=== PATIENT | female | born 1950 | race Caucasian/White ===

== ENCOUNTER 2021-03-30 15:03 | Observation (INO) | payer MEDICARE ==
[~2021-03-30] VITALS: Ht 152.4 cm; Wt 40.1 kg
[2021-03-30 16:01] LABS: BASOPHILS % (AUTO) 1 % (0-10); EOSINOPHILS % (AUTO) 1 % (0-10); HEMATOCRIT 29 % (35-52); HEMOGLOBIN 10.4 g/dL (11.5-16.0); LYMPHOCYTES # (AUTO) 0.8 10^3/uL (1.0-4.0); LYMPHOCYTES % (AUTO) 21 % (12-44); MEAN CORPUSCULAR HEMOGLOBIN 31 pg (25-34); MEAN CORPUSCULAR HGB CONC 35 g/dL (32-36); MEAN CORPUSCULAR VOLUME 88 fL (80-99); MEAN PLATELET VOLUME 10.1 fL (9.0-12.2); MONOCYTES # (AUTO) 0.7 10^3/uL (0.0-1.0); MONOCYTES % (AUTO) 19 % (0-12); NEUTROPHILS # (AUTO) 2.1 10^3/uL (1.8-7.8); NEUTROPHILS % (AUTO) 58 % (42-75); PLATELET COUNT 246 10^3/uL (130-400); WHITE BLOOD COUNT 3.6 10^3/uL (4.3-11.0)
--- NOTE | 2021-03-30 16:01 | ED Neurological Problem ---
General Chief Complaint: General Problems/Pain Stated Complaint: WEAKNESS IN LEGS Nursing Triage Note: PT TO RM 7 BY WC WITH CC OF WEAKNESS IN LEGS THAT STARTED IN JANUARY, PT HAS HX OF MS. PT WAS SUPPOSED TO GET AN MRI TODAY BUT WAS CALLED AND TOLD THAT THE INSURANCE WOULD NOT COVER IT. SISTER WITH PT ALSO STATED THAT SHE NOTICED LT SIDE FACIAL DROOPING YESTERDAY. Source: patient, family Exam Limitations: no limitations History of Present Illness Date Seen by Provider: Mar 30, 2021 Time Seen by Provider: 15:19 Initial Comments The patient to ER by private conveyance from with chief complaint that she is having some left facial droop today that she noticed first when she woke up yesterday greater than 24 hours ago. She has no history of strokes TIAs heart attack stents or peripheral arterial disease. No history of atrial fibrillation and is not on blood thinners. She does have a history of MS for several years used to be followed by Dr. Turner and now followed by Dr. Paris. She been noticing for the past couple weeks some increased weakness and difficulty walking and standing up from a chair bilaterally and brought this up to her doctor who is setting her up for an outpatient MRI. She is not having any other unilateral symptoms. No difficulty swallowing. No difficulty breathing palpitations chest pain shortness of air fevers chills nausea vomiting diarrhea. Allergies and Home Medications Allergies Coded Allergies: No Known Drug Allergies (Unverified , 03/30/21) Patient Home Medication List Home Medication List Reviewed: Yes Review of Systems Review of Systems Constitutional: No chills, No diaphoresis Eyes: Denies Blindness, Denies Blurred Vision Ears, Nose, Mouth, Throat: denies ear pain, denies ear discharge Respiratory: No cough, No short of breath Cardiovascular: No chest pain, No edema Gastrointestinal: No abdominal pain, No constipation, No diarrhea Genitourinary: No discharge, No dysuria All Other Systems Reviewed Negative Unless Noted: Yes Past [place]-Agucot-Dtipji Hx Patient Social History Tobacco Use?: No Smoking Status: Never a Smoker Substance use?: No Alcohol Use?: No Immunizations Up To Date Second COVID19 Vaccination Ziggy: DECEMBER 2020 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 oz. kg; 17.00 BMI Method: General Appearance: WD/WN, no apparent distress HEENT: PERRL/EOMI, TMs normal, pharynx normal Neck: full range of motion, normal inspection Respiratory: no respiratory distress, no accessory muscle use Cardiovascular: normal peripheral pulses, regular rate, rhythm Gastrointestinal: non tender, soft Extremities: non-tender, normal capillary refill Neurologic/Psychiatric: alert, normal mood/affect, oriented x 3 Crainal Nerves: normal hearing, normal speech, PERRL Motor/Sensory: other (Left facial droop with some sparing of the wrinkling of the left forehead) Stroke Onset of Symptoms Date of Onset of Symptoms: Mar 29, 2021 Time of Symptom Onset: 07:00 Symptoms onset unknown: Yes NIH Stroke Scale Assessment Select: Initial Level of Consciousness: 0=Alert (0), Level of Consciousness- Questions: 0=Answers both month/age (0), LOC Commands: 0=Performs both tasks (0), Gaze: Normal (0), Visual Melendrez: 0=No visual loss (0), Facial Movement (Facial Paresis): 1=Minor paralysis (1), Motor Function-Arms Right: 0=No drift (0), Motor Function-Arms Left: 0=No drift (0), Motor Function-Legs Right: 0=No drift (0), Motor Function-Legs Left: 0=No drift (0), Limb Ataxia: 0=Absent (0), Sensory: 0=Normal:no loss (0), Best Language: 0=No aphasia (0), Dysarthria: 0=Normal (0), Extinction & Inattention: 0=No abnormality (0), Total: 1 Stroke Thrombolytic Exclusion Age 18 or Over: Yes Acute intenal hemorrhage: No History of CVA: No Uncontrolled Coagulation Defec: No Intracranial Hemorrhage: No Severe Hypertension: No GI or Bleed: No Subarachnoid Hemorrhage: No Intracranial Neoplasm/Aneurysm: No Oral Anticoagulants: No Surgery or Trauma: No Puncture of Non-Compressible V: No Recent CPR: No Diabetic Hemorrhagic Retinopat: No Organ Biopsy: No Recent Obstetric Delivery: No Glucose: No Significant Hepatic Dysfunctio: No NIH Stoke Scale >22: No Bacterial Endocarditis: No Pericarditis: No Improving Symptoms: No Platelets: No TPA Contraindication: No IV - TPa Received IV - TPa Procedure Performed?: No (Well outside the window for time.) Progress/Results/Core Measures Results/Orders Lab Results Laboratory Tests Test 03/30/21 15:15 Range/Units White Blood Count 3.6 L 4.3-11.0 10^3/uL Red Blood Count 3.35 L 3.80-5.11 10^6/uL Hemoglobin 10.4 L 11.5-16.0 g/dL Hematocrit 29 L 35-52 % Mean Corpuscular Volume 88 80-99 fL Mean Corpuscular Hemoglobin 31 25-34 pg Mean Corpuscular Hemoglobin Concent 35 32-36 g/dL Red Cell Distribution Width 14.2 10.0-14.5 % Platelet Count 246 130-400 10^3/uL Mean Platelet Volume 10.1 9.0-12.2 fL Immature Granulocyte % (Auto) 1 % Neutrophils (%) (Auto) 58 42-75 % Lymphocytes (%) (Auto) 21 12-44 % Monocytes (%) (Auto) 19 H 0-12 % Eosinophils (%) (Auto) 1 0-10 % Basophils (%) (Auto) 1 0-10 % Neutrophils # (Auto) 2.1 1.8-7.8 10^3/uL Lymphocytes # (Auto) 0.8 L 1.0-4.0 10^3/uL Monocytes # (Auto) 0.7 0.0-1.0 10^3/uL Eosinophils # (Auto) 0.0 0.0-0.3 10^3/uL Basophils # (Auto) 0.0 0.0-0.1 10^3/uL Immature Granulocyte # (Auto) 0.0 0.0-0.1 10^3/uL Neutrophils % (Manual) 65 % Lymphocytes % (Manual) 17 % Monocytes % (Manual) 15 % Band Neutrophils 1 % Reactive Lymphocytes 2 % Blood Morphology Comment NORMAL Sodium Level 138 135-145 MMOL/L Potassium Level 2.6 L 3.6-5.0 MMOL/L Chloride Level 98 98-107 MMOL/L Carbon Dioxide Level 25 21-32 MMOL/L Anion Gap 15 H 5-14 MMOL/L Blood Urea Nitrogen 16 7-18 MG/DL Creatinine 0.61 0.60-1.30 MG/DL Estimat Glomerular Filtration Rate > 60 BUN/Creatinine Ratio 26 Glucose Level 131 H 70-105 MG/DL Calcium Level 8.7 8.5-10.1 MG/DL Corrected Calcium 9.3 8.5-10.1 MG/DL Total Bilirubin 2.0 H 0.1-1.0 MG/DL Aspartate Amino Transf (AST/SGOT) 26 5-34 U/L Alanine Aminotransferase (ALT/SGPT) 17 0-55 U/L Alkaline Phosphatase 90 40-136 U/L C-Reactive Protein High Sensitivity 4.33 H 0.00-0.50 MG/DL Total Protein 6.4 6.4-8.2 GM/DL Albumin 3.3 3.2-4.5 GM/DL My Orders Orders - LISA CANALES Cbc With Automated Diff (03/30/21 15:52) Comprehensive Metabolic Panel (03/30/21 15:52) Hs C Reactive Protein (03/30/21 15:52) Ua Culture If Indicated (03/30/21 15:52) Ekg Tracing (03/30/21:52) Continuous Ekg Monitoring (03/30/21 15:52) Chest 1 View, Ap/Pa Only (03/30/21 15:52) Nothing By Mouth (03/30/21 Dinner) Ed Iv/Invasive Line Start (03/30/21 15:52) Ed Iv/Invasive Line Start (03/30/21 15:52) Vital Signs Stroke Patient Q15M (03/30/21 15:52) Ct Head Wo-R/O Stroke (03/30/21 15:52) Intake & Output 06,14,22 (03/30/21 15:52) Monitor-Rhythm Ecg Trace Only (03/30/21 15:52) Dysphagia Screening Tool (03/30/21 15:52) Manual Differential (03/30/21 15:15) Vital Signs/I&O 03/30/21 15:07 Temp 36.5 Pulse 109 Resp 18 B/P (MAP) 112/81 (91) Pulse Ox 100 O2 Delivery Room Air Blood Pressure Mean: 91 Progress Progress Note #1: Time: 16:07 Progress Note Fairly complicated patient by history and exam. Her symptoms could all be explained by a palsy of cranial nerve VII as she is not having any sensory deficits in her face and they are all limited to just cranial nerve VII. She is having weakness in her lower extremities and her upper extremities which is symmetric bilaterally 4 out of 5 motor strength all 4 extremities and this could be explained by progressive MS. Discussed the case with radiology and we deci ded that since the symptoms been going on in her face for greater than a day a CT will help rule out a bleed and may also show some early signs of ischemic stroke if it is present. An MRI of the brain could miss a bleed so would not be our first modality. After a CT is obtained we will consider consulting neurology. Progress Note #2: Time: 17:31 Progress Note Reviewed the imaging and history with Dr. Caldwell, neurologist at [facility] and he agrees that this is a very complicated case and would be difficult to make a claim 1 way or the other without an MRI of the brain with contrast. Plan to observe the patient upstairs and get the MRI in the morning. Initial ECG Impression Date: Mar 30, 2021 Initial ECG Impression Time: 10:50 Initial ECG Rate: 105 Initial ECG Rhythm: S.Tach Initial ECG Intervals: Normal Initial ECG Impression: Normal, Nonspecific Changes Comment Sinus tachycardia without clinically relevant ST changes. Diagnostic Imaging Diagonstic Imaging: CT Plain Films/CT/US/NM/MRI: head Comments [facility], [place] NAME: IRENA ENAMORADO [facility] REC#: [id number] PT STATUS: REG ER : 1950 PHYSICIAN: LISA CANALES MD ADMIT DATE: 03/30/21/ER Signed Date of Exam:03/30/21 CT HEAD WO-R/O STROKE PROCEDURE: CT head wo r/o stroke. TECHNIQUE: Multiple contiguous axial images were obtained through the brain without the use of intravenous contrast. Auto Exposure Controls were utilized during the CT exam to meet ALARA standards for radiation dose reduction. INDICATION: Neurologic deficit. Weakness in legs that started in January. History of multiple sclerosis. Left-sided facial drooping. COMPARISON: MRI brain 10/21/2008. FINDINGS: Moderate generalized parenchymal volume loss is similar to the prior exam. Mild scattered low-attenuation changes in the deep white matter correspond to T2 hyperintensities on the [address] evidence of acute territorial infarction. No intracranial hemorrhage, mass effect, hydrocephalus or extra-axial fluid collections. Osseous structures are intact. Mild mucosal thickening in the floor of the left maxillary sinus is partially visualized. Mastoids are unremarkable. IMPRESSION: No acute intracranial CT findings. Chronic findings as above. Dictated by: Dictated on workstation # [id number] Dict: 03/30/21 1624 Trans: 03/30/211 [facility] [id number] Interpreted by: BENITA COX MD Electronically signed by: BENITA COX MD 03/30/211640 Reviewed: Reviewed by Me Diagonstic Imaging: Xray Plain Films/CT/US/NM/MRI: chest Comments [facility] [place] NAME: IRENA ENAMORADO [facility] REC#: [id number] PT STATUS: REG ER : 1950 PHYSICIAN: LISA CANALES MD ADMIT DATE: 03/30/21/ER Signed Date of Exam:03/30/21 CHEST 1 VIEW, AP/PA ONLY INDICATION: Facial droop, weakness. COMPARISON: None. FINDINGS: Single view of the chest demonstrates slight cardiac enlargement. Lungs are clear. There is no pneumothorax. Osseous structures are stable. IMPRESSION: Slight cardiac enlargement without pulmonary edema or acute infiltrate. Dictated by: Dictated on workstation # [id number] Dict: 03/30/21 1630 Trans: 03/30/21 1643 [facility] [id number] Interpreted by: EUN PRESSLEY Electronically signed by: EUN PRESSLEY 03/30/211642 Reviewed: Reviewed by Me Departure Communication (Admissions) Time/Spoke to Admitting Phy: 17:35 Discussed the case with Dr. Paris who is okay with observing the patient on [facility] for an MRI in the morning. Impression Primary Impression: CVA (cerebral vascular accident) Qualified Codes: I63.9 - Cerebral infarction, unspecified Additional Impression: Multiple sclerosis exacerbation Disposition: ADMITTED INPATIENT Condition: Stable Admissions Decision to Admit Reason: Admit from ER (General) Decision to Admit/Date: Mar 30, 2021 Time/Decision to Admit Time: 17:30 Departure-Patient Inst. Referrals: SAMIR TURNER MD (Family) Primary Care Physician LISA CANALES Mar 30, 2021 16:01
[2021-03-30 16:06] LABS: ALBUMIN 3.3 GM/DL (3.2-4.5); CHLORIDE 98 MMOL/L (98-107); POTASSIUM 2.6 MMOL/L (3.6-5.0); SODIUM 138 MMOL/L (135-145)
[2021-03-30 16:07] LABS: CALCIUM 8.7 MG/DL (8.5-10.1)
[2021-03-30 16:08] LABS: GLUCOSE 131 MG/DL (70-105)
[2021-03-30 16:09] LABS: TOTAL PROTEIN 6.4 GM/DL (6.4-8.2)
[2021-03-30 16:10] LABS: CARBON DIOXIDE 25 MMOL/L (21-32)
[2021-03-30 16:12] LABS: ALKALINE PHOSPHATASE 90 U/L (40-136); BAND NEUTROPHILS 1 %; CREATININE SERUM 0.61 MG/DL (0.60-1.30); GFR ESTIMATED > 60; LYMPHOCYTES % (MANUAL) 17 %; MONOCYTES % (MANUAL) 15 %; NEUTROPHILS % (MANUAL) 65 %; RBC MORPH NORMAL; REACTIVE LYMPHOCYTES 2 %
[2021-03-30 16:13] LABS: BUN/CREATININE RATIO 26
[2021-03-30 16:15] LABS: ALANINE AMINOTRANSFERASE 17 U/L (0-55)
--- NOTE | 2021-03-30 16:33 | Diagnostic Imaging Report ---
INDICATION: Facial droop, weakness. COMPARISON: None. FINDINGS: Single view of the chest demonstrates slight cardiac enlargement. Lungs are clear. There is no pneumothorax. Osseous structures are stable. IMPRESSION: Slight cardiac enlargement without pulmonary edema or acute infiltrate. Dictated by: Dictated on workstation # [id number]
--- NOTE | 2021-03-30 16:34 | Diagnostic Imaging Report ---
PROCEDURE: CT head wo r/o stroke. TECHNIQUE: Multiple contiguous axial images were obtained through the brain without the use of intravenous contrast. Auto Exposure Controls were utilized during the CT exam to meet ALARA standards for radiation dose reduction. INDICATION: Neurologic deficit. Weakness in legs that started in January. History of multiple sclerosis. Left-sided facial drooping. COMPARISON: MRI brain 10/21/2008. FINDINGS: Moderate generalized parenchymal volume loss is similar to the prior exam. Mild scattered low-attenuation changes in the deep white matter correspond to T2 hyperintensities on the [address] evidence of acute territorial infarction. No intracranial hemorrhage, mass effect, hydrocephalus or extra-axial fluid collections. Osseous structures are intact. Mild mucosal thickening in the floor of the left maxillary sinus is partially visualized. Mastoids are unremarkable. IMPRESSION: No acute intracranial CT findings. Chronic findings as above. Dictated by: Dictated on workstation # [id number]
[2021-03-30 19:56] VITALS: BP 128/86
[2021-03-30] MEDS ORDERED: ONDANSETRON 4 MG/2 ML (SDV) Z0FRAN IV PRN (20:45)
[2021-03-30] MEDS ORDERED: CATHETER FLUSH 10 ML SYR IV PRN (20:45)
[2021-03-30] MEDS ORDERED: ACETAMINOPHEN 325 MG TABLET PO PRN ×2 (20:45)
[2021-03-30] MEDS: DOCUSATE SODIUM 100 MG (COLACE) CAP PO SCH (21:11)
[2021-03-30] MEDS: CATHETER FLUSH 10 ML SYR IV SCH (21:19)
[2021-03-31] VITALS (7 sets, daily range): BP systolic 110–126; BP diastolic 72–81
[2021-03-31] MEDS: CATHETER FLUSH 10 ML SYR IV SCH ×3 (05:38→20:17)
[2021-03-31 06:16] LABS: BASOPHILS % (AUTO) 1 % (0-10); EOSINOPHILS % (AUTO) 2 % (0-10); HEMATOCRIT 25 % (35-52); HEMOGLOBIN 8.7 g/dL (11.5-16.0); LYMPHOCYTES # (AUTO) 0.5 10^3/uL (1.0-4.0); LYMPHOCYTES % (AUTO) 21 % (12-44); MEAN CORPUSCULAR HEMOGLOBIN 31 pg (25-34); MEAN CORPUSCULAR HGB CONC 36 g/dL (32-36); MEAN CORPUSCULAR VOLUME 88 fL (80-99); MEAN PLATELET VOLUME 9.9 fL (9.0-12.2); MONOCYTES # (AUTO) 0.5 10^3/uL (0.0-1.0); MONOCYTES % (AUTO) 20 % (0-12); NEUTROPHILS # (AUTO) 1.4 10^3/uL (1.8-7.8); NEUTROPHILS % (AUTO) 56 % (42-75); PLATELET COUNT 195 10^3/uL (130-400); WHITE BLOOD COUNT 2.5 10^3/uL (4.3-11.0)
[2021-03-31 06:28] LABS: CHLORIDE 100 MMOL/L (98-107); SODIUM 138 MMOL/L (135-145)
[2021-03-31 06:30] LABS: GLUCOSE 94 MG/DL (70-105)
[2021-03-31 06:32] LABS: CARBON DIOXIDE 27 MMOL/L (21-32)
[2021-03-31 06:34] LABS: CREATININE SERUM 0.56 MG/DL (0.60-1.30); GFR ESTIMATED > 60
[2021-03-31 06:35] LABS: BUN/CREATININE RATIO 20
[2021-03-31 06:49] LABS: POTASSIUM 2.3 MMOL/L (3.6-5.0)
[2021-03-31] MEDS ORDERED: KCL 20 MEQ TAB (K-DUR) PO ONE ×2 (07:00→16:00)
--- NOTE | 2021-03-31 08:32 | History & Physical ---
History of Present Illness History of Present Illness Reason for visit/HPI PT IS A 70 Y/O FEMALE WHO IS KNOWN TO ME FROM CLINIC. IRENA HAS HX OF MULTIPLE SCLEROSIS WITH WEAKNESS THAT HAS BEEN PROGRESSIVE FOR THE PAST 1-2 MONTHS. SHE HAS ALSO SUSTAINED A FAIRLY SIGNIFICANT WEIGHT LOSS IN THE PAST 6 MONTHS. PT REPORTS A DECREASED APPETITE, AND DECREASED INTAKE BECAUSE "NOTHING SOUNDS GOOD" SHE WAS SEEN IN THE OFFICE ON 03/25/2021 WITH WEAKNESS OF HER LOWER LEGS BELOW THE KNEES WITH CONCERN FOR AN MULTIPLE SCLEROSIS FLAIR, SHE DID NOT HAVE THE FACIAL DROOP AT THAT TIME. SHE PRESENTED TO THE ER ON 03/30/2021 IN THE LATE AFTERNOON WITH COMPLAINT OF LEFT FACIAL DROOP/WEAKNESS FOR 03/28 - PRESENT. SHE DENIES ANY EXTREMITY PARESIS, OR WORSE WEAKNESS THAN SHE HAS BEEN EXPERIENCING FOR THE PAST FEW MONTHS. SHE DENIES VISION LOSS/CHANGES, FACIAL PAIN, DYSPHAGIA. Date of Admission Mar 30, 2021 at 17:45 Date Seen by a Provider: Mar 31, 2021 Time Seen by a Provider: 08:30 I consulted on this patient on 03/31/21 08:32 Attending Physician Elsie Paris MD Admitting Physician ELSIE PARIS MD Consult Allergies and Home Medications Allergies Coded Allergies: No Known Drug Allergies (Unverified , 03/30/21) Home Medications Ibuprofen 200 Mg Tablet, 400-600 MG PO Q8H PRN for PAIN-MILD (1-4), (Reported) Last Action: Reviewed Patient Home Medication List Home Medication List Reviewed: Yes Past Xslodky-Lvvlhz-Btfsfp Hx Patient Social History Marrital Status: single Number of Children: 0 Number of living children: 0 Living Status: LIVES ALONE Employed/Student: retired Tobacco Use?: No Smoking Status: Never a Smoker Smokeless Tobacco Frequency: Never a User Use of E-Cig and/or Vaping dev: No Use of E-Cig and/or Vaping Sheldon: Never a User Substance use?: No Alcohol Use?: No Pt feels they are or have been: No Immunizations Up To Date First/Initial COVID19 Vaccinat: 11/20/20 Second COVID19 Vaccination Ziggy: 12/22/20 Tetanus Booster (TDap): Unknown Hepatitis A: No Hepatitis B: No Current Status status: No status: No Advance Directives: No Communicates: Verbally Primary Language: Afghan Preferred Spoken Language: Afghan Is interpretation needed?: No Implanted or Applied Medical D: None Past Medical History Currently Using CPAP: No Currently Using BIPAP: No Sexually Transmitted Disease: No HIV/AIDS: No Arthritis, Rheumatoid Arthritis Diabetes, Non-Insulin dep (DIET CONTROLLED) Are Your Blood Sugars Over 250: No Loss of Vision: Denies Anxiety Family Medical History Reviewed and Corrections made Hypertension Review of Systems Constitutional: No chills, No fever; malaise, weakness, weight loss EENTM: hearing loss (RIGHT ACUTE), ear pain (RIGHT), mouth pain (RIGHT NEAR JAW); No hoarseness, No throat pain Respiratory: No cough, No dyspnea on exertion, No short of breath Cardiovascular: No chest pain, No palpitations Gastrointestinal: No abdominal pain, No constipation, No diarrhea, No dysphagia; loss of appetite; No nausea, No vomiting Genitourinary: no symptoms reported Musculoskeletal: joint pain, joint swelling, muscle weakness Skin: no symptoms reported Psychiatric/Neurological: Denies Anxiety; Depressed, Pre-Existing Deficit, Weakness, Other (LEFT FACIAL WEAKNESS) All Other Systems Reviewed Negative Unless Noted: Yes Physical Exam Vital Signs Vital Signs - First Documented 03/30/21 15:07 Temp 36.5 Pulse 109 Resp 18 B/P (MAP) 112/81 (91) Pulse Ox 100 O2 Delivery Room Air Capillary Refill : Less Than 3 Seconds Height, Weight, BMI Height: '" Weight: lbs. oz. kg; 17.26 BMI Method: General Appearance: No Apparent Distress, Chronically ill, Thin Eyes: Bilateral Eye Normal Inspection, Bilateral Eye PERRL, Bilateral Eye EOMI HEENT: PERRL/EOMI, Pharynx Normal, Other (LEFT FACIAL DROOP - LOWER CORNER LEFT MOUTH NON-MOBILE) Neck: Full Range of Motion, Normal Inspection, Non Tender, Supple Respiratory: Chest Non Tender, Lungs Clear, Normal Breath Sounds, No Accessory Muscle Use, No Respiratory Distress Cardiovascular: Regular Rate, Rhythm, No Edema, No Gallop, No JVD, No Murmur, Normal Peripheral Pulses Gastrointestinal: Normal Bowel Sounds, No Organomegaly, No Pulsatile Mass, Non Tender, Soft Rectal: Deferred Back: Normal Inspection, No CVA Tenderness, No Vertebral Tenderness Extremity: Normal Capillary Refill, Normal Range of Motion, Non Tender, No Calf Tenderness Neurologic/Psychiatric: Alert, Oriented x3, Normal Mood/Affect, Other (LEFT FACIAL DROOP SENSATION INTACT RIGHT TO LEFT ON FACE, STRENGTH GENERALIZED WEAKNESS, NO LATERALIZING WEAKNESS NOTED ON PHYSICAL EXAM) Skin: Normal Color, Warm/Dry Lymphatic: No Adenopathy Assessment/Plan Assessment and Plan MULTIPLE SCLEROSIS FLAIR POSSIBLE TIA POSSIBLE BELLS PALSY WEIGHT LOSS ANOREXIA GENERALIZED MUSCLE WEAKNESS HYPOKALEMIA LEUKOPENIA MULTIPLE SCLEROSIS FLAIR VERSUS POSSIBLE TIA VERSUS POSSIBLE BELLS PALSY - DUE TO HER HX OF MS, WILL NEED TO PERFORM AN MRI TODAY- - MONITOR SYMPTOMS, WAIT ON INITIATION OF STEROIDS, SHE WAS GIVEN OUTPT STEROIDS WITH NO IMPROVEMENT IN HER GENERALIZED WEAKNESS - PT WAS TAKEN OFF OF PLAQUENIL AND METHOTREXATE BY HER BRUSH CLEANER ABOUT 1-2 MONTHS AGO DUE TO HER WEIGHT LOSS. - CT SCAN OF HEAD NEGATIVE HYPOKALEMIA - REPLACE WITH ORAL POTASSIUM AND WILL ADD POTASSIUM TO HER IV FLUIDS WEIGHT LOSS WITH GENERALIZED ANOREXIA - PT CAN EAT, CHOOSES NOT TO DUE TO FOOD NOT TASTING "GOOD" - WILL HAVE DIETARY COME TO EVAL FOR POSSIBLE ASSISTANCE, WILL START HIGH PROTEIN ENSURE WELL - DISCUSSED APPETITE STIMULANTS WITH PT AND AVAILABLE FRIENDS/FAMILY IN THE ROOM, WILL CONSIDER MARINOL GENERALIZED MUSCLE WEAKNESS - PHYSICAL THERAPY EVAL AND TREAT - CONSIDER INPT REHAB IF BEDS AVAILABLE. Admission Diagnosis MULTIPLE SCLEROSIS FLAIR POSSIBLE TIA POSSIBLE BELLS PALSY WEIGHT LOSS ANOREXIA GENERALIZED MUSCLE WEAKNESS HYPOKALEMIA LEUKOPENIA Admission Status: Observation Clinical Quality Measures Stroke: Date of last known well: Mar 29, 2021 Time of last known well: 07:00 Symptoms onset unknown: Yes ELSIE PARIS MD Mar 31, 2021 08:32
[2021-03-31] MEDS ORDERED: POTASSIUM CHLORIDE INJ 20 MEQ in NS IV 1000 ML 1,000 ML IV SCH (08:45)
[2021-03-31] MEDS ORDERED: DOCUSATE SODIUM 100 MG (COLACE) CAP PO SCH (09:00)
[2021-03-31] MEDS ORDERED: ASPIRIN 300 MG (5 GR) SUPPOSITORY PR SCH (09:00)
[2021-03-31] MEDS: DOCUSATE SODIUM 100 MG (COLACE) CAP PO SCH ×2 (09:00→20:17)
[2021-03-31] MEDS ORDERED: IBUP-30 PO (09:08)
[2021-03-31] MEDS: ENOXAPARIN 30 MG/0.3 ML (LOVENOX) SYR SC SCH (09:14)
[2021-03-31] MEDS: ASPIRIN E.C. 325 MG (ECOTRIN) TABLET PO SCH (09:14)
[2021-03-31] MEDS ORDERED: GADOBUTROL 7.5 MMOL/7.5 ML (GADAVIST) VIAL IV ONE (09:15)
--- NOTE | 2021-03-31 11:48 | Diagnostic Imaging Report ---
Indication: Stroke versus multiple sclerosis Correlated with the brain MRI performed 10/21/2008 and correlated with the head and correlated with head CT 03/30/2021. Multiplanar multisequence pre and post IV contrast-enhanced MRI brain performed. In addition to routine brain sequences thin slices through the IACs are undertaken. FINDINGS: There are no foci of abnormal diffusion restriction. There were no findings of an acute or subacute ischemic infarct. There is a mild cerebral cortical atrophy having increased from the previous. The ventricular calibers are congruent with the degree of sulcation. There is progressive periventricular and predominantly left frontal lobe subcortical white matter disease. The largest subcortical left frontal lobe white matter lesion today measures 9 mm, previously 5 mm. The lesion showed no mass effect and showed no enhancement and theY showed no abnormal diffusion restriction. There were no findings to suggest MRI evidence for active demyelinating plaque. No mass or mass effect. No suspicious enhancement following contrast was found. The cerebellopontine angles appeared unremarkable. The 7th and 8th cranial nerve complexes nonacute opacification of bilateral mastoid air cells unchanged. Brainstem and posterior fossa nonacute. There is normal enhancement of the major dural venous sinuses. There is some mild membrane thickening and a small left maxillary sinus mucus retention cyst. Paranasal sinus disease is substantially improved in the interim. 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 There is membrane disease involving scattered ethmoid air cell similar. IMPRESSION: Increased cerebral cortical atrophic volume loss, progressive nonspecific subcortical and periventricular white matter disease. However no abnormal enhancement or diffusion restriction. No findings to suggest active demyelinating plaque. There are no findings of an acute or subacute infarct and there is no hemorrhage or evidence of mass. Improvements in maxillary paranasal sinus disease. Dictated by: Dictated on workstation # [id number]
[2021-03-31] MEDS: NS W/KCL 20 MEQ/L 1,000 ML IV SCH ×2 (11:58→21:36)
--- NOTE | 2021-03-31 12:05 | Physical Therapy Evaluation ---
PT Evaluation-General Medical Diagnosis Admission Date Mar 30, 2021 at 17:45 Medical Diagnosis: CVA vs MS flare Onset Date: Mar 30, 2021 Therapy Diagnosis Therapy Diagnosis: generalized weakness/debility Precautions Precautions/Isolations: Standard Precautions Referral Physician: Wellington Reason for Referral: Evaluation/Treatment Medical History Additional Medical History MS Current History ER secondary to bilateral LE weakness and facial droop L Reviewed History: Yes Social History Home: Apartment Current Living Status: Alone Entry Into Home: Level Entry Prior Prior Level of Function SCALE: Activities may be completed with or without assistive devices. 9-Rskanujnwe-jzfnhax completes the activity by him/herself with no assistance from a helper. 5-Set-up or Clean-up Assistance-helper sets up or cleans up; patient completes activity. [place] assists only prior to or following the activity. 4-Supervision or Touching Assistance-helper provides verbal cues and/or touching/steadying and/or contact guard assistance as patient completes activity. Assistance may be provided throughout the activity or intermittently. 3-Partial/Moderate Assistance-helper does LESS THAN HALF the effort. [place] lifts, holds or supports trunk or limbs, but provides less than half the effort. 2-Substantial/Maximal Assistance-helper does MORE THAN HALF the effort. [place] lifts or holds trunk or limbs and provides more than half the effort. 3-Ifssztzfs-yyzkpk does ALL the effort. Patient does none of the effort to complete the activity. Or, the assistance of 2 or more helpers is required for the patient to complete the activity. If activity was not attempted, code reason: 7-Patient Refused. 9-Not Applicable-not attempted and the patient did not perform the activity before the current illness, exacerbation or injury. 10-Not Attempted due to Environmental Limitations-(lack of equipment, weather restraints, etc.). 88-Not Attempted due to Medical Conditions or Safety Concerns. Bed Mobility: 6 Transfers (B,C,W/C): 6 Gait: 6 Stairs: 9 Wheelchair Mobility: 9 Indoor Mobility (Ambulation): Independent Stairs: Not Applicalbe Prior Devices Use: None furniture walks in apartment and has attempt to use a cane unsuccessfully PT Evaluation-Current Subjective Patient agrees to PT. Objective Patient Orientation: Normal For Age ROM/Strength ROM Lower Extremities bilateral LE WFL Strength Lower Extremities 3/5 bilateral LE all planes equally Integumentary/Posture Bowel Incontinence: No Bladder Incontinence: No Posture WFL Neuromuscular (Tone, Coordination, Reflexes) grossly intact Sensory Vision: Functional Hearing: Functional Sensation Right Lower Extremit: Impaired Sensation Left Lower Extremity: Impaired Transfers Roll Left to Right (QC): 6 Sit to Lying (QC): 6 Lying to Sitting/Side of Bed(Q: 6 Sit to Stand (QC): 4 (SBA) Chair/Bwk-vx-Tokkz Xfer(QC): 4 (SBA) Gait Does the Patient Walk?: Yes Mode of Locomotion: Walk Anticipated Mode of Locomotion: Walk Walk 10 feet (QC): 4 (SBA) Walk 50 ft with 2 Turns(QC): 4 (SBA) Walk 150 ft (QC): 4 (SBA) Distance: 200' Gait Assistive Device: FWW Comments/Gait Description safe and functional with no deviation with use of FWW Balance Sitting Static: Normal Sitting Dynamic: Normal Standing Static: Normal Standing Dynamic: Normal Assessment/Needs 70 y.o. female, will be seen short term by skilled PT to address functional strength and mobility to improve current LOF. Patient has had progressive weakness since January 2021. Patient does have FWW at home but does not use. Rehab Potential: Fair PT Short Term Goals Short Term Goals Time Frame: Apr 03, 2021 Roll Left & Right: 6 Sit to lyin Lying to sitting on side of be: 6 Sit to stand: 6 Chair/xlv-kk-luomc transfer: 6 Toilet transfer: 6 Walk 10 feet: 6 Walk 50 feet with two turns: 6 Walk 150 feet: 6 PT Plan Problem List Problem List: Functional Strength Treatment/Plan Treatment Plan: Continue Plan of Care Treatment Plan: Education, Functional Activity Prince, Functional Strength, Gait, Safety, Therapeutic Exercise, Transfers Treatment Duration: Apr 03, 2021 Frequency: 4 times per week Estimated Hrs Per Day: .25 hour per day Patient and/or Family Agrees t: Yes Time/GCodes Time In: 1105 Time Out: 1120 Total Billed Treatment Time: 15 Total Billed Treatment 1 visit EVModC 15 min SHELDON GORE PT Mar 31, 2021 12:05
--- NOTE | 2021-03-31 12:25 | Occupational Therapy Eval ---
OT Evaluation-General/PLF Medical Diagnosis Admission Date Mar 30, 2021 at 17:45 Medical Diagnosis: CVA vs MS flare Onset Date: Mar 30, 2021 Therapy Diagnosis Therapy Diagnosis: Weakness, Decreased ADL skills Precautions Precautions/Isolations: Standard Precautions Weight Bear Status Weight Bearing Restriction: Weight Bearing/Tolerated Referral Physician: Wellington Referral Reason: Activity Tolerance, Self Care, Evaluation/Treatment, Strengthening/ROM Medical History Additional Medical History MS, Reported weakness since January. Current History Pt. states that she woke up with left sided facial droop. She states that she has left sided weakness in LE as well. With prompting, she states that this weakness, (LE), has been present since January, and she has had difficulty standing from the toilet. Reviewed History: Yes Social History Home: Apartment Current Living Status: Alone Entry Into Home: Level Entry ADL-Prior Level of Function SCALE: Activities may be completed with or without assistive devices. 9-Zehlwrjtml-itgxser completes the activity by him/herself with no assistance from a helper. 5-Set-up or Clean-up Assistance-helper sets up or cleans up; patient completes activity. [place] assists only prior to or following the activity. 4-Supervision or Touching Assistance-helper provides verbal cues and/or touching/steadying and/or contact guard assistance as patient completes activity. Assistance may be provided throughout the activity or intermittently. 3-Partial/Moderate Assistance-helper does LESS THAN HALF the effort. [place] lifts, holds or supports trunk or limbs, but provides less than half the effort. 2-Substantial/Maximal Assistance-helper does MORE THAN HALF the effort. [place] lifts or holds trunk or limbs and provides more than half the effort. 8-Niarhgsmz-igddzc does ALL the effort. Patient does none of the effort to compl ete the activity. Or, the assistance of 2 or more helpers is required for the patient to complete the activity. If activity was not attempted, code reason: 7-Patient Refused. 9-Not Applicable-not attempted and the patient did not perform the activity before the current illness, exacerbation or injury. 10-Not Attempted due to Environmental Limitations-(lack of equipment, weather restraints, etc.). 88-Not Attempted due to Medical Conditions or Safety Concerns. ADL PLOF Comments Pt. lives in [place]. She is able to bathe/dress herself, but her sisters have been coming over to assist with cleaning/cooking. Pt. states that she uses a walker sometimes in the home, but also furniture walks. She reports right shoulder weakness, but states this is from the MRI machine and doesn't state pain level. She states that it is manageable. Pt. 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 Self Care: Independent Functional Cognition: Independent DME/Equipment: Shower DME/Equipment Comments Pt. has a walker but no shower chair. Drive Self: Yes OT Current Status Subjective Pt. reports pain in right shoulder but no pain level. Does not request pain medication. Mental Status/Objective Patient Orientation: Person, Place, Time, Situation Current Glasses/Contacts: Yes Hand Dominance: Right Upper Extremity ROM WFL Upper Extremity Coordination Seems intact Upper Extremity Sensation No deficits noted Upper Extremity Strength Approximately 3/5 overall. Pt. has overall weakness and decreased endurance. ADL-Treatment On/Off Footwear (QC): 6 Other Treatments Pt. transfers supine-sit with SBA. She is able to doff/don slipper socks with Mod I. She stands at bed side holding onto OT's hands with min assist, with no LOB or reported dizziness. Pt. stands approximately 3-4 minutes, and takes steps toward HOB. Transfers back to bed with no difficulty. Pt. states that she has had little appetite for approximately 8 months. She reports no issues with incontinence. Pt. indicates she is having no loss of vision or visual issues. She states that she has had weakness since about January, and receives assistance from her sisters with basic housework. She is concerned about "wearing them out." OT educates pt. on OT goals and further testing to work on overall strengthening while in hospital setting. Pt. verbalizes understanding. Will also speak with social work about possible need for home health services depending on needs at discharge. All needs met back in bed and PT coming in at that time. Education OT Patient Education: Correct positioning, Modified ADL techniques, Progress toward Goal/Update tx plan, Purpose of tx/functional activities, Reviewed precautions, Rehab process, Transfer techniques Teaching Recipient: Patient, Family Teaching Methods: Demonstration, Discussion Response to Teaching: Verbalize Understanding, Return Demonstration OT Rotary Operator Goals Rotary Operator Goals Time Frame: Apr 14, 2021 Eating (QC): 6 Oral Hygiene (QC): 6 Toileting Hygiene (QC): 6 Shower/Bathe Self (QC): 5 Upper Body Dressing (QC): 6 Lower Body Dressing (QC): 5 On/Off Footwear (QC): 5 Additional Goals: 1-Demonstrate ADL Tasks, 2-Verbalize Understanding, 3- ImproveStrength/Prince 1=Demonstrate adherence to instructed precautions during ADL tasks. 2=Patient will verbalize/demonstrate understanding of assistive devices/modifications for ADL. 3=Patient will improve strength/tolerance for activity to enable patient to perform ADL's. OT Education/Plan Problem List/Assessment Assessment: Decreased Activ Tolerance, Impaired I ADL's, Impaired Self-Care Skills Discharge Recommendations Plan/Recommendations: Continue POC Therapy Discharge Recommendati: Post Acute OT Treatment Plan/Plan of Care Treatment,Training & Education: Yes Patient would benefit from OT for education, treatment and training to promote independence in ADL's, mobility, safety and/or upper extremity function for ADL's. Plan of Care: ADL Retraining, Functional Mobility, UE Funct Exercise/Act Treatment Duration: Apr 14, 2021 Frequency: 5 times per week Estimated Hrs Per Day: .25 hour per day Agreement: Yes Rehab Potential: Good Time/GCodes Start Time: 10:55 Stop Time: 11:10 Total Time Billed (hr/min): 15 Billed Treatment Time 1, NIA VELASQUEZ OT Mar 31, 2021 12:25
[2021-03-31 15:11] LABS: BUN/CREATININE RATIO 19; CALCIUM 7.9 MG/DL (8.5-10.1); CARBON DIOXIDE 25 MMOL/L (21-32); CHLORIDE 103 MMOL/L (98-107); CREATININE SERUM 0.53 MG/DL (0.60-1.30); GFR ESTIMATED > 60; GLUCOSE 105 MG/DL (70-105); POTASSIUM 3.4 MMOL/L (3.6-5.0); SODIUM 136 MMOL/L (135-145)
[2021-04-01 03:57] VITALS: BP 124/74
[2021-04-01] MEDS: CATHETER FLUSH 10 ML SYR IV SCH ×2 (04:08→12:53)
[2021-04-01 04:59] LABS: HEMATOCRIT 25 % (35-52); HEMOGLOBIN 8.5 g/dL (11.5-16.0); MEAN CORPUSCULAR HEMOGLOBIN 31 pg (25-34); MEAN CORPUSCULAR HGB CONC 34 g/dL (32-36); MEAN CORPUSCULAR VOLUME 91 fL (80-99); MEAN PLATELET VOLUME 9.3 fL (9.0-12.2); PLATELET COUNT 174 10^3/uL (130-400); WHITE BLOOD COUNT 2.4 10^3/uL (4.3-11.0)
[2021-04-01 05:08] LABS: CHLORIDE 109 MMOL/L (98-107); POTASSIUM 3.9 MMOL/L (3.6-5.0); SODIUM 139 MMOL/L (135-145)
[2021-04-01 05:09] LABS: CALCIUM 7.8 MG/DL (8.5-10.1); GLUCOSE 89 MG/DL (70-105)
[2021-04-01 05:11] LABS: CARBON DIOXIDE 21 MMOL/L (21-32)
[2021-04-01 05:13] LABS: CREATININE SERUM 0.53 MG/DL (0.60-1.30); GFR ESTIMATED > 60
[2021-04-01 05:14] LABS: BUN/CREATININE RATIO 17
[2021-04-01] MEDS: ENOXAPARIN 30 MG/0.3 ML (LOVENOX) SYR SC SCH (08:06)
[2021-04-01] MEDS: ASPIRIN E.C. 325 MG (ECOTRIN) TABLET PO SCH (08:06)
[2021-04-01] MEDS: DOCUSATE SODIUM 100 MG (COLACE) CAP PO SCH (08:07)
[2021-04-01 08:57] VITALS: BP 125/82
--- NOTE | 2021-04-01 09:28 | Discharge Summary ---
Diagnosis/Chief Complaint Date of Admission Mar 30, 2021 at 17:45 Date of Discharge Discharge Date: Apr 01, 2021 Discharge Time: 11:00 Admission Diagnosis Admission Diagnosis MULTIPLE SCLEROSIS FLAIR POSSIBLE TIA POSSIBLE BELLS PALSY WEIGHT LOSS ANOREXIA GENERALIZED MUSCLE WEAKNESS HYPOKALEMIA LEUKOPENIA Discharge Diagnosis MULTIPLE SCLEROSIS FLAIR POSSIBLE TIA POSSIBLE BELLS PALSY WEIGHT LOSS ANOREXIA GENERALIZED MUSCLE WEAKNESS HYPOKALEMIA LEUKOPENIA Reason Hospital Visit PT IS A 70 Y/O FEMALE WHO IS KNOWN TO ME FROM CLINIC. IRENA HAS HX OF MULTIPLE SCLEROSIS WITH WEAKNESS THAT HAS BEEN PROGRESSIVE FOR THE PAST 1-2 MONTHS. SHE HAS ALSO SUSTAINED A FAIRLY SIGNIFICANT WEIGHT LOSS IN THE PAST 6 MONTHS. PT REPORTS A DECREASED APPETITE, AND DECREASED INTAKE BECAUSE "NOTHING SOUNDS GOOD" SHE WAS SEEN IN THE OFFICE ON 03/25/2021 WITH WEAKNESS OF HER LOWER LEGS BELOW THE KNEES WITH CONCERN FOR AN MULTIPLE SCLEROSIS FLAIR, SHE DID NOT HAVE THE FACIAL DROOP AT THAT TIME. SHE PRESENTED TO THE ER ON 03/30/2021 IN THE LATE AFTERNOON WITH COMPLAINT OF LEFT FACIAL DROOP/WEAKNESS FOR 03/28 - PRESENT. SHE DENIES ANY EXTREMITY PARESIS, OR WORSE WEAKNESS THAN SHE HAS BEEN EXPERIENCING FOR THE PAST FEW MONTHS. SHE DENIES VISION LOSS/CHANGES, FACIAL PAIN, DYSPHAGIA. Discharge Summary Discharge Physical Examination Allergies: Coded Allergies: No Known Drug Allergies (Unverified , 03/30/21) Vitals & I&Os Vital Signs Date Time Temp Pulse Resp B/P (MAP) Pulse Ox O2 Delivery O2 Flow Rate FiO2 04/01/21 08:57 36.5 99 24 125/82 (96) 99 Room Air General Appearance: Alert, Oriented X3, Cooperative, No Acute Distress HEENT: Atraumatic, PERRLA, Mucous Memb Moist/[place] Respiratory: Clear to Auscultation, Normal Air Movement Cardiovascular: Regular Rate Abdominal: Normal Bowel Sounds, Soft, No Tenderness Extremities: No Clubbing, No Cyanosis Skin: No Rashes, No Breakdown Neuro: Normal Speech, Other (IMPROVED PALSY OF LEFT TRIGEMINAL NERVE, BUT STILL WITH SOME PARESIS OF LEFT LOWER FACE) Psych/Mental Status: Mental Status NL, Mood NL Hospital Course MULTIPLE SCLEROSIS FLAIR POSSIBLE TIA POSSIBLE BELLS PALSY WEIGHT LOSS ANOREXIA GENERALIZED MUSCLE WEAKNESS HYPOKALEMIA LEUKOPENIA MULTIPLE SCLEROSIS FLAIR VERSUS POSSIBLE TIA VERSUS POSSIBLE BELLS PALSY - DUE TO HER HX OF MS, WILL NEED TO PERFORM AN MRI TODAY- - MONITOR SYMPTOMS, WAIT ON INITIATION OF STEROIDS, SHE WAS GIVEN OUTPT STEROIDS WITH NO IMPROVEMENT IN HER GENERALIZED WEAKNESS - PT WAS TAKEN OFF OF PLAQUENIL AND METHOTREXATE BY HER STATION CAPTAIN ABOUT 1-2 MONTHS AGO DUE TO HER WEIGHT LOSS. - CT SCAN OF HEAD NEGATIVE HYPOKALEMIA - REPLACED WITH ORAL POTASSIUM AND IV POTASSIUM WEIGHT LOSS WITH GENERALIZED ANOREXIA - PT CAN EAT, CHOOSES NOT TO DUE TO FOOD NOT TASTING "GOOD" - WILL HAVE DIETARY COME TO EVAL FOR POSSIBLE ASSISTANCE, WILL START HIGH PROTEIN ENSURE WELL - DISCUSSED APPETITE STIMULANTS WITH PT AND AVAILABLE FRIENDS/FAMILY IN THE ROOM, WILL CONSIDER [place] GENERALIZED MUSCLE WEAKNESS - PHYSICAL THERAPY EVAL AND TREAT - CONSIDER INPT REHAB IF BEDS AVAILABLE. DC TO HOME, IRF EVAL AND WILL ADMIT TO IRF OUTPATIENT IF POSSIBLE FROM HOME Pending Labs Laboratory Tests 04/01/21 04:47: White Blood Count 2.4, Red Blood Count 2.75, Hemoglobin 8.5, Hematocrit 25, Mean Corpuscular Volume 91, Mean Corpuscular Hemoglobin 31, Mean Corpuscular Hemoglobin Concent 34, Red Cell Distribution Width 14.8, Platelet Count 174, Mean Platelet Volume 9.3, Sodium Level 139, Potassium Level 3.9, Chloride Level 109, Carbon Dioxide Level 21, Anion Gap 9, Blood Urea Nitrogen 9, Creatinine 0.53, Estimat Glomerular Filtration Rate > 60, BUN/Creatinine Ratio 17, Glucose Level 89, Calcium Level 7.8 Discharge Condition at discharge IMPROVING Instructions to patient/family Please see electronic discharge instructions given to patient. Discharge Medications Reviewed and agree with Discharge Medication list on patient's Discharge Instruction sheet Clinical Quality Measures Stroke: Date of last known well: Mar 29, 2021 Time of last known well: 07:00 Symptoms onset unknown: Yes ELSIE VENTURA MD Apr 01, 2021 09:28
[2021-04-01] MEDS ORDERED: predniSONE 20 MG TAB PO ONE (09:30)
[2021-04-01] MEDS ORDERED: DRON10CA5 PO (09:31)
[2021-04-01] MEDS ORDERED: PRD20T PO (09:32)
[2021-04-01] MEDS ORDERED: FAMO-119 PO (09:33)
--- NOTE | 2021-04-01 09:35 | D/C HH Face to Face Order ---
D/C Face to Face Orders Reconcile Patient Problems Problems Reviewed?: Yes Instructions for Patient Via [employer], Patient Instructions/FollowUp: 1 WK FOLLOW UP LORENZO WILSON Physician to follow Patient: LORENZO Discharge Diet for Home: Regular Diet Patient Problems: MULTIPLE SCLEROSIS FLAIR POSSIBLE TIA POSSIBLE BELLS PALSY WEIGHT LOSS ANOREXIA GENERALIZED MUSCLE WEAKNESS HYPOKALEMIA LEUKOPENIA Goals for Patient: IMPROVED STRENGTH AND WEIGHT Patient Data-Allergies,Ht & Wt Patient Allergies: Coded Allergies: No Known Drug Allergies (Unverified , 03/30/21) Home Health Need/Face to Face Date of Face to Face: Apr 01, 2021 Clinical Findings: Generalized weakness and fatigue, Muscle weakness, Shortness of breath, Unsteady gait I have seen Pt frtq-cn-jusl: Yes Discharged To: Home Diagnosis/Conditions: MULTIPLE SCLEROSIS FLAIR POSSIBLE TIA POSSIBLE BELLS PALSY WEIGHT LOSS ANOREXIA GENERALIZED MUSCLE WEAKNESS HYPOKALEMIA LEUKOPENIA Patient is Homebound due to: Nancy fall risk due to instabilty, Muscle weakness Homebound Status Due to the above stated illness, injury or surgical procedure (medical condition or diagnosis) and associated clinical findings, the patient is homebound because of his/her inability to leave home except with aid of a supportive device and/or person AND leaving the home requires a considerable and taxing effort or is medically contraindicated. Pt req the following assistanc: Walker Home Health Nursing Orders Home Health Services Order: Nursing Services, Claims Account Manager-Evaluate & Treat, Physical Therapy-Evaluate & Treat Home Health Infusion Therapy Line Start Date: Mar 30, 2021 Therapy Orders Therapy Orders: PT to assess for OT Therapy Specific Orders: Eval assistive deivces, Provider maintenance therapy Certify Stmt I certify that this patient is under my care and that I, a nurse practitioner or a physician; a judicial assistant working with me, had a face to face encounter that - meets the physician face to face encounter requirements with this patient as dated. ELSIE VENTURA MD Apr 01, 2021 09:35
[2021-04-01] MEDS: DRONABINOL 2.5 MG (MARINOL) CAP PO SCH ×2 (09:52→10:23)
--- NOTE | 2021-04-01 10:41 | Physical Therapy Daily Note ---
PT Daily Note-Current Subjective Patient much improved on this date. Mental Status Patient Orientation: Normal For Age Attachments: IV Transfers SCALE: Activities may be completed with or without assistive devices. 7-Afzavsjaya-ajmfxrl completes the activity by him/herself with no assistance from a helper. 5-Set-up or Clean-up Assistance-helper sets up or cleans up; patient completes activity. [place] assists only prior to or following the activity. 4-Supervision or Touching Assistance-helper provides verbal cues and/or touching/steadying and/or contact guard assistance as patient completes activity. Assistance may be provided throughout the activity or intermittently. 3-Partial/Moderate Assistance-helper does LESS THAN HALF the effort. [place] lifts, holds or supports trunk or limbs, but provides less than half the effort. 2-Substantial/Maximal Assistance-helper does MORE THAN HALF the effort. [place] lifts or holds trunk or limbs and provides more than half the effort. 6-Ocrnozbwl-xmrngs does ALL the effort. Patient does none of the effort to complete the activity. Or, the assistance of 2 or more helpers is required for the patient to complete the activity. If activity was not attempted, code reason: 7-Patient Refused. 9-Not Applicable-not attempted and the patient did not perform the activity before the current illness, exacerbation or injury. 10-Not Attempted due to Environmental Limitations-(lack of equipment, weather restraints, etc.). 88-Not Attempted due to Medical Conditions or Safety Concerns. Sit to Lying (QC): 6 Lying to Sitting/Side of Bed(Q: 6 Sit to Stand (QC): 6 Gait Training Does the Patient Walk?: Yes Distance: 500' Walk 10 feet (QC): 6 Walk 50 ft with 2 Turns(QC): 6 Walk 150 ft (QC): 6 Gait Assistive Device: FWW safe and functional with no deviation Exercises Supine Ex: Ankle pumps, Quad Set, Heel Slides, Straight leg raise Supine Reps: 10 Assessment Instructed patient to perform exercises PRN and utilize FWW in home upon dismissal. PT Short Term Goals Short Term Goals Time Frame: Apr 03, 2021 Roll Left & Right: 6 Sit to lyin Lying to sitting on side of be: 6 Sit to stand: 6 Chair/zmf-fk-ijmju transfer: 6 Toilet transfer: 6 Walk 10 feet: 6 Walk 50 feet with two turns: 6 Walk 150 feet: 6 PT Plan Treatment/Plan Treatment Plan: Continue Plan of Care Treatment Plan: Education, Functional Activity [place], Functional Strength, Gait, Safety, Therapeutic Exercise, Transfers Treatment Duration: Apr 03, 2021 Frequency: 4 times per week Estimated Hrs Per Day: .25 hour per day Patient and/or Family Agrees t: Yes Time/GCodes Time In: 920 Time Out: 931 Total Billed Treatment Time: 1 Total Billed Treatment 1 visit FA 11 min SHELDON GORE PT Apr 01, 2021 10:41
--- NOTE | 2021-04-01 11:21 | Occupational Ther Daily Note ---
OT Current Status-Daily Note Subjective Pt alert, lying in bed. Pt agrees to therapy. No c/o pain at this time. Mental Status/Objective Patient Orientation: Person, Place, Time Attachments: IV ADL-Treatment Pt agrees to ambulate to bathroom to complete oral care standing at sink. Pt independent with supine to EOB. SBA and assist to manipulate IV pole and tubing to ambulate to bathroom. Pt able to stand and complete oral care with SBA for safety. After session, pt lying in bed with call light/phone in reach. All needs met in room. Family present in room. Therapy Code Descriptions/Definitions Functional [place] Measure: 0=Not Assessed/NA 4=Minimal Assistance 1=Total Assistance 5=Supervision or Setup 2=Maximal Assistance 6=Modified [place] 3=Moderate Assistance 7=Complete IndependenceSCALE: Activities may be completed with or without assistive devices. 6-Jpuzonwlhd-rkedpvi completes the activity by him/herself with no assistance from a helper. 5-Set-up or Clean-up Assistance-helper sets up or cleans up; patient completes activity. [place] assists only prior to or following the activity. 4-Supervision or Touching Assistance-helper provides verbal cues and/or t ouching/steadying and/or contact guard assistance as patient completes activity. Assistance may be provided throughout the activity or intermittently. 3-Partial/Moderate Assistance-helper does LESS THAN HALF the effort. [place] lifts, holds or supports trunk or limbs, but provides less than half the effort. 2-Substantial/Maximal Assistance-helper does MORE THAN HALF the effort. [place] lifts or holds trunk or limbs and provides more than half the effort. 0-Vrkzbikbu-xzhtaz does ALL the effort. Patient does none of the effort to complete the activity. Or, the assistance of 2 or more helpers is required for the patient to complete the activity. If activity was not attempted, code reason: 7-Patient Refused. 9-Not Applicable-not attempted and the patient did not perform the activity before the current illness, exacerbation or injury. 10-Not Attempted due to Environmental Limitations-(lack of equipment, weather restraints, etc.). 88-Not Attempted due to Medical Conditions or Safety Concerns. OT Gut Dropper Goals Gut Dropper Goals Time Frame: Apr 14, 2021 Eating (QC): 6 Oral Hygiene (QC): 6 Toileting Hygiene (QC): 6 Shower/Bathe Self (QC): 5 Upper Body Dressing (QC): 6 Lower Body Dressing (QC): 5 On/Off Footwear (QC): 5 Additional Goals: 1-Demonstrate ADL Tasks, 2-Verbalize Understanding, 3-I mproveStrength/[place] 1=Demonstrate adherence to instructed precautions during ADL tasks. 2=Patient will verbalize/demonstrate understanding of assistive devices/modifications for ADL. 3=Patient will improve strength/tolerance for activity to enable patient to perform ADL's. OT Education/Plan Problem List/Assessment Assessment: Decreased Activ Tolerance Discharge Recommendations Plan/Recommendations: Continue POC Treatment Plan/Plan of Care Patient would benefit from OT for education, treatment and training to promote independence in ADL's, mobility, safety and/or upper extremity function for ADL's. Plan of Care: ADL Retraining, Functional Mobility, UE Funct Exercise/Act Treatment Duration: Apr 14, 2021 Frequency: 5 times per week Estimated Hrs Per Day: .25 hour per day Agreement: Yes Rehab Potential: Good Time/GCodes Start Time: 09:00 Stop Time: 09:15 Total Time Billed (hr/min): 15 Billed Treatment Time 1 v isit-ADL 1 (15 min) CL BRO Apr 01, 2021 11:21
[2021-04-01 12:03] VITALS: BP 133/91
[2021-04-01] MEDS: NS W/KCL 20 MEQ/L 1,000 ML IV SCH (12:53)
[2021-04-01] MEDS ORDERED: MIRT15TA3 PO (12:57)
[2021-04-01 16:13] VITALS: BP 109/71
== END 2021-04-01 19:32 | disposition home or self-care (01) ==
LOC: EDUNIT# 15:03 → ER 15:05 → 4TH 17:45 → UNDOADMOB 17:45 → 4TH 19:56 → UNDODISOB 04-01 16:45
PROVIDERS: ADMIT Family Medicine; ATTEND Family Medicine
DX: G35 Multiple sclerosis (principal); I63.9 Cerebral infarction, unspecified; R29.701 NIHSS score 1; R00.0 Tachycardia, unspecified; E11.9 Type 2 diabetes mellitus without complications; E87.6 Hypokalemia; M06.9 Rheumatoid arthritis, unspecified; D72.819 Decreased white blood cell count, unspecified; R63.4 Abnormal weight loss; R63.0 Anorexia; Z79.1 Long term (current) use of non-steroidal anti-inflammatories (NSAID)
CPT/HCPCS: 36415; 70450; 70553; 71045; 80048; 80053; 82728; 83540; 83550; 83735; 85007; 85025; 85027; 86141; 93005; 93041; G0378

== ENCOUNTER 2021-05-14 12:09 | Day surgery (SDC) | payer MEDICARE ==
[~2021-05-14] VITALS: Ht 152.4 cm; Wt 39.1 kg
[~2021-05-14 12:09] MED LIST: DRON10CA5 PO; FAMO-119 PO; IBUP-30 PO; MIRT15TA3 PO; PRD20T PO
[2021-05-14] MEDS ORDERED: LACTATED RINGERS 1,000 ML IV STA (12:11)
[2021-05-14] MEDS ORDERED: LACTATED RINGERS 1,000 ML IV ONE (12:14)
--- OUTSIDE RECORDS SUMMARY | 2021-05-14 12:14 | XMS REPORT | CCD ---
Author Author Libby Paris Organization Aliyah Paris MD, [facility] Address [address] [place] [address] Phone Care Team Providers Care [employer] Name Role Phone Aliyah Paris PP Unavailable CCM Unavailable Summary Purpose Interface Exchange Insurance Providers Payer name Policy type / Coverage type Covered republican ID Effective Begin Date Effective End Date [employer] Commercial Insurance [id number] 2017 Unknown Family history Sister Diagnosis Age At Onset Hypertension Unknown Diabetes Unknown Mother Diagnosis Age At Onset Hypertension Unknown Cancer Unknown Social History Social History Element Codes Description Effective Dates Employment Unknown 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 [employer] 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/2015 Marital status Unknown Single 05/06/[address]: 495860976 Never smoker 05/06/[address]: 935811300 Never drinks alcohol 2014 Allergies, Adverse Reactions, Alerts Substance Reaction Codes Entered Date Inactivated Date Status * NO KNOWN DRUG ALLERGIES Unknown 11/04/2015 No Inactiv e Date Active Problems Condition Codes Effective Dates Condition Status Essential (primary) hypertension ICD-10: I10 ICD-9: 401.9 05/05/2015 Active Multiple sclerosis ICD-10: G35 ICD-9: 340 04/12/2017 Active Rheumatoid arthritis 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 ICD-10: M05.79 ICD-9: 714.0 02/02/2021 Active Underweight due to inadequate caloric intake ICD-10: R 63.6 ICD-9: 783.22 12/31/2020 Active Vitamin D deficiency ICD-10: E55.9 ICD-9: 268.9 03/25/2021 Active Type 2 diabetes mellitus without complications ICD-10: E11.9 ICD-9: 250.00 05/05/2015 Active Pain in right hand ICD-10: M79.641 ICD-9: 729.5 04/12/2017 Active Diabetes Unknown 05/06/2015 Active Hypertension Unknown 05/06/2015 Active DIABETES TYPE II ICD-9: 250.00 05/05/2015 Active ESSENTIAL HYPERTENSION ICD-9: 401.9 05/05/2015 Active Medications Medication Codes Instructions Start Date Stop Date Status Fill Instructions Vitamin D3 125 mcg (5,000 unit) tablet RxNorm: 680817 1 Tablet(s) Oral every day 01/05/2021 No Stop Date Active Vitamin D2 1,250 mcg (50,000 unit) capsule RxNorm: 9886858 1 Capsule(s) Oral weekly take with vit d 5000 u daily 01/05/2021 02/01/2021 Inactive Ziac 10 mg-6.25 mg tablet RxNorm: 459444 Take 1 tablet by mouth once daily 08/20/2020 03/17/2021 Inactive Vitamin D2 1,250 mcg (50,000 unit) capsule RxNorm: 2610678 1 Capsule(s) Oral weekly 07/08/2020 09/30/2020 Inactive Vitamin D2 1,250 mcg (50,000 unit) capsule RxNorm: 8860738 1 Capsule(s) Oral weekly 07/08/2020 07/07/2020 Inactive methotrexate sodium 2.5 mg tablet RxNorm: 942118 3 Tabl et(s) Oral once a week - Managed by rheumatology 07/02/2020 03/24/2021 Inactive Ziac 10 mg-6.25 mg tablet RxNorm: 347635 TAKE 1 TABLET BY MOUTH ONCE DAILY 12/09/2019 07/05/2020 Inactive Ziac 10 mg-6.25 mg tablet RxNorm: 704584 TAKE 1 TABLET BY MOUTH ONCE DAILY 05/28/2019 12/08/2019 Inactive metformin 500 mg tablet RxNorm: 945834 1/2 Tablet(s) PO BID 019 01/01/2020 Inactive metformin 500 mg tablet RxNorm: 883260 1/2 Tablet(s) PO BID 019 05/05/2019 Inactive methotrexate sodium 2.5 mg tablet RxNorm: 864394 6 Tabl et(s) PO QW -Managed by rheumatology 01/02/2019 07/01/2020 Inactive Ziac 10 mg-6.25 mg tablet RxNorm: 110873 TAKE 1 TABLET BY MOUTH ONCE DAILY 08/29/2018 05/27/2019 Inactive methotrexate sodium 2.5 mg tablet RxNorm: 124886 3 Tablet(s) PO QW 07/11/2018 01/01/2019 Inactive Ziac 10 mg-6.25 mg tablet RxNorm: 627814 TAKE 1 TABLET BY MOUTH ONCE DAILY 06/26/2018 08/28/2018 Inactive metformin 500 mg tablet RxNorm: 127319 TAKE ONE TABLET BY MOUTH TWICE DAILY 04/03/2018 01/03/2019 Inactive Ziac 10 mg-6.25 mg tablet RxNorm: 064944 TAKE ONE TABLET BY JEFF TH ONCE DAILY 01/31/2018 06/25/2018 Inactive metformin 500 mg tablet RxNorm: 417319 TAKE ONE TABLET BY MOUTH TWICE DAILY 10/04/2017 04/02/2018 Inactive Ziac 10 mg-6.25 mg tablet RxNorm: 571259 TAKE ONE TABLET BY JEFF TH ONCE DAILY 08/02/2017 01/30/2018 Inactive diclofenac potassium 50 mg tablet RxNorm: 827346 1 Tabl et(s) PO BID as needed for pain 04/12/2017 05/11/2017 Inactive metformin 500 mg tablet RxNorm: 588055 Tablet(s) TAKE O NE TABLET BY MOUTH TWICE DAILY 04/06/2017 10/02/2017 Inactive Ziac 10 mg-6.25 mg tablet RxNorm: 016853 TAKE ONE TABLET BY JEFF TH ONCE DAILY 04/03/2017 07/31/2017 Inactive multivitamin with iron tablet RxNorm: 1 Tablet(s) PO daily 11/201602/16/2017 Inactive Claritin-D 24 Hour 10 mg-240 mg tablet,extended release RxNo rm: 4874735 1 Tablet(s) PO daily 11/23/2016 11/22/2016 Inactive Claritin-D 24 Hour 10 mg-240 mg tablet,extended release RxNo rm: 0330728 1 Tablet(s) PO daily 11/23/2016 01/01/2019 Inactive Ziac 10 mg-6.25 mg tablet RxNorm: 165633 TAKE ONE TABLET BY JEFF TH ONCE DAILY 10/10/2016 04/02/2017 Inactive metformin 500 mg tablet RxNorm: 315998 TAKE ONE TABLET BY MOUTH TWICE DAILY 10/05/2016 04/02/2017 Inactive Claritin-D 12 Hour 5 mg-120 mg tablet,extended release RxNor m: 4910140 1 Tablet(s) PO BID as needed 09/15/2016 11/22/2016 Inactive Ziac 10 mg-6.25 mg tablet RxNorm: 008324 Tablet(s) 1 Tablet(s) PO daily 04/12/2016 10/08/2016 Inactive metformin 500 mg tablet RxNorm: 902206 1 Tablet(s) PO BID 01/08/2016 10/03/2016 Inactive Ziac 10 mg-6.25 mg tablet RxNorm: 145859 1 Tablet(s) PO daily 10/1204/08/2016 Inactive Ziac 10 mg-6.25 mg tablet RxNorm: 008358 1 Tablet(s) PO daily 07/1510/11/2015 Inactive metformin 500 mg tablet RxNorm: 707962 1 Tablet(s) PO BID 04/14/2015 01/07/2016 Inactive metformin 500 mg tablet RxNorm: 548815 1 Tablet(s) PO BID 04/14/2015 04/13/2015 Inactive Ziac 10 mg-6.25 mg tablet RxNorm: 668970 1 Tablet(s) PO daily 04/1407/12/2015 Inactive aspirin 81 mg tablet RxNorm: 391765 1 Tablet(s) PO daily 05/06/2015 Active Ziac 10 mg-6.25 mg tablet RxNorm: 613803 1 Tablet(s) PO daily 04/1404/13/2015 Inactive Claritin-D 12 Hour 5 mg-120 mg tablet,extended release RxNor m: 3388150 1 Tablet(s) PO BID 09/15/2016 09/14/2016 Inactive Plaquenil 200 mg tablet RxNorm: 765458 1 Tablet(s) PO daily 021 03/24/2021 Inactive Naprosyn 500 mg tablet RxNorm: 871552 1 Tablet(s) PO BID 02/02/2021 0 02/01/2021 Inactive zeuzsbmp-wrenshfare-ia glycn-C oral RxNorm: oral 07/04/2019 07/03/2019 Inactive folic acid 1 mg tablet RxNorm: 658900 1 Tablet(s) PO daily 03/25/20 21 03/24/2021 Inactive methotrexate sodium 2.5 mg tablet RxNorm: 405377 6 Tablet(s) PO QW 07/11/2018 07/10/2018 Inactive Medication Administered No Medication Administered data Immunizations Vaccine Codes Date Status Covid-19 CVX: 12/21/2020 Covid-19 CVX: 11/18/2020 Results Observation Observation Code Item Item Code Result Date S ervice Location MEAN GLUC 5401158 Calc Mean Gluc 85 mg/dL 01/01/2021 Unkn own A1C HPLC 4051668 Hgb A1c 88852-9 4.6 % 01/01/2021 Unknown LIPID GRP [id number] CHOLESTEROL 148 mg/dL 01/01/2021 Unknown LIPID GRP 5819088 Triglyceride 136 mg/dL 01/01/2021 Unknow n LIPID GRP 0985116 HDL CHOLESTEROL 46 mg/dL 01/01/2021 Unk nown LIPID GRP 5483288 Chol/HDL Ratio 3.22 ratio 01/01/2021 Unk nown LIPID GRP 8883357 NON-HDL Chol 102 mg/dL 01/01/2021 Unknow n LIPID GRP 8126364 LDL Cholesterol 75 mg/dL 01/01/2021 Unk nown FOLIC ACID 4225979 Folate 6.0 ng/mL 01/01/2021 Unknown CHEM 14 1328464 AST 23 U/L 01/01/2021 Unknown CHEM 14 5440617 ALT 14 U/L 01/01/2021 Unknown CHEM 14 1723697 BUN 21 mg/dL 01/01/2021 Unknown CHEM 14 9338683 ALBUMIN 3.8 g/dL 01/01/2021 Unknown CHEM 14 6008384 CHLORIDE 105 mmol/L 01/01/2021 Unknown CHEM 14 5938666 Bili Total 0.5 mg/dL 01/01/2021 Unknown CHEM 14 1578370 ALK PHOS 47 U/L 01/01/2021 Unknown CHEM 14 8424964 SODIUM 137 mmol/L 01/01/2021 Unknown CHEM 14 7860168 CREATININE 0.89 mg/dL 01/01/2021 Unknown CHEM 14 3226798 CALCIUM 9.5 mg/dL 01/01/2021 Unknown CHEM 14 1638090 POTASSIUM 4.2 mmol/L 01/01/2021 Unknown CHEM 14 8345513 TOTAL PROTEIN 7.3 g/dL 01/01/2021 Unkno wn CHEM 14 2629103 GLUCOSE 92 mg/dL 01/01/2021 Unknown CHEM 14 5705037 Bicarbonate 21 mmol/L 01/01/2021 Unknown CHEM 14 0126436 AGAP 11 mmol/L 01/01/2021 Unknown CBC 1381967 WBC 8.3 10e9/L 01/01/2021 Unknown CBC 6507996 RBC 3.66 10e12/L 01/01/2021 Unknow n CBC 4036627 HEMOGLOBIN 11.5 g/dL 01/01/2021 Unknown CBC 6450567 HEMATOCRIT 33.7 % 01/01/2021 Unknown CBC 9629504 MCV 92.1 fL 01/01/2021 Unknown CBC 3163377 MCH 31.4 pg 01/01/2021 Unknown CBC 7120641 MCHC 34.1 g/dL 01/01/2021 Unknown CBC 0736036 PLATELET COUNT 214 10e9/L 01/01/2021 Unk nown CBC 9287070 Mean Plt Volume 10.9 fL 01/01/2021 Unk nown CBC 1637918 Neut Auto 69.8 % 01/01/2021 Unknown CBC 2126754 Lymph Auto 14.5 % 01/01/2021 Unknown CBC 0914349 [place] Auto 11.9 % 01/01/2021 Unknown CBC 4299257 RDW 14.4 % 01/01/2021 Unknown CBC 9677395 Eos Auto 3.0 % 01/01/2021 Unknown CBC 3593259 Baso Auto 0.8 % 01/01/2021 Unknown CBC 6896289 Neutrophil Abs 5.79 10e9/L 01/01/2021 Un known CBC 8960594 Lymphocyte Abs 1.20 10e9/L 01/01/2021 Un known CBC 1255451 Monocyte Abs 0.99 10e9/L 01/01/2021 Unkn own CBC 0685128 Eosinophil Abs 0.25 10e9/L 01/01/2021 Un known CBC 7632085 RDW-SD 46.3 fL 01/01/2021 Unknown CBC 8852682 Basophil Abs 0.07 10e9/L 01/01/2021 Unkn own TSH 9400607 TSH 1.235 uIU/mL 01/01/2021 Unknow n VIT D TOTL 9219416 Vitamin D 25 OH 29.1 ng/mL 01/01/2021 U nknown GFR CALC 1712768 GFR Non Afr Amr >60 mL/min 01/01/2021 Un known GFR CALC 9627375 GFR Afr Amr >60 mL/min 01/01/2021 Unknow n MEAN GLUC 4169970 Calc Mean Gluc 97 mg/dL 07/06/2020 Unkn own A1C HPLC 1928320 Hgb A1c 78789-7 5.0 % 07/06/2020 Unknown FOLIC ACID 1571528 Folate >20.0 ng/mL 07/02/2020 Unknow n VIT D TOTL 2771215 Vitamin D 25 OH 24.3 ng/mL 07/02/2020 U nknown CHEM 14 9182983 AST 16 U/L 07/02/2020 Unknown CHEM 14 3481080 ALT 8 U/L 07/02/2020 Unknown CHEM 14 1643275 BUN 19 mg/dL 07/02/2020 Unknown CHEM 14 0166030 ALBUMIN 4.1 g/dL 07/02/2020 Unknown CHEM 14 0714724 CHLORIDE 108 mmol/L 07/02/2020 Unknown CHEM 14 0127800 Bili Total 0.6 mg/dL 07/02/2020 Unknown CHEM 14 8359834 ALK PHOS 56 U/L 07/02/2020 Unknown CHEM 14 8966729 SODIUM 139 mmol/L 07/02/2020 Unknown CHEM 14 7111590 CREATININE 0.88 mg/dL 07/02/2020 Unknown CHEM 14 3246977 CALCIUM 9.3 mg/dL 07/02/2020 Unknown CHEM 14 4703838 POTASSIUM 4.3 mmol/L 07/02/2020 Unknown CHEM 14 3284115 TOTAL PROTEIN 7.7 g/dL 07/02/2020 Unkno wn CHEM 14 2604553 GLUCOSE 91 mg/dL 07/02/2020 Unknown CHEM 14 2906399 Bicarbonate 23 mmol/L 07/02/2020 Unknown CHEM 14 7127048 AGAP 8 mmol/L 07/02/2020 Unknown GFR CALC 1072811 GFR Non Afr Amr >60 mL/min 07/02/2020 Un known GFR CALC 9591534 GFR Afr Amr >60 mL/min 07/02/2020 Unknow n LIPID GRP 0742814 CHOLESTEROL 148 mg/dL 07/02/2020 Unknown LIPID GRP 6541904 Triglyceride 107 mg/dL 07/02/2020 Unknow n LIPID GRP 2502733 HDL CHOLESTEROL 50 mg/dL 07/02/2020 Unk nown LIPID GRP 9984846 Chol/HDL Ratio 2.96 ratio 07/02/2020 Unk nown LIPID GRP 8594800 NON-HDL Chol 98 mg/dL 07/02/2020 Unknow n LIPID GRP 7416142 LDL Cholesterol 77 mg/dL 07/02/2020 Unk nown CBC 2745547 WBC 8.7 10e9/L 07/02/2020 Unknown CBC 4135782 RBC 3.43 10e12/L 07/02/2020 Unknow n CBC 5429436 HEMOGLOBIN 10.0 g/dL 07/02/2020 Unknown CBC 0105403 HEMATOCRIT 31.2 % 07/02/2020 Unknown CBC 6906768 MCV 91.0 fL 07/02/2020 Unknown CBC 1555839 MCH 29.2 pg 07/02/2020 Unknown CBC 7577503 MCHC 32.1 g/dL 07/02/2020 Unknown CBC 9786268 PLATELET COUNT 222 10e9/L 07/02/2020 Unk nown CBC 1982209 Mean Plt Volume 11.7 fL 07/02/2020 Unk nown CBC 3158773 Neut Auto 78.0 % 07/02/2020 Unknown CBC 0614616 Lymph Auto 11.1 % 07/02/2020 Unknown CBC 8813324 [place] Auto 7.7 % 07/02/2020 Unknown CBC 2780791 Eos Auto 2.3 % 07/02/2020 Unknown CBC 4088639 RDW 14.5 % 07/02/2020 Unknown CBC 6210314 Baso Auto 0.9 % 07/02/2020 Unknown CBC 3400658 Neutrophil Abs 6.79 10e9/L 07/02/2020 Un known CBC 0461166 Lymphocyte Abs 0.97 10e9/L 07/02/2020 Un known CBC 7206406 Monocyte Abs 0.67 10e9/L 07/02/2020 Unkn own CBC 2222135 Eosinophil Abs 0.20 10e9/L 07/02/2020 Un known CBC 3263305 Basophil Abs 0.08 10e9/L 07/02/2020 Unkn own CBC 7188880 RDW-SD 45.6 fL 07/02/2020 Unknown TSH 8852300 TSH 0.955 uIU/mL 07/02/2020 Unknow n A1C HPLC 4986122 Hgb A1c 94113-0 4.5 % 01/02/2020 Unknown LIPID GRP 8559417 CHOLESTEROL 154 mg/dL 01/02/2020 Unknown LIPID GRP 6604531 Triglyceride 146 mg/dL 01/02/2020 Unknow n LIPID GRP 9877318 HDL CHOLESTEROL 55 mg/dL 01/02/2020 Unk nown LIPID GRP 1867358 Chol/HDL Ratio 2.80 ratio 01/02/2020 Unk nown LIPID GRP 5443993 NON-HDL Chol 99 mg/dL 01/02/2020 Unknow n LIPID GRP LDL Cholesterol 70 mg/dL 01/02/2020 Unk nown CBC 2233150 WBC 9.7 10e9/L 01/02/2020 Unknown CBC 0526098 RBC 3.62 10e12/L 01/02/2020 Unknow n CBC 4690490 HEMOGLOBIN 11.2 g/dL 01/02/2020 Unknown CBC 6331907 HEMATOCRIT 33.4 % 01/02/2020 Unknown CBC 6887299 MCV 92.3 fL 01/02/2020 Unknown CBC 8771523 MCH 30.9 pg 01/02/2020 Unknown CBC 7909612 MCHC 33.5 g/dL 01/02/2020 Unknown CBC 6841731 PLATELET COUNT 232 10e9/L 01/02/2020 Unk nown CBC 6876131 Mean Plt Volume 11.0 fL 01/02/2020 Unk nown CBC 1426242 Neut Auto 70.5 % 01/02/2020 Unknown CBC 7749818 Lymph Auto 15.5 % 01/02/2020 Unknown CBC 4701284 [place] Auto 9.3 % 01/02/2020 Unknown CBC 3388505 Eos Auto 4.0 % 01/02/2020 Unknown CBC 7380465 RDW 13.7 % 01/02/2020 Unknown CBC 4902801 Baso Auto 0.7 % 01/02/2020 Unknown CBC 0715099 Neutrophil Abs 6.84 10e9/L 01/02/2020 Un known CBC 5099778 Lymphocyte Abs 1.50 10e9/L 01/02/2020 Un known CBC 0236268 Monocyte Abs 0.90 10e9/L 01/02/2020 Unkn own CBC 6473797 Eosinophil Abs 0.39 10e9/L 01/02/2020 Un known CBC 4358255 Basophil Abs 0.07 10e9/L 01/02/2020 Unkn own CBC 0712043 RDW-SD 44.7 fL 01/02/2020 Unknown CHEM 14 7668351 AST 16 U/L 01/02/2020 Unknown CHEM 14 9986550 ALT 10 U/L 01/02/2020 Unknown CHEM 14 2339563 BUN 18 mg/dL 01/02/2020 Unknown CHEM 14 6220566 ALBUMIN 4.2 g/dL 01/02/2020 Unknown CHEM 14 0955850 CHLORIDE 105 mmol/L 01/02/2020 Unknown CHEM 14 7192552 Bili Total 0.7 mg/dL 01/02/2020 Unknown CHEM 14 9796268 ALK PHOS 41 U/L 01/02/2020 Unknown CHEM 14 5493418 SODIUM 141 mmol/L 01/02/2020 Unknown CHEM 14 4991977 CREATININE 0.86 mg/dL 01/02/2020 Unknown CHEM 14 3711486 CALCIUM 9.5 mg/dL 01/02/2020 Unknown CHEM 14 0150828 POTASSIUM 4.0 mmol/L 01/02/2020 Unknown CHEM 14 2163307 TOTAL PROTEIN 7.3 g/dL 01/02/2020 Unkno wn CHEM 14 3731431 GLUCOSE 90 mg/dL 01/02/2020 Unknown CHEM 14 6901590 Bicarbonate 26 mmol/L 01/02/2020 Unknown CHEM 14 9297746 AGAP 10 mmol/L 01/02/2020 Unknown TSH 7849374 TSH 0.823 uIU/mL 01/02/2020 Unknow n MEAN GLUC 2458793 Calc Mean Gluc 82 mg/dL 01/02/2020 Unkn own GFR CALC 1023583 GFR Non Afr Amr >60 mL/min 01/02/2020 Un known GFR CALC 4946905 GFR Afr Amr >60 mL/min 01/02/2020 Unknow n Metabolic Ord15 NA 142 mEq/L 01/02/2019 Unknown Metabolic Ord15 K 4.0 mEq/L 01/02/2019 Unknown Metabolic Ord15 CL 106 mEq/L 01/02/2019 Unknown Metabolic Ord15 CO2 27.0 mEq/L 01/02/2019 Unknown Metabolic Ord15 GLUCOSE 71 mg/dL 01/02/2019 Unknown Metabolic Ord15 BUN 21 mg/dL 01/02/2019 Unknown Metabolic Ord15 Creat 1.0 mg/dL 01/02/2019 Unknown Metabolic Ord15 B/C Ratio 20.6 Ratio 01/02/2019 Unknown Metabolic Ord15 eGFR 57 ml/min/1.73m2 01/02/2019 Un known Metabolic Ord15 Osmo 285 mOsmo 01/02/2019 Unknown Metabolic Ord15 ANION GAP 13 01/02/2019 Unknown Metabolic Ord15 CALCIUM 9.5 mg/dL 01/02/2019 Unknown %Hba1C Nln239 % HbA1c 54917-3 4.9 % 01/02/2019 Unknown %Hba1C Yfv589 Gluc Ave 94 mg/dL 01/02/2019 Unknown Cbc With Differential Ord2 WBC 6.96 K/ul 11/20/19 19 Unknown Cbc With Differential Ord2 RBC 3.77 M/ul 11/20/19 19 Unknown Cbc With Differential Ord2 HGB 11.8 g/dl 11/20/19 19 Unknown Cbc With Differential Ord2 Neut% 63.0 % 11/20/19 19 Unknown Cbc With Differential Ord2 HCT 35.0 % 11/20/19 19 Unknown Cbc With Differential Ord2 Lymph% 24.6 % 11/20/19 19 Unknown Cbc With Differential Ord2 MCV 92.8 fl 11/20/19 19 Unknown Cbc With Differential Ord2 MCH 31.3 pg 11/20/19 19 Unknown Cbc With Differential Ord2 [place]% 6.9 % 11/20/19 19 Unknown Cbc With Differential Ord2 MCHC 33.7 pg 11/20/19 19 Unknown Cbc With Differential Ord2 Eos% 4.2 % 11/20/19 19 Unknown Cbc With Differential Ord2 Baso% 1.3 % 11/20/19 19 Unknown Cbc With Differential Ord2 PLT 209 K/ul 11/20/19 19 Unknown Cbc With Differential Ord2 Neut ABS# 4.39 K/ul 11/20/19 19 Unknown Cbc With Differential Ord2 RDW 14.1 % 11/20/19 19 Unknown Cbc With Differential Ord2 Lymph ABS# 1.71 K/ul 019 Unknown Cbc With Differential Ord2 [place] ABS# 0.5 K/ul 11/20/19 19 Unknown Cbc With Differential Ord2 Eos ABS# 0.3 K/ul 11/20/19 19 Unknown Cbc With Differential Ord2 Baso ABS# 0.1 K/ul 11/20/19 19 Unknown Hepatic Zeo941 ALBUMIN 4.4 g/dL 11/19/2018 Unknown Hepatic Okl516 TPRO 7.2 g/dL 11/19/2018 Unknown Hepatic Rci360 GLOB 2.8 g/dL 11/19/2018 Unknown Hepatic Fdg019 A/G Ratio 1.6 Ratio 11/19/2018 Unknown Hepatic Oej131 ALK PHOS 36 U/L 11/19/2018 Unknown Hepatic Yvg253 ALT(SGPT) 10 U/L 11/19/2018 Unknown Hepatic Pmy685 AST(SGOT) 14 U/L 11/19/2018 Unknown Hepatic Zpi045 BILI T 0.7 mg/dL 11/19/2018 Unknown Hepatic Vok039 BILI D 0.1 mg/dL 11/19/2018 Unknown Hepatic Nfa087 BILI I 0.6 mg/dL 11/19/2018 Unknown Hepatic Vbc089 ALBUMIN 3.9 g/dL 08/14/2018 Unknown Hepatic Pbr157 TPRO 6.3 g/dL 08/14/2018 Unknown Hepatic Awy654 GLOB 2.5 g/dL 08/14/2018 Unknown Hepatic Kad952 A/G Ratio 1.6 Ratio 08/14/2018 Unknown Hepatic Lfk246 ALK PHOS 36 U/L 08/14/2018 Unknown Hepatic Rsc315 ALT(SGPT) 33 U/L 08/14/2018 Unknown Hepatic Upa520 AST(SGOT) 30 U/L 08/14/2018 Unknown Hepatic Kwn023 BILI T 0.6 mg/dL 08/14/2018 Unknown Hepatic Szz893 BILI D 0.2 mg/dL 08/14/2018 Unknown Hepatic Omv896 BILI I 0.4 mg/dL 08/14/2018 Unknown Cbc With Differential Ord2 WBC 6.04 K/ul 08/14/20 18 Unknown Cbc With Differential Ord2 RBC 3.44 M/ul 08/14/20 18 Unknown Cbc With Differential Ord2 HGB 10.7 g/dl 08/14/20 18 Unknown Cbc With Differential Ord2 HCT 32.6 % 08/14/20 18 Unknown Cbc With Differential Ord2 Neut% 61.6 % 08/14/20 18 Unknown Cbc With Differential Ord2 MCV 94.8 fl 08/14/20 18 Unknown Cbc With Differential Ord2 Lymph% 22.8 % 08/14/20 18 Unknown Cbc With Differential Ord2 [place]% 8.8 % 08/14/20 18 Unknown Cbc With Differential Ord2 MCH 31.1 pg 08/14/20 18 Unknown Cbc With Differential Ord2 MCHC 32.8 pg 08/14/20 18 Unknown Cbc With Differential Ord2 Eos% 5.3 % 08/14/20 18 Unknown Cbc With Differential Ord2 PLT 168 K/ul 08/14/20 18 Unknown Cbc With Differential Ord2 Baso% 1.5 % 08/14/20 18 Unknown Cbc With Differential Ord2 RDW 12.9 % 08/14/20 18 Unknown Cbc With Differential Ord2 Neut ABS# 3.72 K/ul 08/14/20 18 Unknown Cbc With Differential Ord2 Lymph ABS# 1.38 K/ul 018 Unknown Cbc With Differential Ord2 [place] ABS# 0.5 K/ul 08/14/20 18 Unknown Cbc With Differential Ord2 Eos ABS# 0.3 K/ul 08/14/20 18 Unknown Cbc With Differential Ord2 Baso ABS# 0.1 K/ul 08/14/20 18 Unknown Comp Metabolic Nwo766 NA 141 mEq/L 07/13/2018 Unkn own Comp Metabolic Ljj848 K 4.0 mEq/L 07/13/2018 Unkn own Comp Metabolic Gfs666 CL 106 mEq/L 07/13/2018 Unkn own Comp Metabolic Onv197 CO2 26.0 mEq/L 07/13/2018 Unk nown Comp Metabolic Okk923 ANION GAP 13 07/13/2018 Unkn own Comp Metabolic Ydr163 GLUCOSE 91 mg/dL 07/13/2018 Unkn own Comp Metabolic Xdb307 Creat 0.9 mg/dL 07/13/2018 Unkn own Comp Metabolic Mtd186 eGFR 68 ml/min/1.73m2 07/13/20 18 Unknown Comp Metabolic Tfg872 BUN 18 mg/dL 07/13/2018 Unkn own Comp Metabolic Tls468 B/C Ratio 20.5 Ratio 07/13/2018 Unk nown Comp Metabolic Lbx475 CALCIUM 9.2 mg/dL 07/13/2018 Unkn own Comp Metabolic Syp106 ALK PHOS 41 U/L 07/13/2018 Unkn own Comp Metabolic Omo682 AST(SGOT) 16 U/L 07/13/2018 Unkn own Comp Metabolic Ipi884 ALT(SGPT) 12 U/L 07/13/2018 Unkn own Comp Metabolic Qnc107 BILI T 0.4 mg/dL 07/13/2018 Unkn own Comp Metabolic Ikm505 ALBUMIN 4.3 g/dL 07/13/2018 Unkn own Comp Metabolic Dpw826 TPRO 6.7 g/dL 07/13/2018 Unkn own Comp Metabolic Ywe029 GLOB 2.5 g/dL 07/13/2018 Unkn own Comp Metabolic Aof715 A/G Ratio 1.7 Ratio 07/13/2018 Unkn own Comp Metabolic Bua279 Osmo 283 mOsmo 07/13/2018 Unkn own Lipid Ord30 CHOL 167 mg/dL 07/13/2018 Unknown Lipid Ord30 HDL 53.0 mg/dl 07/13/2018 Unknown Lipid Ord30 TRIG 95 mg/dL 07/13/2018 Unknown Lipid Ord30 LDL 95 mg/dL 07/13/2018 Unknown Lipid Ord30 C/HDL 3.2 Ratio 07/13/2018 Unknown %Hba1C Eqp128 % HbA1c 55035-4 5.0 % 07/13/2018 Unknown %Hba1C Kvv131 Gluc Ave 97 mg/dL 07/13/2018 Unknown Tsh Ord6 TSH (3rd IS) 1.87 uIU/mL 07/13/2018 Unkn own Cbc With Differential Ord2 WBC 6.18 K/ul 07/13/20 18 Unknown Cbc With Differential Ord2 RBC 3.37 M/ul 07/13/20 18 Unknown Cbc With Differential Ord2 HGB 10.6 g/dl 07/13/20 18 Unknown Cbc With Differential Ord2 HCT 31.5 % 07/13/20 18 Unknown Cbc With Differential Ord2 Neut% 56.2 % 07/13/20 18 Unknown Cbc With Differential Ord2 MCV 93.5 fl 07/13/20 18 Unknown Cbc With Differential Ord2 Lymph% 26.1 % 07/13/20 18 Unknown Cbc With Differential Ord2 [place]% 9.7 % 07/13/20 18 Unknown Cbc With Differential Ord2 MCH 31.5 pg 07/13/20 18 Unknown Cbc With Differential Ord2 Eos% 6.5 % 07/13/20 18 Unknown Cbc With Differential Ord2 MCHC 33.7 pg 07/13/20 18 Unknown Cbc With Differential Ord2 Baso% 1.5 % 07/13/20 18 Unknown Cbc With Differential Ord2 PLT 176 K/ul 07/13/20 18 Unknown Cbc With Differential Ord2 RDW 14.6 % 07/13/20 18 Unknown Cbc With Differential Ord2 Neut ABS# 3.48 K/ul 07/13/20 18 Unknown Cbc With Differential Ord2 Lymph ABS# 1.61 K/ul 018 Unknown Cbc With Differential Ord2 [place] ABS# 0.6 K/ul 07/13/20 18 Unknown Cbc With Differential Ord2 Eos ABS# 0.4 K/ul 07/13/20 18 Unknown Cbc With Differential Ord2 Baso ABS# 0.1 K/ul 07/13/20 18 Unknown Hepatic Gdo667 ALBUMIN 3.9 g/dL 05/14/2018 Unknown Hepatic Idc937 TPRO 6.6 g/dL 05/14/2018 Unknown Hepatic Wco561 GLOB 2.7 g/dL 05/14/2018 Unknown Hepatic Cga219 A/G Ratio 1.4 Ratio 05/14/2018 Unknown Hepatic Xur857 ALK PHOS 32 U/L 05/14/2018 Unknown Hepatic Yij418 ALT(SGPT) 8 U/L 05/14/2018 Unknown Hepatic Hur806 AST(SGOT) 12 U/L 05/14/2018 Unknown Hepatic Fdp655 BILI T 0.8 mg/dL 05/14/2018 Unknown Hepatic Bos047 BILI D 0.1 mg/dL 05/14/2018 Unknown Hepatic Wyf600 BILI I 0.7 mg/dL 05/14/2018 Unknown Cbc With Differential Ord2 WBC 5.62 K/ul 05/14/20 18 Unknown Cbc With Differential Ord2 RBC 3.35 M/ul 05/14/20 18 Unknown Cbc With Differential Ord2 HGB 10.4 g/dl 05/14/20 18 Unknown Cbc With Differential Ord2 HCT 30.8 % 05/14/20 18 Unknown Cbc With Differential Ord2 Neut% 62.9 % 05/14/20 18 Unknown Cbc With Differential Ord2 Lymph% 27.8 % 05/14/20 18 Unknown Cbc With Differential Ord2 MCV 91.9 fl 05/14/20 18 Unknown Cbc With Differential Ord2 MCH 31.0 pg 05/14/20 18 Unknown Cbc With Differential Ord2 [place]% 4.8 % 05/14/20 18 Unknown Cbc With Differential Ord2 Eos% 3.6 % 05/14/20 18 Unknown Cbc With Differential Ord2 MCHC 33.8 pg 05/14/20 18 Unknown Cbc With Differential Ord2 Baso% 0.9 % 05/14/20 18 Unknown Cbc With Differential Ord2 PLT 170 K/ul 05/14/20 18 Unknown Cbc With Differential Ord2 Neut ABS# 3.54 K/ul 05/14/20 18 Unknown Cbc With Differential Ord2 RDW 13.6 % 05/14/20 18 Unknown Cbc With Differential Ord2 Lymph ABS# 1.56 K/ul 018 Unknown Cbc With Differential Ord2 [place] ABS# 0.3 K/ul 05/14/20 18 Unknown Cbc With Differential Ord2 Eos ABS# 0.2 K/ul 05/14/20 18 Unknown Cbc With Differential Ord2 Baso ABS# 0.1 K/ul 05/14/20 18 Unknown Cbc With Differential Ord2 WBC 6.09 K/ul 11/17/19 18 Unknown Cbc With Differential Ord2 RBC 3.29 M/ul 11/17/19 18 Unknown Cbc With Differential Ord2 HGB 10.6 g/dl 11/17/19 18 Unknown Cbc With Differential Ord2 Neut% 60.0 % 11/17/19 18 Unknown Cbc With Differential Ord2 HCT 31.0 % 11/17/19 18 Unknown Cbc With Differential Ord2 MCV 94.2 fl 11/17/19 18 Unknown Cbc With Differential Ord2 Lymph% 24.5 % 11/17/19 18 Unknown Cbc With Differential Ord2 MCH 32.2 pg 11/17/19 18 Unknown Cbc With Differential Ord2 [place]% 11.2 % 11/17/19 18 Unknown Cbc With Differential Ord2 Eos% 3.6 % 11/17/19 18 Unknown Cbc With Differential Ord2 MCHC 34.2 pg 11/17/19 18 Unknown Cbc With Differential Ord2 PLT 211 K/ul 11/17/19 18 Unknown Cbc With Differential Ord2 Baso% 0.7 % 11/17/19 18 Unknown Cbc With Differential Ord2 Neut ABS# 3.66 K/ul 11/17/19 18 Unknown Cbc With Differential Ord2 RDW 14.0 % 11/17/19 18 Unknown Cbc With Differential Ord2 Lymph ABS# 1.49 K/ul 018 Unknown Cbc With Differential Ord2 [place] ABS# 0.7 K/ul 11/17/19 18 Unknown Cbc With Differential Ord2 Eos ABS# 0.2 K/ul 11/17/19 18 Unknown Cbc With Differential Ord2 Baso ABS# 0.0 K/ul 11/17/19 18 Unknown Hepatic Vvk335 ALBUMIN 4.1 g/dL 11/16/2017 Unknown Hepatic Lry175 TPRO 6.7 g/dL 11/16/2017 Unknown Hepatic Vfk138 GLOB 2.7 g/dL 11/16/2017 Unknown Hepatic Gjs833 A/G Ratio 1.5 Ratio 11/16/2017 Unknown Hepatic Dai196 ALK PHOS 31 U/L 11/16/2017 Unknown Hepatic Cka991 ALT(SGPT) 11 U/L 11/16/2017 Unknown Hepatic Qfw754 AST(SGOT) 15 U/L 11/16/2017 Unknown Hepatic Bgt270 BILI T 0.7 mg/dL 11/16/2017 Unknown Hepatic Amf748 BILI D 0.2 mg/dL 11/16/2017 Unknown Hepatic Aon114 BILI I 0.5 mg/dL 11/16/2017 Unknown Hepatic Tmh257 ALBUMIN 4.0 g/dL 08/17/2017 Unknown Hepatic Mpz627 TPRO 6.6 g/dL 08/17/2017 Unknown Hepatic Jod820 GLOB 2.6 g/dL 08/17/2017 Unknown Hepatic Hfm207 A/G Ratio 1.6 Ratio 08/17/2017 Unknown Hepatic Ung851 ALK PHOS 43 U/L 08/17/2017 Unknown Hepatic Otj089 ALT(SGPT) 10 U/L 08/17/2017 Unknown Hepatic Kez198 AST(SGOT) 15 U/L 08/17/2017 Unknown Hepatic Lan302 BILI T 0.7 mg/dL 08/17/2017 Unknown Hepatic Zgd166 BILI D 0.1 mg/dL 08/17/2017 Unknown Hepatic Dwh408 BILI I 0.6 mg/dL 08/17/2017 Unknown Cbc With Differential Ord2 WBC 6.54 K/ul 08/17/20 17 Unknown Cbc With Differential Ord2 RBC 3.42 M/ul 08/17/20 17 Unknown Cbc With Differential Ord2 HGB 10.9 g/dl 08/17/20 17 Unknown Cbc With Differential Ord2 Neut% 66.5 % 08/17/20 17 Unknown Cbc With Differential Ord2 HCT 31.8 % 08/17/20 17 Unknown Cbc With Differential Ord2 MCV 93.0 fl 08/17/20 17 Unknown Cbc With Differential Ord2 Lymph% 20.2 % 08/17/20 17 Unknown Cbc With Differential Ord2 MCH 31.9 pg 08/17/20 17 Unknown Cbc With Differential Ord2 [place]% 8.6 % 08/17/20 17 Unknown Cbc With Differential Ord2 Eos% 4.1 % 08/17/20 17 Unknown Cbc With Differential Ord2 MCHC 34.3 pg 08/17/20 17 Unknown Cbc With Differential Ord2 Baso% 0.6 % 08/17/20 17 Unknown Cbc With Differential Ord2 PLT 169 K/ul 08/17/20 17 Unknown Cbc With Differential Ord2 RDW 12.9 % 08/17/20 17 Unknown Cbc With Differential Ord2 Neut ABS# 4.35 K/ul 08/17/20 17 Unknown Cbc With Differential Ord2 Lymph ABS# 1.32 K/ul 017 Unknown Cbc With Differential Ord2 [place] ABS# 0.6 K/ul 08/17/20 17 Unknown Cbc With Differential Ord2 Eos ABS# 0.3 K/ul 08/17/20 17 Unknown Cbc With Differential Ord2 Baso ABS# 0.0 K/ul 08/17/20 17 Unknown Ra Factor Cdz802 RA FACTOR 40.2 IU/ml 04/12/2017 Unknown Sed Rate Ord21 ESR 23 mm/hr 04/12/2017 Unknown C-Reactive Protein Qnt Crqnt CRP 0.2 mg/dl 2016 Unknown Tsh Ord6 hTSH II 1.26 uIU/mL 11/23/2016 Unknown Comp Metabolic Lje126 NA 139 mEq/L 11/23/2016 Unkn own Comp Metabolic Ysn130 K 3.8 mEq/L 11/23/2016 Unkn own Comp Metabolic Ipf781 CL 105 mEq/L 11/23/2016 Unkn own Comp Metabolic Tcv952 CO2 27.0 mEq/L 11/23/2016 Unk nown Comp Metabolic Sgo906 ANION GAP 11 11/23/2016 Unkn own Comp Metabolic Sty647 GLUCOSE 110 mg/dL 11/23/2016 Unkn own Comp Metabolic Gfy975 Creat 0.6 mg/dL 11/23/2016 Unkn own Comp Metabolic Onh759 eGFR 98 ml/min/1.73m2 11/24/19 17 Unknown Comp Metabolic Dsb484 BUN 15 mg/dL 11/23/2016 Unkn own Comp Metabolic Xvp560 B/C Ratio 23.4 Ratio 11/23/2016 Unk nown Comp Metabolic Bzg927 CALCIUM 9.5 mg/dL 11/23/2016 Unkn own Comp Metabolic Xaz186 ALK PHOS 42 U/L 11/23/2016 Unkn own Comp Metabolic Rtb247 AST(SGOT) 15 U/L 11/23/2016 Unkn own Comp Metabolic Btq915 ALT(SGPT) 12 U/L 11/23/2016 Unkn own Comp Metabolic Dxc598 BILI T 1.0 mg/dL 11/23/2016 Unkn own Comp Metabolic Lxj502 ALBUMIN 4.2 g/dL 11/23/2016 Unkn own Comp Metabolic Cec053 TPRO 7.1 g/dL 11/23/2016 Unkn own Comp Metabolic Tkv384 GLOB 2.9 g/dL 11/23/2016 Unkn own Comp Metabolic Ytz691 A/G Ratio 1.5 Ratio 11/23/2016 Unkn own Comp Metabolic Gzk761 Osmo 279 mOsmo 11/23/2016 Unkn own Lipid Ord30 CHOL 166 mg/dL 11/23/2016 Unknown Lipid Ord30 HDL 48.0 mg/dl 11/23/2016 Unknown Lipid Ord30 TRIG 142 mg/dL 11/23/2016 Unknown Lipid Ord30 LDL 90 mg/dL 11/23/2016 Unknown Lipid Ord30 C/HDL 3.5 Ratio 11/23/2016 Unknown Cbc With Differential Ord2 WBC 5.78 K/ul 11/24/19 17 Unknown Cbc With Differential Ord2 RBC 3.92 M/ul 11/24/19 17 Unknown Cbc With Differential Ord2 HGB 12.0 g/dl 11/24/19 17 Unknown Cbc With Differential Ord2 Neut% 61.4 % 11/24/19 17 Unknown Cbc With Differential Ord2 HCT 35.3 % 11/24/19 17 Unknown Cbc With Differential Ord2 Lymph% 24.2 % 11/24/19 17 Unknown Cbc With Differential Ord2 MCV 90.1 fl 11/24/19 17 Unknown Cbc With Differential Ord2 [place]% 9.9 % 11/24/19 17 Unknown Cbc With Differential Ord2 MCH 30.6 pg 11/24/19 17 Unknown Cbc With Differential Ord2 MCHC 34.0 pg 11/24/19 17 Unknown Cbc With Differential Ord2 Eos% 3.6 % 11/24/19 17 Unknown Cbc With Differential Ord2 PLT 186 K/ul 11/24/19 17 Unknown Cbc With Differential Ord2 Baso% 0.9 % 11/24/19 17 Unknown Cbc With Differential Ord2 Neut ABS# 3.55 K/ul 11/24/19 17 Unknown Cbc With Differential Ord2 RDW 13.3 % 11/24/19 17 Unknown Cbc With Differential Ord2 Lymph ABS# 1.40 K/ul 017 Unknown Cbc With Differential Ord2 [place] ABS# 0.6 K/ul 11/24/19 17 Unknown Cbc With Differential Ord2 Eos ABS# 0.2 K/ul 11/24/19 17 Unknown Cbc With Differential Ord2 Baso ABS# 0.1 K/ul 11/24/19 17 Unknown Microalbumin Pyb621 MicroAlb <0.7 mg/dL 11/23/2016 Unkno wn %Hba1C Str360 % HbA1c 82650-1 5.4 % 11/23/2016 Unknown %Hba1C Mkh7[address] Gluc [address] 108 mg/dL 11/23/2016 Unknown %Hba1C Zur982 % HbA1c 14419-1 5.4 % 11/04/2015 Unknown %Hba1C Fzm727 Gluc Ave 108 mg/dL 11/04/2015 Unknown Lipid Ord30 CHOL 169 mg/dL 11/04/2015 Unknown Lipid Ord30 HDL 48.0 mg/dl 11/04/2015 Unknown Lipid Ord30 TRIG 160 mg/dL 11/04/2015 Unknown Lipid Ord30 LDL 89 mg/dL 11/04/2015 Unknown Lipid Ord30 C/HDL 3.5 Ratio 11/04/2015 Unknown Microalbumin Bli299 MicroAlb 1.7 mg/dL 11/04/2015 Unknow n Tsh Ord6 hTSH II 1.00 uIU/mL 11/04/2015 Unknown Comp Metabolic Pik266 NA 138 mEq/L 11/04/2015 Unkn own Comp Metabolic Djl183 K 3.7 mEq/L 11/04/2015 Unkn own Comp Metabolic Fsm214 CL 103 mEq/L 11/04/2015 Unkn own Comp Metabolic Tbe679 CO2 28.0 mEq/L 11/04/2015 Unk nown Comp Metabolic Huf440 ANION GAP 11 11/04/2015 Unkn own Comp Metabolic Fpk883 GLUCOSE 96 mg/dL 11/04/2015 Unkn own Comp Metabolic Rfq889 Creat 0.7 mg/dL 11/04/2015 Unkn own Comp Metabolic Unf416 eGFR 92 ml/min/1.73m2 11/04/19 16 Unknown Comp Metabolic Gno411 BUN 15 mg/dL 11/04/2015 Unkn own Comp Metabolic Glx891 B/C Ratio 22.1 Ratio 11/04/2015 Unk nown Comp Metabolic Qhb550 CALCIUM 9.3 mg/dL 11/04/2015 Unkn own Comp Metabolic Lud523 ALK PHOS 43 U/L 11/04/2015 Unkn own Comp Metabolic Lni774 AST(SGOT) 14 U/L 11/04/2015 Unkn own Comp Metabolic Swg751 ALT(SGPT) 9 U/L 11/04/2015 Unkn own Comp Metabolic Spe553 BILI T 0.8 mg/dL 11/04/2015 Unkn own Comp Metabolic Bfm747 ALBUMIN 4.3 g/dL 11/04/2015 Unkn own Comp Metabolic Sfj627 TPRO 7.0 g/dL 11/04/2015 Unkn own Comp Metabolic Xcj120 GLOB 2.7 g/dL 11/04/2015 Unkn own Comp Metabolic Exo814 A/G Ratio 1.6 Ratio 11/04/2015 Unkn own Comp Metabolic Kjw759 Osmo 276 mOsmo 11/04/2015 Unkn own Cbc With Differential Ord2 WBC 6.81 K/ul 11/04/19 16 Unknown Cbc With Differential Ord2 RBC 3.93 M/ul 11/04/19 16 Unknown Cbc With Differential Ord2 HGB 12.1 g/dl 11/04/19 16 Unknown Cbc With Differential Ord2 Neut% 63.4 % 11/04/19 16 Unknown Cbc With Differential Ord2 HCT 35.2 % 11/04/19 16 Unknown Cbc With Differential Ord2 MCV 89.6 fl 11/04/19 16 Unknown Cbc With Differential Ord2 Lymph% 24.7 % 11/04/19 16 Unknown Cbc With Differential Ord2 MCH 30.8 pg 11/04/19 16 Unknown Cbc With Differential Ord2 [place]% 9.0 % 11/04/19 16 Unknown Cbc With Differential Ord2 Eos% 2.5 % 11/04/19 16 Unknown Cbc With Differential Ord2 MCHC 34.4 pg 11/04/19 16 Unknown Cbc With Differential Ord2 PLT 184 K/ul 11/04/19 16 Unknown Cbc With Differential Ord2 Baso% 0.4 % 11/04/19 16 Unknown Cbc With Differential Ord2 Neut ABS# 4.32 K/ul 11/04/19 16 Unknown Cbc With Differential Ord2 RDW 13.2 % 11/04/19 16 Unknown Cbc With Differential Ord2 Lymph ABS# 1.68 K/ul 016 Unknown Cbc With Differential Ord2 [place] ABS# 0.6 K/ul 11/04/19 16 Unknown Cbc With Differential Ord2 Eos ABS# 0.2 K/ul 11/04/19 16 Unknown Cbc With Differential Ord2 Baso ABS# 0.0 K/ul 11/04/19 16 Unknown Cbc With Differential Ord2 New Analyzer Notice Please note new ref ranges starting 09-30-2015 due to implemntation of new five part differential hematolgy analyzer. 11/04/2015 Unknown %Hba1C Gri787 % HbA1c 93808-5 5.2 % 05/06/2015 Unknown %Hba1C Sbo686 Gluc Ave 103 mg/dL 05/06/2015 Unknown Lipid Ord30 CHOL 176 mg/dL 05/06/2015 Unknown Lipid Ord30 HDL 49.0 mg/dl 05/06/2015 Unknown Lipid Ord30 TRIG 162 mg/dL 05/06/2015 Unknown Lipid Ord30 LDL 95 mg/dL 05/06/2015 Unknown Lipid Ord30 C/HDL 3.6 Ratio 05/06/2015 Unknown Cbc With Differential Ord2 WBC 7.0 K/uL 05/06/20 15 Unknown Cbc With Differential Ord2 LYM 2.2 K/uL 05/06/20 15 Unknown Cbc With Differential Ord2 LYM% 31.8 % 05/06/20 15 Unknown Cbc With Differential Ord2 NEUT/GRAN 4.3 K/uL 05/06/20 15 Unknown Cbc With Differential Ord2 NEUT/GRAN % 60.9 % 2014 Unknown Cbc With Differential Ord2 MID 0.5 K/uL 05/06/20 15 Unknown Cbc With Differential Ord2 MID% 7.3 % 05/06/20 15 Unknown Cbc With Differential Ord2 RBC 4.07 M/uL 05/06/20 15 Unknown Cbc With Differential Ord2 HGB 12.1 g/dL 05/06/20 15 Unknown Cbc With Differential Ord2 HCT 36.8 % 05/06/20 15 Unknown Cbc With Differential Ord2 MCV 90 fL 05/06/20 15 Unknown Cbc With Differential Ord2 MCH 30 pg 05/06/20 15 Unknown Cbc With Differential Ord2 MCHC 33 g/dL 05/06/20 15 Unknown Cbc With Differential Ord2 PLT 186 K/uL 05/06/20 15 Unknown Cbc With Differential Ord2 RDW 14.7 % 05/06/20 15 Unknown Comp Metabolic Pwr380 NA 137 mEq/L 05/06/2015 Unkn own Comp Metabolic Ydc927 K 3.6 mEq/L 05/06/2015 Unkn own Comp Metabolic Xnh998 CL 102 mEq/L 05/06/2015 Unkn own Comp Metabolic Qgy618 CO2 28.0 mEq/L 05/06/2015 Unk nown Comp Metabolic Dxr839 ANION GAP 11 05/06/2015 Unkn own Comp Metabolic Tor066 GLUCOSE 97 mg/dL 05/06/2015 Unkn own Comp Metabolic Fgi191 Creat 0.7 mg/dL 05/06/2015 Unkn own Comp Metabolic Pzr656 eGFR 94 ml/min/1.73m2 05/06/20 15 Unknown Comp Metabolic Uex630 BUN 14 mg/dL 05/06/2015 Unkn own Comp Metabolic Vrz794 B/C Ratio 20.9 Ratio 05/06/2015 Unk nown Comp Metabolic Sxr907 CALCIUM 9.5 mg/dL 05/06/2015 Unkn own Comp Metabolic Svk387 ALK PHOS 49 U/L 05/06/2015 Unkn own Comp Metabolic Otu039 AST(SGOT) 15 U/L 05/06/2015 Unkn own Comp Metabolic Hld448 ALT(SGPT) 11 U/L 05/06/2015 Unkn own Comp Metabolic Owb638 BILI T 0.8 mg/dL 05/06/2015 Unkn own Comp Metabolic Ekz238 ALBUMIN 4.4 g/dL 05/06/2015 Unkn own Comp Metabolic Onq687 TPRO 7.4 g/dL 05/06/2015 Unkn own Comp Metabolic Hor020 GLOB 3.0 g/dL 05/06/2015 Unkn own Comp Metabolic Wyg175 A/G Ratio 1.5 Ratio 05/06/2015 Unkn own Comp Metabolic Lur796 Osmo 274 mOsmo 05/06/2015 Unkn own Tsh Ord6 hTSH II 0.99 uIU/mL 05/06/2015 Unknown Procedures No Procedures data Vital Signs Date Vital 03/25/2021 Blood Pressure 1: 106/70 Code: 8480-6 BMI: 17.6 Code: 08945-6 Heart Rate 1: 48 bpm Height: 5' Code: 8302-2 SpO2: 98% Temperature: 35. 7 (C) / 96.3 (F) Weight: 90 lbs Code: 84980-1 02/02/2021 Blood Pressure 1: 118/70 Code: 8480-6 BMI: 19.9 Code: 60179-8 Heart Rate 1: 66 bpm Height: 5' Code: 8302-2 SpO2: 99% Temperature: 36. 7 (C) / 98.0 (F) Weight: 102 lbs 2 oz Code: 39513-8 12/31/2020 Blood Pressure 1: 106/64 Code: 8480-6 BMI: 20.7 Code: 53684-8 Heart Rate 1: 68 bpm Height: 5' Code: 8302-2 Respiratory Rate: 17 bpm SpO2: 97% Temperature: 35.8 (C) / 96.4 (F) Weight: 106 lbs Code: 39527-1 07/02/2020 Blood Pressure 1: 138/78 Code: 8480-6 BMI: 21.7 Code: 28399-9 Heart Rate 1: 52 bpm Height: 5' Code: 8302-2 Respiratory Rate: 16 bpm SpO2: 99% Temperature: 36.6 (C) / 97.8 (F) Weight: 111 lbs Code: 78511-5 01/02/2020 Blood Pressure 1: 120/64 Code: 8480-6 BMI: 21.3 Code: 24069-1 Heart Rate 1: 65 bpm Height: 5' Code: 8302-2 SpO2: 95% Temperature: 36. 4 (C) / 97.5 (F) Weight: 109 lbs Code: 90440-9 07/04/2019 Blood Pressure 1: 112/70 Code: 8480-6 BMI: 22.3 Code: 31180-2 Heart Rate 1: 60 bpm Height: 5' Code: 8302-2 SpO2: 99% Weight: 114 lbs 7 oz Code: 07481-6 01/02/2019 Blood Pressure 1: 122/68 Code: 8480-6 BMI: 22.7 Code: 80724-3 Heart Rate 1: 67 bpm Height: 5' Code: 8302-2 SpO2: 99% Weight: 116 lbs Code: 68859-9 07/11/2018 Blood Pressure 1: 138/66 Code: 8480-6 BMI: 22.5 Code: 70717-4 Heart Rate 1: 97 bpm Height: 5' Code: 8302-2 SpO2: 99% Weight: 115 lbs Code: 37376-9 04/12/2017 Blood Pressure 1: 142/82 Code: 8480-6 BMI: 23.2 Code: 53317-4 Heart Rate 1: 66 bpm Height: 5' Code: 8302-2 SpO2: 97% Weight: 119 lbs Code: 41409-6 11/23/2016 Blood Pressure 1: 130/78 Code: 8480-6 BMI: 24.4 Code: 52693-9 Heart Rate 1: 65 bpm Height: 5' Code: 8302-2 SpO2: 99% Weight: 125 lbs Code: 09510-5 05/04/2016 Blood Pressure 1: 126/78 Code: 8480-6 BMI: 24.6 Code: 03270-1 Heart Rate 1: 59 bpm Height: 5' Code: 8302-2 SpO2: 98% Weight: 126 lbs Code: 45183-0 11/04/2015 Blood Pressure 1: 132/70 Code: 8480-6 BMI: 25.3 Code: 79916-7 Heart Rate 1: 58 bpm Height: 5' Code: 8302-2 Weight: 129 lbs 8 oz Code: 2 9463-7 05/06/2015 Blood Pressure 1: 138/78 Code: 8480-6 BMI: 25.0 Code: 58558-6 Heart Rate 1: 65 bpm Height: 5' Code: 8302-2 SpO2: 97% Weight: 128 lbs Code: 52309-7 Functional Status No Functional Status data Reason For Visit Reason For Visit Effective Dates Notes earache 03/25/2021 arthritis 02/02/2021 hypertension 12/31/2020 hypertension 07/02/2020 hypertension 01/02/2020 hypertension 07/04/2019 hypertension 01/02/2019 medication follow up 07/11/2018 hand pain 04/12/2017 hypertension 11/23/2016 hypertension 05/04/2016 hypertension 11/04/2015 hypertension 05/06/2015 Encounters Encounter Performer Location Codes Date [id number]) [id number] EST. PATIENT, LEVEL IV Diagnosis: Multiple sclerosis[ICD10: G35] Diagnosis: Rheumatoid arthritis involving multiple sites with positive rheumatoid factor[ICD10: M05.79] Diagnosis: Essential (primary) hypertension[ICD10: I10] Diagnosis: Underweight due to inadequate caloric intake[ICD10: R63.6] Diagnosis: Vitamin D deficiency[ICD10: E55.9] Mira collier MD, [facility] CPT-4: 94403 03/25/2021 ([id number]) 79841 EST. PATIENT, LEVEL III Diagnosis: Essential (primary) hypertension[ICD10: I10] Diagnosis: Underweight due to inadequate caloric intake[ICD10: R63.6] Diagnosis: Rheumatoid arthritis involving multiple sites with positive rheumatoid factor[ICD10: M05.79] Aliyah Paris MD, [facility] CPT- 4: 34550 02/02/2021 ([id number]) 41211 EST. PATIENT, LEVEL IV Diagnosis: Essential (primary) hypertension[ICD10: I10] Diagnosis: Multiple sclerosis[ICD10: G35] Diagnosis: Type 2 diabetes mellitus without complications[ICD10: E11.9] Diagnosis: Underweight due to inadequate caloric intake[ICD10: R63.6] Aliyah Paris MD, [facility] CPT-4: 99673 12/31/2020 [id number] 94548 EST. PATIENT, LEVEL IV Diagnosis: Essential (primary) hypertension[ICD10: I10] Diagnosis: Type 2 diabetes mellitus without complications[ICD10: E11.9] Diagnosis: Multiple sclerosis[ICD10: G35] Aliyah Paris MD, [facility] CPT-4: 25519 07/02/2020 [id number] 78881 EST. PATIENT, LEVEL IV Diagnosis: Type 2 diabetes mellitus without complications[ICD10: E11.9] Diagnosis: Essential (primary) hypertension[ICD10: I10] Diagnosis: Multiple sclerosis[ICD10: G35] Aliyah Paris MD [facility] CPT-4: 96036 01/02/2020 ([id number]) 89891 EST. PATIENT, LEVEL IV Diagnosis: Essential (primary) hypertension[ICD10: I10] Diagnosis: Type 2 diabetes mellitus without complications[ICD10: E11.9] Diagnosis: Multiple sclerosis[ICD10: G35] Aliyah Paris MD [facility] CPT-4: 83754 07/04/2019 ([id number]) 90549 EST. PATIENT, LEVEL IV Diagnosis: Essential (primary) hypertension[ICD10: I10] Diagnosis: Type 2 diabetes mellitus without complications[ICD10: E11.9] Diagnosis: Multiple sclerosis[ICD10: G35] Aliyah Paris MD [facility] CPT-4: 47924 01/02/2019 ([id number]) 84798 EST. PATIENT, LEVEL IV Diagnosis: Type 2 diabetes mellitus without complications[ICD10: E11.9] Diagnosis: Essential (primary) hypertension[ICD10: I10] Diagnosis: Multiple sclerosis[ICD10: G35] Aliyah Prais MD [facility] CPT-4: 67032 07/11/2018 [id number] EST. PATIENT, LEVEL IV Diagnosis: Pain in right hand[ICD10: M79.641] Diagnosis: Multiple sclerosis[ICD10: G35] Tiffanie Paris MD [facility] CPT-4: 67925 04/12/2017 ([id number]) 31911 EST. PATIENT, LEVEL IV Diagnosis: Essential (primary) hypertension[ICD10: I10] Diagnosis: Type 2 diabetes mellitus without complications[ICD10: E11.9] Aliyah Paris MD [facility] CPT-4: 43935 11/23/2016 ([id number]) 40816 EST. PATIENT, LEVEL IV Diagnosis: Essential (primary) hypertension[ICD10: I10] Diagnosis: Type 2 diabetes mellitus without complications[ICD10: E11.9] Aliyah Paris MD [facility] CPT-4: 02937 05/04/2016 ([id number]) 38945 EST. PATIENT, LEVEL IV Diagnosis: Type 2 diabetes mellitus without complications[ICD10: E11.9] Diagnosis: Essential (primary) hypertension[ICD10: I10] [facility] CPT-4: 40023 11/04/2015 ([id number]) OFFICE VISIT, NEW - LEVEL 4 Diagnosis: DIABETES TYPE II[ICD9: 250.00] Diagnosis: ESSENTIAL HYPERTENSION[ICD9: 401.9] [facility] CPT-4: 59010 05/06/2015 Plan of Care Planned Activity Notes Codes Status Date Visit Plan: Multiple Sclerosis-Pt concer teri for possible flare up of MS. Reports last flare up was in 1996 with right sided pain and weakness, now with left sided pain/weakness. Pt reports interested in newer treatment for MS. Order sent for MRI of brain. Discussed with patient once completed will send referral to neurologist to manage MS. Discussed safety precautions with ambulating with walker. Rheumatoid Arthritis- continue follow up with rheumatology. 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 Pt reports had steroid injection in January 2021 for bilateral h and pain, but pain has been controlled since. Pt encouraged to continue follow up appt with usability specialist. Hypertension- Pt reports not checking BP at home. BP last few visits controlled. With patient continued dizziness and weightloss, instructed patient and family member to hold Ziac, monitor BP at home and will consider discontinuing Ziac if BP remains lower. Unintentional weight loss- Pt has continued weigh loss with 12lb unintentional loss since January 2021. Pt denies improvement in appetite since DC of methotrexate, folic acid, and plaquinel. Pt reports not liking Boost or Ensure type shakes, but has been eating increased amounts of ice cream. Encouraged adding CIB to ice cream to increase calories and protein. Encouraged to eat high protein snacks. Will check labs today. Vitamin D deficiency- Last labs with Vit D low, pt reports starting the weekly Vitamin D and daily, but did not like the taste so stopped taking it. Discussed importance of Vitamin D in overall heal. Encouraged to take with food to help with taste. 03/25/2021 Patient Education: Patient Medication Summary Completed 03/25/2021 Patient Education: Hypertension Completed 03/25/2021 Care Plan: Vitamin D 25 Oh Pending 03/25/2021 Care Plan: Cbc With Differential Pending 03/25/2021 Care Plan: Comp Metabolic Pending Visit Plan: Arthritis - pt has been on m ultiple different treatments in the past - would like to seek out a new usability specialist - she would like a Referral to Dr. Woodruff in [place] Hypertension - well controlled - continue with current medications, continue with no added salt diet. Pt has been encouraged to exercise daily. The pt has been advised to call the office if there are any acute concerns about change in blood pressure readings at home. Multiple Sclerosis - continue with current management - pt is stable and has not been having any acute issues at this time. 02/02/2021 [facility]ment[phone] [id number] (15 min) Moderate 02/02/2021 Patient Education: Patient Medication Summary Completed 02/02/2021 Patient Education: Hypertension Completed 02/02/2021 Visit Plan: pt refused mammogram she tenisha l consider bone density testing Hypertension - well controlled - continue with current medications, continue with no added salt diet. Pt has been encouraged to exercise daily. The pt has been advised to call the office if there are any acute concerns about change in blood pressure readings at home. Diabetes Mellitus - too well controlled - per recent FSBS reports. I have recommended for the patient to have follow up labs prior to the next office visit. Metformin stopped due to low hgba1c, anticipate this will be low as well due to her weight loss. Advised increase intake of protein and calories. Multiple Sclerosis - continue with current management - pt is stable and has not been having any acute issues at this time. 12/31/2020 Appointment: [phone] [id number] [place] (15 min) Moderate 12/31/2020 Patient Education: Patient Medication Summary Completed 12/31/2020 Patient Education: Hypertension Completed 12/31/2020 Patient Education: Diabetes Completed 12/31/2020 Visit Plan: Hypertension - well controll ed - continue with current medications, continue with no added salt diet. Pt has been encouraged to exercise daily. The pt has been advised to call the office if there are any acute concerns about change in blood pressure readings at home. Diabetes Mellitus - controlled - per recent FSBS reports. I have recommended for the patient to have follow up labs prior to the next office visit. The patient has been instructed to continue with current medications as previously directed, continue with regular FSBS monitoring to assure continued control of diabetes. Pt to call for any acute concerns, complaints, or if the blood glucose readings are starting to become less controlled. Multiple Sclerosis - continue with current management - pt is stable and has not been having any acute issues at this time. 07/02/2020 App[facility]ment: [phone] [id number] (15 min) Moderate 07/02/2020 Patient Education: Patient Medication Summary Completed 07/02/2020 Patient Education: Hypertension Completed 07/02/2020 Patient Education: Diabetes Completed 07/02/2020 Visit Plan: Hypertension - well controll ed - continue with current medications, continue with no added salt diet. Pt has been encouraged to exercise daily. The pt has been advised to call the office if there are any acute concerns about change in blood pressure readings at home. Diabetes Mellitus - too well controlled - per recent FSBS reports. I have recommended for the patient to have follow up labs prior to the next office visit. Pt to stop the metformin due to her weight loss with low hgba1c levels. Multiple Sclerosis - continue with current management - pt is stable and has not been having any acute issues at this time. 01/02/2020 Appointment: [facility] [phone] [id number] (15 min) Moderate 01/02/2020 Patient Education: Patient Medication Summary Completed 01/02/2020 Patient Education: Diabetes Completed 01/02/2020 Patient Education: Hypertension Completed 01/02/2020 Care Plan: Cbc With Differential Pending 01/02/2020 Care Plan: Comp Metabolic Pending Care Plan: Lipid Pending 01/02/2020 Care Plan: %Hba1C LOINC : 32818-4 Pending 01/02/2020 Care Plan: Tsh Pending 01/02/2020 Visit Plan: Hypertension - well controll ed - continue with current medications, continue with no added salt diet. Pt has been encouraged to exercise daily. The pt has been advised to call the office if there are any acute concerns about change in blood pressure readings at home. Diabetes Mellitus - controlled - per recent FSBS reports. I have recommended for the patient to have follow up labs prior to the next office visit. The patient has been instructed to continue with current medications as previously directed, continue with regular FSBS monitoring to assure continued control of diabetes. Pt to call for any acute concerns, complaints, or if the blood glucose readings are starting to become less controlled. Multiple Sclerosis - continue with current management - pt is stable and has not been having any acute issues at this time. 07/04/2019 App[facility]ment: [phone] [id number] (15 min) Moderate 07/04/2019 Patient Education: Patient Medication Summary Completed 07/04/2019 Patient Education: Hypertension Completed 07/04/2019 Patient Education: Diabetes Completed 07/04/2019 Care Plan: Comp Metabolic Pending Care Plan: Cbc With Differential Pending 07/04/2019 [facility] Plan[id number] P[facility] 07/04/2019 Care Plan: Tsh Pending 07/04/2019 Care Plan: Lipid Pending 07/04/2019 Care Plan: Microalbumin Pending 06/18 Visit Plan: Hypertension - well controll ed - continue with current medications, continue with no added salt diet. Pt has been encouraged to exercise daily. The pt has been advised to call the office if there are any acute concerns about change in blood pressure readings at home. Diabetes Mellitus - controlled - per recent FSBS reports. I have recommended for the patient to have hgba1c - if her hgba1c is less than 5.5 - we will decrease metformin to 250mg twice daily. Multiple sclerosis - continue with treatment regimen as directed by specialist - continue monitoring symptoms closely. 01/02/2019 App[facility]ment: [phone] [id number] (15 min) Moderate 01/02/2019 Patient Education: Patient Medication Summary Completed 01/02/2019 Patient Education: Diabetes Completed 01/02/2019 Patient Education: Hypertension Completed 01/02/2019 Visit Plan: Hypertension - well controll ed - continue with current medications, continue with no added salt diet. Pt has been encouraged to exercise daily. The pt has been advised to call the office if there are any acute concerns about change in blood pressure readings at home. Diabetes Mellitus - controlled - per recent FSBS reports. I have recommended for the patient to have follow up labs prior to the next office visit. The patient has been instructed to continue with current medications as previously directed, continue with regular FSBS monitoring to assure continued control of diabetes. Pt to call for any acute concerns, complaints, or if the blood glucose readings are starting to become less controlled. Discussed Mammogram - pt is not interested in mammogram at this time. Multiple sclerosis - continue with treatment regimen as directed by specialist - continue monitoring symptoms closely. 07/11/2018 Appointment: Aliyah Paris WPtel: [phone] [id number] (15 min) Moderate 07/11/2018 Patient Education: Patient Medication Summary Completed 07/11/2018 Patient Education: Diabetes Completed 07/11/2018 Patient Education: Hypertension Completed 07/11/2018 Visit Plan: Arthritis - uncontrolled sym ptoms - will check labs, will treat as indicated - recommend pt to take antiinflammatory as directed for pain control. Use tylenol for break through pain symptoms. MS - stable, refer to neurologist for evaluation/monitoring 04/12/2017 Appointment: [facility]iff[facility] [phone] [id number] [place] (15 min) Moderate 04/12/2017 Patient Education: Patient Medication Summary Completed 04/12/2017 Visit Plan: Hypertension - well controll ed - continue with current medications, continue with no added salt diet. Pt has been encouraged to exercise daily. The pt has been advised to call the office if there are any acute concerns about change in blood pressure readings at home. Diabetes Mellitus - controlled - per recent FSBS reports. I have recommended for the patient to have follow up labs prior to the next office visit. The patient has been instructed to continue with current medications as previously directed, continue with regular FSBS monitoring to assure continued control of diabetes. Pt to call for any acute concerns, complaints, or if the blood glucose readings are starting to become less controlled. 11/23/2016 Appointment: Aliyah Paris WPtel: [phone] [facility] [place] (15 min) Moderate 11/23/2016 Patient Education: Patient Medication Summary Completed 11/23/2016 Patient Education: Hypertension Completed 11/23/2016 Patient Education: Patient Medication Summary Completed 05/04/2016 Patient Education: Hypertension Completed 05/04/2016 Visit Plan: Hypertension - well controll ed - continue with current medications, continue with no added salt diet. Pt has been encouraged to exercise daily. The pt has been advised to call the office if there are any acute concerns about change in blood pressure readings at home. Diabetes Mellitus - controlled - per recent FSBS reports. I have recommended for the patient to have follow up labs prior to the next office visit. The patient has been instructed to continue with current medications as previously directed, continue with regular FSBS monitoring to assure continued control of diabetes. Pt to call for any acute concerns, complaints, or if the blood glucose readings are starting to become less controlled. 11/04/2015 Appointment: [facility] [phone] [id number] (15 min) Moderate 11/04/2015 Patient Education: Patient Medication Summary Completed 11/04/2015 Patient Education: Hypertension Completed 11/04/2015 Visit Plan: Diabetes Mellitus - controll ed - per recent FSBS reports. I have recommended for the patient to have follow up labs prior to the next office visit. The patient has been instructed to continue with current medications as previously directed, continue with regular FSBS monitoring to assure continued control of diabetes. Pt to call for any acute concerns, complaints, or if the blood glucose readings are starting to become less controlled. Hypertension - well controlled - continue with current medications, continue with no added salt diet. Pt has been encouraged to exercise daily. The pt has been advised to call the office if there are any acute concerns about change in blood pressure readings at home. 05/06/2015 Appointment: Ali[facility] [phone] [id number] [place] ([place] New Patient 05/06/2015 Patient Education: Patient Medication Summary Completed 05/06/2015 Patient Education: Hypertension Completed 05/06/2015 Instructions Comment HOLD ZIAC, MONITOR BP AT HOME WILL SEND ORDER FOR MRI OF BRAIN, THEN ONCE COMPLETED WILL SET UP REFERRAL TO NEUROLOGY FOR FURTHER TREATMENT OF MULTIPLE SCLEROSIS CHECK LABS TODAY ADD CARNATION INTANT BREAKFAST TO ICE CREAM, CONTINUE PROTEIN SNACKS THROUGHOUT THE DAY . Multiple Sclerosis-Pt concerned for po ssible flare up of MS. Reports last flare up was in 1996 with right sided pain and weakness, now with left sided pain/weakness. Pt reports interested in newer treatment for MS. Order sent for MRI of brain. Discussed with patient once completed will send referral to neurologist to manage MS. Discussed safety precautions with ambulating with walker. Rheumatoid Arthritis- continue follow up with rheumatology. 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 Pt reports had steroid injection in January 2021 for bilateral hand pain, but pain has been controlled since. Pt encouraged to continue follow up appt with usability specialist. Hypertension- Pt reports not checking BP at home. BP last few visits controlled. With patient continued dizziness and weightloss, instructed patient and family member to hold Ziac, monitor BP at home and will consider discontinuing Ziac if BP remains lower. Unintentional weight loss- Pt has continued weigh loss with 12lb unintentional loss since January 2021. Pt denies improvement in appetite since DC of methotrexate, folic acid, and plaquinel. Pt reports not liking Boost or Ensure type shakes, but has been eating increased amounts of ice cream. Encouraged adding CIB to ice cream to increase calories and protein. Encouraged to eat high protein snacks. Will check labs today. Vitamin D deficiency- Last labs with Vit D low, pt reports starting the weekly Vitamin D and daily, but did not like the taste so stopped taking it. Discussed importance of Vitamin D in overall heal. Encouraged to take with food to help with taste. stop the Naproxen due to possibly causin g stomach upset. pb2 peanut protein powder increase protein by at least 3 more servings of protein a day . Arthritis - pt has been on multiple di fferent treatments in the past - would like to seek out a new usability specialist - she would like a Referral to Dr. Woodruff in [place] Hypertension - well controlled - continue with current medications, continue with no added salt diet. Pt has been encouraged to exercise daily. The pt has been advised to call the office if there are any acute concerns about change in blood pressure readings at home. Multiple Sclerosis - continue with current management - pt is stable and has not been having any acute issues at this time. pb2 peanut protein powder increase protein by at least 3 more servings of protein a day. pt refused mammogram she will consider bone density testing Hypertension - well controlled - continue with current medications, continue with no added salt diet. Pt has been encouraged to exercise daily. The pt has been advised to call the office if there are any acute concerns about change in blood pressure readings at home. Diabetes Mellitus - too well controlled - per recent FSBS reports. I have recommended for the patient to have follow up labs prior to the next office visit. Metformin stopped due to low hgba1c, anticipate this will be low as well due to her weight loss. Advised increase intake of protein and calories. Multiple Sclerosis - continue with current management - pt is stable and has not been having any acute issues at this time. . Hypertension - well controlled - jesus nue with current medications, continue with no added salt diet. Pt has been encouraged to exercise daily. The pt has been advised to call the office if there are any acute concerns about change in blood pressure readings at home. Diabetes Mellitus - controlled - per recent FSBS reports. I have recommended for the patient to have follow up labs prior to the next office visit. The patient has been instructed to continue with current medications as previously directed, continue with regular FSBS monitoring to assure continued control of diabetes. Pt to call for any acute concerns, complaints, or if the blood glucose readings are starting to become less controlled. Multiple Sclerosis - continue with current management - pt is stable and has not been having any acute issues at this time. stop the metformin due to your low blood glucose. Hypertension - well controlled - continue with current medications, continue with no added salt diet. Pt has been encouraged to exercise daily. The pt has been advised to call the office if there are any acute concerns about change in blood pressure readings at home. Diabetes Mellitus - too well controlled - per recent FSBS reports. I have recommended for the patient to have follow up labs prior to the next office visit. Pt to stop the metformin due to her weight loss with low hgba1c levels. Multiple Sclerosis - continue with current management - pt is stable and has not been having any acute issues at this time. . Hypertension - well controlled - jesus nue with current medications, continue with no added salt diet. Pt has been encouraged to exercise daily. The pt has been advised to call the office if there are any acute concerns about change in blood pressure readings at home. Diabetes Mellitus - controlled - per recent FSBS reports. I have recommended for the patient to have follow up labs prior to the next office visit. The patient has been instructed to continue with current medications as previously directed, continue with regular FSBS monitoring to assure continued control of diabetes. Pt to call for any acute concerns, complaints, or if the blood glucose readings are starting to become less controlled. Multiple Sclerosis - continue with current management - pt is stable and has not been having any acute issues at this time. . Hypertension - well controlled - jesus nue with current medications, continue with no added salt diet. Pt has been encouraged to exercise daily. The pt has been advised to call the office if there are any acute concerns about change in blood pressure readings at home. Diabetes Mellitus - controlled - per recent FSBS reports. I have recommended for the patient to have hgba1c - if her hgba1c is less than 5.5 - we will decrease metformin to 250mg twice daily. Multiple sclerosis - continue with treatment regimen as directed by specialist - continue monitoring symptoms closely. Declined Procedure: (G0202) SCREENINGMAMMOGRAPHYDIGITAL; Declined Reason: Patient Declined . Hypertension - well controlled - jesus nue with current medications, continue with no added salt diet. Pt has been encouraged to exercise daily. The pt has been advised to call the office if there are any acute concerns about change in blood pressure readings at home. Diabetes Mellitus - controlled - per recent FSBS reports. I have recommended for the patient to have follow up labs prior to the next office visit. The patient has been instructed to continue with current medications as previously directed, continue with regular FSBS monitoring to assure continued control of diabetes. Pt to call for any acute concerns, complaints, or if the blood glucose readings are starting to become less controlled. Discussed Mammogram - pt is not interested in mammogram at this time. Multiple sclerosis - continue with treatment regimen as directed by specialist - continue monitoring symptoms closely. . Arthritis - uncontrolled symptoms - wi ll check labs, will treat as indicated - recommend pt to take antiinflammatory as directed for pain control. Use tylenol for break through pain symptoms. MS - stable, refer to neurologist for evaluation/monitoring . Hypertension - well controlled - jesus nue with current medications, continue with no added salt diet. Pt has been encouraged to exercise daily. The pt has been advised to call the office if there are any acute concerns about change in blood pressure readings at home. Diabetes Mellitus - controlled - per recent FSBS reports. I have recommended for the patient to have follow up labs prior to the next office visit. The patient has been instructed to continue with current medications as previously directed, continue with regular FSBS monitoring to assure continued control of diabetes. Pt to call for any acute concerns, complaints, or if the blood glucose readings are starting to become less controlled. . Hypertension - well controlled - jesus nue with current medications, continue with no added salt diet. Pt has been encouraged to exercise daily. The pt has been advised to call the office if there are any acute concerns about change in blood pressure readings at home. Diabetes Mellitus - controlled - per recent FSBS reports. I have recommended for the patient to have follow up labs prior to the next office visit. The patient has been instructed to continue with current medications as previously directed, continue with regular FSBS monitoring to assure continued control of diabetes. Pt to call for any acute concerns, complaints, or if the blood glucose readings are starting to become less controlled. . Diabetes Mellitus - controlled - per r ecent FSBS reports. I have recommended for the patient to have follow up labs prior to the next office visit. The patient has been instructed to continue with current medications as previously directed, continue with regular FSBS monitoring to assure continued control of diabetes. Pt to call for any acute concerns, complaints, or if the blood glucose readings are starting to become less controlled. Hypertension - well controlled - continue with current medications, continue with no added salt diet. Pt has been encouraged to exercise daily. The pt has been advised to call the office if there are any acute concerns about change in blood pressure readings at home. Medical Equipment No Medical Equipment data Health Concerns Section Health Concerns data not found Goals Section Goals data not found Interventions Section Interventions data not found Health Status Evaluations/Outcomes Section Health Status Evaluations/Outcomes data not found Advance Directives No Advance Directive data
--- OUTSIDE RECORDS SUMMARY | 2021-05-14 12:14 | XMS REPORT | CCD ---
Author Author Libby Paris Organization Aliyah Paris MD, [facility] Address [address] [place] [address] Phone Care Team Providers Care Box Toe Maker Name Role Phone Aliyah Paris PP Unavailable CCM Unavailable Summary Purpose Interface Exchange Insurance Providers Payer name Policy type / Coverage type Covered democrat ID Effective Begin Date Effective End Date [employer] Commercial Insurance [id number] Unknown Family history Sister Diagnosis Age At Onset Hypertension Unknown Diabetes Unknown Mother Diagnosis Age At Onset Hypertension Unknown Cancer Unknown Social History Social History Element Codes Description Effective Dates Employment Unknown 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[employer] 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 Marital status Unknown Single 05/06/[address]: 204778736 Never smoker 05/06/[address]: 450545970 Never drinks alcohol 2014 Allergies, Adverse Reactions, Alerts Substance Reaction Codes Entered Date Inactivated Date Status * NO KNOWN DRUG ALLERGIES Unknown 11/04/2015 No Inactiv e Date Active Problems Condition Codes Effective Dates Condition Status Dysphagia ICD-10: r13.10 ICD-9: 787.20 05/13/2021 Active Multiple sclerosis ICD-10: G35 ICD-9: 340 04/12/2017 Active Underweight due to inadequate caloric intake ICD-10: R 63.6 ICD-9: 783.22 12/31/2020 Active Rheumatoid arthritis 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 ICD-10: M05.79 ICD-9: 714.0 02/02/2021 Active 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 ICD-9: 351.0 04/09/2021 Active Essential (primary) hypertension ICD-10: I10 ICD-9: 401.9 05/05/2015 Active Localized edema ICD-10: R60.0 ICD-9: 782.3 04/09/2021 Active Vitamin D deficiency ICD-10: E55.9 ICD-9: [...] Start Date Stop Date Status Fill Instructions Kenalog 40 mg/mL suspension for injection RxNorm: 4648205 Take Milliliter(s) Injection 05/06/2021 05/06/2021 Inactive mirtazapine 7.5 mg tablet RxNorm: 044458 Take 1/2 Tablet(s) Ora l every evening 04/09/2021 08/06/2021 Active Vitamin D3 125 mcg (5,000 unit) tablet RxNorm: 513716 1 Tablet(s) Oral every day 01/05/2021 No Stop Date Active Vitamin D2 1,250 mcg (50,000 unit) capsule RxNorm: 9964601 1 Capsule(s) Oral weekly take with vit d 5000 u daily 01/05/2021 02/01/2021 Inactive Ziac 10 mg-6.25 mg tablet RxNorm: 287673 Take 1 tablet by mouth once daily 08/20/2020 04/08/2021 Inactive Vitamin D2 1,250 mcg (50,000 unit) capsule RxNorm: 2397004 1 Capsule(s) Oral weekly 07/08/2020 09/30/2020 Inactive Vitamin D2 1,250 mcg (50,000 unit) capsule RxNorm: 0015759 1 Capsule(s) Oral weekly 07/08/2020 07/07/2020 Inactive methotrexate sodium 2.5 mg tablet RxNorm: 830883 3 Tabl et(s) Oral once a week - Managed by rheumatology 07/02/2020 03/24/2021 Inactive Ziac 10 mg-6.25 mg tablet RxNorm: 863037 TAKE 1 TABLET BY MOUTH ONCE DAILY 12/09/2019 07/05/2020 Inactive Ziac 10 mg-6.25 mg tablet RxNorm: 636680 TAKE 1 TABLET BY MOUTH ONCE DAILY 05/28/2019 12/08/2019 Inactive metformin 500 mg tablet RxNorm: 462665 1/2 Tablet(s) PO BID 019 01/01/2020 Inactive metformin 500 mg tablet RxNorm: 860782 1/2 Tablet(s) PO BID 019 05/05/2019 Inactive methotrexate sodium 2.5 mg tablet RxNorm: 462459 6 Tabl et(s) PO QW -Managed by rheumatology 01/02/2019 07/01/2020 Inactive Ziac 10 mg-6.25 mg tablet RxNorm: 926648 TAKE 1 TABLET BY MOUTH ONCE DAILY 08/29/2018 05/27/2019 Inactive methotrexate sodium 2.5 mg tablet RxNorm: 713067 3 Tablet(s) PO QW 07/11/2018 01/01/2019 Inactive Ziac 10 mg-6.25 mg tablet RxNorm: 132421 TAKE 1 TABLET BY MOUTH ONCE DAILY 06/26/2018 08/28/2018 Inactive metformin 500 mg tablet RxNorm: 733606 TAKE ONE TABLET BY MOUTH TWICE DAILY 04/03/2018 01/03/2019 Inactive Ziac 10 mg-6.25 mg tablet RxNorm: 828859 TAKE ONE TABLET BY JEFF TH ONCE DAILY 01/31/2018 06/25/2018 Inactive metformin 500 mg tablet RxNorm: 738490 TAKE ONE TABLET BY MOUTH TWICE DAILY 10/04/2017 04/02/2018 Inactive Ziac 10 mg-6.25 mg tablet RxNorm: 129829 TAKE ONE TABLET BY JEFF TH ONCE DAILY 08/02/2017 01/30/2018 Inactive diclofenac potassium 50 mg tablet RxNorm: 708426 1 Tabl et(s) PO BID as needed for pain 04/12/2017 05/11/2017 Inactive metformin 500 mg tablet RxNorm: 728218 Tablet(s) TAKE O NE TABLET BY MOUTH TWICE DAILY 04/06/2017 10/02/2017 Inactive Ziac 10 mg-6.25 mg tablet RxNorm: 231117 TAKE ONE TABLET BY JEFF TH ONCE DAILY 04/03/2017 07/31/2017 Inactive multivitamin with iron tablet RxNorm: 1 Tablet(s) PO daily 11/201602/16/2017 Inactive Claritin-D 24 Hour 10 mg-240 mg tablet,extended release RxNo rm: 6484212 1 Tablet(s) PO daily 11/23/2016 11/22/2016 Inactive Claritin-D 24 Hour 10 mg-240 mg tablet,extended release RxNo rm: 2570277 1 Tablet(s) PO daily 11/23/2016 01/01/2019 Inactive Ziac 10 mg-6.25 mg tablet RxNorm: 670925 TAKE ONE TABLET BY JEFF TH ONCE DAILY 10/10/2016 04/02/2017 Inactive metformin 500 mg tablet RxNorm: 502912 TAKE ONE TABLET BY MOUTH TWICE DAILY 10/05/2016 04/02/2017 Inactive Claritin-D 12 Hour 5 mg-120 mg tablet,extended release RxNor m: 8262607 1 Tablet(s) PO BID as needed 09/15/2016 11/22/2016 Inactive Ziac 10 mg-6.25 mg tablet RxNorm: 729797 Tablet(s) 1 Tablet(s) PO daily 04/12/2016 10/08/2016 Inactive metformin 500 mg tablet RxNorm: 245827 1 Tablet(s) PO BID 01/08/2016 10/03/2016 Inactive Ziac 10 mg-6.25 mg tablet RxNorm: 092651 1 Tablet(s) PO daily 10/1204/08/2016 Inactive Ziac 10 mg-6.25 mg tablet RxNorm: 630487 1 Tablet(s) PO daily 07/1510/11/2015 Inactive metformin 500 mg tablet RxNorm: 760519 1 Tablet(s) PO BID 04/14/2015 01/07/2016 Inactive metformin 500 mg tablet RxNorm: 156600 1 Tablet(s) PO BID 04/14/2015 04/13/2015 Inactive Ziac 10 mg-6.25 mg tablet RxNorm: 847096 1 Tablet(s) PO daily 04/1407/12/2015 Inactive aspirin 81 mg tablet RxNorm: 176166 1 Tablet(s) PO daily 05/06/2015 Active Ziac 10 mg-6.25 mg tablet RxNorm: 173797 1 Tablet(s) PO daily 04/1404/13/2015 Inactive Claritin-D 12 Hour 5 mg-120 mg tablet,extended release RxNor m: 0542033 1 Tablet(s) PO BID 09/15/2016 09/14/2016 Inactive Plaquenil 200 mg tablet RxNorm: 884762 1 Tablet(s) PO daily 021 03/24/2021 Inactive Naprosyn 500 mg tablet RxNorm: 741310 1 Tablet(s) PO BID 02/02/2021 0 02/01/2021 Inactive khfmuijq-lvtxzqenec-db glycn-C oral RxNorm: oral 07/04/2019 07/03/2019 Inactive folic acid 1 mg tablet RxNorm: 825235 1 Tablet(s) PO daily 03/25/20 21 03/24/2021 Inactive methotrexate sodium 2.5 mg tablet RxNorm: 387281 6 Tablet(s) PO QW 07/11/2018 07/10/2018 Inactive Medication Administered Medication Codes Instructions Start Date Status Kenalog 40 mg/mL suspension for injection RxNorm: 9474182 Millilite r 05/06/2021 No longer Active Immunizations Vaccine Codes Date Status Covid-19 CVX: 12/21/2020 Covid-19 CVX: 11/18/2020 Results Observation Observation Code Item Item Code Result Date S ervice Location MEAN GLUC 0468761 Calc Mean Gluc 85 mg/dL 01/01/2021 Unkn own A1C HPLC 1613455 Hgb A1c 47826-4 4.6 % 01/01/2021 Unknown LIPID GRP 0271619 CHOLESTEROL 148 mg/dL 01/01/2021 Unknown LIPID GRP 0655266 Triglyceride 136 mg/dL 01/01/2021 Unknow n LIPID GRP 3417216 HDL CHOLESTEROL 46 mg/dL 01/01/2021 Unk nown LIPID GRP 2581680 Chol/HDL Ratio 3.22 ratio 01/01/2021 Unk nown LIPID GRP 4597415 NON-HDL Chol 102 mg/dL 01/01/2021 Unknow n LIPID GRP 5068686 LDL Cholesterol 75 mg/dL 01/01/2021 Unk nown FOLIC ACID 7208793 Folate 6.0 ng/mL 01/01/2021 Unknown CHEM 14 8611335 AST 23 U/L 01/01/2021 Unknown CHEM 14 0717046 ALT 14 U/L 01/01/2021 Unknown CHEM 14 6541422 BUN 21 mg/dL 01/01/2021 Unknown CHEM 14 9343167 ALBUMIN 3.8 g/dL 01/01/2021 Unknown CHEM 14 2220346 CHLORIDE 105 mmol/L 01/01/2021 Unknown CHEM 14 9461116 Bili Total 0.5 mg/dL 01/01/2021 Unknown CHEM 14 4528809 ALK PHOS 47 U/L 01/01/2021 Unknown CHEM 14 7433414 SODIUM 137 mmol/L 01/01/2021 Unknown CHEM 14 3776814 CREATININE 0.89 mg/dL 01/01/2021 Unknown CHEM 14 6223240 CALCIUM 9.5 mg/dL 01/01/2021 Unknown CHEM 14 0113741 POTASSIUM 4.2 mmol/L 01/01/2021 Unknown CHEM 14 8449575 TOTAL PROTEIN 7.3 g/dL 01/01/2021 Unkno wn CHEM 14 4710658 GLUCOSE 92 mg/dL 01/01/2021 Unknown CHEM 14 8693606 Bicarbonate 21 mmol/L 01/01/2021 Unknown CHEM 14 9025665 AGAP 11 mmol/L 01/01/2021 Unknown CBC 6924623 WBC 8.3 10e9/L 01/01/2021 Unknown CBC 3980092 RBC 3.66 10e12/L 01/01/2021 Unknow n CBC 4423581 HEMOGLOBIN 11.5 g/dL 01/01/2021 Unknown CBC 7795188 HEMATOCRIT 33.7 % 01/01/2021 Unknown CBC 6749780 MCV 92.1 fL 01/01/2021 Unknown CBC 4902939 MCH 31.4 pg 01/01/2021 Unknown CBC 9753349 MCHC 34.1 g/dL 01/01/2021 Unknown CBC 9476674 PLATELET COUNT 214 10e9/L 01/01/2021 Unk nown CBC 0782102 Mean Plt Volume 10.9 fL 01/01/2021 Unk nown CBC 3088929 Neut Auto 69.8 % 01/01/2021 Unknown CBC 7319151 Lymph Auto 14.5 % 01/01/2021 Unknown CBC 6065911 Curry Auto 11.9 % 01/01/2021 Unknown CBC 8107670 Eos Auto 3.0 % 01/01/2021 Unknown CBC 8432875 RDW 14.4 % 01/01/2021 Unknown CBC 7682933 Baso Auto 0.8 % 01/01/2021 Unknown CBC 2176946 Neutrophil Abs 5.79 10e9/L 01/01/2021 Un known CBC 9226435 Lymphocyte Abs 1.20 10e9/L 01/01/2021 Un known CBC 0257782 Monocyte Abs 0.99 10e9/L 01/01/2021 Unkn own CBC 0376449 Eosinophil Abs 0.25 10e9/L 01/01/2021 Un known CBC 2549820 RDW-SD 46.3 fL 01/01/2021 Unknown CBC 6962501 Basophil Abs 0.07 10e9/L 01/01/2021 Unkn own TSH 9372253 TSH 1.235 uIU/mL 01/01/2021 Unknow n VIT D TOTL 0064977 Vitamin D 25 OH 29.1 ng/mL 01/01/2021 U nknown GFR CALC 5279594 GFR Non Afr Amr >60 mL/min 01/01/2021 Un known GFR CALC 2349938 GFR Afr Amr >60 mL/min 01/01/2021 Unknow n MEAN GLUC 6334916 Calc Mean Gluc 97 mg/dL 07/06/2020 Unkn own A1C HPLC 6662142 Hgb A1c 55366-7 5.0 % 07/06/2020 Unknown FOLIC ACID 8515616 Folate >20.0 ng/mL 07/02/2020 Unknow n VIT D TOTL 1644149 Vitamin D 25 OH 24.3 ng/mL 07/02/2020 U nknown CHEM 14 9122100 AST 16 U/L 07/02/2020 Unknown CHEM 14 0354750 ALT 8 U/L 07/02/2020 Unknown CHEM 14 3890915 BUN 19 mg/dL 07/02/2020 Unknown CHEM 14 0049798 ALBUMIN 4.1 g/dL 07/02/2020 Unknown CHEM 14 9850646 CHLORIDE 108 mmol/L 07/02/2020 Unknown CHEM 14 2146759 Bili Total 0.6 mg/dL 07/02/2020 Unknown CHEM 14 6728880 ALK PHOS 56 U/L 07/02/2020 Unknown CHEM 14 2518529 SODIUM 139 mmol/L 07/02/2020 Unknown CHEM 14 7511346 CREATININE 0.88 mg/dL 07/02/2020 Unknown CHEM 14 7769096 CALCIUM 9.3 mg/dL 07/02/2020 Unknown CHEM 14 4846593 POTASSIUM 4.3 mmol/L 07/02/2020 Unknown CHEM 14 7941291 TOTAL PROTEIN 7.7 g/dL 07/02/2020 Unkno wn CHEM 14 3897078 GLUCOSE 91 mg/dL 07/02/2020 Unknown CHEM 14 9224275 Bicarbonate 23 mmol/L 07/02/2020 Unknown CHEM 14 1580077 AGAP 8 mmol/L 07/02/2020 Unknown GFR CALC 3106765 GFR Non Afr Amr >60 mL/min 07/02/2020 Un known GFR CALC 4598464 GFR Afr Amr >60 mL/min 07/02/2020 Unknow n LIPID GRP CHOLESTEROL 148 mg/dL 07/02/2020 Unknown LIPID GRP 6739335 Triglyceride 107 mg/dL 07/02/2020 Unknow n LIPID GRP HDL CHOLESTEROL 50 mg/dL 07/02/2020 Unk nown LIPID GRP Chol/HDL Ratio 2.96 ratio 07/02/2020 Unk nown LIPID GRP NON-HDL Chol 98 mg/dL 07/02/2020 Unknow n LIPID GRP 1975658 LDL Cholesterol 77 mg/dL 07/02/2020 Unk nown CBC 5562232 WBC 8.7 10e9/L 07/02/2020 Unknown CBC 2673530 RBC 3.43 10e12/L 07/02/2020 Unknow n CBC 5167048 HEMOGLOBIN 10.0 g/dL 07/02/2020 Unknown CBC 4892119 HEMATOCRIT 31.2 % 07/02/2020 Unknown CBC 1399008 MCV 91.0 fL 07/02/2020 Unknown CBC 2826930 MCH 29.2 pg 07/02/2020 Unknown CBC 3576427 MCHC 32.1 g/dL 07/02/2020 Unknown CBC 2862613 PLATELET COUNT 222 10e9/L 07/02/2020 Unk nown CBC 0661871 Mean Plt Volume 11.7 fL 07/02/2020 Unk nown CBC 1711048 Neut Auto 78.0 % 07/02/2020 Unknown CBC 8710060 Lymph Auto 11.1 % 07/02/2020 Unknown CBC 3887160 Curry Auto 7.7 % 07/02/2020 Unknown CBC 5249774 Eos Auto 2.3 % 07/02/2020 Unknown CBC 6493545 RDW 14.5 % 07/02/2020 Unknown CBC 5998789 Baso Auto 0.9 % 07/02/2020 Unknown CBC 6246408 Neutrophil Abs 6.79 10e9/L 07/02/2020 Un known CBC 0929664 Lymphocyte Abs 0.97 10e9/L 07/02/2020 Un known CBC 9981929 Monocyte Abs 0.67 10e9/L 07/02/2020 Unkn own CBC 5255039 Eosinophil Abs 0.20 10e9/L 07/02/2020 Un known CBC 5593201 Basophil Abs 0.08 10e9/L 07/02/2020 Unkn own CBC 8715668 RDW-SD 45.6 fL 07/02/2020 Unknown TSH 3185200 TSH 0.955 uIU/mL 07/02/2020 Unknow n A1C HPLC 0454784 Hgb A1c 69159-0 4.5 % 01/02/2020 Unknown LIPID GRP 6255656 CHOLESTEROL 154 mg/dL 01/02/2020 Unknown LIPID GRP Triglyceride 146 mg/dL 01/02/2020 Unknow n LIPID GRP HDL CHOLESTEROL 55 mg/dL 01/02/2020 Unk nown LIPID GRP 4267166 Chol/HDL Ratio 2.80 ratio 01/02/2020 Unk nown LIPID GRP 1437070 NON-HDL Chol 99 mg/dL 01/02/2020 Unknow n LIPID GRP 0941201 LDL Cholesterol 70 mg/dL 01/02/2020 Unk nown CBC 7169904 WBC 9.7 10e9/L 01/02/2020 Unknown CBC 0710838 RBC 3.62 10e12/L 01/02/2020 Unknow n CBC 7557369 HEMOGLOBIN 11.2 g/dL 01/02/2020 Unknown CBC 4001656 HEMATOCRIT 33.4 % 01/02/2020 Unknown CBC 2429300 MCV 92.3 fL 01/02/2020 Unknown CBC 3550215 MCH 30.9 pg 01/02/2020 Unknown CBC 7742160 MCHC 33.5 g/dL 01/02/2020 Unknown CBC 7175186 PLATELET COUNT 232 10e9/L 01/02/2020 Unk nown CBC 3084809 Mean Plt Volume 11.0 fL 01/02/2020 Unk nown CBC 9946414 Neut Auto 70.5 % 01/02/2020 Unknown CBC 4161395 Lymph Auto 15.5 % 01/02/2020 Unknown CBC 6657504 Curry Auto 9.3 % 01/02/2020 Unknown CBC 3603926 Eos Auto 4.0 % 01/02/2020 Unknown CBC 9482817 RDW 13.7 % 01/02/2020 Unknown CBC 9427938 Baso Auto 0.7 % 01/02/2020 Unknown CBC 0666037 Neutrophil Abs 6.84 10e9/L 01/02/2020 Un known CBC 7711216 Lymphocyte Abs 1.50 10e9/L 01/02/2020 Un known CBC 5256354 Monocyte Abs 0.90 10e9/L 01/02/2020 Unkn own CBC 4141866 Eosinophil Abs 0.39 10e9/L 01/02/2020 Un known CBC 5316378 Basophil Abs 0.07 10e9/L 01/02/2020 Unkn own CBC 3851979 RDW-SD 44.7 fL 01/02/2020 Unknown CHEM 14 8162723 AST 16 U/L 01/02/2020 Unknown CHEM 14 7406211 ALT 10 U/L 01/02/2020 Unknown CHEM 14 9738773 BUN 18 mg/dL 01/02/2020 Unknown CHEM 14 4447950 ALBUMIN 4.2 g/dL 01/02/2020 Unknown CHEM 14 2987787 CHLORIDE 105 mmol/L 01/02/2020 Unknown CHEM 14 7415838 Bili Total 0.7 mg/dL 01/02/2020 Unknown CHEM 14 0310769 ALK PHOS 41 U/L 01/02/2020 Unknown CHEM 14 0108669 SODIUM 141 mmol/L 01/02/2020 Unknown CHEM 14 0449649 CREATININE 0.86 mg/dL 01/02/2020 Unknown CHEM 14 7762328 CALCIUM 9.5 mg/dL 01/02/2020 Unknown CHEM 14 0675943 POTASSIUM 4.0 mmol/L 01/02/2020 Unknown CHEM 14 8152954 TOTAL PROTEIN 7.3 g/dL 01/02/2020 Unkno wn CHEM 14 2558815 GLUCOSE 90 mg/dL 01/02/2020 Unknown CHEM 14 4544230 Bicarbonate 26 mmol/L 01/02/2020 Unknown CHEM 14 6957233 AGAP 10 mmol/L 01/02/2020 Unknown TSH 6092680 TSH 0.823 uIU/mL 01/02/2020 Unknow n MEAN GLUC 7910834 Calc Mean Gluc 82 mg/dL 01/02/2020 Unkn own GFR CALC 6032131 GFR Non Afr Amr >60 mL/min 01/02/2020 Un known GFR CALC 7853370 GFR Afr Amr >60 mL/min 01/02/2020 Unknow [...] Ord15 CALCIUM 9.5 mg/dL 01/02/2019 Unknown %Hba1C Vab010 % HbA1c 57098-6 4.9 % 01/02/2019 Unknown %Hba1C Egk904 Gluc Ave 94 mg/dL 01/02/2019 Unknown Cbc [...] 11/20/19 19 Unknown Cbc With Differential Ord2 Curry% 6.9 % 11/20/19 19 Unknown Cbc With [...] K/ul 019 Unknown Cbc With Differential Ord2 Curry ABS# 0.5 K/ul 11/20/19 19 Unknown Cbc With Differential Ord2 Eos ABS# 0.3 K/ul 11/20/19 19 Unknown Cbc With Differential Ord2 Baso ABS# 0.1 K/ul 11/20/19 19 Unknown Hepatic Kje447 ALBUMIN 4.4 g/dL 11/19/2018 Unknown Hepatic Dgz363 TPRO 7.2 g/dL 11/19/2018 Unknown Hepatic Zlx764 GLOB 2.8 g/dL 11/19/2018 Unknown Hepatic Uge011 A/G Ratio 1.6 Ratio 11/19/2018 Unknown Hepatic Sie341 ALK PHOS 36 U/L 11/19/2018 Unknown Hepatic Ekg397 ALT(SGPT) 10 U/L 11/19/2018 Unknown Hepatic Kgj549 AST(SGOT) 14 U/L 11/19/2018 Unknown Hepatic Jtr741 BILI T 0.7 mg/dL 11/19/2018 Unknown Hepatic Euq149 BILI D 0.1 mg/dL 11/19/2018 Unknown Hepatic Tei767 BILI I 0.6 mg/dL 11/19/2018 Unknown Hepatic Yqk989 ALBUMIN 3.9 g/dL 08/14/2018 Unknown Hepatic Ild160 TPRO 6.3 g/dL 08/14/2018 Unknown Hepatic Lww344 GLOB 2.5 g/dL 08/14/2018 Unknown Hepatic Trr901 A/G Ratio 1.6 Ratio 08/14/2018 Unknown Hepatic Ezf862 ALK PHOS 36 U/L 08/14/2018 Unknown Hepatic Lii331 ALT(SGPT) 33 U/L 08/14/2018 Unknown Hepatic Bxn872 AST(SGOT) 30 U/L 08/14/2018 Unknown Hepatic Fxj514 BILI T 0.6 mg/dL 08/14/2018 Unknown Hepatic Rtf653 BILI D 0.2 mg/dL 08/14/2018 Unknown Hepatic Vif957 BILI I 0.4 mg/dL 08/14/2018 Unknown Cbc [...] 08/14/20 18 Unknown Cbc With Differential Ord2 Curry% 8.8 % 08/14/20 18 Unknown Cbc With [...] K/ul 018 Unknown Cbc With Differential Ord2 Curry ABS# 0.5 K/ul 08/14/20 18 Unknown Cbc With Differential Ord2 Eos ABS# 0.3 K/ul 08/14/20 18 Unknown Cbc With Differential Ord2 Baso ABS# 0.1 K/ul 08/14/20 18 Unknown Comp Metabolic Skp596 NA 141 mEq/L 07/13/2018 Unkn own Comp Metabolic Cqj100 K 4.0 mEq/L 07/13/2018 Unkn own Comp Metabolic Azp687 CL 106 mEq/L 07/13/2018 Unkn own Comp Metabolic Cbc977 CO2 26.0 mEq/L 07/13/2018 Unk nown Comp Metabolic Jzf241 ANION GAP 13 07/13/2018 Unkn own Comp Metabolic Vvr686 GLUCOSE 91 mg/dL 07/13/2018 Unkn own Comp Metabolic Hsr963 Creat 0.9 mg/dL 07/13/2018 Unkn own Comp Metabolic Nfz652 eGFR 68 ml/min/1.73m2 07/13/20 18 Unknown Comp Metabolic Vgf117 BUN 18 mg/dL 07/13/2018 Unkn own Comp Metabolic Lmj911 B/C Ratio 20.5 Ratio 07/13/2018 Unk nown Comp Metabolic Ria872 CALCIUM 9.2 mg/dL 07/13/2018 Unkn own Comp Metabolic Cvb709 ALK PHOS 41 U/L 07/13/2018 Unkn own Comp Metabolic Enk195 AST(SGOT) 16 U/L 07/13/2018 Unkn own Comp Metabolic Ezc874 ALT(SGPT) 12 U/L 07/13/2018 Unkn own Comp Metabolic Qzn591 BILI T 0.4 mg/dL 07/13/2018 Unkn own Comp Metabolic Vxk755 ALBUMIN 4.3 g/dL 07/13/2018 Unkn own Comp Metabolic Zbp080 TPRO 6.7 g/dL 07/13/2018 Unkn own Comp Metabolic Qhs345 GLOB 2.5 g/dL 07/13/2018 Unkn own Comp Metabolic Qpj001 A/G Ratio 1.7 Ratio 07/13/2018 Unkn own Comp Metabolic Qnr020 Osmo 283 mOsmo 07/13/2018 Unkn own Lipid Ord30 CHOL 167 mg/dL 07/13/2018 Unknown Lipid Ord30 HDL 53.0 mg/dl 07/13/2018 Unknown Lipid Ord30 TRIG 95 mg/dL 07/13/2018 Unknown Lipid Ord30 LDL 95 mg/dL 07/13/2018 Unknown Lipid Ord30 C/HDL 3.2 Ratio 07/13/2018 Unknown %Hba1C Ssv253 % HbA1c 63584-5 5.0 % 07/13/2018 Unknown %Hba1C Jwo477 Gluc Ave 97 mg/dL 07/13/2018 Unknown Tsh [...] 07/13/20 18 Unknown Cbc With Differential Ord2 Curry% 9.7 % 07/13/20 18 Unknown Cbc With [...] K/ul 018 Unknown Cbc With Differential Ord2 Curry ABS# 0.6 K/ul 07/13/20 18 Unknown Cbc With Differential Ord2 Eos ABS# 0.4 K/ul 07/13/20 18 Unknown Cbc With Differential Ord2 Baso ABS# 0.1 K/ul 07/13/20 18 Unknown Hepatic Rdb305 ALBUMIN 3.9 g/dL 05/14/2018 Unknown Hepatic Lix750 TPRO 6.6 g/dL 05/14/2018 Unknown Hepatic Rns439 GLOB 2.7 g/dL 05/14/2018 Unknown Hepatic Dlr690 A/G Ratio 1.4 Ratio 05/14/2018 Unknown Hepatic Ufm572 ALK PHOS 32 U/L 05/14/2018 Unknown Hepatic Fre438 ALT(SGPT) 8 U/L 05/14/2018 Unknown Hepatic Nnp791 AST(SGOT) 12 U/L 05/14/2018 Unknown Hepatic Bvp138 BILI T 0.8 mg/dL 05/14/2018 Unknown Hepatic Wpm695 BILI D 0.1 mg/dL 05/14/2018 Unknown Hepatic Czs656 BILI I 0.7 mg/dL 05/14/2018 Unknown Cbc [...] 05/14/20 18 Unknown Cbc With Differential Ord2 Curry% 4.8 % 05/14/20 18 Unknown Cbc With [...] K/ul 018 Unknown Cbc With Differential Ord2 Curry ABS# 0.3 K/ul 05/14/20 18 Unknown Cbc [...] 11/17/19 18 Unknown Cbc With Differential Ord2 Curry% 11.2 % 11/17/19 18 Unknown Cbc With [...] K/ul 018 Unknown Cbc With Differential Ord2 Curry ABS# 0.7 K/ul 11/17/19 18 Unknown Cbc With Differential Ord2 Eos ABS# 0.2 K/ul 11/17/19 18 Unknown Cbc With Differential Ord2 Baso ABS# 0.0 K/ul 11/17/19 18 Unknown Hepatic Zxl853 ALBUMIN 4.1 g/dL 11/16/2017 Unknown Hepatic Luy921 TPRO 6.7 g/dL 11/16/2017 Unknown Hepatic Qie263 GLOB 2.7 g/dL 11/16/2017 Unknown Hepatic Zyk261 A/G Ratio 1.5 Ratio 11/16/2017 Unknown Hepatic Act633 ALK PHOS 31 U/L 11/16/2017 Unknown Hepatic Cpp476 ALT(SGPT) 11 U/L 11/16/2017 Unknown Hepatic Aav403 AST(SGOT) 15 U/L 11/16/2017 Unknown Hepatic Ccq433 BILI T 0.7 mg/dL 11/16/2017 Unknown Hepatic Ict983 BILI D 0.2 mg/dL 11/16/2017 Unknown Hepatic Zsx224 BILI I 0.5 mg/dL 11/16/2017 Unknown Hepatic Oej338 ALBUMIN 4.0 g/dL 08/17/2017 Unknown Hepatic Lan739 TPRO 6.6 g/dL 08/17/2017 Unknown Hepatic Qpa296 GLOB 2.6 g/dL 08/17/2017 Unknown Hepatic Pnc223 A/G Ratio 1.6 Ratio 08/17/2017 Unknown Hepatic Cfu801 ALK PHOS 43 U/L 08/17/2017 Unknown Hepatic Vib140 ALT(SGPT) 10 U/L 08/17/2017 Unknown Hepatic Klo225 AST(SGOT) 15 U/L 08/17/2017 Unknown Hepatic Ldv179 BILI T 0.7 mg/dL 08/17/2017 Unknown Hepatic Rzk827 BILI D 0.1 mg/dL 08/17/2017 Unknown Hepatic Fzc182 BILI I 0.6 mg/dL 08/17/2017 Unknown Cbc [...] 08/17/20 17 Unknown Cbc With Differential Ord2 Curry% 8.6 % 08/17/20 17 Unknown Cbc With [...] K/ul 017 Unknown Cbc With Differential Ord2 Curry ABS# 0.6 K/ul 08/17/20 17 Unknown Cbc With Differential Ord2 Eos ABS# 0.3 K/ul 08/17/20 17 Unknown Cbc With Differential Ord2 Baso ABS# 0.0 K/ul 08/17/20 17 Unknown Ra Factor Oft476 RA FACTOR 40.2 IU/ml 04/12/2017 Unknown Sed Rate Ord21 ESR 23 mm/hr 04/12/2017 Unknown C-Reactive Protein Qnt Crqnt CRP 0.2 mg/dl 2016 Unknown Tsh Ord6 hTSH II 1.26 uIU/mL 11/23/2016 Unknown Comp Metabolic Rpk816 NA 139 mEq/L 11/23/2016 Unkn own Comp Metabolic Xka393 K 3.8 mEq/L 11/23/2016 Unkn own Comp Metabolic Kpu280 CL 105 mEq/L 11/23/2016 Unkn own Comp Metabolic Jgf336 CO2 27.0 mEq/L 11/23/2016 Unk nown Comp Metabolic Afk969 ANION GAP 11 11/23/2016 Unkn own Comp Metabolic Fki199 GLUCOSE 110 mg/dL 11/23/2016 Unkn own Comp Metabolic Lxi503 Creat 0.6 mg/dL 11/23/2016 Unkn own Comp Metabolic Ort029 eGFR 98 ml/min/1.73m2 11/24/19 17 Unknown Comp Metabolic Gwn818 BUN 15 mg/dL 11/23/2016 Unkn own Comp Metabolic Ydp898 B/C Ratio 23.4 Ratio 11/23/2016 Unk nown Comp Metabolic Mjq496 CALCIUM 9.5 mg/dL 11/23/2016 Unkn own Comp Metabolic Vbz607 ALK PHOS 42 U/L 11/23/2016 Unkn own Comp Metabolic Rfi645 AST(SGOT) 15 U/L 11/23/2016 Unkn own Comp Metabolic Ehg934 ALT(SGPT) 12 U/L 11/23/2016 Unkn own Comp Metabolic Xog840 BILI T 1.0 mg/dL 11/23/2016 Unkn own Comp Metabolic Oje281 ALBUMIN 4.2 g/dL 11/23/2016 Unkn own Comp Metabolic Zci391 TPRO 7.1 g/dL 11/23/2016 Unkn own Comp Metabolic Bnc092 GLOB 2.9 g/dL 11/23/2016 Unkn own Comp Metabolic Gnf000 A/G Ratio 1.5 Ratio 11/23/2016 Unkn own Comp Metabolic Qqf339 Osmo 279 mOsmo 11/23/2016 Unkn own Lipid [...] 11/24/19 17 Unknown Cbc With Differential Ord2 Curry% 9.9 % 11/24/19 17 Unknown Cbc With [...] K/ul 017 Unknown Cbc With Differential Ord2 Curry ABS# 0.6 K/ul 11/24/19 17 Unknown Cbc With Differential Ord2 Eos ABS# 0.2 K/ul 11/24/19 17 Unknown Cbc With Differential Ord2 Baso ABS# 0.1 K/ul 11/24/[address] MicroAlb <0.7 mg/dL 11/23/2016 Unkno wn %Hba1C Rmm601 % HbA1c 93470-5 5.4 % 11/23/2016 Unknown %Hba1C Lqt282 Gluc Ave 108 mg/dL 11/23/2016 Unknown %Hba1C Hqw063 % HbA1c 96427-5 5.4 % 11/04/2015 Unknown %Hba1C Ekm891 Gluc Ave 108 mg/dL 11/04/2015 Unknown Lipid Ord30 CHOL 169 mg/dL 11/04/2015 Unknown Lipid Ord30 HDL 48.0 mg/dl 11/04/2015 Unknown Lipid Ord30 TRIG 160 mg/dL 11/04/2015 Unknown Lipid Ord30 LDL 89 mg/dL 11/04/2015 Unknown Lipid Ord30 C/HDL 3.5 Ratio 11/04/2015 Unknown Microalbumin Cch008 MicroAlb 1.7 mg/dL 11/04/2015 Unknow n Tsh Ord6 hTSH II 1.00 uIU/mL 11/04/2015 Unknown Comp Metabolic Oqn683 NA 138 mEq/L 11/04/2015 Unkn own Comp Metabolic Rmy635 K 3.7 mEq/L 11/04/2015 Unkn own Comp Metabolic Ztp594 CL 103 mEq/L 11/04/2015 Unkn own Comp Metabolic Uam135 CO2 28.0 mEq/L 11/04/2015 Unk nown Comp Metabolic Usi858 ANION GAP 11 11/04/2015 Unkn own Comp Metabolic Rop084 GLUCOSE 96 mg/dL 11/04/2015 Unkn own Comp Metabolic Axu215 Creat 0.7 mg/dL 11/04/2015 Unkn own Comp Metabolic Ddg405 eGFR 92 ml/min/1.73m2 11/04/19 16 Unknown Comp Metabolic Put433 BUN 15 mg/dL 11/04/2015 Unkn own Comp Metabolic Buq437 B/C Ratio 22.1 Ratio 11/04/2015 Unk nown Comp Metabolic Okv299 CALCIUM 9.3 mg/dL 11/04/2015 Unkn own Comp Metabolic Tmf080 ALK PHOS 43 U/L 11/04/2015 Unkn own Comp Metabolic Pzf026 AST(SGOT) 14 U/L 11/04/2015 Unkn own Comp Metabolic Kkq487 ALT(SGPT) 9 U/L 11/04/2015 Unkn own Comp Metabolic Mal184 BILI T 0.8 mg/dL 11/04/2015 Unkn own Comp Metabolic Htk907 ALBUMIN 4.3 g/dL 11/04/2015 Unkn own Comp Metabolic Tvn738 TPRO 7.0 g/dL 11/04/2015 Unkn own Comp Metabolic Wow324 GLOB 2.7 g/dL 11/04/2015 Unkn own Comp Metabolic Tsg019 A/G Ratio 1.6 Ratio 11/04/2015 Unkn own Comp Metabolic Hnn441 Osmo 276 mOsmo 11/04/2015 Unkn own Cbc [...] 11/04/19 16 Unknown Cbc With Differential Ord2 Curry% 9.0 % 11/04/19 16 Unknown Cbc With [...] K/ul 016 Unknown Cbc With Differential Ord2 Curry ABS# 0.6 K/ul 11/04/19 16 Unknown Cbc With Differential Ord2 Eos ABS# 0.2 K/ul 11/04/19 16 Unknown Cbc With Differential Ord2 Baso ABS# 0.0 K/ul 11/04/19 16 Unknown Cbc With Differential Ord2 New Analyzer Notice Please note new ref ranges starting 09-30-2015 due to implemntation of new five part differential hematolgy analyzer. 11/04/2015 Unknown %Hba1C Dtv355 % HbA1c 56388-8 5.2 % 05/06/2015 Unknown %Hba1C Wdq234 Gluc Ave 103 mg/dL 05/06/2015 Unknown Lipid [...] 14.7 % 05/06/20 15 Unknown Comp Metabolic Plc057 NA 137 mEq/L 05/06/2015 Unkn own Comp Metabolic Vpk186 K 3.6 mEq/L 05/06/2015 Unkn own Comp Metabolic Bfp737 CL 102 mEq/L 05/06/2015 Unkn own Comp Metabolic Mpo387 CO2 28.0 mEq/L 05/06/2015 Unk nown Comp Metabolic Tmb328 ANION GAP 11 05/06/2015 Unkn own Comp Metabolic Cpm574 GLUCOSE 97 mg/dL 05/06/2015 Unkn own Comp Metabolic Lzu411 Creat 0.7 mg/dL 05/06/2015 Unkn own Comp Metabolic Kzk623 eGFR 94 ml/min/1.73m2 05/06/20 15 Unknown Comp Metabolic Teu120 BUN 14 mg/dL 05/06/2015 Unkn own Comp Metabolic Jon297 B/C Ratio 20.9 Ratio 05/06/2015 Unk nown Comp Metabolic Xky667 CALCIUM 9.5 mg/dL 05/06/2015 Unkn own Comp Metabolic Wci121 ALK PHOS 49 U/L 05/06/2015 Unkn own Comp Metabolic Apa023 AST(SGOT) 15 U/L 05/06/2015 Unkn own Comp Metabolic Ttz895 ALT(SGPT) 11 U/L 05/06/2015 Unkn own Comp Metabolic Uwf313 BILI T 0.8 mg/dL 05/06/2015 Unkn own Comp Metabolic Pna867 ALBUMIN 4.4 g/dL 05/06/2015 Unkn own Comp Metabolic Orj309 TPRO 7.4 g/dL 05/06/2015 Unkn own Comp Metabolic Hlc020 GLOB 3.0 g/dL 05/06/2015 Unkn own Comp Metabolic Pwy077 A/G Ratio 1.5 Ratio 05/06/2015 Unkn own Comp Metabolic Bri432 Osmo 274 mOsmo 05/06/2015 Unkn own Tsh Ord6 hTSH II 0.99 uIU/mL 05/06/2015 Unknown Procedures Procedure Codes Date THER/PROPH/DIAG INJ SC/IM CPT-4: 19088 05/06/2021 TRIAMCINOLONE ACET INJ NOS 10 mg CPT-4: J3301 021 Vital Signs Date Vital 05/13/2021 Blood Pressure 1: 122/70 Code: 8480-6 BMI: 17.0 Code: 65141-4 Heart Rate 1: 107 bpm Height: 5' Code: 8302-2 SpO2: 99% Temperature: 36. 3 (C) / 97.3 (F) Weight: 87 lbs Code: 69425-4 04/09/2021 Blood Pressure 1: 132/82 Code: 8480-6 BMI: 18.6 Code: 90877-3 Heart Rate 1: 90 bpm Height: 5' Code: 8302-2 Respiratory Rate: 20 bpm Temperature : 36.3 (C) / 97.3 (F) Weight: 95 lbs Code: 49165-7 03/25/2021 Blood Pressure 1: 106/70 Code: 8480-6 BMI: 17.6 Code: 60268-8 Heart Rate 1: 48 bpm Height: 5' Code: 8302-2 SpO2: 98% Temperature: 35. 7 (C) / 96.3 (F) Weight: 90 lbs Code: 28427-8 02/02/2021 Blood Pressure 1: 118/70 Code: 8480-6 BMI: 19.9 Code: 51190-3 Heart Rate 1: 66 bpm Height: 5' Code: 8302-2 SpO2: 99% Temperature: 36. 7 (C) / 98.0 (F) Weight: 102 lbs 2 oz Code: 65224-9 12/31/2020 Blood Pressure 1: 106/64 Code: 8480-6 BMI: 20.7 Code: 74329-4 Heart Rate 1: 68 bpm Height: 5' Code: 8302-2 Respiratory Rate: 17 bpm SpO2: 97% Temperature: 35.8 (C) / 96.4 (F) Weight: 106 lbs Code: 57079-1 07/02/2020 Blood Pressure 1: 138/78 Code: 8480-6 BMI: 21.7 Code: 71394-6 Heart Rate 1: 52 bpm Height: 5' Code: 8302-2 Respiratory Rate: 16 bpm SpO2: 99% Temperature: 36.6 (C) / 97.8 (F) Weight: 111 lbs Code: 70703-5 01/02/2020 Blood Pressure 1: 120/64 Code: 8480-6 BMI: 21.3 Code: 97145-5 Heart Rate 1: 65 bpm Height: 5' Code: 8302-2 SpO2: 95% Temperature: 36. 4 (C) / 97.5 (F) Weight: 109 lbs Code: 56069-4 07/04/2019 Blood Pressure 1: 112/70 Code: 8480-6 BMI: 22.3 Code: 17553-4 Heart Rate 1: 60 bpm Height: 5' Code: 8302-2 SpO2: 99% Weight: 114 lbs 7 oz Code: 22755-9 01/02/2019 Blood Pressure 1: 122/68 Code: 8480-6 BMI: 22.7 Code: 42137-8 Heart Rate 1: 67 bpm Height: 5' Code: 8302-2 SpO2: 99% Weight: 116 lbs Code: 10115-7 07/11/2018 Blood Pressure 1: 138/66 Code: 8480-6 BMI: 22.5 Code: 98341-9 Heart Rate 1: 97 bpm Height: 5' Code: 8302-2 SpO2: 99% Weight: 115 lbs Code: 61362-1 04/12/2017 Blood Pressure 1: 142/82 Code: 8480-6 BMI: 23.2 Code: 73776-2 Heart Rate 1: 66 bpm Height: 5' Code: 8302-2 SpO2: 97% Weight: 119 lbs Code: 38700-7 11/23/2016 Blood Pressure 1: 130/78 Code: 8480-6 BMI: 24.4 Code: 73280-9 Heart Rate 1: 65 bpm Height: 5' Code: 8302-2 SpO2: 99% Weight: 125 lbs Code: 23908-1 05/04/2016 Blood Pressure 1: 126/78 Code: 8480-6 BMI: 24.6 Code: 83168-4 Heart Rate 1: 59 bpm Height: 5' Code: 8302-2 SpO2: 98% Weight: 126 lbs Code: 27499-7 11/04/2015 Blood Pressure 1: 132/70 Code: 8480-6 BMI: 25.3 Code: 63385-4 Heart Rate 1: 58 bpm Height: 5' Code: 8302-2 Weight: 129 lbs 8 oz Code: 2 9463-7 05/06/2015 Blood Pressure 1: 138/78 Code: 8480-6 BMI: 25.0 Code: 74161-9 Heart Rate 1: 65 bpm Height: 5' Code: 8302-2 SpO2: 97% Weight: 128 lbs Code: 53342-0 Functional Status No Functional Status data Reason For Visit Reason For Visit Effective Dates Notes weight loss 05/13/2021 paresthesia 04/09/2021 earache 03/25/2021 arthritis 02/02/2021 hypertension 12/31/2020 hypertension 07/02/2020 hypertension 01/02/2020 hypertension 07/04/2019 hypertension 01/02/2019 medication follow up 07/11/2018 hand pain 04/12/2017 hypertension 11/23/2016 hypertension 05/04/2016 hypertension 11/04/2015 hypertension 05/06/2015 Encounters Encounter Performer Location Codes Date ([id number]) 04309 EST. PATIENT, LEVEL IV Diagnosis: Dysphagia[ICD10: r13.10] Diagnosis: Underweight due to inadequate caloric intake[ICD10: R63.6] Diagnosis: Multiple sclerosis[ICD10: G35] Mira galicia MD, [facility] CPT-4: 94164 05/13/2021 ([id number]) 76667 EST. PATIENT, LEVEL I Diagnosis: Rheumatoid arthritis involving multiple sites with positive rheumatoid factor[ICD10: M05.79] Aliyah Paris MD, [facility] CPT- 4: 04755 05/06/2021 ([id number]) 79951 EST. 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 PATIENT, LEVEL IV Diagnosis: Essential (primary) hypertension[ICD10: I10] Diagnosis: Multiple sclerosis[ICD10: G35] Diagnosis: Type 2 diabetes mellitus without complications[ICD10: E11.9] Diagnosis: Underweight due to inadequate caloric intake[ICD10: R63.6] Aliyah Paris MD [facility] CPT-4: 90407 12/31/2020 ([id number]) 74729 EST. PATIENT, LEVEL IV Diagnosis: Essential (primary) hypertension[ICD10: I10] Diagnosis: Type 2 diabetes mellitus without complications[ICD10: E11.9] Diagnosis: Multiple sclerosis[ICD10: G35] Aliyah Paris MD, [facility] CPT-4: 36264 07/02/2020 ([id number]) 97391 EST. PATIENT, LEVEL IV Diagnosis: Type 2 diabetes mellitus without complications[ICD10: E11.9] Diagnosis: Essential (primary) hypertension[ICD10: I10] Diagnosis: Multiple sclerosis[ICD10: G35] Aliyah Paris MD [facility] CPT-4: 99705 01/02/2020 ([id number]) 89063 EST. PATIENT, LEVEL IV Diagnosis: Essential (primary) hypertension[ICD10: I10] Diagnosis: Type 2 diabetes mellitus without complications[ICD10: E11.9] Diagnosis: Multiple sclerosis[ICD10: G35] Aliyah Paris MD [facility] CPT-4: 95634 07/04/2019 ([id number]) 60798 EST. PATIENT, LEVEL IV Diagnosis: Essential (primary) hypertension[ICD10: I10] Diagnosis: Type 2 diabetes mellitus without complications[ICD10: E11.9] Diagnosis: Multiple sclerosis[ICD10: G35] Aliyah Paris MD [facility] CPT-4: 40510 01/02/2019 ([id number]) 76106 EST. PATIENT, LEVEL IV Diagnosis: Type 2 diabetes mellitus without complications[ICD10: E11.9] Diagnosis: Essential (primary) hypertension[ICD10: I10] Diagnosis: Multiple sclerosis[ICD10: G35] Aliyah Paris MD, [facility] CPT-4: 60623 07/11/2018 [id number] EST. PATIENT, LEVEL IV Diagnosis: Pain in right hand[ICD10: M79.641] Diagnosis: Multiple sclerosis[ICD10: G35] Tiffanie Paris MD, [facility] CPT-4: 61589 04/12/2017 ([id number]) 45955 EST. PATIENT, LEVEL IV Diagnosis: Essential (primary) hypertension[ICD10: I10] Diagnosis: Type 2 diabetes mellitus without complications[ICD10: E11.9] Aliyah Paris MD, [facility] CPT-4: 32677 11/23/2016 ([id number]) 52889 EST. PATIENT, LEVEL IV Diagnosis: Essential (primary) hypertension[ICD10: I10] Diagnosis: Type 2 diabetes mellitus without complications[ICD10: E11.9] [facility] CPT-4: 93205 05/04/2016 ([id number]) 24417 EST. PATIENT, LEVEL IV Diagnosis: Type 2 diabetes mellitus without complications[ICD10: E11.9] Diagnosis: Essential (primary) hypertension[ICD10: I10] Aliyah Paris MD, [facility] CPT-4: 76284 11/04/2015 ([id number]) OFFICE VISIT, NEW - LEVEL 4 Diagnosis: DIABETES TYPE II[ICD9: 250.00] Diagnosis: ESSENTIAL HYPERTENSION[ICD9: 401.9] Aliyah beasley MD, [facility] CPT-4: 80552 05/06/2015 Plan of Care Planned Activity Notes Codes Status Date Visit Plan: Dysphagia- patient to see Dr Welch for consultation today for EGD to evaluate possible stricture -refer for ST with [facility] Weight loss- secondary to dysphagia - recommend thickened liquids and pureed foods for now MS- patient has appt in June with neurology 05/13/2021 Patient Education: Patient Medication Summary Completed 05/13/2021 Appointment: Injection 05/06/2021 Patient Education: Patient Medication Summary Completed 05/06/2021 Visit Plan: Hypertension - well controll ed - continue with current medications, continue with no added salt diet. Pt has been encouraged to exercise daily. The pt has been advised to call the office if there are any acute concerns about change in blood pressure readings at home. 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 Steroids completed. Discussed disease process and monitoring symptoms. Multiple Sclerosis- Recent MRI brain during hospitalization. Will send referral to neurology for management. Edema - pt has been advised to elevate legs to prevent dependent edema, compression has been recommended to help to naturally decrease peripheral edema. Diuretic use has been discussed and pt has been instructed in appropriate use of such medication as necessary to further attempt to reduce peripheral edema. Underweight- continue Remeron. Appetite increased and increased edema. 04/09/2021 Appointment: Mira Danielle WPtel: [phone] [phone] [place] (15 min) Moderate 04/09/2021 Appointment: Mira Danielle WPtel: [phone] [phone] [place] (15 min) Moderate 04/09/2021 Patient Education: Patient Medication Summary Completed 04/09/2021 Patient Education: Hypertension Completed 04/09/2021 Care Plan: Cbc With Differential Pending 04/09/2021 Care Plan: Comp Metabolic Pending Appointment: Mira Danielle WPtel: [phone] [phone] [place] (30 min) Complex 04/08/2021 Visit Plan: Multiple Sclerosis-Pt concer teri for [...] Rheumatoid Arthritis- continue follow up with rheumatology. Production Repairer dc'd methotrexate, folic acid, and plaquinel in January 2021 to help improve appetite. Pt reports had steroid injection in January 2021 for bilateral h and pain, but pain has been controlled since. Pt encouraged to continue follow up appt with ict quality assurance engineer. Hypertension- Pt reports not checking BP at [...] with food to help with taste. 03/25/2021 Appointment: Mira Danielle WPtel: [phone] [phone] (15 min) Moderate 03/25/2021 Patient Education: Patient Medication Summary Completed 03/25/2021 Patient Education: Hypertension Completed 03/25/2021 Care Plan: Vitamin D 25 Oh Pending 03/25/2021 Care Plan: Cbc With Differential Pending 03/25/2021 Care Plan: Comp Metabolic Pending Visit Plan: Arthritis - pt has been on m ultiple different treatments in the past - would like to seek out a new ict quality assurance engineer - she would like a Referral to Dr. Woodruff in [place] Hypertension - well controlled - continue with [...] this time. 02/02/2021 Appointment: [phone] (15 min) Moderate 02/02/2021 Patient Education: Patient [...] this time. 12/31/2020 Appointment: Ali[facility] Paris [phone] [facility] (15 min) Moderate 12/31/2020 Patient Education: Patient [...] this time. 07/02/2020 Appointment: Aliyah Paris [facility]el[facility] [phone] [facility] [place] (15 min) Moderate 07/02/2020 Patient Education: Patient [...] this time. 01/02/2020 Appointment: Aliyah Paris [facility] [phone] [facility] (15 min) Moderate 01/02/2020 Patient Education: Patient Medication Summary Completed 01/02/2020 Patient Education: Diabetes Completed 01/02/2020 Patient Education: Hypertension Completed 01/02/2020 Care Plan: Cbc With Differential Pending 01/02/2020 Care Plan: Comp Metabolic Pending Care Plan: Lipid Pending 01/02/2020 Care Plan: %Hba1C LOINC : 48904-8 Pending 01/02/2020 Care Plan: Tsh Pending 01/02/2020 [...] time. 07/04/2019 Appointment: Ali[facility] Paris [facility] [phone] [facility] (15 min) Moderate 07/04/2019 Patient Education: Patient Medication Summary Completed 07/04/2019 Patient Education: Hypertension Completed 07/04/2019 Patient Education: Diabetes Completed 07/04/2019 Care Plan: Comp Metabolic Pending Care Plan: Cbc With Differential Pending 07/04/2019 Care Plan: %Hba1C LOINC : 39461-4 Pending 07/04/2019 Care Plan: Tsh Pending 07/04/2019 [...] symptoms closely. 01/02/2019 Appointment: Aliyah Paris [facility]Ptel: [phone] [facility] [place] (15 min) Moderate 01/02/2019 Patient Education: Patient [...] symptoms closely. 07/11/2018 Appointment: Aliyah Paris [facility]el[facility] [phone] [facility] [place] (15 min) Moderate 07/11/2018 Patient Education: Patient [...] evaluation/monitoring 04/12/2017 [phone] [place] ([facility] min) Moderate 04/12/2017 Patient Education: [...] less controlled. 11/23/2016 Appointment: Aliyah Paris [facility]el[facility] [phone] [facility] (15 min) Moderate 11/23/2016 Patient Education: Patient [...] less controlled. 11/04/2015 Appointment: Aliyah Paris [facility]el: [phone] [facility] (15 min) Moderate 11/04/2015 Patient Education: Patient [...] blood pressure readings at home. 05/06/2015 Appointment: WellingtonAliyah WPtel: [facility] [place] ([place] New Patient 05/06/2015 Patient Education: Patient Medication Summary Completed 05/06/2015 Patient Education: Hypertension Completed 05/06/2015 Instructions Comment . Dysphagia- patient to see Dr Welch for consultation today for EGD to evaluate possible stricture -refer for with [facility] Weight loss- secondary to dysphagia - recommend thickened liquids and pureed foods for now MS- patient has appt in June with neurology VITAMIN D3 5,000 IU 1 TABLET DAILY FLINSTONE VITAMINS WITH IRON. TAKE 2 CHEWABLES DAILY SHOWER BENCH ORDERS WILL BE SENT CHECK LABS FOR ELECTROLYTES AND WHITE BLOOD COUNT WILL WORK ON REFERRAL TO NEUROLOGY . Hypertension - well controlled - jesus nue with current medications, continue with no added salt diet. Pt has been encouraged to exercise daily. The pt has been advised to call the office if there are any acute concerns about change in blood pressure readings at home. 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 Steroids completed. Discussed disease process and monitoring symptoms. Multiple Sclerosis- Recent MRI brain during hospitalization. Will send referral to neurology for management. Edema - pt has been advised to elevate legs to prevent dependent edema, compression has been recommended to help to naturally decrease peripheral edema. Diuretic use has been discussed and pt has been instructed in appropriate use of such medication as necessary to further attempt to reduce peripheral edema. Underweight- continue Remeron. Appetite increased and increased edema. HOLD ZIAC, MONITOR BP AT HOME WILL [...] Rheumatoid Arthritis- continue follow up with rheumatology. Production Repairer dc'd methotrexate, folic acid, and plaquinel in January 2021 to help improve appetite. Pt reports had steroid injection in January 2021 for bilateral hand pain, but pain has been controlled since. Pt encouraged to continue follow up appt with ict quality assurance engineer. Hypertension- Pt reports not checking BP at [...] would like to seek out a new ict quality assurance engineer - she would like a Referral to Dr. Woodruff in [place] Hypertension - well controlled - continue with [...]
--- OUTSIDE RECORDS SUMMARY | 2021-05-14 12:14 | XMS REPORT | CCD ---
Author Author Libby Paris Organization Aliyah Paris MD, [facility] Address [address] [place] [address] Phone Care Team Providers Care Leacher Name Role Phone Aliyah Paris PP Unavailable CCM Unavailable Summary Purpose Interface Exchange Insurance Providers Payer name Policy type / Coverage type Covered democrat ID Effective Begin Date Effective End Date [employer] Commercial [employer] [id number] Unknown Family history Sister Diagnosis Age At Onset Hypertension Unknown Diabetes Unknown Mother Diagnosis Age At Onset Hypertension Unknown Cancer Unknown Social History Social History Element Codes Description Effective Dates Employment Unknown 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 Marital status Unknown Single 05/06/[address]: 153409569 Never smoker 05/06/[address]: 980182702 Never drinks alcohol 2014 Allergies, Adverse Reactions, Alerts Substance Reaction Codes Entered Date Inactivated Date Status * NO KNOWN DRUG ALLERGIES Unknown 11/04/2015 No Inactiv e Date Active Problems Condition Codes Effective Dates Condition Status Rheumatoid arthritis 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 ICD-10: M05.79 ICD-9: 714.0 02/02/2021 Active 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 ICD-9: 351.0 04/09/2021 Active Essential (primary) hypertension ICD-10: I10 ICD-9: 401.9 05/05/2015 Active Localized edema ICD-10: R60.0 ICD-9: 782.3 04/09/2021 Active Multiple sclerosis ICD-10: G35 ICD-9: 340 [...] Kenalog 40 mg/mL suspension for injection RxNorm: 7076500 Take Milliliter(s) Injection 05/06/2021 05/06/2021 Inactive mirtazapine 7.5 mg tablet RxNorm: 497651 Take 1/2 Tablet(s) Ora l every evening 04/09/2021 08/06/2021 Active Vitamin D3 125 mcg (5,000 unit) tablet RxNorm: 239512 1 Tablet(s) Oral every day 01/05/2021 No Stop Date Active Vitamin D2 1,250 mcg (50,000 unit) capsule RxNorm: 9067593 1 Capsule(s) Oral weekly take with vit d 5000 u daily 01/05/2021 02/01/2021 Inactive Ziac 10 mg-6.25 mg tablet RxNorm: 649820 Take 1 tablet by mouth once daily 08/20/2020 04/08/2021 Inactive Vitamin D2 1,250 mcg (50,000 unit) capsule RxNorm: 3851834 1 Capsule(s) Oral weekly 07/08/2020 09/30/2020 Inactive Vitamin D2 1,250 mcg (50,000 unit) capsule RxNorm: 2706892 1 Capsule(s) Oral weekly 07/08/2020 07/07/2020 Inactive methotrexate sodium 2.5 mg tablet RxNorm: 859980 3 Tabl et(s) Oral once a week - Managed by rheumatology 07/02/2020 03/24/2021 Inactive Ziac 10 mg-6.25 mg tablet RxNorm: 376963 TAKE 1 TABLET BY MOUTH ONCE DAILY 12/09/2019 07/05/2020 Inactive Ziac 10 mg-6.25 mg tablet RxNorm: 453263 TAKE 1 TABLET BY MOUTH ONCE DAILY 05/28/2019 12/08/2019 Inactive metformin 500 mg tablet RxNorm: 118208 1/2 Tablet(s) PO BID 019 01/01/2020 Inactive metformin 500 mg tablet RxNorm: 899197 1/2 Tablet(s) PO BID 019 05/05/2019 Inactive methotrexate sodium 2.5 mg tablet RxNorm: 708739 6 Tabl et(s) PO QW -Managed by rheumatology 01/02/2019 07/01/2020 Inactive Ziac 10 mg-6.25 mg tablet RxNorm: 572176 TAKE 1 TABLET BY MOUTH ONCE DAILY 08/29/2018 05/27/2019 Inactive methotrexate sodium 2.5 mg tablet RxNorm: 076389 3 Tablet(s) PO QW 07/11/2018 01/01/2019 Inactive Ziac 10 mg-6.25 mg tablet RxNorm: 906989 TAKE 1 TABLET BY MOUTH ONCE DAILY 06/26/2018 08/28/2018 Inactive metformin 500 mg tablet RxNorm: 156542 TAKE ONE TABLET BY MOUTH TWICE DAILY 04/03/2018 01/03/2019 Inactive Ziac 10 mg-6.25 mg tablet RxNorm: 521889 TAKE ONE TABLET BY JEFF TH ONCE DAILY 01/31/2018 06/25/2018 Inactive metformin 500 mg tablet RxNorm: 331004 TAKE ONE TABLET BY MOUTH TWICE DAILY 10/04/2017 04/02/2018 Inactive Ziac 10 mg-6.25 mg tablet RxNorm: 949976 TAKE ONE TABLET BY JEFF TH ONCE DAILY 08/02/2017 01/30/2018 Inactive diclofenac potassium 50 mg tablet RxNorm: 574126 1 Tabl et(s) PO BID as needed for pain 04/12/2017 05/11/2017 Inactive metformin 500 mg tablet RxNorm: 898587 Tablet(s) TAKE O NE TABLET BY MOUTH TWICE DAILY 04/06/2017 10/02/2017 Inactive Ziac 10 mg-6.25 mg tablet RxNorm: 830066 TAKE ONE TABLET BY JEFF TH ONCE DAILY 04/03/2017 07/31/2017 Inactive multivitamin with iron tablet RxNorm: 1 Tablet(s) PO daily 11/201602/16/2017 Inactive Claritin-D 24 Hour 10 mg-240 mg tablet,extended release RxNo rm: 7808783 1 Tablet(s) PO daily 11/23/2016 11/22/2016 Inactive Claritin-D 24 Hour 10 mg-240 mg tablet,extended release RxNo rm: 5877868 1 Tablet(s) PO daily 11/23/2016 01/01/2019 Inactive Ziac 10 mg-6.25 mg tablet RxNorm: 233459 TAKE ONE TABLET BY JEFF TH ONCE DAILY 10/10/2016 04/02/2017 Inactive metformin 500 mg tablet RxNorm: 463278 TAKE ONE TABLET BY MOUTH TWICE DAILY 10/05/2016 04/02/2017 Inactive Claritin-D 12 Hour 5 mg-120 mg tablet,extended release RxNor m: 2295839 1 Tablet(s) PO BID as needed 09/15/2016 11/22/2016 Inactive Ziac 10 mg-6.25 mg tablet RxNorm: 385635 Tablet(s) 1 Tablet(s) PO daily 04/12/2016 10/08/2016 Inactive metformin 500 mg tablet RxNorm: 000442 1 Tablet(s) PO BID 01/08/2016 10/03/2016 Inactive Ziac 10 mg-6.25 mg tablet RxNorm: 136549 1 Tablet(s) PO daily 10/1204/08/2016 Inactive Ziac 10 mg-6.25 mg tablet RxNorm: 843592 1 Tablet(s) PO daily 07/1510/11/2015 Inactive metformin 500 mg tablet RxNorm: 757414 1 Tablet(s) PO BID 04/14/2015 01/07/2016 Inactive metformin 500 mg tablet RxNorm: 987351 1 Tablet(s) PO BID 04/14/2015 04/13/2015 Inactive Ziac 10 mg-6.25 mg tablet RxNorm: 674136 1 Tablet(s) PO daily 04/1407/12/2015 Inactive aspirin 81 mg tablet RxNorm: 744597 1 Tablet(s) PO daily 05/06/2015 Active Ziac 10 mg-6.25 mg tablet RxNorm: 064555 1 Tablet(s) PO daily 04/1404/13/2015 Inactive Claritin-D 12 Hour 5 mg-120 mg tablet,extended release RxNor m: 1044409 1 Tablet(s) PO BID 09/15/2016 09/14/2016 Inactive Plaquenil 200 mg tablet RxNorm: 892771 1 Tablet(s) PO daily 021 03/24/2021 Inactive Naprosyn 500 mg tablet RxNorm: 077386 1 Tablet(s) PO BID 02/02/2021 0 02/01/2021 Inactive uxsrafdo-hcrqmienjz-lb glycn-C oral RxNorm: oral 07/04/2019 07/03/2019 Inactive folic acid 1 mg tablet RxNorm: 580824 1 Tablet(s) PO daily 03/25/20 21 03/24/2021 Inactive methotrexate sodium 2.5 mg tablet RxNorm: 504087 6 Tablet(s) PO QW 07/11/2018 07/10/2018 Inactive Medication Administered Medication Codes Instructions Start Date Status Kenalog 40 mg/mL suspension for injection RxNorm: 4782334 Millilite r 05/06/2021 Active Immunizations Vaccine Codes Date Status Covid-19 CVX: 12/21/2020 Covid-19 CVX: 207 11/18/2020 Results Observation Observation Code Item Item Code Result Date S ervice Location MEAN GLUC 0987767 Calc Mean Gluc 85 mg/dL 01/01/2021 Unkn own A1C HPLC 1927501 Hgb A1c 84187-8 4.6 % 01/01/2021 Unknown LIPID GRP 9680330 CHOLESTEROL 148 mg/dL 01/01/2021 Unknown LIPID GRP 4875734 Triglyceride 136 mg/dL 01/01/2021 Unknow n LIPID GRP 1103100 HDL CHOLESTEROL 46 mg/dL 01/01/2021 Unk nown LIPID GRP 1705975 Chol/HDL Ratio 3.22 ratio 01/01/2021 Unk nown LIPID GRP 3028455 NON-HDL Chol 102 mg/dL 01/01/2021 Unknow n LIPID GRP 4791654 LDL Cholesterol 75 mg/dL 01/01/2021 Unk nown FOLIC ACID 7704643 Folate 6.0 ng/mL 01/01/2021 Unknown CHEM 14 7993280 AST 23 U/L 01/01/2021 Unknown CHEM 14 7922579 ALT 14 U/L 01/01/2021 Unknown CHEM 14 0510456 BUN 21 mg/dL 01/01/2021 Unknown CHEM 14 2603498 ALBUMIN 3.8 g/dL 01/01/2021 Unknown CHEM 14 1083592 CHLORIDE 105 mmol/L 01/01/2021 Unknown CHEM 14 7164681 Bili Total 0.5 mg/dL 01/01/2021 Unknown CHEM 14 3506143 ALK PHOS 47 U/L 01/01/2021 Unknown CHEM 14 5615965 SODIUM 137 mmol/L 01/01/2021 Unknown CHEM 14 3528868 CREATININE 0.89 mg/dL 01/01/2021 Unknown CHEM 14 5984515 CALCIUM 9.5 mg/dL 01/01/2021 Unknown CHEM 14 7362975 POTASSIUM 4.2 mmol/L 01/01/2021 Unknown CHEM 14 2367465 TOTAL PROTEIN 7.3 g/dL 01/01/2021 Unkno wn CHEM 14 9349910 GLUCOSE 92 mg/dL 01/01/2021 Unknown CHEM 14 9604118 Bicarbonate 21 mmol/L 01/01/2021 Unknown CHEM 14 1400865 AGAP 11 mmol/L 01/01/2021 Unknown CBC 0944965 WBC 8.3 10e9/L 01/01/2021 Unknown CBC 1384297 RBC 3.66 10e12/L 01/01/2021 Unknow n CBC 6491445 HEMOGLOBIN 11.5 g/dL 01/01/2021 Unknown CBC 5257162 HEMATOCRIT 33.7 % 01/01/2021 Unknown CBC 7642852 MCV 92.1 fL 01/01/2021 Unknown CBC 3324133 MCH 31.4 pg 01/01/2021 Unknown CBC 2833255 MCHC 34.1 g/dL 01/01/2021 Unknown CBC 5796952 PLATELET COUNT 214 10e9/L 01/01/2021 Unk nown CBC 8126893 Mean Plt Volume 10.9 fL 01/01/2021 Unk nown CBC 0461071 Neut Auto 69.8 % 01/01/2021 Unknown CBC 8745147 Lymph Auto 14.5 % 01/01/2021 Unknown CBC 2364803 Grimes Auto 11.9 % 01/01/2021 Unknown CBC 7348857 Eos Auto 3.0 % 01/01/2021 Unknown CBC 3606706 RDW 14.4 % 01/01/2021 Unknown CBC 4268988 Baso Auto 0.8 % 01/01/2021 Unknown CBC 6888918 Neutrophil Abs 5.79 10e9/L 01/01/2021 Un known CBC 0078836 Lymphocyte Abs 1.20 10e9/L 01/01/2021 Un known CBC 8896237 Monocyte Abs 0.99 10e9/L 01/01/2021 Unkn own CBC 0996677 Eosinophil Abs 0.25 10e9/L 01/01/2021 Un known CBC 0315632 RDW-SD 46.3 fL 01/01/2021 Unknown CBC 2136401 Basophil Abs 0.07 10e9/L 01/01/2021 Unkn own TSH 5323461 TSH 1.235 uIU/mL 01/01/2021 Unknow n VIT D TOTL 1684419 Vitamin D 25 OH 29.1 ng/mL 01/01/2021 U nknown GFR CALC 4207202 GFR Non Afr Amr >60 mL/min 01/01/2021 Un known GFR CALC 8000631 GFR Afr Amr >60 mL/min 01/01/2021 Unknow n MEAN GLUC 5025865 Calc Mean Gluc 97 mg/dL 07/06/2020 Unkn own A1C HPLC 6894647 Hgb A1c 72989-9 5.0 % 07/06/2020 Unknown FOLIC ACID 1836180 Folate >20.0 ng/mL 07/02/2020 Unknow n VIT D TOTL 5423199 Vitamin D 25 OH 24.3 ng/mL 07/02/2020 U nknown CHEM 14 5923269 AST 16 U/L 07/02/2020 Unknown CHEM 14 1548366 ALT 8 U/L 07/02/2020 Unknown CHEM 14 9511224 BUN 19 mg/dL 07/02/2020 Unknown CHEM 14 1339406 ALBUMIN 4.1 g/dL 07/02/2020 Unknown CHEM 14 1513108 CHLORIDE 108 mmol/L 07/02/2020 Unknown CHEM 14 7802180 Bili Total 0.6 mg/dL 07/02/2020 Unknown CHEM 14 0644594 ALK PHOS 56 U/L 07/02/2020 Unknown CHEM 14 9609556 SODIUM 139 mmol/L 07/02/2020 Unknown CHEM 14 2197766 CREATININE 0.88 mg/dL 07/02/2020 Unknown CHEM 14 4020945 CALCIUM 9.3 mg/dL 07/02/2020 Unknown CHEM 14 0813760 POTASSIUM 4.3 mmol/L 07/02/2020 Unknown CHEM 14 3685215 TOTAL PROTEIN 7.7 g/dL 07/02/2020 Unkno wn CHEM 14 8467437 GLUCOSE 91 mg/dL 07/02/2020 Unknown CHEM 14 2345047 Bicarbonate 23 mmol/L 07/02/2020 Unknown CHEM 14 8236654 AGAP 8 mmol/L 07/02/2020 Unknown GFR CALC 2670155 GFR Non Afr Amr >60 mL/min 07/02/2020 Un known GFR CALC 5887448 GFR Afr Amr >60 mL/min 07/02/2020 Unknow n LIPID GRP 9589673 CHOLESTEROL 148 mg/dL 07/02/2020 Unknown LIPID GRP Triglyceride 107 mg/dL 07/02/2020 Unknow n LIPID GRP HDL CHOLESTEROL 50 mg/dL 07/02/2020 Unk nown LIPID GRP Chol/HDL Ratio 2.96 ratio 07/02/2020 Unk nown LIPID GRP NON-HDL Chol 98 mg/dL 07/02/2020 Unknow n LIPID GRP LDL Cholesterol 77 mg/dL 07/02/2020 Unk nown CBC 7703948 WBC 8.7 10e9/L 07/02/2020 Unknown CBC 2932197 RBC 3.43 10e12/L 07/02/2020 Unknow n CBC 5504500 HEMOGLOBIN 10.0 g/dL 07/02/2020 Unknown CBC 6780342 HEMATOCRIT 31.2 % 07/02/2020 Unknown CBC 5221600 MCV 91.0 fL 07/02/2020 Unknown CBC 9071801 MCH 29.2 pg 07/02/2020 Unknown CBC 8732659 MCHC 32.1 g/dL 07/02/2020 Unknown CBC 0099363 PLATELET COUNT 222 10e9/L 07/02/2020 Unk nown CBC 8965383 Mean Plt Volume 11.7 fL 07/02/2020 Unk nown CBC 7607841 Neut Auto 78.0 % 07/02/2020 Unknown CBC 2573904 Lymph Auto 11.1 % 07/02/2020 Unknown CBC 4477961 Grimes Auto 7.7 % 07/02/2020 Unknown CBC 8468467 Eos Auto 2.3 % 07/02/2020 Unknown CBC 8615378 RDW 14.5 % 07/02/2020 Unknown CBC 1347485 Baso Auto 0.9 % 07/02/2020 Unknown CBC 0490052 Neutrophil Abs 6.79 10e9/L 07/02/2020 Un known CBC 5360983 Lymphocyte Abs 0.97 10e9/L 07/02/2020 Un known CBC 5295254 Monocyte Abs 0.67 10e9/L 07/02/2020 Unkn own CBC 8439420 Eosinophil Abs 0.20 10e9/L 07/02/2020 Un known CBC 0264975 RDW-SD 45.6 fL 07/02/2020 Unknown CBC 5366547 Basophil Abs 0.08 10e9/L 07/02/2020 Unkn own TSH 5669437 TSH 0.955 uIU/mL 07/02/2020 Unknow n A1C HPLC 0867481 Hgb A1c 35289-4 4.5 % 01/02/2020 Unknown LIPID GRP 4073331 CHOLESTEROL 154 mg/dL 01/02/2020 Unknown LIPID GRP 8281532 Triglyceride 146 mg/dL 01/02/2020 Unknow n LIPID GRP 5459983 HDL CHOLESTEROL 55 mg/dL 01/02/2020 Unk nown LIPID GRP Chol/HDL Ratio 2.80 ratio 01/02/2020 Unk nown LIPID GRP 7273360 NON-HDL Chol 99 mg/dL 01/02/2020 Unknow n LIPID GRP 4215372 LDL Cholesterol 70 mg/dL 01/02/2020 Unk nown CBC 2648557 WBC 9.7 10e9/L 01/02/2020 Unknown CBC 0826552 RBC 3.62 10e12/L 01/02/2020 Unknow n CBC 6298778 HEMOGLOBIN 11.2 g/dL 01/02/2020 Unknown CBC 3235220 HEMATOCRIT 33.4 % 01/02/2020 Unknown CBC 1773496 MCV 92.3 fL 01/02/2020 Unknown CBC 8894586 MCH 30.9 pg 01/02/2020 Unknown CBC 0902027 MCHC 33.5 g/dL 01/02/2020 Unknown CBC 5097910 PLATELET COUNT 232 10e9/L 01/02/2020 Unk nown CBC 9642637 Mean Plt Volume 11.0 fL 01/02/2020 Unk nown CBC 3466344 Neut Auto 70.5 % 01/02/2020 Unknown CBC 4406527 Lymph Auto 15.5 % 01/02/2020 Unknown CBC 9256546 Grimes Auto 9.3 % 01/02/2020 Unknown CBC 9593331 RDW 13.7 % 01/02/2020 Unknown CBC 1666700 Eos Auto 4.0 % 01/02/2020 Unknown CBC 8670879 Baso Auto 0.7 % 01/02/2020 Unknown CBC 5315166 Neutrophil Abs 6.84 10e9/L 01/02/2020 Un known CBC 0083705 Lymphocyte Abs 1.50 10e9/L 01/02/2020 Un known CBC 0926689 Monocyte Abs 0.90 10e9/L 01/02/2020 Unkn own CBC 5846250 Eosinophil Abs 0.39 10e9/L 01/02/2020 Un known CBC 7826428 RDW-SD 44.7 fL 01/02/2020 Unknown CBC 2362566 Basophil Abs 0.07 10e9/L 01/02/2020 Unkn own CHEM 14 1004749 AST 16 U/L 01/02/2020 Unknown CHEM 14 6033045 ALT 10 U/L 01/02/2020 Unknown CHEM 14 1347889 BUN 18 mg/dL 01/02/2020 Unknown CHEM 14 3360521 ALBUMIN 4.2 g/dL 01/02/2020 Unknown CHEM 14 4905347 CHLORIDE 105 mmol/L 01/02/2020 Unknown CHEM 14 1245782 Bili Total 0.7 mg/dL 01/02/2020 Unknown CHEM 14 9333952 ALK PHOS 41 U/L 01/02/2020 Unknown CHEM 14 9962519 SODIUM 141 mmol/L 01/02/2020 Unknown CHEM 14 4097762 CREATININE 0.86 mg/dL 01/02/2020 Unknown CHEM 14 2853080 CALCIUM 9.5 mg/dL 01/02/2020 Unknown CHEM 14 5832208 POTASSIUM 4.0 mmol/L 01/02/2020 Unknown CHEM 14 0221983 TOTAL PROTEIN 7.3 g/dL 01/02/2020 Unkno wn CHEM 14 2331920 GLUCOSE 90 mg/dL 01/02/2020 Unknown CHEM 14 4620447 Bicarbonate 26 mmol/L 01/02/2020 Unknown CHEM 14 3449555 AGAP 10 mmol/L 01/02/2020 Unknown TSH 3152882 TSH 0.823 uIU/mL 01/02/2020 Unknow n MEAN GLUC 6206729 Calc Mean Gluc 82 mg/dL 01/02/2020 Unkn own GFR CALC 5823311 GFR Non Afr Amr >60 mL/min 01/02/2020 Un known GFR CALC 4528982 GFR Afr Amr >60 mL/min 01/02/2020 Unknow [...] Ord15 CALCIUM 9.5 mg/dL 01/02/2019 Unknown %Hba1C Vbs310 % HbA1c 30936-1 4.9 % 01/02/2019 Unknown %Hba1C Iar897 Gluc Ave 94 mg/dL 01/02/2019 Unknown Cbc [...] 11/20/19 19 Unknown Cbc With Differential Ord2 Grimes% 6.9 % 11/20/19 19 Unknown Cbc With [...] K/ul 019 Unknown Cbc With Differential Ord2 Grimes ABS# 0.5 K/ul 11/20/19 19 Unknown Cbc With Differential Ord2 Eos ABS# 0.3 K/ul 11/20/19 19 Unknown Cbc With Differential Ord2 Baso ABS# 0.1 K/ul 11/20/19 19 Unknown Hepatic Rbn534 ALBUMIN 4.4 g/dL 11/19/2018 Unknown Hepatic Zly273 TPRO 7.2 g/dL 11/19/2018 Unknown Hepatic Vmi984 GLOB 2.8 g/dL 11/19/2018 Unknown Hepatic Pbp368 A/G Ratio 1.6 Ratio 11/19/2018 Unknown Hepatic Kbn517 ALK PHOS 36 U/L 11/19/2018 Unknown Hepatic Zro831 ALT(SGPT) 10 U/L 11/19/2018 Unknown Hepatic Ndq838 AST(SGOT) 14 U/L 11/19/2018 Unknown Hepatic Dbx562 BILI T 0.7 mg/dL 11/19/2018 Unknown Hepatic Guh066 BILI D 0.1 mg/dL 11/19/2018 Unknown Hepatic Njb862 BILI I 0.6 mg/dL 11/19/2018 Unknown Hepatic Vvi294 ALBUMIN 3.9 g/dL 08/14/2018 Unknown Hepatic Che334 TPRO 6.3 g/dL 08/14/2018 Unknown Hepatic Sbg514 GLOB 2.5 g/dL 08/14/2018 Unknown Hepatic Snf967 A/G Ratio 1.6 Ratio 08/14/2018 Unknown Hepatic Oig919 ALK PHOS 36 U/L 08/14/2018 Unknown Hepatic Bjm422 ALT(SGPT) 33 U/L 08/14/2018 Unknown Hepatic Gja081 AST(SGOT) 30 U/L 08/14/2018 Unknown Hepatic Dug653 BILI T 0.6 mg/dL 08/14/2018 Unknown Hepatic Mlo914 BILI D 0.2 mg/dL 08/14/2018 Unknown Hepatic Cmn045 BILI I 0.4 mg/dL 08/14/2018 Unknown Cbc [...] 08/14/20 18 Unknown Cbc With Differential Ord2 Grimes% 8.8 % 08/14/20 18 Unknown Cbc With [...] K/ul 018 Unknown Cbc With Differential Ord2 Grimes ABS# 0.5 K/ul 08/14/20 18 Unknown Cbc With Differential Ord2 Eos ABS# 0.3 K/ul 08/14/20 18 Unknown Cbc With Differential Ord2 Baso ABS# 0.1 K/ul 08/14/20 18 Unknown Comp Metabolic Rkg263 NA 141 mEq/L 07/13/2018 Unkn own Comp Metabolic Jnv143 K 4.0 mEq/L 07/13/2018 Unkn own Comp Metabolic Sts281 CL 106 mEq/L 07/13/2018 Unkn own Comp Metabolic Xdl987 CO2 26.0 mEq/L 07/13/2018 Unk nown Comp Metabolic Guq916 ANION GAP 13 07/13/2018 Unkn own Comp Metabolic Rrk794 GLUCOSE 91 mg/dL 07/13/2018 Unkn own Comp Metabolic Lyw940 Creat 0.9 mg/dL 07/13/2018 Unkn own Comp Metabolic Obv500 eGFR 68 ml/min/1.73m2 07/13/20 18 Unknown Comp Metabolic Vfl287 BUN 18 mg/dL 07/13/2018 Unkn own Comp Metabolic Eyr106 B/C Ratio 20.5 Ratio 07/13/2018 Unk nown Comp Metabolic Neo187 CALCIUM 9.2 mg/dL 07/13/2018 Unkn own Comp Metabolic Hcy143 ALK PHOS 41 U/L 07/13/2018 Unkn own Comp Metabolic Ucy896 AST(SGOT) 16 U/L 07/13/2018 Unkn own Comp Metabolic Lhy802 ALT(SGPT) 12 U/L 07/13/2018 Unkn own Comp Metabolic Ifw804 BILI T 0.4 mg/dL 07/13/2018 Unkn own Comp Metabolic Yze034 ALBUMIN 4.3 g/dL 07/13/2018 Unkn own Comp Metabolic Ofa380 TPRO 6.7 g/dL 07/13/2018 Unkn own Comp Metabolic Szg436 GLOB 2.5 g/dL 07/13/2018 Unkn own Comp Metabolic Zwb904 A/G Ratio 1.7 Ratio 07/13/2018 Unkn own Comp Metabolic Pcs889 Osmo 283 mOsmo 07/13/2018 Unkn own Lipid Ord30 CHOL 167 mg/dL 07/13/2018 Unknown Lipid Ord30 HDL 53.0 mg/dl 07/13/2018 Unknown Lipid Ord30 TRIG 95 mg/dL 07/13/2018 Unknown Lipid Ord30 LDL 95 mg/dL 07/13/2018 Unknown Lipid Ord30 C/HDL 3.2 Ratio 07/13/2018 Unknown %Hba1C Vlr120 % HbA1c 96877-0 5.0 % 07/13/2018 Unknown %Hba1C Jlh[address] Gluc [address] 97 mg/dL 07/13/2018 Unknown Tsh [...] 07/13/20 18 Unknown Cbc With Differential Ord2 Grimes% 9.7 % 07/13/20 18 Unknown Cbc With [...] K/ul 018 Unknown Cbc With Differential Ord2 Grimes ABS# 0.6 K/ul 07/13/20 18 Unknown Cbc With Differential Ord2 Eos ABS# 0.4 K/ul 07/13/20 18 Unknown Cbc With Differential Ord2 Baso ABS# 0.1 K/ul 07/13/20 18 Unknown Hepatic Wzp610 ALBUMIN 3.9 g/dL 05/14/2018 Unknown Hepatic Nzr996 TPRO 6.6 g/dL 05/14/2018 Unknown Hepatic Dxu629 GLOB 2.7 g/dL 05/14/2018 Unknown Hepatic Djp236 A/G Ratio 1.4 Ratio 05/14/2018 Unknown Hepatic Odb288 ALK PHOS 32 U/L 05/14/2018 Unknown Hepatic Tlf041 ALT(SGPT) 8 U/L 05/14/2018 Unknown Hepatic Pji026 AST(SGOT) 12 U/L 05/14/2018 Unknown Hepatic Kkz794 BILI T 0.8 mg/dL 05/14/2018 Unknown Hepatic Axb330 BILI D 0.1 mg/dL 05/14/2018 Unknown Hepatic Cfe897 BILI I 0.7 mg/dL 05/14/2018 Unknown Cbc [...] 05/14/20 18 Unknown Cbc With Differential Ord2 Grimes% 4.8 % 05/14/20 18 Unknown Cbc With [...] K/ul 018 Unknown Cbc With Differential Ord2 Grimes ABS# 0.3 K/ul 05/14/20 18 Unknown Cbc [...] 11/17/19 18 Unknown Cbc With Differential Ord2 Grimes% 11.2 % 11/17/19 18 Unknown Cbc With [...] K/ul 018 Unknown Cbc With Differential Ord2 Grimes ABS# 0.7 K/ul 11/17/19 18 Unknown Cbc With Differential Ord2 Eos ABS# 0.2 K/ul 11/17/19 18 Unknown Cbc With Differential Ord2 Baso ABS# 0.0 K/ul 11/17/19 18 Unknown Hepatic Hgo781 ALBUMIN 4.1 g/dL 11/16/2017 Unknown Hepatic Yzi929 TPRO 6.7 g/dL 11/16/2017 Unknown Hepatic Byr908 GLOB 2.7 g/dL 11/16/2017 Unknown Hepatic Lva509 A/G Ratio 1.5 Ratio 11/16/2017 Unknown Hepatic Sff355 ALK PHOS 31 U/L 11/16/2017 Unknown Hepatic Haa638 ALT(SGPT) 11 U/L 11/16/2017 Unknown Hepatic Ofk956 AST(SGOT) 15 U/L 11/16/2017 Unknown Hepatic Ttc973 BILI T 0.7 mg/dL 11/16/2017 Unknown Hepatic Xza414 BILI D 0.2 mg/dL 11/16/2017 Unknown Hepatic Izc656 BILI I 0.5 mg/dL 11/16/2017 Unknown Hepatic Hfj445 ALBUMIN 4.0 g/dL 08/17/2017 Unknown Hepatic Ndt324 TPRO 6.6 g/dL 08/17/2017 Unknown Hepatic Twc425 GLOB 2.6 g/dL 08/17/2017 Unknown Hepatic Lai255 A/G Ratio 1.6 Ratio 08/17/2017 Unknown Hepatic Duc536 ALK PHOS 43 U/L 08/17/2017 Unknown Hepatic Rpo504 ALT(SGPT) 10 U/L 08/17/2017 Unknown Hepatic Jfb960 AST(SGOT) 15 U/L 08/17/2017 Unknown Hepatic Nrv214 BILI T 0.7 mg/dL 08/17/2017 Unknown Hepatic Bnc409 BILI D 0.1 mg/dL 08/17/2017 Unknown Hepatic Szg014 BILI I 0.6 mg/dL 08/17/2017 Unknown Cbc [...] 08/17/20 17 Unknown Cbc With Differential Ord2 Grimes% 8.6 % 08/17/20 17 Unknown Cbc With [...] K/ul 017 Unknown Cbc With Differential Ord2 Grimes ABS# 0.6 K/ul 08/17/20 17 Unknown Cbc With Differential Ord2 Eos ABS# 0.3 K/ul 08/17/20 17 Unknown Cbc With Differential Ord2 Baso ABS# 0.0 K/ul 08/17/20 17 Unknown Ra Factor Dsf352 RA FACTOR 40.2 IU/ml 04/12/2017 Unknown Sed Rate Ord21 ESR 23 mm/hr 04/12/2017 Unknown C-Reactive Protein Qnt Crqnt CRP 0.2 mg/dl 2016 Unknown Tsh Ord6 hTSH II 1.26 uIU/mL 11/23/2016 Unknown Comp Metabolic Iif247 NA 139 mEq/L 11/23/2016 Unkn own Comp Metabolic Ztb204 K 3.8 mEq/L 11/23/2016 Unkn own Comp Metabolic Fpy498 CL 105 mEq/L 11/23/2016 Unkn own Comp Metabolic Fyl075 CO2 27.0 mEq/L 11/23/2016 Unk nown Comp Metabolic Ymu946 ANION GAP 11 11/23/2016 Unkn own Comp Metabolic Fho143 GLUCOSE 110 mg/dL 11/23/2016 Unkn own Comp Metabolic Eew414 Creat 0.6 mg/dL 11/23/2016 Unkn own Comp Metabolic Jop563 eGFR 98 ml/min/1.73m2 11/24/19 17 Unknown Comp Metabolic Pcu791 BUN 15 mg/dL 11/23/2016 Unkn own Comp Metabolic Ngo819 B/C Ratio 23.4 Ratio 11/23/2016 Unk nown Comp Metabolic Eyp387 CALCIUM 9.5 mg/dL 11/23/2016 Unkn own Comp Metabolic Erj055 ALK PHOS 42 U/L 11/23/2016 Unkn own Comp Metabolic Wqc660 AST(SGOT) 15 U/L 11/23/2016 Unkn own Comp Metabolic Ido667 ALT(SGPT) 12 U/L 11/23/2016 Unkn own Comp Metabolic Oro489 BILI T 1.0 mg/dL 11/23/2016 Unkn own Comp Metabolic Slp710 ALBUMIN 4.2 g/dL 11/23/2016 Unkn own Comp Metabolic Bja188 TPRO 7.1 g/dL 11/23/2016 Unkn own Comp Metabolic Vgg743 GLOB 2.9 g/dL 11/23/2016 Unkn own Comp Metabolic Ybn264 A/G Ratio 1.5 Ratio 11/23/2016 Unkn own Comp Metabolic Ziv555 Osmo 279 mOsmo 11/23/2016 Unkn own Lipid [...] 11/24/19 17 Unknown Cbc With Differential Ord2 Grimes% 9.9 % 11/24/19 17 Unknown Cbc With [...] K/ul 017 Unknown Cbc With Differential Ord2 Grimes ABS# 0.6 K/ul 11/24/19 17 Unknown Cbc With Differential Ord2 Eos ABS# 0.2 K/ul 11/24/19 17 Unknown Cbc With Differential Ord2 Baso ABS# 0.1 K/ul 11/24/19 17 Unknown Microalbumin Jne340 MicroAlb <0.7 mg/dL 11/23/2016 Unkno wn %Hba1C Snr364 % HbA1c 01548-9 5.4 % 11/23/2016 Unknown %Hba1C Bqe971 Gluc Ave 108 mg/dL 11/23/2016 Unknown %Hba1C Bjm242 % HbA1c 15004-4 5.4 % 11/04/2015 Unknown %Hba1C Gus145 Gluc Ave 108 mg/dL 11/04/2015 Unknown Lipid Ord30 CHOL 169 mg/dL 11/04/2015 Unknown Lipid Ord30 HDL 48.0 mg/dl 11/04/2015 Unknown Lipid Ord30 TRIG 160 mg/dL 11/04/2015 Unknown Lipid Ord30 LDL 89 mg/dL 11/04/2015 Unknown Lipid Ord30 C/HDL 3.5 Ratio 11/04/2015 Unknown Microalbumin Spj442 MicroAlb 1.7 mg/dL 11/04/2015 Unknow n Tsh Ord6 hTSH II 1.00 uIU/mL 11/04/2015 Unknown Comp Metabolic Ait518 NA 138 mEq/L 11/04/2015 Unkn own Comp Metabolic Sjl193 K 3.7 mEq/L 11/04/2015 Unkn own Comp Metabolic Dmw606 CL 103 mEq/L 11/04/2015 Unkn own Comp Metabolic Cld874 CO2 28.0 mEq/L 11/04/2015 Unk nown Comp Metabolic Wae725 ANION GAP 11 11/04/2015 Unkn own Comp Metabolic Ldb734 GLUCOSE 96 mg/dL 11/04/2015 Unkn own Comp Metabolic Hpn134 Creat 0.7 mg/dL 11/04/2015 Unkn own Comp Metabolic Xel274 eGFR 92 ml/min/1.73m2 11/04/19 16 Unknown Comp Metabolic Nam708 BUN 15 mg/dL 11/04/2015 Unkn own Comp Metabolic Dfq041 B/C Ratio 22.1 Ratio 11/04/2015 Unk nown Comp Metabolic Tyb610 CALCIUM 9.3 mg/dL 11/04/2015 Unkn own Comp Metabolic Zry496 ALK PHOS 43 U/L 11/04/2015 Unkn own Comp Metabolic Hym172 AST(SGOT) 14 U/L 11/04/2015 Unkn own Comp Metabolic Jlt785 ALT(SGPT) 9 U/L 11/04/2015 Unkn own Comp Metabolic Mnk488 BILI T 0.8 mg/dL 11/04/2015 Unkn own Comp Metabolic Itz378 ALBUMIN 4.3 g/dL 11/04/2015 Unkn own Comp Metabolic Ahi102 TPRO 7.0 g/dL 11/04/2015 Unkn own Comp Metabolic Toz084 GLOB 2.7 g/dL 11/04/2015 Unkn own Comp Metabolic Yvs356 A/G Ratio 1.6 Ratio 11/04/2015 Unkn own Comp Metabolic Vyg256 Osmo 276 mOsmo 11/04/2015 Unkn own Cbc [...] 11/04/19 16 Unknown Cbc With Differential Ord2 Grimes% 9.0 % 11/04/19 16 Unknown Cbc With [...] K/ul 016 Unknown Cbc With Differential Ord2 Grimes ABS# 0.6 K/ul 11/04/19 16 Unknown Cbc With Differential Ord2 Eos ABS# 0.2 K/ul 11/04/19 16 Unknown Cbc With Differential Ord2 Baso ABS# 0.0 K/ul 11/04/19 16 Unknown Cbc With Differential Ord2 New Analyzer Notice Please note new ref ranges starting 09-30-2015 due to implemntation of new five part differential hematolgy analyzer. 11/04/2015 Unknown %Hba1C Pfb412 % HbA1c 87212-9 5.2 % 05/06/2015 Unknown %Hba1C Ypa719 Gluc Ave 103 mg/dL 05/06/2015 Unknown Lipid [...] 14.7 % 05/06/20 15 Unknown Comp Metabolic Cmh502 NA 137 mEq/L 05/06/2015 Unkn own Comp Metabolic Slb329 K 3.6 mEq/L 05/06/2015 Unkn own Comp Metabolic Zrk135 CL 102 mEq/L 05/06/2015 Unkn own Comp Metabolic Rah825 CO2 28.0 mEq/L 05/06/2015 Unk nown Comp Metabolic Ije123 ANION GAP 11 05/06/2015 Unkn own Comp Metabolic Vyo787 GLUCOSE 97 mg/dL 05/06/2015 Unkn own Comp Metabolic Sds329 Creat 0.7 mg/dL 05/06/2015 Unkn own Comp Metabolic Pos692 eGFR 94 ml/min/1.73m2 05/06/20 15 Unknown Comp Metabolic Fzu670 BUN 14 mg/dL 05/06/2015 Unkn own Comp Metabolic Pgv244 B/C Ratio 20.9 Ratio 05/06/2015 Unk nown Comp Metabolic Bna759 CALCIUM 9.5 mg/dL 05/06/2015 Unkn own Comp Metabolic Pbh136 ALK PHOS 49 U/L 05/06/2015 Unkn own Comp Metabolic Msb896 AST(SGOT) 15 U/L 05/06/2015 Unkn own Comp Metabolic Xju054 ALT(SGPT) 11 U/L 05/06/2015 Unkn own Comp Metabolic Ozg240 BILI T 0.8 mg/dL 05/06/2015 Unkn own Comp Metabolic Ufu693 ALBUMIN 4.4 g/dL 05/06/2015 Unkn own Comp Metabolic Hop957 TPRO 7.4 g/dL 05/06/2015 Unkn own Comp Metabolic Ins416 GLOB 3.0 g/dL 05/06/2015 Unkn own Comp Metabolic Ddd593 A/G Ratio 1.5 Ratio 05/06/2015 Unkn own Comp Metabolic Lye551 Osmo 274 mOsmo 05/06/2015 Unkn own Tsh Ord6 hTSH II 0.99 uIU/mL 05/06/2015 Unknown Procedures Procedure Codes Date THER/PROPH/DIAG INJ SC/IM CPT-4: 95631 05/06/2021 TRIAMCINOLONE ACET INJ NOS 10 mg CPT-4: J3301 021 Vital Signs Date Vital 04/09/2021 Blood Pressure 1: 132/82 Code: 8480-6 BMI: 18.6 Code: 67849-0 Heart Rate 1: 90 bpm Height: 5' Code: 8302-2 Respiratory Rate: 20 bpm Temperature : 36.3 (C) / 97.3 (F) Weight: 95 lbs Code: 84664-1 03/25/2021 Blood Pressure 1: 106/70 Code: 8480-6 BMI: 17.6 Code: 28708-5 Heart Rate 1: 48 bpm Height: 5' Code: 8302-2 SpO2: 98% Temperature: 35. 7 (C) / 96.3 (F) Weight: 90 lbs Code: 14009-6 02/02/2021 Blood Pressure 1: 118/70 Code: 8480-6 BMI: 19.9 Code: 55520-5 Heart Rate 1: 66 bpm Height: 5' Code: 8302-2 SpO2: 99% Temperature: 36. 7 (C) / 98.0 (F) Weight: 102 lbs 2 oz Code: 31823-7 12/31/2020 Blood Pressure 1: 106/64 Code: 8480-6 BMI: 20.7 Code: 30319-1 Heart Rate 1: 68 bpm Height: 5' Code: 8302-2 Respiratory Rate: 17 bpm SpO2: 97% Temperature: 35.8 (C) / 96.4 (F) Weight: 106 lbs Code: 09058-9 07/02/2020 Blood Pressure 1: 138/78 Code: 8480-6 BMI: 21.7 Code: 54399-6 Heart Rate 1: 52 bpm Height: 5' Code: 8302-2 Respiratory Rate: 16 bpm SpO2: 99% Temperature: 36.6 (C) / 97.8 (F) Weight: 111 lbs Code: 96039-3 01/02/2020 Blood Pressure 1: 120/64 Code: 8480-6 BMI: 21.3 Code: 58219-7 Heart Rate 1: 65 bpm Height: 5' Code: 8302-2 SpO2: 95% Temperature: 36. 4 (C) / 97.5 (F) Weight: 109 lbs Code: 40648-4 07/04/2019 Blood Pressure 1: 112/70 Code: 8480-6 BMI: 22.3 Code: 73395-3 Heart Rate 1: 60 bpm Height: 5' Code: 8302-2 SpO2: 99% Weight: 114 lbs 7 oz Code: 77283-0 01/02/2019 Blood Pressure 1: 122/68 Code: 8480-6 BMI: 22.7 Code: 84528-7 Heart Rate 1: 67 bpm Height: 5' Code: 8302-2 SpO2: 99% Weight: 116 lbs Code: 67073-0 07/11/2018 Blood Pressure 1: 138/66 Code: 8480-6 BMI: 22.5 Code: 13128-7 Heart Rate 1: 97 bpm Height: 5' Code: 8302-2 SpO2: 99% Weight: 115 lbs Code: 66336-5 04/12/2017 Blood Pressure 1: 142/82 Code: 8480-6 BMI: 23.2 Code: 04630-7 Heart Rate 1: 66 bpm Height: 5' Code: 8302-2 SpO2: 97% Weight: 119 lbs Code: 54092-2 11/23/2016 Blood Pressure 1: 130/78 Code: 8480-6 BMI: 24.4 Code: 58335-4 Heart Rate 1: 65 bpm Height: 5' Code: 8302-2 SpO2: 99% Weight: 125 lbs Code: 39776-7 05/04/2016 Blood Pressure 1: 126/78 Code: 8480-6 BMI: 24.6 Code: 69463-8 Heart Rate 1: 59 bpm Height: 5' Code: 8302-2 SpO2: 98% Weight: 126 lbs Code: 09374-3 11/04/2015 Blood Pressure 1: 132/70 Code: 8480-6 BMI: 25.3 Code: 38935-9 Heart Rate 1: 58 bpm Height: 5' Code: 8302-2 Weight: 129 lbs 8 oz Code: 2 9463-7 05/06/2015 Blood Pressure 1: 138/78 Code: 8480-6 BMI: 25.0 Code: 67230-3 Heart Rate 1: 65 bpm Height: 5' Code: 8302-2 SpO2: 97% Weight: 128 lbs Code: 66352-4 Functional Status No Functional Status data Reason For Visit Reason For Visit Effective Dates Notes paresthesia 04/09/2021 earache 03/25/2021 arthritis 02/02/2021 hypertension 12/31/2020 hypertension 07/02/2020 hypertension 01/02/2020 hypertension 07/04/2019 hypertension 01/02/2019 medication follow up 07/11/2018 hand pain 04/12/2017 hypertension 11/23/2016 hypertension 05/04/2016 hypertension 11/04/2015 hypertension 05/06/2015 Encounters Encounter Performer Location Codes Date ([id number]) 30226 EST. 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 PATIENT, LEVEL IV Diagnosis: Essential (primary) hypertension[ICD10: I10] Diagnosis: Multiple sclerosis[ICD10: G35] Diagnosis: Type 2 diabetes mellitus without complications[ICD10: E11.9] Diagnosis: Underweight due to inadequate caloric intake[ICD10: R63.6] Aliyah Paris MD, [facility] CPT-4: 23396 12/31/2020 ([id number]) 97330 EST. PATIENT, LEVEL IV Diagnosis: Essential (primary) hypertension[ICD10: I10] Diagnosis: Type 2 diabetes mellitus without complications[ICD10: E11.9] Diagnosis: Multiple sclerosis[ICD10: G35] Aliyah Paris MD, [facility] CPT-4: 19625 07/02/2020 ([id number]) 26804 EST. PATIENT, LEVEL IV Diagnosis: Type 2 diabetes mellitus without complications[ICD10: E11.9] Diagnosis: Essential (primary) hypertension[ICD10: I10] Diagnosis: Multiple sclerosis[ICD10: G35] Aliyah Paris MD, [facility] CPT-4: 39904 01/02/2020 ([id number]) 53286 EST. PATIENT, LEVEL IV Diagnosis: Essential (primary) hypertension[ICD10: I10] Diagnosis: Type 2 diabetes mellitus without complications[ICD10: E11.9] Diagnosis: Multiple sclerosis[ICD10: G35] Aliyah Paris MD [facility] CPT-4: 25470 07/04/2019 ([id number]) 92845 EST. PATIENT, LEVEL IV Diagnosis: Essential (primary) hypertension[ICD10: I10] Diagnosis: Type 2 diabetes mellitus without complications[ICD10: E11.9] Diagnosis: Multiple sclerosis[ICD10: G35] Aliyah Paris MD [facility] CPT-4: 83633 01/02/2019 ([id number]) 56887 EST. PATIENT, LEVEL IV Diagnosis: Type 2 diabetes mellitus without complications[ICD10: E11.9] Diagnosis: Essential (primary) hypertension[ICD10: I10] Diagnosis: Multiple sclerosis[ICD10: G35] Aliyah Paris MD, [facility] CPT-4: 70920 07/11/2018 16599 EST. PATIENT, LEVEL IV Diagnosis: Pain in right hand[ICD10: M79.641] Diagnosis: Multiple sclerosis[ICD10: G35] Tiffanie Paris MD, [facility] CPT-4: 85616 04/12/2017 ([id number]) 05567 EST. PATIENT, LEVEL IV Diagnosis: Essential (primary) hypertension[ICD10: I10] Diagnosis: Type 2 diabetes mellitus without complications[ICD10: E11.9] Aliyah Paris MD, [facility] CPT-4: 27080 11/23/2016 ([id number]) 72508 EST. PATIENT, LEVEL IV Diagnosis: Essential (primary) hypertension[ICD10: I10] Diagnosis: Type 2 diabetes mellitus without complications[ICD10: E11.9] Aliyah Paris MD, [facility] CPT-4: 16579 05/04/2016 ([id number]) 39001 EST. PATIENT, LEVEL IV Diagnosis: Type 2 diabetes mellitus without complications[ICD10: E11.9] Diagnosis: Essential (primary) hypertension[ICD10: I10] [facility] CPT-4: 92403 11/04/2015 ([id number]) OFFICE VISIT, NEW - LEVEL 4 Diagnosis: DIABETES TYPE II[ICD9: 250.00] Diagnosis: ESSENTIAL HYPERTENSION[ICD9: 401.9] [facility] CPT-4: 20588 05/06/2015 Plan of Care Planned Activity Notes Codes Status Date Patient Education: Patient Medication Summary Completed 05/06/2021 [...] increased edema. 04/09/2021 Appointment: Mira Danielle WPtel: [facility]5 [facility] [place] [address] (15 min) Moderate 04/09/2021 Appointment: Mira Danielle WPtel: [address] [place], [place] [id number] [place] [address] (15 min) Moderate 04/09/2021 Patient Education: Patient Medication Summary Completed 04/09/2021 Patient Education: Hypertension Completed 04/09/2021 Care Plan: Cbc With Differential Pending 04/09/2021 Care Plan: Comp Metabolic Pending Appointment: Mira Danielle WPtel: [facility]5 [phone] (30 min) Complex 04/08/2021 Visit Plan: Multiple [...] Rheumatoid Arthritis- continue follow up with rheumatology. 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 Pt reports had steroid injection in January 2021 for bilateral h and pain, but pain has been controlled since. Pt encouraged to continue follow up appt with process eng. Hypertension- Pt reports not checking BP at [...] with taste. 03/25/2021 Appointment: Mira Danielle WPtel: [phone] (15 min) Moderate 03/25/2021 Patient Education: Patient Medication Summary Completed 03/25/2021 Patient Education: Hypertension Completed 03/25/2021 Care Plan: Vitamin D 25 Oh Pending 03/25/2021 Care Plan: Cbc With Differential Pending 03/25/2021 Care Plan: Comp Metabolic Pending Visit Plan: Arthritis - pt has been on m ultiple different treatments in the past - would like to seek out a new process eng - she would like a Referral to Dr. Woodruff in [place] Hypertension - well controlled - continue with [...] time. 02/02/2021 App[facility]ment[phone] [facility] (15 min) Moderate 02/02/2021 Patient Education: Patient [...] this time. 12/31/2020 Appointment: Aliyah Paris WPtel: [facility] (15 min) Moderate 12/31/2020 Patient Education: Patient [...] time. 07/02/2020 Appointment: [facility] [phone] [facility] (15 min) Moderate 07/02/2020 Patient Education: Patient [...] time. 01/02/2020 App[facility]ment: [facility] [phone] [facility] (15 min) Moderate 01/02/2020 Patient Education: Patient Medication Summary Completed 01/02/2020 Patient Education: Diabetes Completed 01/02/2020 Patient Education: Hypertension Completed 01/02/2020 Care Plan: Cbc With Differential Pending 01/02/2020 Care Plan: Comp Metabolic Pending Care Plan: Lipid Pending 01/02/2020 Care Plan: %Hba1C LOINC : 40731-7 Pending 01/02/2020 Care Plan: Tsh Pending 01/02/2020 [...] time. 07/04/2019 Appointment: Aliyah Paris WPtel: [phone] [phone] (15 min) Moderate 07/04/2019 Patient Education: Patient Medication Summary Completed 07/04/2019 Patient Education: Hypertension Completed 07/04/2019 Patient Education: Diabetes Completed 07/04/2019 Care Plan: Comp Metabolic Pending Care Plan: Cbc With Differential Pending 07/04/2019 Care Plan: %Hba1C LOINC : 34384-7 Pending 07/04/2019 Care Plan: Tsh Pending 07/04/2019 [...] symptoms closely. 01/02/2019 Appointment: [facility]el[facility] [phone] [facility] (15 min) Moderate 01/02/2019 Patient Education: Patient [...] closely. 07/11/2018 Appointment: Aliyah Paris WPtel: [phone] [phone] (15 min) Moderate 07/11/2018 Patient Education: Patient [...] for evaluation/monitoring 04/12/2017 Appointment: Tiffanie Hope WPtel: [phone] [phone] (15 min) Moderate 04/12/2017 Patient Education: Patient [...] less controlled. 11/23/2016 Appointment: [facility]el[facility] [phone] [facility] [place] (15 min) Moderate 11/23/2016 Patient Education: [...] less controlled. 11/04/2015 Appointment: Aliyah Paris WPtel: [phone] (15 min) Moderate 11/04/2015 Patient Education: Patient [...] at home. 05/06/2015 Appointment: Aliyah Paris WPtel: [facility]5 [phone] [place] ([place]) New Patient 05/06/2015 Patient Education: Patient Medication Summary Completed 05/06/2015 Patient Education: Hypertension Completed 05/06/2015 Instructions Comment VITAMIN D3 5,000 IU 1 TABLET DAILY [...] Rheumatoid Arthritis- continue follow up with rheumatology. 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 Pt reports had steroid injection in January 2021 for bilateral hand pain, but pain has been controlled since. Pt encouraged to continue follow up appt with process eng. Hypertension- Pt reports not checking BP at [...] would like to seek out a new process eng - she would like a Referral to Dr. oWodruff in [place] Hypertension - well controlled - continue with [...]
--- OUTSIDE RECORDS SUMMARY | 2021-05-14 12:14 | XMS REPORT | CCD ---
Author Author Libby Paris Organization Aliyah Paris MD, [facility] Address [address] [place] [address] Phone Care Team Providers Care Personal Financial Advisor Name Role Phone Aliyah Paris PP Unavailable CCM Unavailable Summary Purpose Interface Exchange Insurance Providers Payer name Policy type / Coverage type Covered alliance party ID Effective Begin Date Effective End Date [employer] Commercial Insurance [id number] 2017 Unknown Family history Sister Diagnosis Age At Onset Hypertension Unknown Diabetes Unknown Mother Diagnosis Age At Onset Hypertension Unknown Cancer Unknown Social History Social History Element Codes Description Effective Dates Employment Unknown 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/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 Marital status Unknown Single 05/06/[address]: 190087622 Never smoker 05/06/[address]: 143704489 Never drinks alcohol 2014 Allergies, Adverse Reactions, [...] D3 125 mcg (5,000 unit) tablet RxNorm: 463976 1 Tablet(s) Oral every day 01/05/2021 No Stop Date Active Vitamin D2 1,250 mcg (50,000 unit) capsule RxNorm: 1760148 1 Capsule(s) Oral weekly take with vit d 5000 u daily 01/05/2021 02/01/2021 Inactive Ziac 10 mg-6.25 mg tablet RxNorm: 655277 Take 1 tablet by mouth once daily 08/20/2020 03/17/2021 Inactive Vitamin D2 1,250 mcg (50,000 unit) capsule RxNorm: 6393222 1 Capsule(s) Oral weekly 07/08/2020 09/30/2020 Inactive Vitamin D2 1,250 mcg (50,000 unit) capsule RxNorm: 8394075 1 Capsule(s) Oral weekly 07/08/2020 07/07/2020 Inactive methotrexate sodium 2.5 mg tablet RxNorm: 309437 3 Tabl et(s) Oral once a week - Managed by rheumatology 07/02/2020 03/24/2021 Inactive Ziac 10 mg-6.25 mg tablet RxNorm: 999752 TAKE 1 TABLET BY MOUTH ONCE DAILY 12/09/2019 07/05/2020 Inactive Ziac 10 mg-6.25 mg tablet RxNorm: 603768 TAKE 1 TABLET BY MOUTH ONCE DAILY 05/28/2019 12/08/2019 Inactive metformin 500 mg tablet RxNorm: 682503 1/2 Tablet(s) PO BID 019 01/01/2020 Inactive metformin 500 mg tablet RxNorm: 415606 1/2 Tablet(s) PO BID 019 05/05/2019 Inactive methotrexate sodium 2.5 mg tablet RxNorm: 970540 6 Tabl et(s) PO QW -Managed by rheumatology 01/02/2019 07/01/2020 Inactive Ziac 10 mg-6.25 mg tablet RxNorm: 036570 TAKE 1 TABLET BY MOUTH ONCE DAILY 08/29/2018 05/27/2019 Inactive methotrexate sodium 2.5 mg tablet RxNorm: 184032 3 Tablet(s) PO QW 07/11/2018 01/01/2019 Inactive Ziac 10 mg-6.25 mg tablet RxNorm: 180344 TAKE 1 TABLET BY MOUTH ONCE DAILY 06/26/2018 08/28/2018 Inactive metformin 500 mg tablet RxNorm: 511108 TAKE ONE TABLET BY MOUTH TWICE DAILY 04/03/2018 01/03/2019 Inactive Ziac 10 mg-6.25 mg tablet RxNorm: 406121 TAKE ONE TABLET BY JEFF TH ONCE DAILY 01/31/2018 06/25/2018 Inactive metformin 500 mg tablet RxNorm: 569624 TAKE ONE TABLET BY MOUTH TWICE DAILY 10/04/2017 04/02/2018 Inactive Ziac 10 mg-6.25 mg tablet RxNorm: 052016 TAKE ONE TABLET BY JEFF TH ONCE DAILY 08/02/2017 01/30/2018 Inactive diclofenac potassium 50 mg tablet RxNorm: 749071 1 Tabl et(s) PO BID as needed for pain 04/12/2017 05/11/2017 Inactive metformin 500 mg tablet RxNorm: 658210 Tablet(s) TAKE O NE TABLET BY MOUTH TWICE DAILY 04/06/2017 10/02/2017 Inactive Ziac 10 mg-6.25 mg tablet RxNorm: 377471 TAKE ONE TABLET BY JEFF TH ONCE DAILY 04/03/2017 07/31/2017 Inactive multivitamin with iron tablet RxNorm: 1 Tablet(s) PO daily 11/201602/16/2017 Inactive Claritin-D 24 Hour 10 mg-240 mg tablet,extended release RxNo rm: 9814793 1 Tablet(s) PO daily 11/23/2016 11/22/2016 Inactive Claritin-D 24 Hour 10 mg-240 mg tablet,extended release RxNo rm: 9869351 1 Tablet(s) PO daily 11/23/2016 01/01/2019 Inactive Ziac 10 mg-6.25 mg tablet RxNorm: 038463 TAKE ONE TABLET BY JEFF TH ONCE DAILY 10/10/2016 04/02/2017 Inactive metformin 500 mg tablet RxNorm: 463264 TAKE ONE TABLET BY MOUTH TWICE DAILY 10/05/2016 04/02/2017 Inactive Claritin-D 12 Hour 5 mg-120 mg tablet,extended release RxNor m: 8693619 1 Tablet(s) PO BID as needed 09/15/2016 11/22/2016 Inactive Ziac 10 mg-6.25 mg tablet RxNorm: 986061 Tablet(s) 1 Tablet(s) PO daily 04/12/2016 10/08/2016 Inactive metformin 500 mg tablet RxNorm: 586459 1 Tablet(s) PO BID 01/08/2016 10/03/2016 Inactive Ziac 10 mg-6.25 mg tablet RxNorm: 502108 1 Tablet(s) PO daily 10/1204/08/2016 Inactive Ziac 10 mg-6.25 mg tablet RxNorm: 216673 1 Tablet(s) PO daily 07/1510/11/2015 Inactive metformin 500 mg tablet RxNorm: 809233 1 Tablet(s) PO BID 04/14/2015 01/07/2016 Inactive metformin 500 mg tablet RxNorm: 615004 1 Tablet(s) PO BID 04/14/2015 04/13/2015 Inactive Ziac 10 mg-6.25 mg tablet RxNorm: 008361 1 Tablet(s) PO daily 04/1407/12/2015 Inactive aspirin 81 mg tablet RxNorm: 918901 1 Tablet(s) PO daily 05/06/2015 Active Ziac 10 mg-6.25 mg tablet RxNorm: 152142 1 Tablet(s) PO daily 04/1404/13/2015 Inactive Claritin-D 12 Hour 5 mg-120 mg tablet,extended release RxNor m: 4137060 1 Tablet(s) PO BID 09/15/2016 09/14/2016 Inactive Plaquenil 200 mg tablet RxNorm: 601181 1 Tablet(s) PO daily 021 03/24/2021 Inactive Naprosyn 500 mg tablet RxNorm: 286456 1 Tablet(s) PO BID 02/02/2021 0 02/01/2021 Inactive aqnednxg-trhcvzuril-xm glycn-C oral RxNorm: oral 07/04/2019 07/03/2019 Inactive folic acid 1 mg tablet RxNorm: 937512 1 Tablet(s) PO daily 03/25/20 21 03/24/2021 Inactive methotrexate sodium 2.5 mg tablet RxNorm: 010272 6 Tablet(s) PO QW 07/11/2018 07/10/2018 Inactive Medication Administered No Medication Administered data Immunizations Vaccine Codes Date Status Covid-19 CVX: 12/21/2020 Covid-19 CVX: 11/18/2020 Results Observation Observation Code Item Item Code Result Date S ervice Location MEAN GLUC 4365248 Calc Mean Gluc 85 mg/dL 01/01/2021 Unkn own A1C HPLC 4631826 Hgb A1c 74690-8 4.6 % 01/01/2021 Unknown LIPID GRP 5595035 CHOLESTEROL 148 mg/dL 01/01/2021 Unknown LIPID GRP 3882960 Triglyceride 136 mg/dL 01/01/2021 Unknow n LIPID GRP 0302809 HDL CHOLESTEROL 46 mg/dL 01/01/2021 Unk nown LIPID GRP 9485121 Chol/HDL Ratio 3.22 ratio 01/01/2021 Unk nown LIPID GRP 2851418 NON-HDL Chol 102 mg/dL 01/01/2021 Unknow n LIPID GRP 8948036 LDL Cholesterol 75 mg/dL 01/01/2021 Unk nown FOLIC ACID 8082023 Folate 6.0 ng/mL 01/01/2021 Unknown CHEM 14 7793066 AST 23 U/L 01/01/2021 Unknown CHEM 14 8319365 ALT 14 U/L 01/01/2021 Unknown CHEM 14 2822051 BUN 21 mg/dL 01/01/2021 Unknown CHEM 14 8956901 ALBUMIN 3.8 g/dL 01/01/2021 Unknown CHEM 14 3183943 CHLORIDE 105 mmol/L 01/01/2021 Unknown CHEM 14 4499951 Bili Total 0.5 mg/dL 01/01/2021 Unknown CHEM 14 2117961 ALK PHOS 47 U/L 01/01/2021 Unknown CHEM 14 6765447 SODIUM 137 mmol/L 01/01/2021 Unknown CHEM 14 5175678 CREATININE 0.89 mg/dL 01/01/2021 Unknown CHEM 14 6622023 CALCIUM 9.5 mg/dL 01/01/2021 Unknown CHEM 14 4525416 POTASSIUM 4.2 mmol/L 01/01/2021 Unknown CHEM 14 6097596 TOTAL PROTEIN 7.3 g/dL 01/01/2021 Unkno wn CHEM 14 4744221 GLUCOSE 92 mg/dL 01/01/2021 Unknown CHEM 14 0986100 Bicarbonate 21 mmol/L 01/01/2021 Unknown CHEM 14 3593107 AGAP 11 mmol/L 01/01/2021 Unknown CBC 1317638 WBC 8.3 10e9/L 01/01/2021 Unknown CBC 2967344 RBC 3.66 10e12/L 01/01/2021 Unknow n CBC 5224239 HEMOGLOBIN 11.5 g/dL 01/01/2021 Unknown CBC 2318577 HEMATOCRIT 33.7 % 01/01/2021 Unknown CBC 9140293 MCV 92.1 fL 01/01/2021 Unknown CBC 1443968 MCH 31.4 pg 01/01/2021 Unknown CBC 4084131 MCHC 34.1 g/dL 01/01/2021 Unknown CBC 1642108 PLATELET COUNT 214 10e9/L 01/01/2021 Unk nown CBC 8691694 Mean Plt Volume 10.9 fL 01/01/2021 Unk nown CBC 1523351 Neut Auto 69.8 % 01/01/2021 Unknown CBC 6405996 Lymph Auto 14.5 % 01/01/2021 Unknown CBC 6825036 Brule Auto 11.9 % 01/01/2021 Unknown CBC 0003783 RDW 14.4 % 01/01/2021 Unknown CBC 0904842 Eos Auto 3.0 % 01/01/2021 Unknown CBC 2588918 Baso Auto 0.8 % 01/01/2021 Unknown CBC 6037816 Neutrophil Abs 5.79 10e9/L 01/01/2021 Un known CBC 1639996 Lymphocyte Abs 1.20 10e9/L 01/01/2021 Un known CBC 5210138 Monocyte Abs 0.99 10e9/L 01/01/2021 Unkn own CBC 7298237 Eosinophil Abs 0.25 10e9/L 01/01/2021 Un known CBC 1355024 RDW-SD 46.3 fL 01/01/2021 Unknown CBC 7506158 Basophil Abs 0.07 10e9/L 01/01/2021 Unkn own TSH 9892559 TSH 1.235 uIU/mL 01/01/2021 Unknow n VIT D TOTL 4625239 Vitamin D 25 OH 29.1 ng/mL 01/01/2021 U nknown GFR CALC 8455103 GFR Non Afr Amr >60 mL/min 01/01/2021 Un known GFR CALC 9907568 GFR Afr Amr >60 mL/min 01/01/2021 Unknow n MEAN GLUC 0267282 Calc Mean Gluc 97 mg/dL 07/06/2020 Unkn own A1C HPLC 2378860 Hgb A1c 70026-6 5.0 % 07/06/2020 Unknown FOLIC ACID 5189151 Folate >20.0 ng/mL 07/02/2020 Unknow n VIT D TOTL 1541607 Vitamin D 25 OH 24.3 ng/mL 07/02/2020 U nknown CHEM 14 4665190 AST 16 U/L 07/02/2020 Unknown CHEM 14 0071421 ALT 8 U/L 07/02/2020 Unknown CHEM 14 2270303 BUN 19 mg/dL 07/02/2020 Unknown CHEM 14 5784389 ALBUMIN 4.1 g/dL 07/02/2020 Unknown CHEM 14 6842669 CHLORIDE 108 mmol/L 07/02/2020 Unknown CHEM 14 0203990 Bili Total 0.6 mg/dL 07/02/2020 Unknown CHEM 14 2753711 ALK PHOS 56 U/L 07/02/2020 Unknown CHEM 14 7985223 SODIUM 139 mmol/L 07/02/2020 Unknown CHEM 14 1045306 CREATININE 0.88 mg/dL 07/02/2020 Unknown CHEM 14 4496255 CALCIUM 9.3 mg/dL 07/02/2020 Unknown CHEM 14 7165660 POTASSIUM 4.3 mmol/L 07/02/2020 Unknown CHEM 14 3230562 TOTAL PROTEIN 7.7 g/dL 07/02/2020 Unkno wn CHEM 14 5393257 GLUCOSE 91 mg/dL 07/02/2020 Unknown CHEM 14 6497097 Bicarbonate 23 mmol/L 07/02/2020 Unknown CHEM 14 6424987 AGAP 8 mmol/L 07/02/2020 Unknown GFR CALC 4141701 GFR Non Afr Amr >60 mL/min 07/02/2020 Un known GFR CALC 1242693 GFR Afr Amr >60 mL/min 07/02/2020 Unknow n LIPID GRP 0897452 CHOLESTEROL 148 mg/dL 07/02/2020 Unknown LIPID GRP 7220923 Triglyceride 107 mg/dL 07/02/2020 Unknow n LIPID GRP 6646940 HDL CHOLESTEROL 50 mg/dL 07/02/2020 Unk nown LIPID GRP 8162470 Chol/HDL Ratio 2.96 ratio 07/02/2020 Unk nown LIPID GRP 3811435 NON-HDL Chol 98 mg/dL 07/02/2020 Unknow n LIPID GRP 9053993 LDL Cholesterol 77 mg/dL 07/02/2020 Unk nown CBC 8019067 WBC 8.7 10e9/L 07/02/2020 Unknown CBC 7479133 RBC 3.43 10e12/L 07/02/2020 Unknow n CBC 8742751 HEMOGLOBIN 10.0 g/dL 07/02/2020 Unknown CBC 4200127 HEMATOCRIT 31.2 % 07/02/2020 Unknown CBC 1160821 MCV 91.0 fL 07/02/2020 Unknown CBC 6135059 MCH 29.2 pg 07/02/2020 Unknown CBC 3360687 MCHC 32.1 g/dL 07/02/2020 Unknown CBC 5431441 PLATELET COUNT 222 10e9/L 07/02/2020 Unk nown CBC 0775255 Mean Plt Volume 11.7 fL 07/02/2020 Unk nown CBC 6663194 Neut Auto 78.0 % 07/02/2020 Unknown CBC 4754869 Lymph Auto 11.1 % 07/02/2020 Unknown CBC 8081150 Brule Auto 7.7 % 07/02/2020 Unknown CBC 7479525 RDW 14.5 % 07/02/2020 Unknown CBC 5923266 Eos Auto 2.3 % 07/02/2020 Unknown CBC 5660518 Baso Auto 0.9 % 07/02/2020 Unknown CBC 0480226 Neutrophil Abs 6.79 10e9/L 07/02/2020 Un known CBC 8150393 Lymphocyte Abs 0.97 10e9/L 07/02/2020 Un known CBC 2621668 Monocyte Abs 0.67 10e9/L 07/02/2020 Unkn own CBC 2127603 Eosinophil Abs 0.20 10e9/L 07/02/2020 Un known CBC 5374362 RDW-SD 45.6 fL 07/02/2020 Unknown CBC 1555498 Basophil Abs 0.08 10e9/L 07/02/2020 Unkn own TSH 4115485 TSH 0.955 uIU/mL 07/02/2020 Unknow n A1C HPLC 3246447 Hgb A1c 47769-5 4.5 % 01/02/2020 Unknown LIPID GRP 8082141 CHOLESTEROL 154 mg/dL 01/02/2020 Unknown LIPID GRP 7437644 Triglyceride 146 mg/dL 01/02/2020 Unknow n LIPID GRP 3358360 HDL CHOLESTEROL 55 mg/dL 01/02/2020 Unk nown LIPID GRP 1610778 Chol/HDL Ratio 2.80 ratio 01/02/2020 Unk nown LIPID GRP 9221023 NON-HDL Chol 99 mg/dL 01/02/2020 Unknow n LIPID GRP LDL Cholesterol 70 mg/dL 01/02/2020 Unk nown CBC 5552097 WBC 9.7 10e9/L 01/02/2020 Unknown CBC 0373508 RBC 3.62 10e12/L 01/02/2020 Unknow n CBC 0006826 HEMOGLOBIN 11.2 g/dL 01/02/2020 Unknown CBC 8084983 HEMATOCRIT 33.4 % 01/02/2020 Unknown CBC 3946241 MCV 92.3 fL 01/02/2020 Unknown CBC 0034314 MCH 30.9 pg 01/02/2020 Unknown CBC 6888516 MCHC 33.5 g/dL 01/02/2020 Unknown CBC 1736323 PLATELET COUNT 232 10e9/L 01/02/2020 Unk nown CBC 1193353 Mean Plt Volume 11.0 fL 01/02/2020 Unk nown CBC 3818786 Neut Auto 70.5 % 01/02/2020 Unknown CBC 5567225 Lymph Auto 15.5 % 01/02/2020 Unknown CBC 4209300 Brule Auto 9.3 % 01/02/2020 Unknown CBC 5022329 Eos Auto 4.0 % 01/02/2020 Unknown CBC 7047728 RDW 13.7 % 01/02/2020 Unknown CBC 8967665 Baso Auto 0.7 % 01/02/2020 Unknown CBC 7686806 Neutrophil Abs 6.84 10e9/L 01/02/2020 Un known CBC 1110538 Lymphocyte Abs 1.50 10e9/L 01/02/2020 Un known CBC 4558404 Monocyte Abs 0.90 10e9/L 01/02/2020 Unkn own CBC 4342243 Eosinophil Abs 0.39 10e9/L 01/02/2020 Un known CBC 7435301 Basophil Abs 0.07 10e9/L 01/02/2020 Unkn own CBC 6782002 RDW-SD 44.7 fL 01/02/2020 Unknown CHEM 14 6554052 AST 16 U/L 01/02/2020 Unknown CHEM 14 8794895 ALT 10 U/L 01/02/2020 Unknown CHEM 14 0264636 BUN 18 mg/dL 01/02/2020 Unknown CHEM 14 7972475 ALBUMIN 4.2 g/dL 01/02/2020 Unknown CHEM 14 2082067 CHLORIDE 105 mmol/L 01/02/2020 Unknown CHEM 14 3301512 Bili Total 0.7 mg/dL 01/02/2020 Unknown CHEM 14 2527382 ALK PHOS 41 U/L 01/02/2020 Unknown CHEM 14 5531377 SODIUM 141 mmol/L 01/02/2020 Unknown CHEM 14 2436057 CREATININE 0.86 mg/dL 01/02/2020 Unknown CHEM 14 7278678 CALCIUM 9.5 mg/dL 01/02/2020 Unknown CHEM 14 2198323 POTASSIUM 4.0 mmol/L 01/02/2020 Unknown CHEM 14 1711887 TOTAL PROTEIN 7.3 g/dL 01/02/2020 Unkno wn CHEM 14 5171761 GLUCOSE 90 mg/dL 01/02/2020 Unknown CHEM 14 2515877 Bicarbonate 26 mmol/L 01/02/2020 Unknown CHEM 14 1190287 AGAP 10 mmol/L 01/02/2020 Unknown TSH 9212308 TSH 0.823 uIU/mL 01/02/2020 Unknow n MEAN GLUC 9822325 Calc Mean Gluc 82 mg/dL 01/02/2020 Unkn own GFR CALC 8298219 GFR Non Afr Amr >60 mL/min 01/02/2020 Un known GFR CALC 4242323 GFR Afr Amr >60 mL/min 01/02/2020 Unknow [...] Ord15 CALCIUM 9.5 mg/dL 01/02/2019 Unknown %Hba1C Ibp169 % HbA1c 99531-1 4.9 % 01/02/2019 Unknown %Hba1C Ozx468 Gluc Ave 94 mg/dL 01/02/2019 Unknown Cbc [...] 11/20/19 19 Unknown Cbc With Differential Ord2 Brule% 6.9 % 11/20/19 19 Unknown Cbc With [...] K/ul 019 Unknown Cbc With Differential Ord2 Brule ABS# 0.5 K/ul 11/20/19 19 Unknown Cbc With Differential Ord2 Eos ABS# 0.3 K/ul 11/20/19 19 Unknown Cbc With Differential Ord2 Baso ABS# 0.1 K/ul 11/20/19 19 Unknown Hepatic Jqp174 ALBUMIN 4.4 g/dL 11/19/2018 Unknown Hepatic Lft548 TPRO 7.2 g/dL 11/19/2018 Unknown Hepatic Hnm343 GLOB 2.8 g/dL 11/19/2018 Unknown Hepatic Dqz049 A/G Ratio 1.6 Ratio 11/19/2018 Unknown Hepatic Fmj195 ALK PHOS 36 U/L 11/19/2018 Unknown Hepatic Ouz080 ALT(SGPT) 10 U/L 11/19/2018 Unknown Hepatic Tac873 AST(SGOT) 14 U/L 11/19/2018 Unknown Hepatic Eag167 BILI T 0.7 mg/dL 11/19/2018 Unknown Hepatic Jgk253 BILI D 0.1 mg/dL 11/19/2018 Unknown Hepatic Vca150 BILI I 0.6 mg/dL 11/19/2018 Unknown Hepatic Kog554 ALBUMIN 3.9 g/dL 08/14/2018 Unknown Hepatic Xvn675 TPRO 6.3 g/dL 08/14/2018 Unknown Hepatic Ntz671 GLOB 2.5 g/dL 08/14/2018 Unknown Hepatic Rnm075 A/G Ratio 1.6 Ratio 08/14/2018 Unknown Hepatic Rhx098 ALK PHOS 36 U/L 08/14/2018 Unknown Hepatic Odr647 ALT(SGPT) 33 U/L 08/14/2018 Unknown Hepatic Jpm809 AST(SGOT) 30 U/L 08/14/2018 Unknown Hepatic But237 BILI T 0.6 mg/dL 08/14/2018 Unknown Hepatic Hdf490 BILI D 0.2 mg/dL 08/14/2018 Unknown Hepatic Mpi577 BILI I 0.4 mg/dL 08/14/2018 Unknown Cbc [...] 08/14/20 18 Unknown Cbc With Differential Ord2 Brule% 8.8 % 08/14/20 18 Unknown Cbc With [...] K/ul 018 Unknown Cbc With Differential Ord2 Brule ABS# 0.5 K/ul 08/14/20 18 Unknown Cbc With Differential Ord2 Eos ABS# 0.3 K/ul 08/14/20 18 Unknown Cbc With Differential Ord2 Baso ABS# 0.1 K/ul 08/14/20 18 Unknown Comp Metabolic Qez377 NA 141 mEq/L 07/13/2018 Unkn own Comp Metabolic Fgf237 K 4.0 mEq/L 07/13/2018 Unkn own Comp Metabolic Ljg104 CL 106 mEq/L 07/13/2018 Unkn own Comp Metabolic Ykl504 CO2 26.0 mEq/L 07/13/2018 Unk nown Comp Metabolic Fbb496 ANION GAP 13 07/13/2018 Unkn own Comp Metabolic Lyc040 GLUCOSE 91 mg/dL 07/13/2018 Unkn own Comp Metabolic Mxd234 Creat 0.9 mg/dL 07/13/2018 Unkn own Comp Metabolic Ecf196 eGFR 68 ml/min/1.73m2 07/13/20 18 Unknown Comp Metabolic Lmw401 BUN 18 mg/dL 07/13/2018 Unkn own Comp Metabolic Qiq654 B/C Ratio 20.5 Ratio 07/13/2018 Unk nown Comp Metabolic Jgl024 CALCIUM 9.2 mg/dL 07/13/2018 Unkn own Comp Metabolic Qrq684 ALK PHOS 41 U/L 07/13/2018 Unkn own Comp Metabolic Dfy872 AST(SGOT) 16 U/L 07/13/2018 Unkn own Comp Metabolic Ggd987 ALT(SGPT) 12 U/L 07/13/2018 Unkn own Comp Metabolic Xso750 BILI T 0.4 mg/dL 07/13/2018 Unkn own Comp Metabolic Jte231 ALBUMIN 4.3 g/dL 07/13/2018 Unkn own Comp Metabolic Rco927 TPRO 6.7 g/dL 07/13/2018 Unkn own Comp Metabolic Mnm584 GLOB 2.5 g/dL 07/13/2018 Unkn own Comp Metabolic Jqt472 A/G Ratio 1.7 Ratio 07/13/2018 Unkn own Comp Metabolic Pzu441 Osmo 283 mOsmo 07/13/2018 Unkn own Lipid Ord30 CHOL 167 mg/dL 07/13/2018 Unknown Lipid Ord30 HDL 53.0 mg/dl 07/13/2018 Unknown Lipid Ord30 TRIG 95 mg/dL 07/13/2018 Unknown Lipid Ord30 LDL 95 mg/dL 07/13/2018 Unknown Lipid Ord30 C/HDL 3.2 Ratio 07/13/2018 Unknown %Hba1C Nem835 % HbA1c 83682-4 5.0 % 07/13/2018 Unknown %Hba1C Anm241 Gluc Ave 97 mg/dL 07/13/2018 Unknown Tsh [...] 07/13/20 18 Unknown Cbc With Differential Ord2 Brule% 9.7 % 07/13/20 18 Unknown Cbc With [...] K/ul 018 Unknown Cbc With Differential Ord2 Brule ABS# 0.6 K/ul 07/13/20 18 Unknown Cbc With Differential Ord2 Eos ABS# 0.4 K/ul 07/13/20 18 Unknown Cbc With Differential Ord2 Baso ABS# 0.1 K/ul 07/13/20 18 Unknown Hepatic Xxa423 ALBUMIN 3.9 g/dL 05/14/2018 Unknown Hepatic Ell183 TPRO 6.6 g/dL 05/14/2018 Unknown Hepatic Upj989 GLOB 2.7 g/dL 05/14/2018 Unknown Hepatic Fia644 A/G Ratio 1.4 Ratio 05/14/2018 Unknown Hepatic Twh313 ALK PHOS 32 U/L 05/14/2018 Unknown Hepatic Zul811 ALT(SGPT) 8 U/L 05/14/2018 Unknown Hepatic Vmy952 AST(SGOT) 12 U/L 05/14/2018 Unknown Hepatic Soa685 BILI T 0.8 mg/dL 05/14/2018 Unknown Hepatic Prn269 BILI D 0.1 mg/dL 05/14/2018 Unknown Hepatic Haj474 BILI I 0.7 mg/dL 05/14/2018 Unknown Cbc [...] 05/14/20 18 Unknown Cbc With Differential Ord2 Brule% 4.8 % 05/14/20 18 Unknown Cbc With [...] K/ul 018 Unknown Cbc With Differential Ord2 Brule ABS# 0.3 K/ul 05/14/20 18 Unknown Cbc [...] 11/17/19 18 Unknown Cbc With Differential Ord2 Brule% 11.2 % 11/17/19 18 Unknown Cbc With [...] K/ul 018 Unknown Cbc With Differential Ord2 Brule ABS# 0.7 K/ul 11/17/19 18 Unknown Cbc With Differential Ord2 Eos ABS# 0.2 K/ul 11/17/19 18 Unknown Cbc With Differential Ord2 Baso ABS# 0.0 K/ul 11/17/19 18 Unknown Hepatic Sat780 ALBUMIN 4.1 g/dL 11/16/2017 Unknown Hepatic Ffb002 TPRO 6.7 g/dL 11/16/2017 Unknown Hepatic Ifn287 GLOB 2.7 g/dL 11/16/2017 Unknown Hepatic Bfb036 A/G Ratio 1.5 Ratio 11/16/2017 Unknown Hepatic Cpf912 ALK PHOS 31 U/L 11/16/2017 Unknown Hepatic Par179 ALT(SGPT) 11 U/L 11/16/2017 Unknown Hepatic Srn579 AST(SGOT) 15 U/L 11/16/2017 Unknown Hepatic Aml898 BILI T 0.7 mg/dL 11/16/2017 Unknown Hepatic Rnm669 BILI D 0.2 mg/dL 11/16/2017 Unknown Hepatic Atn730 BILI I 0.5 mg/dL 11/16/2017 Unknown Hepatic Klc802 ALBUMIN 4.0 g/dL 08/17/2017 Unknown Hepatic Dwn528 TPRO 6.6 g/dL 08/17/2017 Unknown Hepatic Bem651 GLOB 2.6 g/dL 08/17/2017 Unknown Hepatic Tku109 A/G Ratio 1.6 Ratio 08/17/2017 Unknown Hepatic Bdb196 ALK PHOS 43 U/L 08/17/2017 Unknown Hepatic Ckz272 ALT(SGPT) 10 U/L 08/17/2017 Unknown Hepatic Ofr310 AST(SGOT) 15 U/L 08/17/2017 Unknown Hepatic Tpq415 BILI T 0.7 mg/dL 08/17/2017 Unknown Hepatic Bpn707 BILI D 0.1 mg/dL 08/17/2017 Unknown Hepatic Cyf526 BILI I 0.6 mg/dL 08/17/2017 Unknown Cbc [...] 08/17/20 17 Unknown Cbc With Differential Ord2 Brule% 8.6 % 08/17/20 17 Unknown Cbc With [...] K/ul 017 Unknown Cbc With Differential Ord2 Brule ABS# 0.6 K/ul 08/17/20 17 Unknown Cbc With Differential Ord2 Eos ABS# 0.3 K/ul 08/17/20 17 Unknown Cbc With Differential Ord2 Baso ABS# 0.0 K/ul 08/17/20 17 Unknown Ra Factor Toa649 RA FACTOR 40.2 IU/ml 04/12/2017 Unknown Sed Rate Ord21 ESR 23 mm/hr 04/12/2017 Unknown C-Reactive Protein Qnt Crqnt CRP 0.2 mg/dl 2016 Unknown Tsh Ord6 hTSH II 1.26 uIU/mL 11/23/2016 Unknown Comp Metabolic Qor712 NA 139 mEq/L 11/23/2016 Unkn own Comp Metabolic Iap017 K 3.8 mEq/L 11/23/2016 Unkn own Comp Metabolic Ysb582 CL 105 mEq/L 11/23/2016 Unkn own Comp Metabolic Lrm596 CO2 27.0 mEq/L 11/23/2016 Unk nown Comp Metabolic Wwm066 ANION GAP 11 11/23/2016 Unkn own Comp Metabolic Qct525 GLUCOSE 110 mg/dL 11/23/2016 Unkn own Comp Metabolic Gmj508 Creat 0.6 mg/dL 11/23/2016 Unkn own Comp Metabolic Xhc753 eGFR 98 ml/min/1.73m2 11/24/19 17 Unknown Comp Metabolic Tqa867 BUN 15 mg/dL 11/23/2016 Unkn own Comp Metabolic Blr244 B/C Ratio 23.4 Ratio 11/23/2016 Unk nown Comp Metabolic Uwv634 CALCIUM 9.5 mg/dL 11/23/2016 Unkn own Comp Metabolic Bmx054 ALK PHOS 42 U/L 11/23/2016 Unkn own Comp Metabolic Wbh120 AST(SGOT) 15 U/L 11/23/2016 Unkn own Comp Metabolic Ied837 ALT(SGPT) 12 U/L 11/23/2016 Unkn own Comp Metabolic Vjg686 BILI T 1.0 mg/dL 11/23/2016 Unkn own Comp Metabolic Qel471 ALBUMIN 4.2 g/dL 11/23/2016 Unkn own Comp Metabolic Lpa901 TPRO 7.1 g/dL 11/23/2016 Unkn own Comp Metabolic Ttq588 GLOB 2.9 g/dL 11/23/2016 Unkn own Comp Metabolic Rul319 A/G Ratio 1.5 Ratio 11/23/2016 Unkn own Comp Metabolic Qfy425 Osmo 279 mOsmo 11/23/2016 Unkn own Lipid [...] 11/24/19 17 Unknown Cbc With Differential Ord2 Brule% 9.9 % 11/24/19 17 Unknown Cbc With [...] K/ul 017 Unknown Cbc With Differential Ord2 Brule ABS# 0.6 K/ul 11/24/19 17 Unknown Cbc With Differential Ord2 Eos ABS# 0.2 K/ul 11/24/19 17 Unknown Cbc With Differential Ord2 Baso ABS# 0.1 K/ul 11/24/19 17 Unknown Microalbumin Tao799 MicroAlb <0.7 mg/dL 11/23/2016 Unkno wn %Hba1C Stk309 % HbA1c 07543-0 5.4 % 11/23/2016 Unknown %Hba1C Sqi455 Gluc Ave 108 mg/dL 11/23/2016 Unknown %Hba1C Rrk217 % HbA1c 50005-6 5.4 % 11/04/2015 Unknown %Hba1C Tzo529 Gluc Ave 108 mg/dL 11/04/2015 Unknown Lipid Ord30 CHOL 169 mg/dL 11/04/2015 Unknown Lipid Ord30 HDL 48.0 mg/dl 11/04/2015 Unknown Lipid Ord30 TRIG 160 mg/dL 11/04/2015 Unknown Lipid Ord30 LDL 89 mg/dL 11/04/2015 Unknown Lipid Ord30 C/HDL 3.5 Ratio 11/04/2015 Unknown Microalbumin Kbc442 MicroAlb 1.7 mg/dL 11/04/2015 Unknow n Tsh Ord6 hTSH II 1.00 uIU/mL 11/04/2015 Unknown Comp Metabolic Jio929 NA 138 mEq/L 11/04/2015 Unkn own Comp Metabolic Uul373 K 3.7 mEq/L 11/04/2015 Unkn own Comp Metabolic Dtd924 CL 103 mEq/L 11/04/2015 Unkn own Comp Metabolic Wru159 CO2 28.0 mEq/L 11/04/2015 Unk nown Comp Metabolic Kbm478 ANION GAP 11 11/04/2015 Unkn own Comp Metabolic Tgw937 GLUCOSE 96 mg/dL 11/04/2015 Unkn own Comp Metabolic Wcj100 Creat 0.7 mg/dL 11/04/2015 Unkn own Comp Metabolic Jzk721 eGFR 92 ml/min/1.73m2 11/04/19 16 Unknown Comp Metabolic Nwq849 BUN 15 mg/dL 11/04/2015 Unkn own Comp Metabolic Qmk341 B/C Ratio 22.1 Ratio 11/04/2015 Unk nown Comp Metabolic Jjj843 CALCIUM 9.3 mg/dL 11/04/2015 Unkn own Comp Metabolic Vfv872 ALK PHOS 43 U/L 11/04/2015 Unkn own Comp Metabolic Liv143 AST(SGOT) 14 U/L 11/04/2015 Unkn own Comp Metabolic Jdb058 ALT(SGPT) 9 U/L 11/04/2015 Unkn own Comp Metabolic Cvg856 BILI T 0.8 mg/dL 11/04/2015 Unkn own Comp Metabolic Pfh999 ALBUMIN 4.3 g/dL 11/04/2015 Unkn own Comp Metabolic Qmu415 TPRO 7.0 g/dL 11/04/2015 Unkn own Comp Metabolic Nhi525 GLOB 2.7 g/dL 11/04/2015 Unkn own Comp Metabolic Cdv880 A/G Ratio 1.6 Ratio 11/04/2015 Unkn own Comp Metabolic Tnl777 Osmo 276 mOsmo 11/04/2015 Unkn own Cbc [...] 11/04/19 16 Unknown Cbc With Differential Ord2 Brule% 9.0 % 11/04/19 16 Unknown Cbc With [...] K/ul 016 Unknown Cbc With Differential Ord2 Brule ABS# 0.6 K/ul 11/04/19 16 Unknown Cbc With Differential Ord2 Eos ABS# 0.2 K/ul 11/04/19 16 Unknown Cbc With Differential Ord2 Baso ABS# 0.0 K/ul 11/04/19 16 Unknown Cbc With Differential Ord2 New Analyzer Notice Please note new ref ranges starting 09-30-2015 due to implemntation of new five part differential hematolgy analyzer. 11/04/2015 Unknown %Hba1C Eel167 % HbA1c 17828-4 5.2 % 05/06/2015 Unknown %Hba1C Tta498 Gluc Ave 103 mg/dL 05/06/2015 Unknown Lipid [...] 14.7 % 05/06/20 15 Unknown Comp Metabolic Mav169 NA 137 mEq/L 05/06/2015 Unkn own Comp Metabolic Zsj327 K 3.6 mEq/L 05/06/2015 Unkn own Comp Metabolic Fwi965 CL 102 mEq/L 05/06/2015 Unkn own Comp Metabolic Mjd112 CO2 28.0 mEq/L 05/06/2015 Unk nown Comp Metabolic Gzl359 ANION GAP 11 05/06/2015 Unkn own Comp Metabolic Buv981 GLUCOSE 97 mg/dL 05/06/2015 Unkn own Comp Metabolic Ryf894 Creat 0.7 mg/dL 05/06/2015 Unkn own Comp Metabolic Pmq366 eGFR 94 ml/min/1.73m2 05/06/20 15 Unknown Comp Metabolic Zvv187 BUN 14 mg/dL 05/06/2015 Unkn own Comp Metabolic Xgz274 B/C Ratio 20.9 Ratio 05/06/2015 Unk nown Comp Metabolic Npm708 CALCIUM 9.5 mg/dL 05/06/2015 Unkn own Comp Metabolic Irg894 ALK PHOS 49 U/L 05/06/2015 Unkn own Comp Metabolic Sww278 AST(SGOT) 15 U/L 05/06/2015 Unkn own Comp Metabolic Eiq060 ALT(SGPT) 11 U/L 05/06/2015 Unkn own Comp Metabolic Zvj184 BILI T 0.8 mg/dL 05/06/2015 Unkn own Comp Metabolic Puf697 ALBUMIN 4.4 g/dL 05/06/2015 Unkn own Comp Metabolic Cah506 TPRO 7.4 g/dL 05/06/2015 Unkn own Comp Metabolic Ofu474 GLOB 3.0 g/dL 05/06/2015 Unkn own Comp Metabolic Mui082 A/G Ratio 1.5 Ratio 05/06/2015 Unkn own Comp Metabolic Arc060 Osmo 274 mOsmo 05/06/2015 Unkn own Tsh Ord6 hTSH II 0.99 uIU/mL 05/06/2015 Unknown Procedures No Procedures data Vital Signs Date Vital 03/25/2021 Blood Pressure 1: 106/70 Code: 8480-6 BMI: 17.6 Code: 46829-1 Heart Rate 1: 48 bpm Height: 5' Code: 8302-2 SpO2: 98% Temperature: 35. 7 (C) / 96.3 (F) Weight: 90 lbs Code: 61494-0 02/02/2021 Blood Pressure 1: 118/70 Code: 8480-6 BMI: 19.9 Code: 07730-6 Heart Rate 1: 66 bpm Height: 5' Code: 8302-2 SpO2: 99% Temperature: 36. 7 (C) / 98.0 (F) Weight: 102 lbs 2 oz Code: 66799-0 12/31/2020 Blood Pressure 1: 106/64 Code: 8480-6 BMI: 20.7 Code: 07484-6 Heart Rate 1: 68 bpm Height: 5' Code: 8302-2 Respiratory Rate: 17 bpm SpO2: 97% Temperature: 35.8 (C) / 96.4 (F) Weight: 106 lbs Code: 66466-1 07/02/2020 Blood Pressure 1: 138/78 Code: 8480-6 BMI: 21.7 Code: 67347-8 Heart Rate 1: 52 bpm Height: 5' Code: 8302-2 Respiratory Rate: 16 bpm SpO2: 99% Temperature: 36.6 (C) / 97.8 (F) Weight: 111 lbs Code: 61776-5 01/02/2020 Blood Pressure 1: 120/64 Code: 8480-6 BMI: 21.3 Code: 74251-7 Heart Rate 1: 65 bpm Height: 5' Code: 8302-2 SpO2: 95% Temperature: 36. 4 (C) / 97.5 (F) Weight: 109 lbs Code: 79280-7 07/04/2019 Blood Pressure 1: 112/70 Code: 8480-6 BMI: 22.3 Code: 22343-9 Heart Rate 1: 60 bpm Height: 5' Code: 8302-2 SpO2: 99% Weight: 114 lbs 7 oz Code: 35906-4 01/02/2019 Blood Pressure 1: 122/68 Code: 8480-6 BMI: 22.7 Code: 86339-9 Heart Rate 1: 67 bpm Height: 5' Code: 8302-2 SpO2: 99% Weight: 116 lbs Code: 47574-8 07/11/2018 Blood Pressure 1: 138/66 Code: 8480-6 BMI: 22.5 Code: 56259-0 Heart Rate 1: 97 bpm Height: 5' Code: 8302-2 SpO2: 99% Weight: 115 lbs Code: 50828-3 04/12/2017 Blood Pressure 1: 142/82 Code: 8480-6 BMI: 23.2 Code: 70777-0 Heart Rate 1: 66 bpm Height: 5' Code: 8302-2 SpO2: 97% Weight: 119 lbs Code: 48169-3 11/23/2016 Blood Pressure 1: 130/78 Code: 8480-6 BMI: 24.4 Code: 95606-7 Heart Rate 1: 65 bpm Height: 5' Code: 8302-2 SpO2: 99% Weight: 125 lbs Code: 42339-5 05/04/2016 Blood Pressure 1: 126/78 Code: 8480-6 BMI: 24.6 Code: 92349-9 Heart Rate 1: 59 bpm Height: 5' Code: 8302-2 SpO2: 98% Weight: 126 lbs Code: 55599-0 11/04/2015 Blood Pressure 1: 132/70 Code: 8480-6 BMI: 25.3 Code: 75697-1 Heart Rate 1: 58 bpm Height: 5' Code: 8302-2 Weight: 129 lbs 8 oz Code: 2 9463-7 05/06/2015 Blood Pressure 1: 138/78 Code: 8480-6 BMI: 25.0 Code: 15896-7 Heart Rate 1: 65 bpm Height: 5' Code: 8302-2 SpO2: 97% Weight: 128 lbs Code: 17578-1 Functional Status No Functional Status data Reason For Visit Reason For Visit Effective Dates Notes earache 03/25/2021 arthritis 02/02/2021 hypertension 12/31/2020 hypertension 07/02/2020 hypertension 01/02/2020 hypertension 07/04/2019 hypertension 01/02/2019 medication follow up 07/11/2018 hand pain 04/12/2017 hypertension 11/23/2016 hypertension 05/04/2016 hypertension 11/04/2015 hypertension 05/06/2015 Encounters Encounter Performer Location Codes Date [id number]) 07938 EST. 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 PATIENT, LEVEL IV Diagnosis: Essential (primary) hypertension[ICD10: I10] Diagnosis: Multiple sclerosis[ICD10: G35] Diagnosis: Type 2 diabetes mellitus without complications[ICD10: E11.9] Diagnosis: Underweight due to inadequate caloric intake[ICD10: R63.6] Aliyah Paris MD, [facility] CPT-4: 31700 12/31/2020 [id number] 52237 EST. PATIENT, LEVEL IV Diagnosis: Essential (primary) hypertension[ICD10: I10] Diagnosis: Type 2 diabetes mellitus without complications[ICD10: E11.9] Diagnosis: Multiple sclerosis[ICD10: G35] Aliyah Paris MD, [facility] CPT-4: 33178 07/02/2020 [id number] 17407 EST. PATIENT, LEVEL IV Diagnosis: Type 2 diabetes mellitus without complications[ICD10: E11.9] Diagnosis: Essential (primary) hypertension[ICD10: I10] Diagnosis: Multiple sclerosis[ICD10: G35] Aliyah Paris MD [facility] CPT-4: 77452 01/02/2020 ([id number]) 88770 EST. PATIENT, LEVEL IV Diagnosis: Essential (primary) hypertension[ICD10: I10] Diagnosis: Type 2 diabetes mellitus without complications[ICD10: E11.9] Diagnosis: Multiple sclerosis[ICD10: G35] Aliyah Paris MD [facility] CPT-4: 64819 07/04/2019 ([id number]) 92271 EST. PATIENT, LEVEL IV Diagnosis: Essential (primary) hypertension[ICD10: I10] Diagnosis: Type 2 diabetes mellitus without complications[ICD10: E11.9] Diagnosis: Multiple sclerosis[ICD10: G35] Aliyah Paris MD [facility] CPT-4: 69947 01/02/2019 ([id number]) 66697 EST. PATIENT, LEVEL IV Diagnosis: Type 2 diabetes mellitus without complications[ICD10: E11.9] Diagnosis: Essential (primary) hypertension[ICD10: I10] Diagnosis: Multiple sclerosis[ICD10: G35] Aliyah Paris MD [facility] CPT-4: 64763 07/11/2018 61156 EST. PATIENT, LEVEL IV Diagnosis: Pain in right hand[ICD10: M79.641] Diagnosis: Multiple sclerosis[ICD10: G35] Tiffanie Paris MD [facility] CPT-4: 12075 04/12/2017 ([id number]) 29823 EST. PATIENT, LEVEL IV Diagnosis: Essential (primary) hypertension[ICD10: I10] Diagnosis: Type 2 diabetes mellitus without complications[ICD10: E11.9] Aliyah Paris MD [facility] CPT-4: 92867 11/23/2016 ([id number]) 85983 EST. PATIENT, LEVEL IV Diagnosis: Essential (primary) hypertension[ICD10: I10] Diagnosis: Type 2 diabetes mellitus without complications[ICD10: E11.9] Aliyah Paris MD [facility] CPT-4: 49006 05/04/2016 ([id number]) 81248 EST. PATIENT, LEVEL IV Diagnosis: Type 2 diabetes mellitus without complications[ICD10: E11.9] Diagnosis: Essential (primary) hypertension[ICD10: I10] [facility] CPT-4: 22538 11/04/2015 ([id number]) OFFICE VISIT, NEW - LEVEL 4 Diagnosis: DIABETES TYPE II[ICD9: 250.00] Diagnosis: ESSENTIAL HYPERTENSION[ICD9: 401.9] [facility] CPT-4: 43693 05/06/2015 Plan of Care Planned Activity Notes [...] Rheumatoid Arthritis- continue follow up with rheumatology. Hospital Nurse dc'd methotrexate, folic acid, and plaquinel in January 2021 to help improve appetite. Pt reports had steroid injection in January 2021 for bilateral h and pain, but pain has been controlled since. Pt encouraged to continue follow up appt with senior laboratory technician. Hypertension- Pt reports not checking BP at [...] would like to seek out a new senior laboratory technician - she would like a Referral to Dr. Woodruff in [place] Hypertension - well controlled - continue with [...] time. 02/02/2021 [phone] ([facility] min) Moderate 02/02/2021 Patient Education: [...] this time. 12/31/2020 [phone] [facility] [place] (15 min) Moderate 12/31/2020 Patient [...] this time. 07/02/2020 [phone] [facility] (15 min) Moderate 07/02/2020 Patient Education: [...] this time. 01/02/2020 [phone] [facility] (15 min) Moderate 01/02/2020 Patient Education: Patient Medication Summary Completed 01/02/2020 Patient Education: Diabetes Completed 01/02/2020 Patient Education: Hypertension Completed 01/02/2020 Care Plan: Cbc With Differential Pending 01/02/2020 Care Plan: Comp Metabolic Pending Care Plan: Lipid Pending 01/02/2020 Care Plan: %Hba1C [facility] : 46444-8 Pending 01/02/2020 Care Plan: Tsh Pending 01/02/2020 [...] time. 07/04/2019 [phone] [facility] ([facility] min) Moderate 07/04/2019 Patient Education: Patient Medication Summary Completed 07/04/2019 Patient Education: Hypertension Completed 07/04/2019 Patient Education: Diabetes Completed 07/04/2019 Care Plan: Comp Metabolic Pending Care Plan: Cbc With Differential Pending 07/04/2019 Care Plan: %Hba1C [facility] : 93292-2 Pending 07/04/2019 Care Plan: Tsh Pending 07/04/2019 [...] symptoms closely. 01/02/2019 [facility] [phone] [phone] ([facility] min) Moderate 01/02/2019 Patient Education: [...] closely. 07/11/2018 Appointment: Aliyah Paris WPtel: [phone] [facility] (15 min) Moderate 07/11/2018 Patient Education: Patient [...] evaluation/monitoring 04/12/2017 [phone] [place] (15 min) Moderate 04/12/2017 Patient [...] controlled. 11/23/2016 Appointment: Aliyah Paris WPtel: [phone] [facility] [place] (15 min) Moderate 11/23/2016 Patient Education: [...] controlled. 11/04/2015 [phone] [facility] (15 min) Moderate 11/04/2015 Patient Education: [...] at home. 05/06/2015 Appointment: [facility] [phone] [facility] [place] (S) New Patient 05/06/2015 Patient [...] Rheumatoid Arthritis- continue follow up with rheumatology. Hospital Nurse dc'd methotrexate, folic acid, and plaquinel in January 2021 to help improve appetite. Pt reports had steroid injection in January 2021 for bilateral hand pain, but pain has been controlled since. Pt encouraged to continue follow up appt with senior laboratory technician. Hypertension- Pt reports not checking BP at [...] would like to seek out a new senior laboratory technician - she would like a Referral to Dr. Woodruff in [place] Hypertension - well controlled - continue with [...]
[2021-05-14] MEDS ORDERED: HURRICAINE EXT TUBE (BENZOCAINE) XX PRN (12:15)
[2021-05-14] MEDS ORDERED: LIDOCAINE JELLY 2% 6 ML SYRINGE MM PRN (12:15)
[2021-05-14] MEDS ORDERED: HYDR200T46 PO (12:46)
[2021-05-14 12:47] VITALS: BP 144/98
[2021-05-14] MEDS ORDERED: PROPOFOL INJECTION 50 ML IV ONE (13:08)
--- NOTE | 2021-05-14 13:17 | Progress Note-Pre Operative ---
Pre-Operative Progress Note H&P Reviewed The H&P was reviewed, patient examined and no changes noted. Date Seen by Provider: May 14, 2021 Time Seen by Provider: 13:00 Date H&P Reviewed: May 14, 2021 Time H&P Reviewed: 13:00 Pre-Operative Diagnosis: GERD, dysphagia JUAN R NORIEGA MD May 14, 2021 13:17
[2021-05-14] MEDS ORDERED: PANT40TA2 PO (13:18)
--- NOTE | 2021-05-14 13:20 | Discharge Inst-Surgical ---
D/C Lap Instructions-KIDO New, Converted, or Re-Newed RX: RX on Chart Follow Up Activity as tolerated High Fiber Diet 25g or more per day Avoid Alcohol, Caffeine, Spicy [place] and Acid foods. Drink 64 fluid oz or more of fluids per day. Symptoms to Report: Fever over 101 degree F, Nausea/Vomiting If any problems/questions: Contact your physician or go to Emergency Room JUAN R NORIEGA MD May 14, 2021 13:20
[2021-05-14] MEDS ORDERED: ONDANSETRON 4 MG (ZOFRAN) ORAL DISSOLVE TAB PO PRN (13:30)
[2021-05-14] MEDS ORDERED: ONDANSETRON 4 MG/2 ML (SDV) Z0FRAN IVP PRN (13:30)
[2021-05-14 13:50] VITALS: BP 101/63
[2021-05-14 13:54] VITALS: BP 101/63
[2021-05-14 14:00] VITALS: BP 109/69
[2021-05-14 14:25] VITALS: BP 149/95
[2021-05-14 14:28] VITALS: BP 149/95
--- NOTE | 2021-05-14 18:09 | OPERATIVE REPORT ---
DATE OF SERVICE: 05/14/2021 ATTENDING PRIMARY CARE PHYSICIAN: Aliyah Paris MD. PREOPERATIVE DIAGNOSES: Dysphagia, weight loss. POSTOPERATIVE DIAGNOSES: Reflux esophagitis stage II, mild distal esophageal stricture, moderate size hiatal hernia approximately 3 cm in size. Moderate gastritis. No distal obstructions. PROCEDURES PERFORMED: EGD with biopsy and balloon dilatation. SURGEON: Juan R Noriega MD. ANESTHESIA: Monitored anesthesia care. ESTIMATED BLOOD LOSS: Minimal. FINDINGS: Reflux esophagitis stage II, mild distal esophageal stricture, moderate size hiatal hernia approximately 3 cm in size. Moderate gastritis. No distal obstructions. DISPOSITION: The patient tolerated the procedure well. INDICATIONS FOR PROCEDURE: The patient is a 71-year-old female, who has had issues with difficulty swallowing for the past three weeks and states that she has lost approximately 40 pounds over the past four years; but the issue with dysphagia is not new. 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 DESCRIPTION OF PROCEDURE: The patient was brought to the endoscopy suite and laid in the left lateral decubitus position. After adequate IV pain and sedative medications and monitored anesthesia care, the mouthpiece was applied. The endoscope was placed in the mouth, visualizing the pharynx and hypopharyngeal region. Vocal cords, epiglottis and vallecula identified and appeared to be normal. The endoscope was then gently intubated into the esophageal opening and esophagus insufflated. The endoscope was then advanced through the first, second and third portions of esophagus at the level of the GE junction, reflux esophagitis stage II identified. There was also a mild distal esophageal stricture. A biopsy was taken with forceps with visualization of good hemostasis. The endoscope was advanced into the stomach and endoscope retroflexed, visualizing a moderate size hiatal hernia approximately 3 cm in size. There was a moderate severity gastritis. No formal ulcerations, polyps or any neoplasms. A biopsy was taken of the antrum to rule out H. pylori with visualization of good hemostasis. The endoscope was then advanced to the pylorus and the first and second portion of the duodenum, which appeared normal with no distal obstructions. We then proceeded with balloon dilatation of the distal esophageal stricture. The balloon was pushed in the stomach and pulled back to the area of the stricture. We then proceeded in a stepwise manner; 2, 4 and 6 atmospheres of pressure with moderate resistance for approximately 20 mm in luminal diameter and left this in place for approximately 60 seconds. The balloon was then desufflated and removed with visualization of good hemostasis as well as no mucosal tears. The endoscope was then slowly withdrawn while taking a second look and suctioning of residual air with no additional findings. The patient tolerated the procedure well. We are unsure of the etiology of her weight loss as well as significant dysphagia for the stricture was relatively mild. She was found to have a significant size hiatal hernia, which may be also contributing to her symptoms. We will also ascertain if she still has her gallbladder and if she is experiencing ruthann episodes of nausea and vomiting after eating meals, which may indicate a gallbladder etiology and workup. Job ID: [id number] DocumentID: [id number] Dictated Date: 05/14/2021 13:50:57 Mcat Tutor Date: 05/14/2021 18:08:44 Dictated By: JUAN R NORIEGA MD
== END 2021-05-14 14:30 | disposition home or self-care (01) ==
LOC: ENDO 12:09
PROVIDERS: ATTEND Surgery
DX: K21.00 Gastro-esophageal reflux disease with esophagitis, without bleeding (principal); K44.9 Diaphragmatic hernia without obstruction or gangrene; K22.2 Esophageal obstruction; K29.50 Unspecified chronic gastritis without bleeding; G35 Multiple sclerosis; B96.81 Helicobacter pylori [H. pylori] as the cause of diseases classified elsewhere; G51.0 Bell's palsy; Z20.822 Contact with and (suspected) exposure to COVID-19
CPT/HCPCS: 87636

== ENCOUNTER → 2021-06-03 | Outpatient (CLI) | payer MEDICARE ==
[~2021-06-03] VITALS: Ht 152.4 cm; Wt 36.7 kg
[~2021-06-03] MED LIST changes: +AMOX400S9 PO; +CLAR250S3 PO; +HYDR200T46 PO; +PANT40TA2 PO
== END | disposition home or self-care (01) ==
LOC: PREOP 10:22
PROVIDERS: ATTEND Surgery
DX: Z01.818 Encounter for other preprocedural examination (principal)

== ENCOUNTER 2021-06-04 11:55 | Day surgery (SDC) | payer MEDICARE ==
[2021-06-04] VITALS (7 sets, daily range): BP systolic 146–169; BP diastolic 81–89
[~2021-06-04] VITALS: Ht 152.4 cm; Wt 36.7 kg
--- OUTSIDE RECORDS SUMMARY | 2021-06-04 11:59 | XMS REPORT | CCD ---
Author Author Libby Paris Organization Aliyah Paris MD, [facility] Address [address] [place] [address] Phone Care Team Providers Care Interpreter Deaf Name Role Phone Aliyah Paris PP Unavailable CCM Unavailable Summary Purpose Interface Exchange Insurance Providers Payer name Policy type / Coverage type Covered green party ID Effective Begin Date Effective End Date [employer] [id number] Unknown Family history Sister Diagnosis Age At Onset Hypertension Unknown Diabetes Unknown Mother Diagnosis Age At Onset Hypertension Unknown Cancer Unknown Social History Social History Element Codes Description Effective Dates Employment Unknown 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 Marital status Unknown Single 05/06/[address]: 141974568 Never smoker 05/06/[address]: 160233758 Never drinks alcohol 2014 Allergies, Adverse Reactions, [...] Kenalog 40 mg/mL suspension for injection RxNorm: 7870967 Take Milliliter(s) Injection 05/06/2021 05/06/2021 Inactive mirtazapine 7.5 mg tablet RxNorm: 918530 Take 1/2 Tablet(s) Ora l every evening 04/09/2021 08/06/2021 Active Vitamin D3 125 mcg (5,000 unit) tablet RxNorm: 151937 1 Tablet(s) Oral every day 01/05/2021 No Stop Date Active Vitamin D2 1,250 mcg (50,000 unit) capsule RxNorm: 0714278 1 Capsule(s) Oral weekly take with vit d 5000 u daily 01/05/2021 02/01/2021 Inactive Ziac 10 mg-6.25 mg tablet RxNorm: 116521 Take 1 tablet by mouth once daily 08/20/2020 04/08/2021 Inactive Vitamin D2 1,250 mcg (50,000 unit) capsule RxNorm: 4087292 1 Capsule(s) Oral weekly 07/08/2020 09/30/2020 Inactive Vitamin D2 1,250 mcg (50,000 unit) capsule RxNorm: 0578610 1 Capsule(s) Oral weekly 07/08/2020 07/07/2020 Inactive methotrexate sodium 2.5 mg tablet RxNorm: 472907 3 Tabl et(s) Oral once a week - Managed by rheumatology 07/02/2020 03/24/2021 Inactive Ziac 10 mg-6.25 mg tablet RxNorm: 920015 TAKE 1 TABLET BY MOUTH ONCE DAILY 12/09/2019 07/05/2020 Inactive Ziac 10 mg-6.25 mg tablet RxNorm: 914341 TAKE 1 TABLET BY MOUTH ONCE DAILY 05/28/2019 12/08/2019 Inactive metformin 500 mg tablet RxNorm: 162871 1/2 Tablet(s) PO BID 019 01/01/2020 Inactive metformin 500 mg tablet RxNorm: 318761 1/2 Tablet(s) PO BID 019 05/05/2019 Inactive methotrexate sodium 2.5 mg tablet RxNorm: 162513 6 Tabl et(s) PO QW -Managed by rheumatology 01/02/2019 07/01/2020 Inactive Ziac 10 mg-6.25 mg tablet RxNorm: 068826 TAKE 1 TABLET BY MOUTH ONCE DAILY 08/29/2018 05/27/2019 Inactive methotrexate sodium 2.5 mg tablet RxNorm: 366671 3 Tablet(s) PO QW 07/11/2018 01/01/2019 Inactive Ziac 10 mg-6.25 mg tablet RxNorm: 254645 TAKE 1 TABLET BY MOUTH ONCE DAILY 06/26/2018 08/28/2018 Inactive metformin 500 mg tablet RxNorm: 222842 TAKE ONE TABLET BY MOUTH TWICE DAILY 04/03/2018 01/03/2019 Inactive Ziac 10 mg-6.25 mg tablet RxNorm: 405584 TAKE ONE TABLET BY JEFF TH ONCE DAILY 01/31/2018 06/25/2018 Inactive metformin 500 mg tablet RxNorm: 931473 TAKE ONE TABLET BY MOUTH TWICE DAILY 10/04/2017 04/02/2018 Inactive Ziac 10 mg-6.25 mg tablet RxNorm: 940427 TAKE ONE TABLET BY JEFF TH ONCE DAILY 08/02/2017 01/30/2018 Inactive diclofenac potassium 50 mg tablet RxNorm: 297541 1 Tabl et(s) PO BID as needed for pain 04/12/2017 05/11/2017 Inactive metformin 500 mg tablet RxNorm: 651325 Tablet(s) TAKE O NE TABLET BY MOUTH TWICE DAILY 04/06/2017 10/02/2017 Inactive Ziac 10 mg-6.25 mg tablet RxNorm: 335033 TAKE ONE TABLET BY JEFF TH ONCE DAILY 04/03/2017 07/31/2017 Inactive multivitamin with iron tablet RxNorm: 1 Tablet(s) PO daily 11/201602/16/2017 Inactive Claritin-D 24 Hour 10 mg-240 mg tablet,extended release RxNo rm: 4101315 1 Tablet(s) PO daily 11/23/2016 11/22/2016 Inactive Claritin-D 24 Hour 10 mg-240 mg tablet,extended release RxNo rm: 2422626 1 Tablet(s) PO daily 11/23/2016 01/01/2019 Inactive Ziac 10 mg-6.25 mg tablet RxNorm: 996240 TAKE ONE TABLET BY JEFF TH ONCE DAILY 10/10/2016 04/02/2017 Inactive metformin 500 mg tablet RxNorm: 451128 TAKE ONE TABLET BY MOUTH TWICE DAILY 10/05/2016 04/02/2017 Inactive Claritin-D 12 Hour 5 mg-120 mg tablet,extended release RxNor m: 5469028 1 Tablet(s) PO BID as needed 09/15/2016 11/22/2016 Inactive Ziac 10 mg-6.25 mg tablet RxNorm: 834465 Tablet(s) 1 Tablet(s) PO daily 04/12/2016 10/08/2016 Inactive metformin 500 mg tablet RxNorm: 829532 1 Tablet(s) PO BID 01/08/2016 10/03/2016 Inactive Ziac 10 mg-6.25 mg tablet RxNorm: 307585 1 Tablet(s) PO daily 10/1204/08/2016 Inactive Ziac 10 mg-6.25 mg tablet RxNorm: 107966 1 Tablet(s) PO daily 07/1510/11/2015 Inactive metformin 500 mg tablet RxNorm: 925772 1 Tablet(s) PO BID 04/14/2015 01/07/2016 Inactive metformin 500 mg tablet RxNorm: 775941 1 Tablet(s) PO BID 04/14/2015 04/13/2015 Inactive Ziac 10 mg-6.25 mg tablet RxNorm: 814906 1 Tablet(s) PO daily 04/1407/12/2015 Inactive aspirin 81 mg tablet RxNorm: 055360 1 Tablet(s) PO daily 05/06/2015 Active Ziac 10 mg-6.25 mg tablet RxNorm: 476045 1 Tablet(s) PO daily 04/1404/13/2015 Inactive Claritin-D 12 Hour 5 mg-120 mg tablet,extended release RxNor m: 3649903 1 Tablet(s) PO BID 09/15/2016 09/14/2016 Inactive Plaquenil 200 mg tablet RxNorm: 346303 1 Tablet(s) PO daily 021 03/24/2021 Inactive Naprosyn 500 mg tablet RxNorm: 247828 1 Tablet(s) PO BID 02/02/2021 0 02/01/2021 Inactive owpmgenh-dqedvxhnka-qs glycn-C oral RxNorm: oral 07/04/2019 07/03/2019 Inactive folic acid 1 mg tablet RxNorm: 126516 1 Tablet(s) PO daily 03/25/20 21 03/24/2021 Inactive methotrexate sodium 2.5 mg tablet RxNorm: 038276 6 Tablet(s) PO QW 07/11/2018 07/10/2018 Inactive Medication Administered Medication Codes Instructions Start Date Status Kenalog 40 mg/mL suspension for injection RxNorm: 7925620 Millilite r 05/06/2021 No longer Active Immunizations Vaccine Codes Date Status Covid-19 CVX: 12/21/2020 Covid-19 CVX: 11/18/2020 Results Observation Observation Code Item Item Code Result Date S ervice Location MEAN GLUC 3499867 Calc Mean Gluc 85 mg/dL 01/01/2021 Unkn own A1C HPLC 7724862 Hgb A1c 34470-4 4.6 % 01/01/2021 Unknown LIPID GRP 0430726 CHOLESTEROL 148 mg/dL 01/01/2021 Unknown LIPID GRP [id number] Triglyceride 136 mg/dL 01/01/2021 Unknow n LIPID GRP 7309984 HDL CHOLESTEROL 46 mg/dL 01/01/2021 Unk nown LIPID GRP 3005612 Chol/HDL Ratio 3.22 ratio 01/01/2021 Unk nown LIPID GRP 6502727 NON-HDL Chol 102 mg/dL 01/01/2021 Unknow n LIPID GRP 2587959 LDL Cholesterol 75 mg/dL 01/01/2021 Unk nown FOLIC ACID 9771486 Folate 6.0 ng/mL 01/01/2021 Unknown CHEM 14 4467071 AST 23 U/L 01/01/2021 Unknown CHEM 14 9156549 ALT 14 U/L 01/01/2021 Unknown CHEM 14 5148497 BUN 21 mg/dL 01/01/2021 Unknown CHEM 14 0862771 ALBUMIN 3.8 g/dL 01/01/2021 Unknown CHEM 14 6441187 CHLORIDE 105 mmol/L 01/01/2021 Unknown CHEM 14 1449254 Bili Total 0.5 mg/dL 01/01/2021 Unknown CHEM 14 2960444 ALK PHOS 47 U/L 01/01/2021 Unknown CHEM 14 8558170 SODIUM 137 mmol/L 01/01/2021 Unknown CHEM 14 1899947 CREATININE 0.89 mg/dL 01/01/2021 Unknown CHEM 14 9274404 CALCIUM 9.5 mg/dL 01/01/2021 Unknown CHEM 14 4070949 POTASSIUM 4.2 mmol/L 01/01/2021 Unknown CHEM 14 4458562 TOTAL PROTEIN 7.3 g/dL 01/01/2021 Unkno wn CHEM 14 4891598 GLUCOSE 92 mg/dL 01/01/2021 Unknown CHEM 14 7084817 Bicarbonate 21 mmol/L 01/01/2021 Unknown CHEM 14 6658651 AGAP 11 mmol/L 01/01/2021 Unknown CBC 1332828 WBC 8.3 10e9/L 01/01/2021 Unknown CBC 4593530 RBC 3.66 10e12/L 01/01/2021 Unknow n CBC 7520072 HEMOGLOBIN 11.5 g/dL 01/01/2021 Unknown CBC 4150838 HEMATOCRIT 33.7 % 01/01/2021 Unknown CBC 2080206 MCV 92.1 fL 01/01/2021 Unknown CBC 9239206 MCH 31.4 pg 01/01/2021 Unknown CBC 9120619 MCHC 34.1 g/dL 01/01/2021 Unknown CBC 7346633 PLATELET COUNT 214 10e9/L 01/01/2021 Unk nown CBC 2329571 Mean Plt Volume 10.9 fL 01/01/2021 Unk nown CBC 5992270 Neut Auto 69.8 % 01/01/2021 Unknown CBC 3555625 Lymph Auto 14.5 % 01/01/2021 Unknown CBC 7287400 [place] Auto 11.9 % 01/01/2021 Unknown CBC 8408538 Eos Auto 3.0 % 01/01/2021 Unknown CBC 0769413 RDW 14.4 % 01/01/2021 Unknown CBC 1238074 Baso Auto 0.8 % 01/01/2021 Unknown CBC 2580189 Neutrophil Abs 5.79 10e9/L 01/01/2021 Un known CBC 9667219 Lymphocyte Abs 1.20 10e9/L 01/01/2021 Un known CBC 5349351 Monocyte Abs 0.99 10e9/L 01/01/2021 Unkn own CBC 0441314 Eosinophil Abs 0.25 10e9/L 01/01/2021 Un known CBC 8632287 RDW-SD 46.3 fL 01/01/2021 Unknown CBC 1699726 Basophil Abs 0.07 10e9/L 01/01/2021 Unkn own TSH 0516570 TSH 1.235 uIU/mL 01/01/2021 Unknow n VIT D TOTL 7898206 Vitamin D 25 OH 29.1 ng/mL 01/01/2021 U nknown GFR CALC 8570969 GFR Non Afr Amr >60 mL/min 01/01/2021 Un known GFR CALC 0644635 GFR Afr Amr >60 mL/min 01/01/2021 Unknow n MEAN GLUC 1394996 Calc Mean Gluc 97 mg/dL 07/06/2020 Unkn own A1C HPLC 5298306 Hgb A1c 05609-0 5.0 % 07/06/2020 Unknown FOLIC ACID 7372338 Folate >20.0 ng/mL 07/02/2020 Unknow n VIT D TOTL 9122201 Vitamin D 25 OH 24.3 ng/mL 07/02/2020 U nknown CHEM 14 8310467 AST 16 U/L 07/02/2020 Unknown CHEM 14 5592712 ALT 8 U/L 07/02/2020 Unknown CHEM 14 4735982 BUN 19 mg/dL 07/02/2020 Unknown CHEM 14 3515764 ALBUMIN 4.1 g/dL 07/02/2020 Unknown CHEM 14 3655298 CHLORIDE 108 mmol/L 07/02/2020 Unknown CHEM 14 4193050 Bili Total 0.6 mg/dL 07/02/2020 Unknown CHEM 14 5570657 ALK PHOS 56 U/L 07/02/2020 Unknown CHEM 14 3288716 SODIUM 139 mmol/L 07/02/2020 Unknown CHEM 14 1266758 CREATININE 0.88 mg/dL 07/02/2020 Unknown CHEM 14 5303739 CALCIUM 9.3 mg/dL 07/02/2020 Unknown CHEM 14 8871765 POTASSIUM 4.3 mmol/L 07/02/2020 Unknown CHEM 14 3420780 TOTAL PROTEIN 7.7 g/dL 07/02/2020 Unkno wn CHEM 14 9392113 GLUCOSE 91 mg/dL 07/02/2020 Unknown CHEM 14 7284895 Bicarbonate 23 mmol/L 07/02/2020 Unknown CHEM 14 3292149 AGAP 8 mmol/L 07/02/2020 Unknown GFR CALC 7085948 GFR Non Afr Amr >60 mL/min 07/02/2020 Un known GFR CALC 1290453 GFR Afr Amr >60 mL/min 07/02/2020 Unknow n LIPID GRP CHOLESTEROL 148 mg/dL 07/02/2020 Unknown LIPID GRP 3459779 Triglyceride 107 mg/dL 07/02/2020 Unknow n LIPID GRP HDL CHOLESTEROL 50 mg/dL 07/02/2020 Unk nown LIPID GRP Chol/HDL Ratio 2.96 ratio 07/02/2020 Unk nown LIPID GRP NON-HDL Chol 98 mg/dL 07/02/2020 Unknow n LIPID GRP 9710719 LDL Cholesterol 77 mg/dL 07/02/2020 Unk nown CBC 1388805 WBC 8.7 10e9/L 07/02/2020 Unknown CBC 5627442 RBC 3.43 10e12/L 07/02/2020 Unknow n CBC 5835355 HEMOGLOBIN 10.0 g/dL 07/02/2020 Unknown CBC 8258759 HEMATOCRIT 31.2 % 07/02/2020 Unknown CBC 9607459 MCV 91.0 fL 07/02/2020 Unknown CBC 4562144 MCH 29.2 pg 07/02/2020 Unknown CBC 1789765 MCHC 32.1 g/dL 07/02/2020 Unknown CBC 2472221 PLATELET COUNT 222 10e9/L 07/02/2020 Unk nown CBC 6149292 Mean Plt Volume 11.7 fL 07/02/2020 Unk nown CBC 6115020 Neut Auto 78.0 % 07/02/2020 Unknown CBC 2878888 Lymph Auto 11.1 % 07/02/2020 Unknown CBC 9109674 [place] Auto 7.7 % 07/02/2020 Unknown CBC 6971287 Eos Auto 2.3 % 07/02/2020 Unknown CBC 4847117 RDW 14.5 % 07/02/2020 Unknown CBC 4614310 Baso Auto 0.9 % 07/02/2020 Unknown CBC 5990826 Neutrophil Abs 6.79 10e9/L 07/02/2020 Un known CBC 8211164 Lymphocyte Abs 0.97 10e9/L 07/02/2020 Un known CBC 2403568 Monocyte Abs 0.67 10e9/L 07/02/2020 Unkn own CBC 5756008 Eosinophil Abs 0.20 10e9/L 07/02/2020 Un known CBC 7766494 Basophil Abs 0.08 10e9/L 07/02/2020 Unkn own CBC 6469017 RDW-SD 45.6 fL 07/02/2020 Unknown TSH 9416347 TSH 0.955 uIU/mL 07/02/2020 Unknow n A1C HPLC 3778991 Hgb A1c 09837-8 4.5 % 01/02/2020 Unknown LIPID GRP 6879374 CHOLESTEROL 154 mg/dL 01/02/2020 Unknown LIPID GRP Triglyceride 146 mg/dL 01/02/2020 Unknow n LIPID GRP HDL CHOLESTEROL 55 mg/dL 01/02/2020 Unk nown LIPID GRP 4068482 Chol/HDL Ratio 2.80 ratio 01/02/2020 Unk nown LIPID GRP 5802391 NON-HDL Chol 99 mg/dL 01/02/2020 Unknow n LIPID GRP 5363327 LDL Cholesterol 70 mg/dL 01/02/2020 Unk nown CBC 3065844 WBC 9.7 10e9/L 01/02/2020 Unknown CBC 3909074 RBC 3.62 10e12/L 01/02/2020 Unknow n CBC 2674329 HEMOGLOBIN 11.2 g/dL 01/02/2020 Unknown CBC 1082535 HEMATOCRIT 33.4 % 01/02/2020 Unknown CBC 4066862 MCV 92.3 fL 01/02/2020 Unknown CBC 7963044 MCH 30.9 pg 01/02/2020 Unknown CBC 8313043 MCHC 33.5 g/dL 01/02/2020 Unknown CBC 2760859 PLATELET COUNT 232 10e9/L 01/02/2020 Unk nown CBC 1482544 Mean Plt Volume 11.0 fL 01/02/2020 Unk nown CBC 2100310 Neut Auto 70.5 % 01/02/2020 Unknown CBC 0807817 Lymph Auto 15.5 % 01/02/2020 Unknown CBC 5771209 [place] Auto 9.3 % 01/02/2020 Unknown CBC 9608687 Eos Auto 4.0 % 01/02/2020 Unknown CBC 9673277 RDW 13.7 % 01/02/2020 Unknown CBC 8502317 Baso Auto 0.7 % 01/02/2020 Unknown CBC 7103396 Neutrophil Abs 6.84 10e9/L 01/02/2020 Un known CBC 3665858 Lymphocyte Abs 1.50 10e9/L 01/02/2020 Un known CBC 5355424 Monocyte Abs 0.90 10e9/L 01/02/2020 Unkn own CBC 9818585 Eosinophil Abs 0.39 10e9/L 01/02/2020 Un known CBC 6271783 Basophil Abs 0.07 10e9/L 01/02/2020 Unkn own CBC 6466709 RDW-SD 44.7 fL 01/02/2020 Unknown CHEM 14 6481513 AST 16 U/L 01/02/2020 Unknown CHEM 14 4339077 ALT 10 U/L 01/02/2020 Unknown CHEM 14 2225343 BUN 18 mg/dL 01/02/2020 Unknown CHEM 14 3840933 ALBUMIN 4.2 g/dL 01/02/2020 Unknown CHEM 14 6982143 CHLORIDE 105 mmol/L 01/02/2020 Unknown CHEM 14 4111110 Bili Total 0.7 mg/dL 01/02/2020 Unknown CHEM 14 0155227 ALK PHOS 41 U/L 01/02/2020 Unknown CHEM 14 8587036 SODIUM 141 mmol/L 01/02/2020 Unknown CHEM 14 6202247 CREATININE 0.86 mg/dL 01/02/2020 Unknown CHEM 14 1074474 CALCIUM 9.5 mg/dL 01/02/2020 Unknown CHEM 14 5749618 POTASSIUM 4.0 mmol/L 01/02/2020 Unknown CHEM 14 4367630 TOTAL PROTEIN 7.3 g/dL 01/02/2020 Unkno wn CHEM 14 6483529 GLUCOSE 90 mg/dL 01/02/2020 Unknown CHEM 14 1609621 Bicarbonate 26 mmol/L 01/02/2020 Unknown CHEM 14 7702216 AGAP 10 mmol/L 01/02/2020 Unknown TSH 7387150 TSH 0.823 uIU/mL 01/02/2020 Unknow n MEAN GLUC 9295754 Calc Mean Gluc 82 mg/dL 01/02/2020 Unkn own GFR CALC 6121202 GFR Non Afr Amr >60 mL/min 01/02/2020 Un known GFR CALC 2682427 GFR Afr Amr >60 mL/min 01/02/2020 Unknow [...] Ord15 CALCIUM 9.5 mg/dL 01/02/2019 Unknown %Hba1C Tmz288 % HbA1c 15523-8 4.9 % 01/02/2019 Unknown %Hba1C Iqu668 Gluc Ave 94 mg/dL 01/02/2019 Unknown Cbc [...] 11/20/19 19 Unknown Cbc With Differential Ord2 [place]% 6.9 % 11/20/19 19 Unknown Cbc With [...] K/ul 019 Unknown Cbc With Differential Ord2 [place] ABS# 0.5 K/ul 11/20/19 19 Unknown Cbc With Differential Ord2 Eos ABS# 0.3 K/ul 11/20/19 19 Unknown Cbc With Differential Ord2 Baso ABS# 0.1 K/ul 11/20/19 19 Unknown Hepatic Nim126 ALBUMIN 4.4 g/dL 11/19/2018 Unknown Hepatic Hqd989 TPRO 7.2 g/dL 11/19/2018 Unknown Hepatic Mzc045 GLOB 2.8 g/dL 11/19/2018 Unknown Hepatic Wtc081 A/G Ratio 1.6 Ratio 11/19/2018 Unknown Hepatic Tah491 ALK PHOS 36 U/L 11/19/2018 Unknown Hepatic Ezk431 ALT(SGPT) 10 U/L 11/19/2018 Unknown Hepatic Jgw172 AST(SGOT) 14 U/L 11/19/2018 Unknown Hepatic Lpd779 BILI T 0.7 mg/dL 11/19/2018 Unknown Hepatic Jkp367 BILI D 0.1 mg/dL 11/19/2018 Unknown Hepatic Mju031 BILI I 0.6 mg/dL 11/19/2018 Unknown Hepatic Vsy760 ALBUMIN 3.9 g/dL 08/14/2018 Unknown Hepatic Xuz823 TPRO 6.3 g/dL 08/14/2018 Unknown Hepatic Bzp581 GLOB 2.5 g/dL 08/14/2018 Unknown Hepatic Nuv982 A/G Ratio 1.6 Ratio 08/14/2018 Unknown Hepatic Cnq555 ALK PHOS 36 U/L 08/14/2018 Unknown Hepatic Tta507 ALT(SGPT) 33 U/L 08/14/2018 Unknown Hepatic Jqs933 AST(SGOT) 30 U/L 08/14/2018 Unknown Hepatic Cec064 BILI T 0.6 mg/dL 08/14/2018 Unknown Hepatic Zll570 BILI D 0.2 mg/dL 08/14/2018 Unknown Hepatic Edx525 BILI I 0.4 mg/dL 08/14/2018 Unknown Cbc [...] 08/14/20 18 Unknown Cbc With Differential Ord2 [place]% 8.8 % 08/14/20 18 Unknown Cbc With [...] K/ul 018 Unknown Cbc With Differential Ord2 [place] ABS# 0.5 K/ul 08/14/20 18 Unknown Cbc With Differential Ord2 Eos ABS# 0.3 K/ul 08/14/20 18 Unknown Cbc With Differential Ord2 Baso ABS# 0.1 K/ul 08/14/20 18 Unknown Comp Metabolic Qxj215 NA 141 mEq/L 07/13/2018 Unkn own Comp Metabolic Ftl655 K 4.0 mEq/L 07/13/2018 Unkn own Comp Metabolic Dim345 CL 106 mEq/L 07/13/2018 Unkn own Comp Metabolic Xla161 CO2 26.0 mEq/L 07/13/2018 Unk nown Comp Metabolic Kzv716 ANION GAP 13 07/13/2018 Unkn own Comp Metabolic Hts148 GLUCOSE 91 mg/dL 07/13/2018 Unkn own Comp Metabolic Has808 Creat 0.9 mg/dL 07/13/2018 Unkn own Comp Metabolic Brj818 eGFR 68 ml/min/1.73m2 07/13/20 18 Unknown Comp Metabolic Twr103 BUN 18 mg/dL 07/13/2018 Unkn own Comp Metabolic Jjl762 B/C Ratio 20.5 Ratio 07/13/2018 Unk nown Comp Metabolic Hms317 CALCIUM 9.2 mg/dL 07/13/2018 Unkn own Comp Metabolic Kji363 ALK PHOS 41 U/L 07/13/2018 Unkn own Comp Metabolic Goh292 AST(SGOT) 16 U/L 07/13/2018 Unkn own Comp Metabolic Dxx073 ALT(SGPT) 12 U/L 07/13/2018 Unkn own Comp Metabolic Ico751 BILI T 0.4 mg/dL 07/13/2018 Unkn own Comp Metabolic Jka820 ALBUMIN 4.3 g/dL 07/13/2018 Unkn own Comp Metabolic Yxz456 TPRO 6.7 g/dL 07/13/2018 Unkn own Comp Metabolic Smu296 GLOB 2.5 g/dL 07/13/2018 Unkn own Comp Metabolic Nev009 A/G Ratio 1.7 Ratio 07/13/2018 Unkn own Comp Metabolic Peu870 Osmo 283 mOsmo 07/13/2018 Unkn own Lipid Ord30 CHOL 167 mg/dL 07/13/2018 Unknown Lipid Ord30 HDL 53.0 mg/dl 07/13/2018 Unknown Lipid Ord30 TRIG 95 mg/dL 07/13/2018 Unknown Lipid Ord30 LDL 95 mg/dL 07/13/2018 Unknown Lipid Ord30 C/HDL 3.2 Ratio 07/13/2018 Unknown %Hba1C Dpr346 % HbA1c 22435-6 5.0 % 07/13/2018 Unknown %Hba1C Jxh504 Gluc Ave 97 mg/dL 07/13/2018 Unknown Tsh [...] 07/13/20 18 Unknown Cbc With Differential Ord2 [place]% 9.7 % 07/13/20 18 Unknown Cbc With [...] K/ul 018 Unknown Cbc With Differential Ord2 [place] ABS# 0.6 K/ul 07/13/20 18 Unknown Cbc With Differential Ord2 Eos ABS# 0.4 K/ul 07/13/20 18 Unknown Cbc With Differential Ord2 Baso ABS# 0.1 K/ul 07/13/20 18 Unknown Hepatic Bur503 ALBUMIN 3.9 g/dL 05/14/2018 Unknown Hepatic Xzq531 TPRO 6.6 g/dL 05/14/2018 Unknown Hepatic Ofv200 GLOB 2.7 g/dL 05/14/2018 Unknown Hepatic Skh740 A/G Ratio 1.4 Ratio 05/14/2018 Unknown Hepatic Fgg605 ALK PHOS 32 U/L 05/14/2018 Unknown Hepatic Rbf161 ALT(SGPT) 8 U/L 05/14/2018 Unknown Hepatic Gzc535 AST(SGOT) 12 U/L 05/14/2018 Unknown Hepatic Osu465 BILI T 0.8 mg/dL 05/14/2018 Unknown Hepatic Fay603 BILI D 0.1 mg/dL 05/14/2018 Unknown Hepatic Usu525 BILI I 0.7 mg/dL 05/14/2018 Unknown Cbc [...] 05/14/20 18 Unknown Cbc With Differential Ord2 [place]% 4.8 % 05/14/20 18 Unknown Cbc With [...] K/ul 018 Unknown Cbc With Differential Ord2 [place] ABS# 0.3 K/ul 05/14/20 18 Unknown Cbc [...] 11/17/19 18 Unknown Cbc With Differential Ord2 [place]% 11.2 % 11/17/19 18 Unknown Cbc With [...] K/ul 018 Unknown Cbc With Differential Ord2 [place] ABS# 0.7 K/ul 11/17/19 18 Unknown Cbc With Differential Ord2 Eos ABS# 0.2 K/ul 11/17/19 18 Unknown Cbc With Differential Ord2 Baso ABS# 0.0 K/ul 11/17/19 18 Unknown Hepatic Vzi756 ALBUMIN 4.1 g/dL 11/16/2017 Unknown Hepatic Wti178 TPRO 6.7 g/dL 11/16/2017 Unknown Hepatic Sfc511 GLOB 2.7 g/dL 11/16/2017 Unknown Hepatic Iti289 A/G Ratio 1.5 Ratio 11/16/2017 Unknown Hepatic Epv455 ALK PHOS 31 U/L 11/16/2017 Unknown Hepatic Iho010 ALT(SGPT) 11 U/L 11/16/2017 Unknown Hepatic Vzp877 AST(SGOT) 15 U/L 11/16/2017 Unknown Hepatic Ysa689 BILI T 0.7 mg/dL 11/16/2017 Unknown Hepatic Aax222 BILI D 0.2 mg/dL 11/16/2017 Unknown Hepatic Bhs547 BILI I 0.5 mg/dL 11/16/2017 Unknown Hepatic Agh224 ALBUMIN 4.0 g/dL 08/17/2017 Unknown Hepatic Uvj426 TPRO 6.6 g/dL 08/17/2017 Unknown Hepatic Qdc161 GLOB 2.6 g/dL 08/17/2017 Unknown Hepatic Njk422 A/G Ratio 1.6 Ratio 08/17/2017 Unknown Hepatic Tsa503 ALK PHOS 43 U/L 08/17/2017 Unknown Hepatic Arc855 ALT(SGPT) 10 U/L 08/17/2017 Unknown Hepatic Sfn222 AST(SGOT) 15 U/L 08/17/2017 Unknown Hepatic Fid835 BILI T 0.7 mg/dL 08/17/2017 Unknown Hepatic Szp052 BILI D 0.1 mg/dL 08/17/2017 Unknown Hepatic Ghz749 BILI I 0.6 mg/dL 08/17/2017 Unknown Cbc [...] 08/17/20 17 Unknown Cbc With Differential Ord2 [place]% 8.6 % 08/17/20 17 Unknown Cbc With [...] K/ul 017 Unknown Cbc With Differential Ord2 [place] ABS# 0.6 K/ul 08/17/20 17 Unknown Cbc With Differential Ord2 Eos ABS# 0.3 K/ul 08/17/20 17 Unknown Cbc With Differential Ord2 Baso ABS# 0.0 K/ul 08/17/20 17 Unknown Ra Factor Nen994 RA FACTOR 40.2 IU/ml 04/12/2017 Unknown Sed Rate Ord21 ESR 23 mm/hr 04/12/2017 Unknown C-Reactive Protein Qnt Crqnt CRP 0.2 mg/dl 2016 Unknown Tsh Ord6 hTSH II 1.26 uIU/mL 11/23/2016 Unknown Comp Metabolic Wbp195 NA 139 mEq/L 11/23/2016 Unkn own Comp Metabolic Fxc742 K 3.8 mEq/L 11/23/2016 Unkn own Comp Metabolic Hjj957 CL 105 mEq/L 11/23/2016 Unkn own Comp Metabolic Pdg810 CO2 27.0 mEq/L 11/23/2016 Unk nown Comp Metabolic Euu124 ANION GAP 11 11/23/2016 Unkn own Comp Metabolic Bfd516 GLUCOSE 110 mg/dL 11/23/2016 Unkn own Comp Metabolic Ukg987 Creat 0.6 mg/dL 11/23/2016 Unkn own Comp Metabolic Rdy730 eGFR 98 ml/min/1.73m2 11/24/19 17 Unknown Comp Metabolic Zbk450 BUN 15 mg/dL 11/23/2016 Unkn own Comp Metabolic Pyc713 B/C Ratio 23.4 Ratio 11/23/2016 Unk nown Comp Metabolic Zyi353 CALCIUM 9.5 mg/dL 11/23/2016 Unkn own Comp Metabolic Wzk407 ALK PHOS 42 U/L 11/23/2016 Unkn own Comp Metabolic Atg869 AST(SGOT) 15 U/L 11/23/2016 Unkn own Comp Metabolic Qmu885 ALT(SGPT) 12 U/L 11/23/2016 Unkn own Comp Metabolic Ymc080 BILI T 1.0 mg/dL 11/23/2016 Unkn own Comp Metabolic Axm314 ALBUMIN 4.2 g/dL 11/23/2016 Unkn own Comp Metabolic Wlg387 TPRO 7.1 g/dL 11/23/2016 Unkn own Comp Metabolic Zqr415 GLOB 2.9 g/dL 11/23/2016 Unkn own Comp Metabolic Pqr344 A/G Ratio 1.5 Ratio 11/23/2016 Unkn own Comp Metabolic Oxo630 Osmo 279 mOsmo 11/23/2016 Unkn own Lipid [...] 11/24/19 17 Unknown Cbc With Differential Ord2 [place]% 9.9 % 11/24/19 17 Unknown Cbc With [...] K/ul 017 Unknown Cbc With Differential Ord2 [place] ABS# 0.6 K/ul 11/24/19 17 Unknown Cbc With Differential Ord2 Eos ABS# 0.2 K/ul 11/24/19 17 Unknown Cbc With Differential Ord2 Baso ABS# 0.1 K/ul 11/24/19 17 Unknown Microalbumin Shb482 MicroAlb <0.7 mg/dL 11/23/2016 Unkno wn %Hba1C Yix487 % HbA1c 85890-0 5.4 % 11/23/2016 Unknown %Hba1C Unq107 Gluc Ave 108 mg/dL 11/23/2016 Unknown %Hba1C Azd591 % HbA1c 63241-2 5.4 % 11/04/2015 Unknown %Hba1C Kzq975 Gluc Ave 108 mg/dL 11/04/2015 Unknown Lipid Ord30 CHOL 169 mg/dL 11/04/2015 Unknown Lipid Ord30 HDL 48.0 mg/dl 11/04/2015 Unknown Lipid Ord30 TRIG 160 mg/dL 11/04/2015 Unknown Lipid Ord30 LDL 89 mg/dL 11/04/2015 Unknown Lipid Ord30 C/HDL 3.5 Ratio 11/04/2015 Unknown Microalbumin Rks955 MicroAlb 1.7 mg/dL 11/04/2015 Unknow n Tsh Ord6 hTSH II 1.00 uIU/mL 11/04/2015 Unknown Comp Metabolic Abj258 NA 138 mEq/L 11/04/2015 Unkn own Comp Metabolic Lns740 K 3.7 mEq/L 11/04/2015 Unkn own Comp Metabolic Ovb852 CL 103 mEq/L 11/04/2015 Unkn own Comp Metabolic Lmv178 CO2 28.0 mEq/L 11/04/2015 Unk nown Comp Metabolic Zze094 ANION GAP 11 11/04/2015 Unkn own Comp Metabolic Cnb057 GLUCOSE 96 mg/dL 11/04/2015 Unkn own Comp Metabolic Sbm516 Creat 0.7 mg/dL 11/04/2015 Unkn own Comp Metabolic Ofg352 eGFR 92 ml/min/1.73m2 11/04/19 16 Unknown Comp Metabolic Vor322 BUN 15 mg/dL 11/04/2015 Unkn own Comp Metabolic Gmh197 B/C Ratio 22.1 Ratio 11/04/2015 Unk nown Comp Metabolic Jhm423 CALCIUM 9.3 mg/dL 11/04/2015 Unkn own Comp Metabolic Uiv348 ALK PHOS 43 U/L 11/04/2015 Unkn own Comp Metabolic Dfg711 AST(SGOT) 14 U/L 11/04/2015 Unkn own Comp Metabolic Zpg301 ALT(SGPT) 9 U/L 11/04/2015 Unkn own Comp Metabolic Pvj263 BILI T 0.8 mg/dL 11/04/2015 Unkn own Comp Metabolic Uhm295 ALBUMIN 4.3 g/dL 11/04/2015 Unkn own Comp Metabolic Ykc502 TPRO 7.0 g/dL 11/04/2015 Unkn own Comp Metabolic Fdd578 GLOB 2.7 g/dL 11/04/2015 Unkn own Comp Metabolic Ykw083 A/G Ratio 1.6 Ratio 11/04/2015 Unkn own Comp Metabolic Sid770 Osmo 276 mOsmo 11/04/2015 Unkn own Cbc [...] 11/04/19 16 Unknown Cbc With Differential Ord2 [place]% 9.0 % 11/04/19 16 Unknown Cbc With [...] K/ul 016 Unknown Cbc With Differential Ord2 [place] ABS# 0.6 K/ul 11/04/19 16 Unknown Cbc With Differential Ord2 Eos ABS# 0.2 K/ul 11/04/19 16 Unknown Cbc With Differential Ord2 Baso ABS# 0.0 K/ul 11/04/19 16 Unknown Cbc With Differential Ord2 New Analyzer Notice Please note new ref ranges starting 09-30-2015 due to implemntation of new five part differential hematolgy analyzer. 11/04/2015 Unknown %Hba1C Yxf241 % HbA1c 65453-8 5.2 % 05/06/2015 Unknown %Hba1C Sxd759 Gluc Ave 103 mg/dL 05/06/2015 Unknown Lipid [...] 14.7 % 05/06/20 15 Unknown Comp Metabolic Rry506 NA 137 mEq/L 05/06/2015 Unkn own Comp Metabolic Gla553 K 3.6 mEq/L 05/06/2015 Unkn own Comp Metabolic Gqe325 CL 102 mEq/L 05/06/2015 Unkn own Comp Metabolic Xbv617 CO2 28.0 mEq/L 05/06/2015 Unk nown Comp Metabolic Sfe360 ANION GAP 11 05/06/2015 Unkn own Comp Metabolic Mkv689 GLUCOSE 97 mg/dL 05/06/2015 Unkn own Comp Metabolic Yci555 Creat 0.7 mg/dL 05/06/2015 Unkn own Comp Metabolic Ior233 eGFR 94 ml/min/1.73m2 05/06/20 15 Unknown Comp Metabolic Ojr792 BUN 14 mg/dL 05/06/2015 Unkn own Comp Metabolic Ktp869 B/C Ratio 20.9 Ratio 05/06/2015 Unk nown Comp Metabolic Uxg117 CALCIUM 9.5 mg/dL 05/06/2015 Unkn own Comp Metabolic Xlv669 ALK PHOS 49 U/L 05/06/2015 Unkn own Comp Metabolic Tzr632 AST(SGOT) 15 U/L 05/06/2015 Unkn own Comp Metabolic Ebi148 ALT(SGPT) 11 U/L 05/06/2015 Unkn own Comp Metabolic Ack450 BILI T 0.8 mg/dL 05/06/2015 Unkn own Comp Metabolic Llr163 ALBUMIN 4.4 g/dL 05/06/2015 Unkn own Comp Metabolic Asb619 TPRO 7.4 g/dL 05/06/2015 Unkn own Comp Metabolic Zmy951 GLOB 3.0 g/dL 05/06/2015 Unkn own Comp Metabolic Aba060 A/G Ratio 1.5 Ratio 05/06/2015 Unkn own Comp Metabolic Fkm983 Osmo 274 mOsmo 05/06/2015 Unkn own Tsh Ord6 hTSH II 0.99 uIU/mL 05/06/2015 Unknown Procedures Procedure Codes Date THER/PROPH/DIAG INJ SC/IM CPT-4: 99745 05/06/2021 TRIAMCINOLONE ACET INJ NOS 10 mg CPT-4: J3301 021 Vital Signs Date Vital 05/13/2021 Blood Pressure 1: 122/70 Code: 8480-6 BMI: 17.0 Code: 26413-2 Heart Rate 1: 107 bpm Height: 5' Code: 8302-2 SpO2: 99% Temperature: 36. 3 (C) / 97.3 (F) Weight: 87 lbs Code: 04742-9 04/09/2021 Blood Pressure 1: 132/82 Code: 8480-6 BMI: 18.6 Code: 44153-9 Heart Rate 1: 90 bpm Height: 5' Code: 8302-2 Respiratory Rate: 20 bpm Temperature : 36.3 (C) / 97.3 (F) Weight: 95 lbs Code: 61038-8 03/25/2021 Blood Pressure 1: 106/70 Code: 8480-6 BMI: 17.6 Code: 16880-7 Heart Rate 1: 48 bpm Height: 5' Code: 8302-2 SpO2: 98% Temperature: 35. 7 (C) / 96.3 (F) Weight: 90 lbs Code: 50726-4 02/02/2021 Blood Pressure 1: 118/70 Code: 8480-6 BMI: 19.9 Code: 54438-1 Heart Rate 1: 66 bpm Height: 5' Code: 8302-2 SpO2: 99% Temperature: 36. 7 (C) / 98.0 (F) Weight: 102 lbs 2 oz Code: 64374-1 12/31/2020 Blood Pressure 1: 106/64 Code: 8480-6 BMI: 20.7 Code: 99134-5 Heart Rate 1: 68 bpm Height: 5' Code: 8302-2 Respiratory Rate: 17 bpm SpO2: 97% Temperature: 35.8 (C) / 96.4 (F) Weight: 106 lbs Code: 83185-1 07/02/2020 Blood Pressure 1: 138/78 Code: 8480-6 BMI: 21.7 Code: 95850-4 Heart Rate 1: 52 bpm Height: 5' Code: 8302-2 Respiratory Rate: 16 bpm SpO2: 99% Temperature: 36.6 (C) / 97.8 (F) Weight: 111 lbs Code: 69823-4 01/02/2020 Blood Pressure 1: 120/64 Code: 8480-6 BMI: 21.3 Code: 48518-1 Heart Rate 1: 65 bpm Height: 5' Code: 8302-2 SpO2: 95% Temperature: 36. 4 (C) / 97.5 (F) Weight: 109 lbs Code: 95941-5 07/04/2019 Blood Pressure 1: 112/70 Code: 8480-6 BMI: 22.3 Code: 58327-0 Heart Rate 1: 60 bpm Height: 5' Code: 8302-2 SpO2: 99% Weight: 114 lbs 7 oz Code: 49937-2 01/02/2019 Blood Pressure 1: 122/68 Code: 8480-6 BMI: 22.7 Code: 17637-9 Heart Rate 1: 67 bpm Height: 5' Code: 8302-2 SpO2: 99% Weight: 116 lbs Code: 30301-9 07/11/2018 Blood Pressure 1: 138/66 Code: 8480-6 BMI: 22.5 Code: 73510-7 Heart Rate 1: 97 bpm Height: 5' Code: 8302-2 SpO2: 99% Weight: 115 lbs Code: 64893-8 04/12/2017 Blood Pressure 1: 142/82 Code: 8480-6 BMI: 23.2 Code: 27567-3 Heart Rate 1: 66 bpm Height: 5' Code: 8302-2 SpO2: 97% Weight: 119 lbs Code: 51549-5 11/23/2016 Blood Pressure 1: 130/78 Code: 8480-6 BMI: 24.4 Code: 05473-9 Heart Rate 1: 65 bpm Height: 5' Code: 8302-2 SpO2: 99% Weight: 125 lbs Code: 06106-6 05/04/2016 Blood Pressure 1: 126/78 Code: 8480-6 BMI: 24.6 Code: 80307-7 Heart Rate 1: 59 bpm Height: 5' Code: 8302-2 SpO2: 98% Weight: 126 lbs Code: 18111-7 11/04/2015 Blood Pressure 1: 132/70 Code: 8480-6 BMI: 25.3 Code: 58168-8 Heart Rate 1: 58 bpm Height: 5' Code: 8302-2 Weight: 129 lbs 8 oz Code: 2 9463-7 05/06/2015 Blood Pressure 1: 138/78 Code: 8480-6 BMI: 25.0 Code: 36621-3 Heart Rate 1: 65 bpm Height: 5' Code: 8302-2 SpO2: 97% Weight: 128 lbs Code: 63358-6 Functional Status No Functional Status data Reason For Visit Reason For Visit Effective Dates Notes weight loss 05/13/2021 paresthesia 04/09/2021 earache 03/25/2021 arthritis 02/02/2021 hypertension 12/31/2020 hypertension 07/02/2020 hypertension 01/02/2020 hypertension 07/04/2019 hypertension 01/02/2019 medication follow up 07/11/2018 hand pain 04/12/2017 hypertension 11/23/2016 hypertension 05/04/2016 hypertension 11/04/2015 hypertension 05/06/2015 Encounters Encounter Performer Location Codes Date ([id number]) 52183 EST. PATIENT, LEVEL IV Diagnosis: Dysphagia[ICD10: r13.10] Diagnosis: Underweight due to inadequate caloric intake[ICD10: R63.6] Diagnosis: Multiple sclerosis[ICD10: G35] Mira galicia MD, [facility] CPT-4: 71922 05/13/2021 ([id number]) 77803 EST. PATIENT, LEVEL I Diagnosis: Rheumatoid arthritis involving multiple sites with positive rheumatoid factor[ICD10: M05.79] Aliyah Paris MD, [facility] CPT- 4: 68038 05/06/2021 ([id number]) 29770 EST. 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 PATIENT, LEVEL IV Diagnosis: Essential (primary) hypertension[ICD10: I10] Diagnosis: Multiple sclerosis[ICD10: G35] Diagnosis: Type 2 diabetes mellitus without complications[ICD10: E11.9] Diagnosis: Underweight due to inadequate caloric intake[ICD10: R63.6] Aliyah Paris MD [facility] CPT-4: 54938 12/31/2020 ([id number]) 45093 EST. PATIENT, LEVEL IV Diagnosis: Essential (primary) hypertension[ICD10: I10] Diagnosis: Type 2 diabetes mellitus without complications[ICD10: E11.9] Diagnosis: Multiple sclerosis[ICD10: G35] Aliyah Paris MD, [facility] CPT-4: 22675 07/02/2020 ([id number]) 94166 EST. PATIENT, LEVEL IV Diagnosis: Type 2 diabetes mellitus without complications[ICD10: E11.9] Diagnosis: Essential (primary) hypertension[ICD10: I10] Diagnosis: Multiple sclerosis[ICD10: G35] Aliyah Paris MD [facility] CPT-4: 62643 01/02/2020 ([id number]) 18303 EST. PATIENT, LEVEL IV Diagnosis: Essential (primary) hypertension[ICD10: I10] Diagnosis: Type 2 diabetes mellitus without complications[ICD10: E11.9] Diagnosis: Multiple sclerosis[ICD10: G35] Aliyah Paris MD [facility] CPT-4: 64742 07/04/2019 ([id number]) 54894 EST. PATIENT, LEVEL IV Diagnosis: Essential (primary) hypertension[ICD10: I10] Diagnosis: Type 2 diabetes mellitus without complications[ICD10: E11.9] Diagnosis: Multiple sclerosis[ICD10: G35] Aliyah Paris MD [facility] CPT-4: 64375 01/02/2019 ([id number]) 13743 EST. PATIENT, LEVEL IV Diagnosis: Type 2 diabetes mellitus without complications[ICD10: E11.9] Diagnosis: Essential (primary) hypertension[ICD10: I10] Diagnosis: Multiple sclerosis[ICD10: G35] Aliyah Paris MD, [facility] CPT-4: 82933 07/11/2018 71020 EST. PATIENT, LEVEL IV Diagnosis: Pain in right hand[ICD10: M79.641] Diagnosis: Multiple sclerosis[ICD10: G35] Tiffanie Paris MD, [facility] CPT-4: 09457 04/12/2017 ([id number]) 73908 EST. PATIENT, LEVEL IV Diagnosis: Essential (primary) hypertension[ICD10: I10] Diagnosis: Type 2 diabetes mellitus without complications[ICD10: E11.9] [facility] CPT-4: 57817 11/23/2016 ([id number]) 54167 EST. PATIENT, LEVEL IV Diagnosis: Essential (primary) hypertension[ICD10: I10] Diagnosis: Type 2 diabetes mellitus without complications[ICD10: E11.9] [facility] CPT-4: 73763 05/04/2016 ([id number]) 90496 EST. PATIENT, LEVEL IV Diagnosis: Type 2 diabetes mellitus without complications[ICD10: E11.9] Diagnosis: Essential (primary) hypertension[ICD10: I10] [facility] CPT-4: 06449 11/04/2015 ([id number]) OFFICE VISIT, NEW - LEVEL 4 Diagnosis: DIABETES TYPE II[ICD9: 250.00] Diagnosis: ESSENTIAL HYPERTENSION[ICD9: 401.9] [facility] CPT-4: 87997 05/06/2015 Plan of Care Planned Activity Notes Codes Status Date Visit Plan: Dysphagia- patient to see Dr Welch for consultation today for EGD to evaluate possible stricture -refer for ST with [facility] Weight loss- secondary to dysphagia - recommend thickened liquids and pureed foods for now MS- patient has appt in June with neurology 05/13/2021 Appointment: Mira Danielle WPtel: [address] [place], [place] [phone] (30 min) [facility] 05/13/2021 Patient Education: Patient Medication Summary Completed [...] edema. 04/09/2021 Appointment: Mira Danielle WPtel: [phone] [phone] [place] (15 min) Moderate 04/09/2021 Appointment: Mira Danielle WPtel: [phone] [phone] [place] (15 min) Moderate 04/09/2021 Patient Education: Patient Medication Summary Completed 04/09/2021 Patient Education: Hypertension Completed 04/09/2021 Care Plan: Cbc With Differential Pending 04/09/2021 Care Plan: Comp Metabolic Pending Appointment: Mira Danielle WPtel: [phone] [phone] [place] (30 min) Complex 04/08/2021 Visit Plan: [...] Rheumatoid Arthritis- continue follow up with rheumatology. Electrical Manager dc'd methotrexate, folic acid, and plaquinel in January 2021 to help improve appetite. Pt reports had steroid injection in January 2021 for bilateral h and pain, but pain has been controlled since. Pt encouraged to continue follow up appt with recreation facility manager. Hypertension- Pt reports not checking BP at [...] taste. 03/25/2021 Appointment: Mira Danielle WPtel: [phone] [phone] (15 min) Moderate 03/25/2021 Patient Education: Patient Medication Summary Completed 03/25/2021 Patient Education: Hypertension Completed 03/25/2021 Care Plan: Vitamin D 25 Oh Pending 03/25/2021 Care Plan: Cbc With Differential Pending 03/25/2021 Care Plan: Comp Metabolic Pending Visit Plan: Arthritis - pt has been on m ultiple different treatments in the past - would like to seek out a new recreation facility manager - she would like a Referral to Dr. Woodruff in [place] Hypertension - well controlled - continue with [...] time. 02/02/2021 [facility]ment[phone] (15 min) Moderate 02/02/2021 Patient Education: [...] this time. 12/31/2020 Appointment: [facility] Paris [facility]Ptel[facility] [phone] [facility] [place] (15 min) Moderate 12/31/2020 Patient [...] this time. 07/02/2020 Appointment: [facility] Paris [facility]Ptel[facility] [phone] [facility] [place] (15 min) Moderate 07/02/2020 Patient Education: [...] time. 01/02/2020 Appointment: [facility]el[phone] [facility] (15 min) Moderate 01/02/2020 Patient Education: Patient Medication Summary Completed 01/02/2020 Patient Education: Diabetes Completed 01/02/2020 Patient Education: Hypertension Completed 01/02/2020 Care Plan: Cbc With Differential Pending 01/02/2020 Care Plan: Comp Metabolic Pending Care Plan: Lipid Pending 01/02/2020 Care Plan: %Hba1C LOINC : 11053-2 Pending 01/02/2020 Care Plan: Tsh Pending 01/02/2020 [...] time. 07/04/2019 Appointment: [facility] Paris [facility]Ptel[facility] [phone] [facility] (15 min) Moderate 07/04/2019 Patient Education: Patient Medication Summary Completed 07/04/2019 Patient Education: Hypertension Completed 07/04/2019 Patient Education: Diabetes Completed 07/04/2019 Care Plan: Comp Metabolic Pending Care Plan: Cbc With Differential Pending 07/04/2019 Care Plan: %Hba1C LOINC : 51316-2 Pending 07/04/2019 Care Plan: Tsh Pending 07/04/2019 [...] closely. 01/02/2019 Appointment: Aliyah Paris [facility]Ptel[facility] [phone] [facility] (15 min) Moderate 01/02/2019 Patient Education: [...] symptoms closely. 07/11/2018 Appointment: Aliyah Paris WPtel: [facility] (15 min) Moderate 07/11/2018 Patient Education: Patient [...] evaluation/monitoring 04/12/2017 [phone] ([facility] min) Moderate 04/12/2017 Patient Education: Patient [...] less controlled. 11/23/2016 Appointment: Aliyah Paris WPtel: [phone] [facility] (15 min) Moderate 11/23/2016 Patient Education: Patient [...] less controlled. 11/04/2015 Appointment: Aliyah Paris WPtel: [phone] [facility] [place] (15 min) Moderate 11/04/2015 Patient Education: Patient [...] home. 05/06/2015 Appointment: Aliyah Paris [facility]Ptel: [phone] [facility] [place] (S) New Patient 05/06/2015 Patient Education: Patient Medication Summary Completed 05/06/2015 Patient Education: Hypertension Completed 05/06/2015 Instructions Comment . Dysphagia- patient to see Dr Welch for consultation today for EGD to evaluate possible stricture -refer for ST with [facility] Weight loss- secondary to dysphagia - [...] Rheumatoid Arthritis- continue follow up with rheumatology. Electrical Manager dc'd methotrexate, folic acid, and plaquinel in January 2021 to help improve appetite. Pt reports had steroid injection in January 2021 for bilateral hand pain, but pain has been controlled since. Pt encouraged to continue follow up appt with recreation facility manager. Hypertension- Pt reports not checking BP at [...] would like to seek out a new recreation facility manager - she would like a Referral to Dr. Woodruff in [place] Hypertension - well controlled - continue with [...]
[2021-06-04] MEDS ORDERED: LACTATED RINGERS 1,000 ML IV ONE (12:23)
[2021-06-04] MEDS ORDERED: LACTATED RINGERS 1,000 ML IV STA (12:25)
--- NOTE | 2021-06-04 12:28 | Progress Note-Pre Operative ---
Pre-Operative Progress Note H&P Reviewed The H&P was reviewed, patient examined and no changes noted. Date Seen by Provider: Jun 04, 2021 Time Seen by Provider: 12:00 Date H&P Reviewed: Jun 04, 2021 Time H&P Reviewed: 12:00 Pre-Operative Diagnosis: dysphagia, wt loss JUAN R NORIEGA MD Jun 04, 2021 12:28
--- NOTE | 2021-06-04 12:29 | Discharge Inst-Surgical ---
D/C Lap Instructions-HARI Follow Up Activity as tolerated High Fiber Diet 25g or more per day Avoid Alcohol, Caffeine, Spicy [place] and Acid foods. Drink 64 fluid oz or more of fluids per day. Symptoms to Report: Fever over 101 degree F, Nausea/Vomiting If any problems/questions: Contact your physician or go to Emergency Room JUAN R NORIEGA MD Jun 04, 2021 12:29
[2021-06-04] MEDS ORDERED: ONDANSETRON 4 MG/2 ML (SDV) Z0FRAN IVP PRN (12:30)
[2021-06-04] MEDS ORDERED: LIDOCAINE JELLY 2% 6 ML SYRINGE MM PRN (12:30)
[2021-06-04] MEDS ORDERED: ONDANSETRON 4 MG (ZOFRAN) ORAL DISSOLVE TAB PO PRN (12:30)
[2021-06-04] MEDS ORDERED: HURRICAINE EXT TUBE (BENZOCAINE) XX PRN (12:30)
[2021-06-04] MEDS ORDERED: PROPOFOL INJECTION 50 ML IV ONE (13:30)
--- NOTE | 2021-06-04 14:16 | Anesthesia-General Post-Op ---
MAC Patient Condition Mental Status/LOC: Same as Preop Cardiovascular: Satisfactory Nausea/Vomiting: Absent Respiratory: Satisfactory Pain: Controlled Complications: Absent Post Op Complications Complications None Follow Up Care/Instructions Patient Instructions None needed. Anesthesiology Discharge Order Discharge Order Patient is doing well, no complaints, stable vital signs, no apparent adverse anesthesia problems. No complications reported per nursing. CONI WOLFE CRNA Jun 04, 2021 14:16
--- NOTE | 2021-06-04 16:48 | OPERATIVE REPORT ---
DATE OF SERVICE: 06/04/2021 ATTENDING PRIMARY CARE PHYSICIAN: Dr. Aliyah Paris. PREOPERATIVE DIAGNOSES: Dysphagia, multiple sclerosis, weight loss. POSTOPERATIVE DIAGNOSES: Dysphagia, multiple sclerosis weight loss. PROCEDURE: EGD with percutaneous endoscopic gastrostomy tube placement. SURGEON: Juan R Noriega MD ANESTHESIA: Monitored anesthesia care. ESTIMATED BLOOD LOSS: Minimal. FINDINGS: Reflux esophagitis stage II, no strictures, no distal obstructions. DISPOSITION: The patient tolerated the procedure well. INDICATIONS: The patient is a 71-year-old female who has had difficulty swallowing for the past several weeks and has lost approximately 40 pounds in the past 4 years. She reports issues with dysphagia; however, this could be multifactorial including multiple sclerosis as well as Hightower's palsy. On 05/14/2021, she underwent an EGD and balloon dilatation as well as biopsies and findings were consistent with a reflux esophagitis stage II, mild distal esophageal stricture as well as a moderate size hiatal hernia; however, there was nothing to indicate any obstructive phenomenon. She has been seen by speech therapy and was recommended to proceed with a percutaneous gastrostomy tube for alimentation. DESCRIPTION OF PROCEDURE: The patient was brought to endoscopy suite, laid in the left lateral decubitus position. After adequate IV pain and sedative medications and monitored anesthesia care, the endoscope was placed in the mouth, visualizing the pharynx and hypopharyngeal region. Vocal cords, epiglottis and vallecula identified and appeared to be normal. The endoscope was then gently intubated. esophageal opening and esophagus insufflated. The endoscope was then advanced through the first, second and third portion of the esophagus at the level of the GE junction, reflux esophagitis stage II identified. Again, a moderate size hiatal hernia identified with no strictures. There was a mild to moderate gastritis and no distal obstructions. The abdomen was prepped and draped in standard surgical fashion. A 1% lidocaine was then used to anesthetize the skin, subcutaneous tissue, muscle layers as well as the peritoneal lining and the stomach under direct visualization through the endoscope. The cannulating needle and trocar were then introduced under direct visualization. The guidewire was then inserted and looped through the endoscope and pulled out the mouth. The gastrostomy tube was then placed onto the wire and a small skin incision and the skin was made using a #11 blade and the gastrostomy tube was pulled through under direct visualization using the endoscope until the end bolster was firmly opposing the gastric wall. The anterior rubber bolster was then placed after Betadine was placed at the exit site followed by a drain sponge. The catheter cut down to size and the clamp and the rubber stopper was placed on the end. The endoscope was then slowly withdrawn while taking a second look and suctioning of residual air with no additional findings. The patient tolerated the procedure well. She may use the gastrostomy tube at any time for liquids as well as alimentation purposes and medications. Job ID: [id number] DocumentID: [id number] Dictated Date: 06/04/2021 14:16:17 Family Assistant Date: 06/04/2021 16:46:26 Dictated By: JUAN R NORIEGA MD
--- NOTE | 2021-06-04 17:58 | Progress Note-Post Operative ---
Post-Operative Progess Note Surgeon (s)/Cabinetmaker Apprentice (s) Surgeon JUAN R NORIEGA MD Cabinetmaker Apprentice: none Pre-Operative Diagnosis dysphagia, wt loss Post-Operative Diagnosis same Procedure & Operative Findings Date of Procedure 06/04/21 Procedure Performed/Findings EGD with PEG Anesthesia Type mac Estimated Blood Loss Estimated blood loss (mL): minimal Specimens/Packing Specimens Removed none JUAN R NORIEGA MD Jun 04, 2021 17:58
== END 2021-06-04 15:15 | disposition home or self-care (01) ==
LOC: SDC 11:55 → ENDO 15:15
PROVIDERS: ATTEND Surgery
DX: K21.00 Gastro-esophageal reflux disease with esophagitis, without bleeding (principal); G35 Multiple sclerosis; I10 Essential (primary) hypertension; R13.10 Dysphagia, unspecified; R63.4 Abnormal weight loss; Z79.899 Other long term (current) drug therapy; G51.0 Bell's palsy; Z83.3 Family history of diabetes mellitus; Z82.49 Family history of ischemic heart disease and other diseases of the circulatory system; Z80.0 Family history of malignant neoplasm of digestive organs
CPT/HCPCS: 87636

== ENCOUNTER → 2021-07-01 | Outpatient (CLI) | payer MEDICARE ==
[~2021-07-01] MED LIST changes: +CATHETER FLUSH 10 ML SYR IV PRN; +HOLD METFORMIN - RECEIVED CONTRAST 20 ML VIAL IV SCH; +IOHEXOL 350 MG/ML 100 ML (OMNIPAQUE 350) VIAL IV ONE; +NS 100 ML (IVPB) BAG IV ONE
--- NOTE | 2021-07-01 17:30 | Diagnostic Imaging Report ---
PROCEDURE: CT chest and abdomen with contrast. TECHNIQUE: Multiple contiguous axial images were obtained through the chest and abdomen after the administration of intravenous contrast. Auto Exposure Controls were utilized during the CT exam to meet ALARA standards for radiation dose reduction. INDICATION: Dysphasia, aspiration, esophageal mass. COMPARISON: No relevant comparison. FINDINGS: CHEST: There is no esophageal dilatation. No evidence for esophageal perforation. No CT measurable soft tissue mass. There is some fullness at and just above the EG junction, which may be a tumor or a hiatal hernia. There is a right lower lobe perihilar and infrahilar somewhat nodular infiltrate which may be sequelae of aspiration. No soft tissue density lung mass. No thoracic lymphadenopathy. No acute soft tissue or osseous chest wall pathology. No pneumothorax or effusion. The aorta is nonaneurysmal. ABDOMEN: There is a percutaneous gastrostomy in place. No liver mass identified. There does appear to be some sludge within the gallbladder's lumen. No bile duct dilatation. The spleen, adrenals, and pancreas are nonacute. Kidneys are unobstructed. The atherosclerotic aorta is nonaneurysmal. There is no ascites or bowel obstruction. No abdominal lymphadenopathy. IMPRESSION: CHEST: Somewhat nodular right perihilar and infrahilar infiltrate, suspect for sequelae of aspiration, but infectious etiology not excluded. No convincing visualization of the reported esophageal mass. There is either tissue thickening or small hiatal hernia just above the EG junction. No esophageal obstruction, perforation, or lymphadenopathy. ABDOMEN: Gastrostomy in place. Negative liver. No adenopathy. Probable sludge in the gallbladder without bile duct dilatation. Dictated on workstation # [id number]
== END ==
LOC: RAD 13:19
PROVIDERS: ATTEND Family Medicine
DX: K22.9 Disease of esophagus, unspecified (principal)
CPT/HCPCS: 71260; 74160

== ENCOUNTER → 2021-07-01 | Outpatient (CLI) | payer MEDICARE ==
[~2021-07-01] MED LIST changes: -CATHETER FLUSH 10 ML SYR IV PRN; -HOLD METFORMIN - RECEIVED CONTRAST 20 ML VIAL IV SCH; -IOHEXOL 350 MG/ML 100 ML (OMNIPAQUE 350) VIAL IV ONE; -NS 100 ML (IVPB) BAG IV ONE
[2021-07-01 11:24] LABS: ALBUMIN 3.6 GM/DL (3.2-4.5); CALCIUM 9.7 MG/DL (8.5-10.1); CREATININE SERUM 0.62 MG/DL (0.60-1.30); POTASSIUM 4.1 MMOL/L (3.6-5.0); TOTAL PROTEIN 7.2 GM/DL (6.4-8.2)
== END ==
LOC: LAB 10:40
PROVIDERS: ATTEND Family Medicine
DX: R13.10 Dysphagia, unspecified (principal)
CPT/HCPCS: 36415; 80053

== ENCOUNTER 2021-08-11 12:35 | Inpatient (IN) | payer MEDICARE ==
[~2021-08-11] VITALS: Ht 152 cm; Wt 43.6 kg
--- OUTSIDE RECORDS SUMMARY | 2021-08-11 12:42 | XMS REPORT | CCD ---
Author Author Libby Paris Organization Aliyah Paris MD, [facility] Address [address] [place] [address] Phone Care Team Providers Care Alum Mixer Name Role Phone Aliyah Paris PP Unavailable CCM Unavailable Summary Purpose Interface Exchange Insurance Providers Payer name Policy type / Coverage type Covered constitution party ID Effective Begin Date Effective End Date [employer] Commercial [employer] [id number] Unknown Family history Sister Diagnosis Age At Onset Hypertension Unknown Diabetes Unknown Mother Diagnosis Age At Onset Hypertension Unknown Cancer Unknown Social History Social History Element Codes Description Effective Dates Employment Unknown 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 Marital status Unknown Single 05/06/[address]: 450181008 Never smoker 05/06/[address]: 526142082 Never drinks alcohol 2014 Allergies, Adverse Reactions, Alerts Substance Reaction Codes Entered Date Inactivated Date Status * NO KNOWN DRUG ALLERGIES Unknown 11/04/2015 No Inactiv e Date Active Problems Condition Codes Effective Dates Condition Status Dysphagia ICD-10: r13.10 ICD-9: 787.20 05/13/2021 Active Multiple sclerosis ICD-10: G35 ICD-9: 340 04/12/2017 Active S/P percutaneous endoscopic gastrostomy (PEG) tube namrata cement ICD-10: Z93.1 ICD-9: V44.1 06/07/2021 Active Thrush, oral ICD-10: B37.0 ICD-9: 112.0 06/07/2021 Active Underweight due to inadequate caloric intake [...] Start Date Stop Date Status Fill Instructions nystatin 100,000 unit/mL oral suspension RxNorm: 962407 Take 5 Milliliter(s) Oral four times a day swish and spit 06/22/2021 07/01/2021 Active Mucinex Fast-Max Chest Congestion 100 mg/5 mL oral liquid Rx Norm: 414763 15 Milliliter(s) Oral as directed 15mL via peg tube tid x 2 weeks then daily x 2 weeks then stop 06/10/2021 07/07/2021 Active (mucinex liquid - guaifenesin) Mucinex Fast-Max Chest Congestion 100 mg/5 mL oral liquid Rx Norm: 596488 15 Milliliter(s) Oral as directed 15mL via peg tube tid x 2 weeks then daily x 2 weeks then stop 06/10/2021 06/10/2021 Inactive nystatin 100,000 unit/mL oral suspension RxNorm: 802164 Take 5 Milliliter(s) Oral four times a day swish and spit 06/10/2021 06/19/2021 Inactive NEED NEW LABEL ONLY FOR ORAL USE Pepcid AC 20 mg tablet RxNorm: 493351 Take 1 Tablet(s) Oral two times a day give via peg 06/07/2021 08/05/2021 Active prednisolone 15 mg/5 mL oral solution RxNorm: 516592 Ta ke 5 Milliliter(s) Oral two times a day take via peg tube 06/07/2021 06/13/2021 Inactive nystatin 100,000 unit/mL oral suspension RxNorm: 241686 Take 5 Milliliter(s) Oral four times a day push via peg 06/07/2021 06/07/2021 Inactive Kenalog-80 80 mg/mL suspension for injection RxNorm: 942278 3 Take Milliliter(s) Injection 06/07/2021 06/07/2021 Inactive Diflucan 150 mg tablet RxNorm: 549758 Take 1 Tablet(s) Oral every day crush and give via peg 06/07/2021 06/11/2021 Inactive Kenalog 40 mg/mL suspension for injection RxNorm: 2884463 Take Milliliter(s) Injection 05/06/2021 05/06/2021 Inactive mirtazapine 7.5 mg tablet RxNorm: 923395 Take 1/2 Tablet(s) Ora l every evening 04/09/2021 08/06/2021 Active Vitamin D3 125 mcg (5,000 unit) tablet RxNorm: 120781 1 Tablet(s) Oral every day 01/05/2021 No Stop Date Active Vitamin D2 1,250 mcg (50,000 unit) capsule RxNorm: 5354468 1 Capsule(s) Oral weekly take with vit d 5000 u daily 01/05/2021 02/01/2021 Inactive Ziac 10 mg-6.25 mg tablet RxNorm: 791534 Take 1 tablet by mouth once daily 08/20/2020 04/08/2021 Inactive Vitamin D2 1,250 mcg (50,000 unit) capsule RxNorm: 8919090 1 Capsule(s) Oral weekly 07/08/2020 09/30/2020 Inactive Vitamin D2 1,250 mcg (50,000 unit) capsule RxNorm: 4148401 1 Capsule(s) Oral weekly 07/08/2020 07/07/2020 Inactive methotrexate sodium 2.5 mg tablet RxNorm: 028149 3 Tabl et(s) Oral once a week - Managed by rheumatology 07/02/2020 03/24/2021 Inactive Ziac 10 mg-6.25 mg tablet RxNorm: 790598 TAKE 1 TABLET BY MOUTH ONCE DAILY 12/09/2019 07/05/2020 Inactive Ziac 10 mg-6.25 mg tablet RxNorm: 936656 TAKE 1 TABLET BY MOUTH ONCE DAILY 05/28/2019 12/08/2019 Inactive metformin 500 mg tablet RxNorm: 010216 1/2 Tablet(s) PO BID 019 01/01/2020 Inactive metformin 500 mg tablet RxNorm: 209869 1/2 Tablet(s) PO BID 019 05/05/2019 Inactive methotrexate sodium 2.5 mg tablet RxNorm: 852418 6 Tabl et(s) PO QW -Managed by rheumatology 01/02/2019 07/01/2020 Inactive Ziac 10 mg-6.25 mg tablet RxNorm: 356140 TAKE 1 TABLET BY MOUTH ONCE DAILY 08/29/2018 05/27/2019 Inactive methotrexate sodium 2.5 mg tablet RxNorm: 446366 3 Tablet(s) PO QW 07/11/2018 01/01/2019 Inactive Ziac 10 mg-6.25 mg tablet RxNorm: 857781 TAKE 1 TABLET BY MOUTH ONCE DAILY 06/26/2018 08/28/2018 Inactive metformin 500 mg tablet RxNorm: 764335 TAKE ONE TABLET BY MOUTH TWICE DAILY 04/03/2018 01/03/2019 Inactive Ziac 10 mg-6.25 mg tablet RxNorm: 852425 TAKE ONE TABLET BY JEFF TH ONCE DAILY 01/31/2018 06/25/2018 Inactive metformin 500 mg tablet RxNorm: 193952 TAKE ONE TABLET BY MOUTH TWICE DAILY 10/04/2017 04/02/2018 Inactive Ziac 10 mg-6.25 mg tablet RxNorm: 725253 TAKE ONE TABLET BY JEFF TH ONCE DAILY 08/02/2017 01/30/2018 Inactive diclofenac potassium 50 mg tablet RxNorm: 415053 1 Tabl et(s) PO BID as needed for pain 04/12/2017 05/11/2017 Inactive metformin 500 mg tablet RxNorm: 865010 Tablet(s) TAKE O NE TABLET BY MOUTH TWICE DAILY 04/06/2017 10/02/2017 Inactive Ziac 10 mg-6.25 mg tablet RxNorm: 856547 TAKE ONE TABLET BY JEFF TH ONCE DAILY 04/03/2017 07/31/2017 Inactive multivitamin with iron tablet RxNorm: 1 Tablet(s) PO daily 11/201602/16/2017 Inactive Claritin-D 24 Hour 10 mg-240 mg tablet,extended release RxNo rm: 8830469 1 Tablet(s) PO daily 11/23/2016 11/22/2016 Inactive Claritin-D 24 Hour 10 mg-240 mg tablet,extended release RxNo rm: 2828192 1 Tablet(s) PO daily 11/23/2016 01/01/2019 Inactive Ziac 10 mg-6.25 mg tablet RxNorm: 057737 TAKE ONE TABLET BY JEFF TH ONCE DAILY 10/10/2016 04/02/2017 Inactive metformin 500 mg tablet RxNorm: 300304 TAKE ONE TABLET BY MOUTH TWICE DAILY 10/05/2016 04/02/2017 Inactive Claritin-D 12 Hour 5 mg-120 mg tablet,extended release RxNor m: 5976142 1 Tablet(s) PO BID as needed 09/15/2016 11/22/2016 Inactive Ziac 10 mg-6.25 mg tablet RxNorm: 637831 Tablet(s) 1 Tablet(s) PO daily 04/12/2016 10/08/2016 Inactive metformin 500 mg tablet RxNorm: 515729 1 Tablet(s) PO BID 01/08/2016 10/03/2016 Inactive Ziac 10 mg-6.25 mg tablet RxNorm: 198556 1 Tablet(s) PO daily 10/1204/08/2016 Inactive Ziac 10 mg-6.25 mg tablet RxNorm: 139590 1 Tablet(s) PO daily 07/1510/11/2015 Inactive metformin 500 mg tablet RxNorm: 401250 1 Tablet(s) PO BID 04/14/2015 01/07/2016 Inactive metformin 500 mg tablet RxNorm: 641571 1 Tablet(s) PO BID 04/14/2015 04/13/2015 Inactive Ziac 10 mg-6.25 mg tablet RxNorm: 815533 1 Tablet(s) PO daily 04/1407/12/2015 Inactive aspirin 81 mg tablet RxNorm: 723034 1 Tablet(s) PO daily 05/06/2015 Active Ziac 10 mg-6.25 mg tablet RxNorm: 033571 1 Tablet(s) PO daily 04/1404/13/2015 Inactive Claritin-D 12 Hour 5 mg-120 mg tablet,extended release RxNor m: 6344106 1 Tablet(s) PO BID 09/15/2016 09/14/2016 Inactive Plaquenil 200 mg tablet RxNorm: 731657 1 Tablet(s) PO daily 021 03/24/2021 Inactive Naprosyn 500 mg tablet RxNorm: 737613 1 Tablet(s) PO BID 02/02/2021 0 02/01/2021 Inactive bghkamyg-gipnrztpqt-lf glycn-C oral RxNorm: oral 07/04/2019 07/03/2019 Inactive folic acid 1 mg tablet RxNorm: 362020 1 Tablet(s) PO daily 03/25/20 21 03/24/2021 Inactive methotrexate sodium 2.5 mg tablet RxNorm: 372577 6 Tablet(s) PO QW 07/11/2018 07/10/2018 Inactive Medication Administered Medication Codes Instructions Start Date Status Kenalog-80 80 mg/mL suspension for injection RxNorm: 8350601 Mi lliliter 06/07/2021 No longer Active Kenalog 40 mg/mL suspension for injection RxNorm: 5202434 Millilite r 05/06/2021 No longer Active Immunizations Vaccine Codes Date Status Covid-19 CVX: 207 12/21/2020 Covid-19 CVX: 207 11/18/2020 Results Observation Observation Code Item Item Code Result Date S ervice Location MEAN GLUC 0033120 Calc Mean Gluc 85 mg/dL 01/01/2021 Unkn own A1C HPLC 4828204 Hgb A1c 59871-9 4.6 % 01/01/2021 Unknown LIPID GRP 2214388 CHOLESTEROL 148 mg/dL 01/01/2021 Unknown LIPID GRP 9963970 Triglyceride 136 mg/dL 01/01/2021 Unknow n LIPID GRP 5516029 HDL CHOLESTEROL 46 mg/dL 01/01/2021 Unk nown LIPID GRP Chol/HDL Ratio 3.22 ratio 01/01/2021 Unk nown LIPID GRP NON-HDL Chol 102 mg/dL 01/01/2021 Unknow n LIPID GRP LDL Cholesterol 75 mg/dL 01/01/2021 Unk nown FOLIC ACID 6585654 Folate 6.0 ng/mL 01/01/2021 Unknown CHEM 14 4363301 AST 23 U/L 01/01/2021 Unknown CHEM 14 2101300 ALT 14 U/L 01/01/2021 Unknown CHEM 14 5092131 BUN 21 mg/dL 01/01/2021 Unknown CHEM 14 1172186 ALBUMIN 3.8 g/dL 01/01/2021 Unknown CHEM 14 0302976 CHLORIDE 105 mmol/L 01/01/2021 Unknown CHEM 14 8744601 Bili Total 0.5 mg/dL 01/01/2021 Unknown CHEM 14 6623791 ALK PHOS 47 U/L 01/01/2021 Unknown CHEM 14 7241808 SODIUM 137 mmol/L 01/01/2021 Unknown CHEM 14 5369536 CREATININE 0.89 mg/dL 01/01/2021 Unknown CHEM 14 8091876 CALCIUM 9.5 mg/dL 01/01/2021 Unknown CHEM 14 6832656 POTASSIUM 4.2 mmol/L 01/01/2021 Unknown CHEM 14 5214122 TOTAL PROTEIN 7.3 g/dL 01/01/2021 Unkno wn CHEM 14 7451999 GLUCOSE 92 mg/dL 01/01/2021 Unknown CHEM 14 9026448 Bicarbonate 21 mmol/L 01/01/2021 Unknown CHEM 14 1644353 AGAP 11 mmol/L 01/01/2021 Unknown CBC 6863271 WBC 8.3 10e9/L 01/01/2021 Unknown CBC 4577686 RBC 3.66 10e12/L 01/01/2021 Unknow n CBC 9243777 HEMOGLOBIN 11.5 g/dL 01/01/2021 Unknown CBC 8017736 HEMATOCRIT 33.7 % 01/01/2021 Unknown CBC 0612365 MCV 92.1 fL 01/01/2021 Unknown CBC 4642018 MCH 31.4 pg 01/01/2021 Unknown CBC 7818056 MCHC 34.1 g/dL 01/01/2021 Unknown CBC 9877172 PLATELET COUNT 214 10e9/L 01/01/2021 Unk nown CBC 9199446 Mean Plt Volume 10.9 fL 01/01/2021 Unk nown CBC 5894111 Neut Auto 69.8 % 01/01/2021 Unknown CBC 9721030 Lymph Auto 14.5 % 01/01/2021 Unknown CBC 2670555 Cedar Auto 11.9 % 01/01/2021 Unknown CBC 5036552 RDW 14.4 % 01/01/2021 Unknown CBC 0804005 Eos Auto 3.0 % 01/01/2021 Unknown CBC 3206143 Baso Auto 0.8 % 01/01/2021 Unknown CBC 1522009 Neutrophil Abs 5.79 10e9/L 01/01/2021 Un known CBC 7172313 Lymphocyte Abs 1.20 10e9/L 01/01/2021 Un known CBC 6860326 Monocyte Abs 0.99 10e9/L 01/01/2021 Unkn own CBC 1573135 Eosinophil Abs 0.25 10e9/L 01/01/2021 Un known CBC 7740081 Basophil Abs 0.07 10e9/L 01/01/2021 Unkn own CBC 4136565 RDW-SD 46.3 fL 01/01/2021 Unknown TSH 2757839 TSH 1.235 uIU/mL 01/01/2021 Unknow n VIT D TOTL 9590568 Vitamin D 25 OH 29.1 ng/mL 01/01/2021 U nknown GFR CALC 7569911 GFR Non Afr Amr >60 mL/min 01/01/2021 Un known GFR CALC 8080606 GFR Afr Amr >60 mL/min 01/01/2021 Unknow n MEAN GLUC 8479238 Calc Mean Gluc 97 mg/dL 07/06/2020 Unkn own A1C HPLC 9379927 Hgb A1c 59391-5 5.0 % 07/06/2020 Unknown FOLIC ACID 3146479 Folate >20.0 ng/mL 07/02/2020 Unknow n VIT D TOTL 4306131 Vitamin D 25 OH 24.3 ng/mL 07/02/2020 U nknown CHEM 14 6346007 AST 16 U/L 07/02/2020 Unknown CHEM 14 1875332 ALT 8 U/L 07/02/2020 Unknown CHEM 14 9281015 BUN 19 mg/dL 07/02/2020 Unknown CHEM 14 1990222 ALBUMIN 4.1 g/dL 07/02/2020 Unknown CHEM 14 3771290 CHLORIDE 108 mmol/L 07/02/2020 Unknown CHEM 14 1584725 Bili Total 0.6 mg/dL 07/02/2020 Unknown CHEM 14 6345474 ALK PHOS 56 U/L 07/02/2020 Unknown CHEM 14 9358926 SODIUM 139 mmol/L 07/02/2020 Unknown CHEM 14 9317996 CREATININE 0.88 mg/dL 07/02/2020 Unknown CHEM 14 8934762 CALCIUM 9.3 mg/dL 07/02/2020 Unknown CHEM 14 1159454 POTASSIUM 4.3 mmol/L 07/02/2020 Unknown CHEM 14 2152500 TOTAL PROTEIN 7.7 g/dL 07/02/2020 Unkno wn CHEM 14 7666475 GLUCOSE 91 mg/dL 07/02/2020 Unknown CHEM 14 8224480 Bicarbonate 23 mmol/L 07/02/2020 Unknown CHEM 14 4250285 AGAP 8 mmol/L 07/02/2020 Unknown GFR CALC 4198795 GFR Non Afr Amr >60 mL/min 07/02/2020 Un known GFR CALC 7043839 GFR Afr Amr >60 mL/min 07/02/2020 Unknow n LIPID GRP 5143415 CHOLESTEROL 148 mg/dL 07/02/2020 Unknown LIPID GRP 3351972 Triglyceride 107 mg/dL 07/02/2020 Unknow n LIPID GRP 8522922 HDL CHOLESTEROL 50 mg/dL 07/02/2020 Unk nown LIPID GRP 5694142 Chol/HDL Ratio 2.96 ratio 07/02/2020 Unk nown LIPID GRP 3728924 NON-HDL Chol 98 mg/dL 07/02/2020 Unknow n LIPID GRP 6068272 LDL Cholesterol 77 mg/dL 07/02/2020 Unk nown CBC 6643691 WBC 8.7 10e9/L 07/02/2020 Unknown CBC 2911160 RBC 3.43 10e12/L 07/02/2020 Unknow n CBC 5900633 HEMOGLOBIN 10.0 g/dL 07/02/2020 Unknown CBC 8772109 HEMATOCRIT 31.2 % 07/02/2020 Unknown CBC 3507094 MCV 91.0 fL 07/02/2020 Unknown CBC 3647832 MCH 29.2 pg 07/02/2020 Unknown CBC 5470161 MCHC 32.1 g/dL 07/02/2020 Unknown CBC 8540131 PLATELET COUNT 222 10e9/L 07/02/2020 Unk nown CBC 5710198 Mean Plt Volume 11.7 fL 07/02/2020 Unk nown CBC 3752334 Neut Auto 78.0 % 07/02/2020 Unknown CBC 8950648 Lymph Auto 11.1 % 07/02/2020 Unknown CBC 9719101 Cedar Auto 7.7 % 07/02/2020 Unknown CBC 8465890 RDW 14.5 % 07/02/2020 Unknown CBC 1559935 Eos Auto 2.3 % 07/02/2020 Unknown CBC 9670751 Baso Auto 0.9 % 07/02/2020 Unknown CBC 4065115 Neutrophil Abs 6.79 10e9/L 07/02/2020 Un known CBC 4685314 Lymphocyte Abs 0.97 10e9/L 07/02/2020 Un known CBC 1692148 Monocyte Abs 0.67 10e9/L 07/02/2020 Unkn own CBC 4921756 Eosinophil Abs 0.20 10e9/L 07/02/2020 Un known CBC 0393622 RDW-SD 45.6 fL 07/02/2020 Unknown CBC 8120255 Basophil Abs 0.08 10e9/L 07/02/2020 Unkn own TSH 3932463 TSH 0.955 uIU/mL 07/02/2020 Unknow n A1C HPLC 1729740 Hgb A1c 69933-7 4.5 % 01/02/2020 Unknown LIPID GRP 6652491 CHOLESTEROL 154 mg/dL 01/02/2020 Unknown LIPID GRP 6816724 Triglyceride 146 mg/dL 01/02/2020 Unknow n LIPID GRP 0862883 HDL CHOLESTEROL 55 mg/dL 01/02/2020 Unk nown LIPID GRP 3455844 Chol/HDL Ratio 2.80 ratio 01/02/2020 Unk nown LIPID GRP 3506705 NON-HDL Chol 99 mg/dL 01/02/2020 Unknow n LIPID GRP 5680513 LDL Cholesterol 70 mg/dL 01/02/2020 Unk nown CBC 1760228 WBC 9.7 10e9/L 01/02/2020 Unknown CBC 4606313 RBC 3.62 10e12/L 01/02/2020 Unknow n CBC 5244645 HEMOGLOBIN 11.2 g/dL 01/02/2020 Unknown CBC 5100975 HEMATOCRIT 33.4 % 01/02/2020 Unknown CBC 0328588 MCV 92.3 fL 01/02/2020 Unknown CBC 0365497 MCH 30.9 pg 01/02/2020 Unknown CBC 2242992 MCHC 33.5 g/dL 01/02/2020 Unknown CBC 9313286 PLATELET COUNT 232 10e9/L 01/02/2020 Unk nown CBC 9183754 Mean Plt Volume 11.0 fL 01/02/2020 Unk nown CBC 4244491 Neut Auto 70.5 % 01/02/2020 Unknown CBC 1701455 Lymph Auto 15.5 % 01/02/2020 Unknown CBC 4920293 Cedar Auto 9.3 % 01/02/2020 Unknown CBC 7271856 Eos Auto 4.0 % 01/02/2020 Unknown CBC 9019779 RDW 13.7 % 01/02/2020 Unknown CBC 8021502 Baso Auto 0.7 % 01/02/2020 Unknown CBC 3398491 Neutrophil Abs 6.84 10e9/L 01/02/2020 Un known CBC 8612765 Lymphocyte Abs 1.50 10e9/L 01/02/2020 Un known CBC 8914466 Monocyte Abs 0.90 10e9/L 01/02/2020 Unkn own CBC 6480302 Eosinophil Abs 0.39 10e9/L 01/02/2020 Un known CBC 9729750 Basophil Abs 0.07 10e9/L 01/02/2020 Unkn own CBC 5496160 RDW-SD 44.7 fL 01/02/2020 Unknown CHEM 14 0736295 AST 16 U/L 01/02/2020 Unknown CHEM 14 8519275 ALT 10 U/L 01/02/2020 Unknown CHEM 14 2904066 BUN 18 mg/dL 01/02/2020 Unknown CHEM 14 9002855 ALBUMIN 4.2 g/dL 01/02/2020 Unknown CHEM 14 6277279 CHLORIDE 105 mmol/L 01/02/2020 Unknown CHEM 14 6223213 Bili Total 0.7 mg/dL 01/02/2020 Unknown CHEM 14 0777361 ALK PHOS 41 U/L 01/02/2020 Unknown CHEM 14 5442955 SODIUM 141 mmol/L 01/02/2020 Unknown CHEM 14 3588713 CREATININE 0.86 mg/dL 01/02/2020 Unknown CHEM 14 9033197 CALCIUM 9.5 mg/dL 01/02/2020 Unknown CHEM 14 6014372 POTASSIUM 4.0 mmol/L 01/02/2020 Unknown CHEM 14 3333198 TOTAL PROTEIN 7.3 g/dL 01/02/2020 Unkno wn CHEM 14 4725976 GLUCOSE 90 mg/dL 01/02/2020 Unknown CHEM 14 1542159 Bicarbonate 26 mmol/L 01/02/2020 Unknown CHEM 14 6121665 AGAP 10 mmol/L 01/02/2020 Unknown TSH 0141387 TSH 0.823 uIU/mL 01/02/2020 Unknow n MEAN GLUC 2619621 Calc Mean Gluc 82 mg/dL 01/02/2020 Unkn own GFR CALC 3190276 GFR Non Afr Amr >60 mL/min 01/02/2020 Un known GFR CALC 5740032 GFR Afr Amr >60 mL/min 01/02/2020 Unknow [...] Ord15 CALCIUM 9.5 mg/dL 01/02/2019 Unknown %Hba1C Hra098 % HbA1c 21291-2 4.9 % 01/02/2019 Unknown %Hba1C Vbq939 Gluc [address] 94 mg/dL 01/02/2019 Unknown Cbc [...] 11/20/19 19 Unknown Cbc With Differential Ord2 Cedar% 6.9 % 11/20/19 19 Unknown Cbc With [...] K/ul 019 Unknown Cbc With Differential Ord2 Cedar ABS# 0.5 K/ul 11/20/19 19 Unknown Cbc With Differential Ord2 Eos ABS# 0.3 K/ul 11/20/19 19 Unknown Cbc With Differential Ord2 Baso ABS# 0.1 K/ul 11/20/19 19 Unknown Hepatic Fng108 ALBUMIN 4.4 g/dL 11/19/2018 Unknown Hepatic Bpa032 TPRO 7.2 g/dL 11/19/2018 Unknown Hepatic Dss559 GLOB 2.8 g/dL 11/19/2018 Unknown Hepatic Cqz679 A/G Ratio 1.6 Ratio 11/19/2018 Unknown Hepatic Bmv698 ALK PHOS 36 U/L 11/19/2018 Unknown Hepatic Qdj315 ALT(SGPT) 10 U/L 11/19/2018 Unknown Hepatic Hus895 AST(SGOT) 14 U/L 11/19/2018 Unknown Hepatic Xue260 BILI T 0.7 mg/dL 11/19/2018 Unknown Hepatic Ijk015 BILI D 0.1 mg/dL 11/19/2018 Unknown Hepatic Uzm239 BILI I 0.6 mg/dL 11/19/2018 Unknown Hepatic Eus208 ALBUMIN 3.9 g/dL 08/14/2018 Unknown Hepatic Ivu094 TPRO 6.3 g/dL 08/14/2018 Unknown Hepatic Epx607 GLOB 2.5 g/dL 08/14/2018 Unknown Hepatic Mit628 A/G Ratio 1.6 Ratio 08/14/2018 Unknown Hepatic Wff867 ALK PHOS 36 U/L 08/14/2018 Unknown Hepatic Shz894 ALT(SGPT) 33 U/L 08/14/2018 Unknown Hepatic Glh268 AST(SGOT) 30 U/L 08/14/2018 Unknown Hepatic Erb072 BILI T 0.6 mg/dL 08/14/2018 Unknown Hepatic Nqk144 BILI D 0.2 mg/dL 08/14/2018 Unknown Hepatic Pib229 BILI I 0.4 mg/dL 08/14/2018 Unknown Cbc [...] 08/14/20 18 Unknown Cbc With Differential Ord2 Cedar% 8.8 % 08/14/20 18 Unknown Cbc With [...] K/ul 018 Unknown Cbc With Differential Ord2 Cedar ABS# 0.5 K/ul 08/14/20 18 Unknown Cbc With Differential Ord2 Eos ABS# 0.3 K/ul 08/14/20 18 Unknown Cbc With Differential Ord2 Baso ABS# 0.1 K/ul 08/14/20 18 Unknown Comp Metabolic Mvt639 NA 141 mEq/L 07/13/2018 Unkn own Comp Metabolic Mrm798 K 4.0 mEq/L 07/13/2018 Unkn own Comp Metabolic Aem672 CL 106 mEq/L 07/13/2018 Unkn own Comp Metabolic Mfr539 CO2 26.0 mEq/L 07/13/2018 Unk nown Comp Metabolic Akx233 ANION GAP 13 07/13/2018 Unkn own Comp Metabolic Hry195 GLUCOSE 91 mg/dL 07/13/2018 Unkn own Comp Metabolic Fhy774 Creat 0.9 mg/dL 07/13/2018 Unkn own Comp Metabolic Tyg676 eGFR 68 ml/min/1.73m2 07/13/20 18 Unknown Comp Metabolic Ctm630 BUN 18 mg/dL 07/13/2018 Unkn own Comp Metabolic Pyg470 B/C Ratio 20.5 Ratio 07/13/2018 Unk nown Comp Metabolic Tqq223 CALCIUM 9.2 mg/dL 07/13/2018 Unkn own Comp Metabolic Emy505 ALK PHOS 41 U/L 07/13/2018 Unkn own Comp Metabolic Lkq513 AST(SGOT) 16 U/L 07/13/2018 Unkn own Comp Metabolic Omq269 ALT(SGPT) 12 U/L 07/13/2018 Unkn own Comp Metabolic Wpu965 BILI T 0.4 mg/dL 07/13/2018 Unkn own Comp Metabolic Nhw495 ALBUMIN 4.3 g/dL 07/13/2018 Unkn own Comp Metabolic Mho399 TPRO 6.7 g/dL 07/13/2018 Unkn own Comp Metabolic Qwy865 GLOB 2.5 g/dL 07/13/2018 Unkn own Comp Metabolic Kgl379 A/G Ratio 1.7 Ratio 07/13/2018 Unkn own Comp Metabolic Qxk310 Osmo 283 mOsmo 07/13/2018 Unkn own Lipid Ord30 CHOL 167 mg/dL 07/13/2018 Unknown Lipid Ord30 HDL 53.0 mg/dl 07/13/2018 Unknown Lipid Ord30 TRIG 95 mg/dL 07/13/2018 Unknown Lipid Ord30 LDL 95 mg/dL 07/13/2018 Unknown Lipid Ord30 C/HDL 3.2 Ratio 07/13/2018 Unknown %Hba1C Cvp001 % HbA1c 74732-2 5.0 % 07/13/2018 Unknown %Hba1C Bog490 Gluc Ave 97 mg/dL 07/13/2018 Unknown Tsh [...] 07/13/20 18 Unknown Cbc With Differential Ord2 Cedar% 9.7 % 07/13/20 18 Unknown Cbc With [...] K/ul 018 Unknown Cbc With Differential Ord2 Cedar ABS# 0.6 K/ul 07/13/20 18 Unknown Cbc With Differential Ord2 Eos ABS# 0.4 K/ul 07/13/20 18 Unknown Cbc With Differential Ord2 Baso ABS# 0.1 K/ul 07/13/20 18 Unknown Hepatic Hka798 ALBUMIN 3.9 g/dL 05/14/2018 Unknown Hepatic Vlh499 TPRO 6.6 g/dL 05/14/2018 Unknown Hepatic Dnz844 GLOB 2.7 g/dL 05/14/2018 Unknown Hepatic Idk447 A/G Ratio 1.4 Ratio 05/14/2018 Unknown Hepatic Lzy015 ALK PHOS 32 U/L 05/14/2018 Unknown Hepatic Sgy753 ALT(SGPT) 8 U/L 05/14/2018 Unknown Hepatic Oab671 AST(SGOT) 12 U/L 05/14/2018 Unknown Hepatic Lrn349 BILI T 0.8 mg/dL 05/14/2018 Unknown Hepatic Hvx083 BILI D 0.1 mg/dL 05/14/2018 Unknown Hepatic Wly314 BILI I 0.7 mg/dL 05/14/2018 Unknown Cbc [...] 05/14/20 18 Unknown Cbc With Differential Ord2 Cedar% 4.8 % 05/14/20 18 Unknown Cbc With [...] K/ul 018 Unknown Cbc With Differential Ord2 [place] ABS# 0.3 K/ul 05/14/20 18 Unknown Cbc [...] 11/17/19 18 Unknown Cbc With Differential Ord2 Cedar% 11.2 % 11/17/19 18 Unknown Cbc With [...] K/ul 018 Unknown Cbc With Differential Ord2 [place]edar ABS# 0.7 K/ul 11/17/19 18 Unknown Cbc With Differential Ord2 Eos ABS# 0.2 K/ul 11/17/19 18 Unknown Cbc With Differential Ord2 Baso ABS# 0.0 K/ul 11/17/19 18 Unknown Hepatic Swb078 ALBUMIN 4.1 g/dL 11/16/2017 Unknown Hepatic Cef734 TPRO 6.7 g/dL 11/16/2017 Unknown Hepatic Srk326 GLOB 2.7 g/dL 11/16/2017 Unknown Hepatic Vbq575 A/G Ratio 1.5 Ratio 11/16/2017 Unknown Hepatic Bwu930 ALK PHOS 31 U/L 11/16/2017 Unknown Hepatic Alj952 ALT(SGPT) 11 U/L 11/16/2017 Unknown Hepatic Ghj581 AST(SGOT) 15 U/L 11/16/2017 Unknown Hepatic Qof004 BILI T 0.7 mg/dL 11/16/2017 Unknown Hepatic Nwd415 BILI D 0.2 mg/dL 11/16/2017 Unknown Hepatic Isx012 BILI I 0.5 mg/dL 11/16/2017 Unknown Hepatic Dpi888 ALBUMIN 4.0 g/dL 08/17/2017 Unknown Hepatic Zqy509 TPRO 6.6 g/dL 08/17/2017 Unknown Hepatic Zlf720 GLOB 2.6 g/dL 08/17/2017 Unknown Hepatic Bdp695 A/G Ratio 1.6 Ratio 08/17/2017 Unknown Hepatic Rfm209 ALK PHOS 43 U/L 08/17/2017 Unknown Hepatic Aun298 ALT(SGPT) 10 U/L 08/17/2017 Unknown Hepatic Hxe830 AST(SGOT) 15 U/L 08/17/2017 Unknown Hepatic Rxt943 BILI T 0.7 mg/dL 08/17/2017 Unknown Hepatic Yfq150 BILI D 0.1 mg/dL 08/17/2017 Unknown Hepatic Pyb376 BILI I 0.6 mg/dL 08/17/2017 Unknown Cbc [...] 08/17/20 17 Unknown Cbc With Differential Ord2 Cedar% 8.6 % 08/17/20 17 Unknown Cbc With [...] K/ul 017 Unknown Cbc With Differential Ord2 [place] ABS# 0.6 K/ul 08/17/20 17 Unknown Cbc With Differential Ord2 Eos ABS# 0.3 K/ul 08/17/20 17 Unknown Cbc With Differential Ord2 Baso ABS# 0.0 K/ul 08/17/20 17 Unknown Ra Factor Geh701 RA FACTOR 40.2 IU/ml 04/12/2017 Unknown Sed Rate Ord21 ESR 23 mm/hr 04/12/2017 Unknown C-Reactive Protein Qnt Crqnt CRP 0.2 mg/dl 2016 Unknown Tsh Ord6 hTSH II 1.26 uIU/mL 11/23/2016 Unknown Comp Metabolic Upz748 NA 139 mEq/L 11/23/2016 Unkn own Comp Metabolic Raf617 K 3.8 mEq/L 11/23/2016 Unkn own Comp Metabolic Jyz697 CL 105 mEq/L 11/23/2016 Unkn own Comp Metabolic Nrg788 CO2 27.0 mEq/L 11/23/2016 Unk nown Comp Metabolic Jqx051 ANION GAP 11 11/23/2016 Unkn own Comp Metabolic Sjo079 GLUCOSE 110 mg/dL 11/23/2016 Unkn own Comp Metabolic Bjr993 Creat 0.6 mg/dL 11/23/2016 Unkn own Comp Metabolic Fgo246 eGFR 98 ml/min/1.73m2 11/24/19 17 Unknown Comp Metabolic Dou886 BUN 15 mg/dL 11/23/2016 Unkn own Comp Metabolic Gpw136 B/C Ratio 23.4 Ratio 11/23/2016 Unk nown Comp Metabolic Bzx031 CALCIUM 9.5 mg/dL 11/23/2016 Unkn own Comp Metabolic Kop186 ALK PHOS 42 U/L 11/23/2016 Unkn own Comp Metabolic Imu590 AST(SGOT) 15 U/L 11/23/2016 Unkn own Comp Metabolic Cme843 ALT(SGPT) 12 U/L 11/23/2016 Unkn own Comp Metabolic Otu048 BILI T 1.0 mg/dL 11/23/2016 Unkn own Comp Metabolic Qgx483 ALBUMIN 4.2 g/dL 11/23/2016 Unkn own Comp Metabolic Sob655 TPRO 7.1 g/dL 11/23/2016 Unkn own Comp Metabolic Ogd469 GLOB 2.9 g/dL 11/23/2016 Unkn own Comp Metabolic Meg721 A/G Ratio 1.5 Ratio 11/23/2016 Unkn own Comp Metabolic Usx770 Osmo 279 mOsmo 11/23/2016 Unkn own Lipid [...] 11/24/19 17 Unknown Cbc With Differential Ord2 Cedar% 9.9 % 11/24/19 17 Unknown Cbc With [...] K/ul 017 Unknown Cbc With Differential Ord2 Cedar ABS# 0.6 K/ul 11/24/19 17 Unknown Cbc With Differential Ord2 Eos ABS# 0.2 K/ul 11/24/19 17 Unknown Cbc With Differential Ord2 Baso ABS# 0.1 K/ul 11/24/19 17 Unknown Microalbumin Pqf010 MicroAlb <0.7 mg/dL 11/23/2016 Unkno wn %Hba1C Eha223 % HbA1c 87991-8 5.4 % 11/23/2016 Unknown %Hba1C Twu467 Gluc Ave 108 mg/dL 11/23/2016 Unknown %Hba1C Anb642 % HbA1c 50256-9 5.4 % 11/04/2015 Unknown %Hba1C Xpm313 Gluc Ave 108 mg/dL 11/04/2015 Unknown Lipid Ord30 CHOL 169 mg/dL 11/04/2015 Unknown Lipid Ord30 HDL 48.0 mg/dl 11/04/2015 Unknown Lipid Ord30 TRIG 160 mg/dL 11/04/2015 Unknown Lipid Ord30 LDL 89 mg/dL 11/04/2015 Unknown Lipid Ord30 C/HDL 3.5 Ratio 11/04/2015 Unknown Microalbumin Iou262 MicroAlb 1.7 mg/dL 11/04/2015 Unknow n Tsh Ord6 hTSH II 1.00 uIU/mL 11/04/2015 Unknown Comp Metabolic Mph063 NA 138 mEq/L 11/04/2015 Unkn own Comp Metabolic Uox862 K 3.7 mEq/L 11/04/2015 Unkn own Comp Metabolic Ype344 CL 103 mEq/L 11/04/2015 Unkn own Comp Metabolic Moq112 CO2 28.0 mEq/L 11/04/2015 Unk nown Comp Metabolic Ohj695 ANION GAP 11 11/04/2015 Unkn own Comp Metabolic Gao633 GLUCOSE 96 mg/dL 11/04/2015 Unkn own Comp Metabolic Gxm604 Creat 0.7 mg/dL 11/04/2015 Unkn own Comp Metabolic Ujv657 eGFR 92 ml/min/1.73m2 11/04/19 16 Unknown Comp Metabolic Ezh705 BUN 15 mg/dL 11/04/2015 Unkn own Comp Metabolic Izq607 B/C Ratio 22.1 Ratio 11/04/2015 Unk nown Comp Metabolic Far854 CALCIUM 9.3 mg/dL 11/04/2015 Unkn own Comp Metabolic Osw414 ALK PHOS 43 U/L 11/04/2015 Unkn own Comp Metabolic Bzl243 AST(SGOT) 14 U/L 11/04/2015 Unkn own Comp Metabolic Pvo169 ALT(SGPT) 9 U/L 11/04/2015 Unkn own Comp Metabolic Kto614 BILI T 0.8 mg/dL 11/04/2015 Unkn own Comp Metabolic Tnu426 ALBUMIN 4.3 g/dL 11/04/2015 Unkn own Comp Metabolic Uro455 TPRO 7.0 g/dL 11/04/2015 Unkn own Comp Metabolic Ttu047 GLOB 2.7 g/dL 11/04/2015 Unkn own Comp Metabolic Rki246 A/G Ratio 1.6 Ratio 11/04/2015 Unkn own Comp Metabolic Fnu923 Osmo 276 mOsmo 11/04/2015 Unkn own Cbc [...] 11/04/19 16 Unknown Cbc With Differential Ord2 Cedar% 9.0 % 11/04/19 16 Unknown Cbc With [...] K/ul 016 Unknown Cbc With Differential Ord2 Cedar ABS# 0.6 K/ul 11/04/19 16 Unknown Cbc With Differential Ord2 Eos ABS# 0.2 K/ul 11/04/19 16 Unknown Cbc With Differential Ord2 Baso ABS# 0.0 K/ul 11/04/19 16 Unknown Cbc With Differential Ord2 New Analyzer Notice Please note new ref ranges starting 09-30-2015 due to implemntation of new five part differential hematolgy analyzer. 11/04/2015 Unknown %Hba1C Reb448 % HbA1c 21114-3 5.2 % 05/06/2015 Unknown %Hba1C Xkq282 Gluc Ave 103 mg/dL 05/06/2015 Unknown Lipid [...] 14.7 % 05/06/20 15 Unknown Comp Metabolic Kvu698 NA 137 mEq/L 05/06/2015 Unkn own Comp Metabolic Rtt779 K 3.6 mEq/L 05/06/2015 Unkn own Comp Metabolic Exg185 CL 102 mEq/L 05/06/2015 Unkn own Comp Metabolic Yci845 CO2 28.0 mEq/L 05/06/2015 Unk nown Comp Metabolic Tlg695 ANION GAP 11 05/06/2015 Unkn own Comp Metabolic Wio347 GLUCOSE 97 mg/dL 05/06/2015 Unkn own Comp Metabolic Pey376 Creat 0.7 mg/dL 05/06/2015 Unkn own Comp Metabolic Fwl260 eGFR 94 ml/min/1.73m2 05/06/20 15 Unknown Comp Metabolic Bbq648 BUN 14 mg/dL 05/06/2015 Unkn own Comp Metabolic Mmv516 B/C Ratio 20.9 Ratio 05/06/2015 Unk nown Comp Metabolic Sgc984 CALCIUM 9.5 mg/dL 05/06/2015 Unkn own Comp Metabolic Den935 ALK PHOS 49 U/L 05/06/2015 Unkn own Comp Metabolic Yyw416 AST(SGOT) 15 U/L 05/06/2015 Unkn own Comp Metabolic Pca686 ALT(SGPT) 11 U/L 05/06/2015 Unkn own Comp Metabolic Mft772 BILI T 0.8 mg/dL 05/06/2015 Unkn own Comp Metabolic Xrw038 ALBUMIN 4.4 g/dL 05/06/2015 Unkn own Comp Metabolic Lyo701 TPRO 7.4 g/dL 05/06/2015 Unkn own Comp Metabolic Vlq424 GLOB 3.0 g/dL 05/06/2015 Unkn own Comp Metabolic Kzr317 A/G Ratio 1.5 Ratio 05/06/2015 Unkn own Comp Metabolic Fzy593 Osmo 274 mOsmo 05/06/2015 Unkn own Tsh Ord6 hTSH II 0.99 uIU/mL 05/06/2015 Unknown Procedures Procedure Codes Date TRIAMCINOLONE ACET INJ NOS 10 mg CPT-4: J3301 021 THER/PROPH/DIAG INJ SC/IM CPT-4: 27380 05/06/2021 TRIAMCINOLONE ACET INJ NOS 10 mg CPT-4: J3301 021 Vital Signs Date Vital 06/07/2021 Blood Pressure 1: 118/62 Code: 8480-6 BMI: 16.0 Code: 17701-3 Heart Rate 1: 87 bpm Height: 5' Code: 8302-2 Respiratory Rate: 16 bpm SpO2: 97% Temperature: 35.7 (C) / 96.3 (F) Weight: 82 lbs Code: 63882-3 05/13/2021 Blood Pressure 1: 122/70 Code: 8480-6 BMI: 17.0 Code: 43024-5 Heart Rate 1: 107 bpm Height: 5' Code: 8302-2 SpO2: 99% Temperature: 36. 3 (C) / 97.3 (F) Weight: 87 lbs Code: 81922-3 04/09/2021 Blood Pressure 1: 132/82 Code: 8480-6 BMI: 18.6 Code: 10959-2 Heart Rate 1: 90 bpm Height: 5' Code: 8302-2 Respiratory Rate: 20 bpm Temperature : 36.3 (C) / 97.3 (F) Weight: 95 lbs Code: 45351-2 03/25/2021 Blood Pressure 1: 106/70 Code: 8480-6 BMI: 17.6 Code: 21302-3 Heart Rate 1: 48 bpm Height: 5' Code: 8302-2 SpO2: 98% Temperature: 35. 7 (C) / 96.3 (F) Weight: 90 lbs Code: 45297-8 02/02/2021 Blood Pressure 1: 118/70 Code: 8480-6 BMI: 19.9 Code: 44425-1 Heart Rate 1: 66 bpm Height: 5' Code: 8302-2 SpO2: 99% Temperature: 36. 7 (C) / 98.0 (F) Weight: 102 lbs 2 oz Code: 00851-1 12/31/2020 Blood Pressure 1: 106/64 Code: 8480-6 BMI: 20.7 Code: 83253-7 Heart Rate 1: 68 bpm Height: 5' Code: 8302-2 Respiratory Rate: 17 bpm SpO2: 97% Temperature: 35.8 (C) / 96.4 (F) Weight: 106 lbs Code: 19120-1 07/02/2020 Blood Pressure 1: 138/78 Code: 8480-6 BMI: 21.7 Code: 38076-9 Heart Rate 1: 52 bpm Height: 5' Code: 8302-2 Respiratory Rate: 16 bpm SpO2: 99% Temperature: 36.6 (C) / 97.8 (F) Weight: 111 lbs Code: 94954-5 01/02/2020 Blood Pressure 1: 120/64 Code: 8480-6 BMI: 21.3 Code: 82688-1 Heart Rate 1: 65 bpm Height: 5' Code: 8302-2 SpO2: 95% Temperature: 36. 4 (C) / 97.5 (F) Weight: 109 lbs Code: 92364-7 07/04/2019 Blood Pressure 1: 112/70 Code: 8480-6 BMI: 22.3 Code: 56306-7 Heart Rate 1: 60 bpm Height: 5' Code: 8302-2 SpO2: 99% Weight: 114 lbs 7 oz Code: 90465-2 01/02/2019 Blood Pressure 1: 122/68 Code: 8480-6 BMI: 22.7 Code: 12490-9 Heart Rate 1: 67 bpm Height: 5' Code: 8302-2 SpO2: 99% Weight: 116 lbs Code: 37244-2 07/11/2018 Blood Pressure 1: 138/66 Code: 8480-6 BMI: 22.5 Code: 95157-5 Heart Rate 1: 97 bpm Height: 5' Code: 8302-2 SpO2: 99% Weight: 115 lbs Code: 45930-1 04/12/2017 Blood Pressure 1: 142/82 Code: 8480-6 BMI: 23.2 Code: 38447-4 Heart Rate 1: 66 bpm Height: 5' Code: 8302-2 SpO2: 97% Weight: 119 lbs Code: 63665-7 11/23/2016 Blood Pressure 1: 130/78 Code: 8480-6 BMI: 24.4 Code: 07103-8 Heart Rate 1: 65 bpm Height: 5' Code: 8302-2 SpO2: 99% Weight: 125 lbs Code: 78076-8 05/04/2016 Blood Pressure 1: 126/78 Code: 8480-6 BMI: 24.6 Code: 26775-2 Heart Rate 1: 59 bpm Height: 5' Code: 8302-2 SpO2: 98% Weight: 126 lbs Code: 04121-8 11/04/2015 Blood Pressure 1: 132/70 Code: 8480-6 BMI: 25.3 Code: 85600-1 Heart Rate 1: 58 bpm Height: 5' Code: 8302-2 Weight: 129 lbs 8 oz Code: 2 9463-7 05/06/2015 Blood Pressure 1: 138/78 Code: 8480-6 BMI: 25.0 Code: 83015-5 Heart Rate 1: 65 bpm Height: 5' Code: 8302-2 SpO2: 97% Weight: 128 lbs Code: 24162-0 Functional Status No Functional Status data Reason For Visit Reason For Visit Effective Dates Notes abdominal pain 06/07/2021 weight loss 05/13/2021 paresthesia 04/09/2021 earache 03/25/2021 arthritis 02/02/2021 hypertension 12/31/2020 hypertension 07/02/2020 hypertension 01/02/2020 hypertension 07/04/2019 hypertension 01/02/2019 medication follow up 07/11/2018 hand pain 04/12/2017 hypertension 11/23/2016 hypertension 05/04/2016 hypertension 11/04/2015 hypertension 05/06/2015 Encounters Encounter Performer Location Codes Date [id number]) 90906 EST. PATIENT, LEVEL IV Diagnosis: Dysphagia[ICD10: r13.10] Diagnosis: Underweight due to inadequate caloric intake[ICD10: R63.6] Diagnosis: S/P percutaneous endoscopic gastrostomy (PEG) tube placement[ICD10: Z93.1] Diagnosis: Thrush, oral[ICD10: B37.0] Diagnosis: Multiple sclerosis[ICD10: G35] Aliyah Paris MD, [facility] CPT-4: 82164 06/07/2021 ([id number]) 06189 EST. PATIENT, LEVEL IV Diagnosis: Dysphagia[ICD10: r13.10] Diagnosis: Underweight due to inadequate caloric intake[ICD10: R63.6] Diagnosis: Multiple sclerosis[ICD10: G35] Mira galicia MD, [facility] CPT-4: 45434 05/13/2021 [id number]) 71796 EST. 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 PATIENT, LEVEL IV Diagnosis: Multiple sclerosis[ICD10: G35] Diagnosis: Rheumatoid arthritis involving multiple sites with positive rheumatoid factor[ICD10: M05.79] Diagnosis: Essential (primary) hypertension[ICD10: I10] Diagnosis: Underweight due to inadequate caloric intake[ICD10: R63.6] Diagnosis: Vitamin D deficiency[ICD10: E55.9] Mira collier MD, [facility] CPT-4: 12729 03/25/2021 ([id number]) 04597 EST. PATIENT, LEVEL III Diagnosis: Essential (primary) hypertension[ICD10: I10] Diagnosis: Underweight due to inadequate caloric intake[ICD10: R63.6] Diagnosis: Rheumatoid arthritis involving multiple sites with positive rheumatoid factor[ICD10: M05.79] Aliyah Paris MD, [facility] CPT- 4: 82377 02/02/2021 ([id number]) 59603 EST. PATIENT, LEVEL IV Diagnosis: Essential (primary) hypertension[ICD10: I10] Diagnosis: Multiple sclerosis[ICD10: G35] Diagnosis: Type 2 diabetes mellitus without complications[ICD10: E11.9] Diagnosis: Underweight due to inadequate caloric intake[ICD10: R63.6] Aliyah Paris MD, [facility] CPT-4: 72976 12/31/2020 ([id number]) 03632 EST. PATIENT, LEVEL IV Diagnosis: Essential (primary) hypertension[ICD10: I10] Diagnosis: Type 2 diabetes mellitus without complications[ICD10: E11.9] Diagnosis: Multiple sclerosis[ICD10: G35] Aliyah Paris MD, [facility] CPT-4: 40373 07/02/2020 ([id number]) 34243 EST. PATIENT, LEVEL IV Diagnosis: Type 2 diabetes mellitus without complications[ICD10: E11.9] Diagnosis: Essential (primary) hypertension[ICD10: I10] Diagnosis: Multiple sclerosis[ICD10: G35] Aliyah Paris MD, [facility] CPT-4: 81916 01/02/2020 ([id number]) 71274 EST. PATIENT, LEVEL IV Diagnosis: Essential (primary) hypertension[ICD10: I10] Diagnosis: Type 2 diabetes mellitus without complications[ICD10: E11.9] Diagnosis: Multiple sclerosis[ICD10: G35] Aliyah Paris MD, [facility] CPT-4: 13735 07/04/2019 ([id number]) 38687 EST. PATIENT, LEVEL IV Diagnosis: Essential (primary) hypertension[ICD10: I10] Diagnosis: Type 2 diabetes mellitus without complications[ICD10: E11.9] Diagnosis: Multiple sclerosis[ICD10: G35] Aliyah Paris MD, [facility] CPT-4: 34164 01/02/2019 ([id number]) 40354 EST. PATIENT, LEVEL IV Diagnosis: Type 2 diabetes mellitus without complications[ICD10: E11.9] Diagnosis: Essential (primary) hypertension[ICD10: I10] Diagnosis: Multiple sclerosis[ICD10: G35] Aliyah Paris MD, [facility] CPT-4: 16885 07/11/2018 57060 EST. PATIENT, LEVEL IV Diagnosis: Pain in right hand[ICD10: M79.641] Diagnosis: Multiple sclerosis[ICD10: G35] Tiffanie Paris MD, [facility] CPT-4: 13447 04/12/2017 ([id number]) 69729 EST. PATIENT, LEVEL IV Diagnosis: Essential (primary) hypertension[ICD10: I10] Diagnosis: Type 2 diabetes mellitus without complications[ICD10: E11.9] Aliyah Paris MD, [facility] CPT-4: 82490 11/23/2016 ([id number]) 17014 EST. PATIENT, LEVEL IV Diagnosis: Essential (primary) hypertension[ICD10: I10] Diagnosis: Type 2 diabetes mellitus without complications[ICD10: E11.9] Aliyah Paris MD, [facility] CPT-4: 84594 05/04/2016 ([id number]) 31459 EST. PATIENT, LEVEL IV Diagnosis: Type 2 diabetes mellitus without complications[ICD10: E11.9] Diagnosis: Essential (primary) hypertension[ICD10: I10] Aliyah Paris MD, [facility] CPT-4: 00897 11/04/2015 ([id number]) OFFICE VISIT, NEW - LEVEL 4 Diagnosis: DIABETES TYPE II[ICD9: 250.00] Diagnosis: ESSENTIAL HYPERTENSION[ICD9: 401.9] [facility] CPT-4: 32159 05/06/2015 Plan of Care Planned Activity Notes Codes Status Date Visit Plan: Kenalog shot today, liquid P rednisone orally for home. start home health. [facility] - with ensure tube feeding 1 can every 4 hours while awake and 30mL flushes of water after feedings Dysphagia-status post peg tube placement Weight loss- secondary to dysphagia - consult to [facility] for home health and tube feed adjustments. MS- patient has appt in June with neurology - suspect flair - rx for steroids - will re-eval on if this prednisone is helpful for the pt - kenalog shot today. Thrush - rx for nystatin swish and spit since she cannot swallow well as well as diflucan through peg. 06/07/2021 App[phone] [facility] [place] (15 min) Moderate 06/07/2021 Patient Education: Patient Medication Summary Completed 06/07/2021 Visit Plan: Dysphagia- patient to see Dr Welch for consultation today for EGD to evaluate possible stricture -refer for ST with Home Health Weight loss- secondary to dysphagia - recommend thickened liquids and pureed foods for now MS- patient has appt in June with neurology 05/13/2021 [facility]ment[phone] [phone] [place] (30 min) Complex 05/13/2021 Patient Education: Patient Medication Summary Completed [...] increased edema. 04/09/2021 Appointment: Mira Danielle WPtel: [phone] [phone] [place] (15 min) Moderate 04/09/2021 Appointment: Mira Danielle WPtel: [phone] [phone] [place] (15 min) Moderate 04/09/2021 Patient Education: Patient Medication Summary Completed 04/09/2021 Patient Education: Hypertension Completed 04/09/2021 Care Plan: Cbc With Differential Pending 04/09/2021 Care Plan: Comp Metabolic Pending Appointment: [facility] [phone] [phone] [place] (30 min) Complex 04/08/2021 Visit Plan: [...] Rheumatoid Arthritis- continue follow up with rheumatology. [employer] dc'd methotrexate, folic acid, and plaquinel in January 2021 to help improve appetite. Pt reports had steroid injection in January 2021 for bilateral h and pain, but pain has been controlled since. Pt encouraged to continue follow up appt with [facility]. Hypertension- Pt reports not checking BP at [...] with taste. 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 Woodruff in [place] Hypertension - well controlled - continue with [...] this time. 02/02/2021 Appointment: [facility] [phone] [facility] [place] (15 min) Moderate 02/02/2021 Patient Education: Patient [...] this time. 12/31/2020 Appointment: [facility] [phone] [facility] [place] (15 min) Moderate 12/31/2020 Patient [...] time. 07/02/2020 Appointment: [facility] [phone] [facility] [place] (15 min) Moderate 07/02/2020 Patient [...] this time. 01/02/2020 Appointment: [facility] [phone] [facility] (15 min) Moderate 01/02/2020 Patient Education: Patient Medication Summary Completed 01/02/2020 Patient Education: Diabetes Completed 01/02/2020 Patient Education: Hypertension Completed 01/02/2020 Care Plan: Cbc With Differential Pending 01/02/2020 Care Plan: Comp Metabolic Pending Care Plan: Lipid Pending 01/02/2020 Care Plan: %Hba1C LOINC : 00571-7 Pending 01/02/2020 Care Plan: Tsh Pending 01/02/2020 [...] time. 07/04/2019 Appointment: [facility] [phone] [facility] (15 min) Moderate 07/04/2019 Patient Education: Patient Medication Summary Completed 07/04/2019 Patient Education: Hypertension Completed 07/04/2019 Patient Education: Diabetes Completed 07/04/2019 Care Plan: Comp Metabolic Pending Care Plan: Cbc With Differential Pending 07/04/2019 Care Plan: %Hba1C LOINC : 05394-9 Pending 07/04/2019 Care Plan: Tsh Pending 07/04/2019 [...] closely. 01/02/2019 Appointment: [facility] [phone] [facility] (15 min) Moderate 01/02/2019 Patient Education: [...] symptoms closely. 07/11/2018 Appointment: [facility] [phone] [facility] [place] (15 min) Moderate 07/11/2018 Patient Education: [...] evaluation/monitoring 04/12/2017 App[facility]ment: [facility]iff[facility] [phone] [facility] (15 min) Moderate 04/12/2017 Patient Education: Patient [...] controlled. 11/23/2016 Appointment: Aliyah Paris WPtel: [phone] [facility] (15 min) Moderate 11/23/2016 Patient Education: Patient [...] controlled. 11/04/2015 Appointment: [facility] [phone] [facility] (15 min) Moderate 11/04/2015 Patient Education: [...] readings at home. 05/06/2015 Appointment: WellingtonAliyah WPtel: [facility] [place] (S[facility] New Patient 05/06/2015 Patient Education: Patient Medication Summary Completed 05/06/2015 Patient Education: Hypertension Completed 05/06/2015 Instructions Comment . Kenalog shot today, liquid Prednisone orally for home. start home health. with [facility] [facility] - with ensure tube feeding 1 can every 4 hours while awake and 30mL flushes of water after feedings Dysphagia-status post peg tube placement Weight loss- secondary to dysphagia - consult to [facility] for home health and tube feed adjustments. MS- patient has appt in June with neurology - suspect flair - rx for steroids - will re-eval on if this prednisone is helpful for the pt - kenalog shot today. Thrush - rx for nystatin swish and spit since she cannot swallow well as well as diflucan through peg. . Dysphagia- patient to see Dr Welch for consultation today for EGD to evaluate possible stricture -refer for ST with Home Health Weight loss- secondary to dysphagia - [...] Rheumatoid Arthritis- continue follow up with rheumatology. [employer] dc'd methotrexate, folic acid, and plaquinel in January 2021 to help improve appetite. Pt reports had steroid injection in January 2021 for bilateral hand pain, but pain has been controlled since. Pt encouraged to continue follow up appt with [facility]. Hypertension- Pt reports not checking BP at [...] would like to seek out a new salmon troll fisher - she would like a Referral to Dr. Woodruff in [place] Hypertension - well controlled - continue with [...]
--- OUTSIDE RECORDS SUMMARY | 2021-08-11 12:42 | XMS REPORT | CCD ---
Author Author Libby Paris Organization Aliyah Paris MD, [facility] Address [address] [place] [address] Phone Care Team Providers Care Employment Interviewer Name Role Phone Aliyah Paris PP Unavailable CCM Unavailable Summary Purpose Interface Exchange Insurance Providers Payer name Policy type / Coverage type Covered alliance party ID Effective Begin Date Effective End Date [employer] [id number] Unknown Family history Sister Diagnosis Age At Onset Hypertension Unknown Diabetes Unknown Mother Diagnosis Age At Onset Hypertension Unknown Cancer Unknown Social History Social History Element Codes Description Effective Dates Employment Unknown 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 [email or web address] 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 Marital status Unknown Single 05/06/[address]: 787552913 Never smoker 05/06/[address]: 028354227 Never drinks alcohol 2014 Allergies, Adverse Reactions, Alerts Substance Reaction Codes Entered Date Inactivated Date Status * NO KNOWN DRUG ALLERGIES Unknown 11/04/2015 No Inactiv e Date Active Problems Condition Codes Effective Dates Condition Status Esophageal dysphagia ICD-10: R13.19 ICD-9: 787.29 07/01/2021 Active Relapsing remitting multiple sclerosis ICD-10: G35 ICD-9: 340 04/12/2017 Active Underweight due to inadequate caloric intake ICD-10: R 63.6 ICD-9: 783.22 12/31/2020 Active Abnormal findings on esophagogastroduodenoscopy (EGD) ICD-10: R19.8 ICD-9: 796.4 07/01/2021 Active Esophageal abnormality ICD-10: K22.9 ICD-9: 530.9 07/01/2021 Active Dysphagia ICD-10: r13.10 ICD-9: 787.20 05/13/2021 Active S/P percutaneous endoscopic gastrostomy (PEG) tube namrata cement ICD-10: Z93.1 ICD-9: V44.1 06/07/2021 Active Thrush, oral ICD-10: B37.0 ICD-9: 112.0 06/07/2021 Active Rheumatoid arthritis involving multiple sites with [...] Start Date Stop Date Status Fill Instructions prednisolone 15 mg/5 mL oral solution RxNorm: 759493 Ta ke 5 Milliliter(s) Oral as directed take via peg tube twice daily x 2 weeks then daily thereafter 07/21/2021 09/18/2021 Active triamcinolone acetonide 10 mg/mL suspension for injection Rx Norm: 8393815 Take Milliliter(s) Injection 07/21/2021 07/21/2021 Inactive nystatin 100,000 unit/mL oral suspension RxNorm: 014777 Take 5 Milliliter(s) Oral four times a day swish and spit 06/22/2021 07/01/2021 Inactive Mucinex Fast-Max Chest Congestion 100 mg/5 mL oral liquid Rx Norm: 373314 15 Milliliter(s) Oral as directed 15mL via peg tube tid x 2 weeks then daily x 2 weeks then stop 06/10/2021 07/07/2021 Inactive (mucinex liquid - guaifenesin) Mucinex Fast-Max Chest Congestion 100 mg/5 mL oral liquid Rx Norm: 570879 15 Milliliter(s) Oral as directed 15mL via peg tube tid x 2 weeks then daily x 2 weeks then stop 06/10/2021 06/10/2021 Inactive nystatin 100,000 unit/mL oral suspension RxNorm: 641983 Take 5 Milliliter(s) Oral four times a day swish and spit 06/10/2021 06/19/2021 Inactive NEED NEW LABEL ONLY FOR ORAL USE Pepcid AC 20 mg tablet RxNorm: 396160 Take 1 Tablet(s) Oral two times a day give via peg 06/07/2021 08/05/2021 Active prednisolone 15 mg/5 mL oral solution RxNorm: 880404 Ta ke 5 Milliliter(s) Oral two times a day take via peg tube 06/07/2021 06/13/2021 Inactive nystatin 100,000 unit/mL oral suspension RxNorm: 948758 Take 5 Milliliter(s) Oral four times a day push via peg 06/07/2021 06/07/2021 Inactive Kenalog-80 80 mg/mL suspension for injection RxNorm: 864625 3 Take Milliliter(s) Injection 06/07/2021 06/07/2021 Inactive Diflucan 150 mg tablet RxNorm: 595793 Take 1 Tablet(s) Oral every day crush and give via peg 06/07/2021 06/11/2021 Inactive Kenalog 40 mg/mL suspension for injection RxNorm: 7096768 Take Milliliter(s) Injection 05/06/2021 05/06/2021 Inactive mirtazapine 7.5 mg tablet RxNorm: 821600 Take 1/2 Tablet(s) Ora l every evening 04/09/2021 08/06/2021 Active Vitamin D3 125 mcg (5,000 unit) tablet RxNorm: 663335 1 Tablet(s) Oral every day 01/05/2021 No Stop Date Active Vitamin D2 1,250 mcg (50,000 unit) capsule RxNorm: 6922039 1 Capsule(s) Oral weekly take with vit d 5000 u daily 01/05/2021 02/01/2021 Inactive Ziac 10 mg-6.25 mg tablet RxNorm: 874577 Take 1 tablet by mouth once daily 08/20/2020 04/08/2021 Inactive Vitamin D2 1,250 mcg (50,000 unit) capsule RxNorm: 9833278 1 Capsule(s) Oral weekly 07/08/2020 09/30/2020 Inactive Vitamin D2 1,250 mcg (50,000 unit) capsule RxNorm: 4351834 1 Capsule(s) Oral weekly 07/08/2020 07/07/2020 Inactive methotrexate sodium 2.5 mg tablet RxNorm: 818572 3 Tabl et(s) Oral once a week - Managed by rheumatology 07/02/2020 03/24/2021 Inactive Ziac 10 mg-6.25 mg tablet RxNorm: 827874 TAKE 1 TABLET BY MOUTH ONCE DAILY 12/09/2019 07/05/2020 Inactive Ziac 10 mg-6.25 mg tablet RxNorm: 857427 TAKE 1 TABLET BY MOUTH ONCE DAILY 05/28/2019 12/08/2019 Inactive metformin 500 mg tablet RxNorm: 423811 1/2 Tablet(s) PO BID 019 01/01/2020 Inactive metformin 500 mg tablet RxNorm: 627698 1/2 Tablet(s) PO BID 019 05/05/2019 Inactive methotrexate sodium 2.5 mg tablet RxNorm: 247304 6 Tabl et(s) PO QW -Managed by rheumatology 01/02/2019 07/01/2020 Inactive Ziac 10 mg-6.25 mg tablet RxNorm: 962313 TAKE 1 TABLET BY MOUTH ONCE DAILY 08/29/2018 05/27/2019 Inactive methotrexate sodium 2.5 mg tablet RxNorm: 488233 3 Tablet(s) PO QW 07/11/2018 01/01/2019 Inactive Ziac 10 mg-6.25 mg tablet RxNorm: 065070 TAKE 1 TABLET BY MOUTH ONCE DAILY 06/26/2018 08/28/2018 Inactive metformin 500 mg tablet RxNorm: 358190 TAKE ONE TABLET BY MOUTH TWICE DAILY 04/03/2018 01/03/2019 Inactive Ziac 10 mg-6.25 mg tablet RxNorm: 490848 TAKE ONE TABLET BY JEFF TH ONCE DAILY 01/31/2018 06/25/2018 Inactive metformin 500 mg tablet RxNorm: 905870 TAKE ONE TABLET BY MOUTH TWICE DAILY 10/04/2017 04/02/2018 Inactive Ziac 10 mg-6.25 mg tablet RxNorm: 970370 TAKE ONE TABLET BY JEFF TH ONCE DAILY 08/02/2017 01/30/2018 Inactive diclofenac potassium 50 mg tablet RxNorm: 916779 1 Tabl et(s) PO BID as needed for pain 04/12/2017 05/11/2017 Inactive metformin 500 mg tablet RxNorm: 348395 Tablet(s) TAKE O NE TABLET BY MOUTH TWICE DAILY 04/06/2017 10/02/2017 Inactive Ziac 10 mg-6.25 mg tablet RxNorm: 891131 TAKE ONE TABLET BY JEFF TH ONCE DAILY 04/03/2017 07/31/2017 Inactive multivitamin with iron tablet RxNorm: 1 Tablet(s) PO daily 11/201602/16/2017 Inactive Claritin-D 24 Hour 10 mg-240 mg tablet,extended release RxNo rm: 7519554 1 Tablet(s) PO daily 11/23/2016 11/22/2016 Inactive Claritin-D 24 Hour 10 mg-240 mg tablet,extended release RxNo rm: 0713505 1 Tablet(s) PO daily 11/23/2016 01/01/2019 Inactive Ziac 10 mg-6.25 mg tablet RxNorm: 560455 TAKE ONE TABLET BY JEFF TH ONCE DAILY 10/10/2016 04/02/2017 Inactive metformin 500 mg tablet RxNorm: 944483 TAKE ONE TABLET BY MOUTH TWICE DAILY 10/05/2016 04/02/2017 Inactive Claritin-D 12 Hour 5 mg-120 mg tablet,extended release RxNor m: 3408813 1 Tablet(s) PO BID as needed 09/15/2016 11/22/2016 Inactive Ziac 10 mg-6.25 mg tablet RxNorm: 647398 Tablet(s) 1 Tablet(s) PO daily 04/12/2016 10/08/2016 Inactive metformin 500 mg tablet RxNorm: 957664 1 Tablet(s) PO BID 01/08/2016 10/03/2016 Inactive Ziac 10 mg-6.25 mg tablet RxNorm: 342423 1 Tablet(s) PO daily 10/1204/08/2016 Inactive Ziac 10 mg-6.25 mg tablet RxNorm: 784815 1 Tablet(s) PO daily 07/1510/11/2015 Inactive metformin 500 mg tablet RxNorm: 847114 1 Tablet(s) PO BID 04/14/2015 01/07/2016 Inactive metformin 500 mg tablet RxNorm: 120866 1 Tablet(s) PO BID 04/14/2015 04/13/2015 Inactive Ziac 10 mg-6.25 mg tablet RxNorm: 561532 1 Tablet(s) PO daily 04/1407/12/2015 Inactive aspirin 81 mg tablet RxNorm: 662200 1 Tablet(s) PO daily 05/06/2015 Active Ziac 10 mg-6.25 mg tablet RxNorm: 622176 1 Tablet(s) PO daily 04/1404/13/2015 Inactive Claritin-D 12 Hour 5 mg-120 mg tablet,extended release RxNor m: 4137204 1 Tablet(s) PO BID 09/15/2016 09/14/2016 Inactive Plaquenil 200 mg tablet RxNorm: 487531 1 Tablet(s) PO daily 021 03/24/2021 Inactive Naprosyn 500 mg tablet RxNorm: 618988 1 Tablet(s) PO BID 02/02/2021 0 02/01/2021 Inactive mpnbhgae-tgoyolmryu-oj glycn-C oral RxNorm: oral 07/04/2019 07/03/2019 Inactive folic acid 1 mg tablet RxNorm: 457565 1 Tablet(s) PO daily 03/25/20 21 03/24/2021 Inactive methotrexate sodium 2.5 mg tablet RxNorm: 961603 6 Tablet(s) PO QW 07/11/2018 07/10/2018 Inactive Medication Administered Medication Codes Instructions Start Date Status triamcinolone acetonide 10 mg/mL suspension for injection Rx Norm: 3403570 Milliliter 07/21/2021 No longer Active Kenalog-80 80 mg/mL suspension for injection RxNorm: 5828013 Mi lliliter 06/07/2021 No longer Active Kenalog 40 mg/mL suspension for injection RxNorm: 4749176 Millilite r 05/06/2021 No longer Active Immunizations Vaccine Codes Date Status Covid-19 CVX: 12/21/2020 Covid-19 CVX: 11/18/2020 Results Observation Observation Code Item Item Code Result Date S ervice Location MEAN GLUC 8388641 Calc Mean Gluc 85 mg/dL 01/01/2021 Unkn own A1C HPLC 8852127 Hgb A1c 55085-9 4.6 % 01/01/2021 Unknown LIPID GRP 8720032 CHOLESTEROL 148 mg/dL 01/01/2021 Unknown LIPID GRP 1969066 Triglyceride 136 mg/dL 01/01/2021 Unknow n LIPID GRP HDL CHOLESTEROL 46 mg/dL 01/01/2021 Unk nown LIPID GRP Chol/HDL Ratio 3.22 ratio 01/01/2021 Unk nown LIPID GRP NON-HDL Chol 102 mg/dL 01/01/2021 Unknow n LIPID GRP LDL Cholesterol 75 mg/dL 01/01/2021 Unk nown FOLIC ACID 4195059 Folate 6.0 ng/mL 01/01/2021 Unknown CHEM 14 4096924 AST 23 U/L 01/01/2021 Unknown CHEM 14 8480953 ALT 14 U/L 01/01/2021 Unknown CHEM 14 3620163 BUN 21 mg/dL 01/01/2021 Unknown CHEM 14 9927653 ALBUMIN 3.8 g/dL 01/01/2021 Unknown CHEM 14 5465701 CHLORIDE 105 mmol/L 01/01/2021 Unknown CHEM 14 0693413 Bili Total 0.5 mg/dL 01/01/2021 Unknown CHEM 14 5985748 ALK PHOS 47 U/L 01/01/2021 Unknown CHEM 14 2509657 SODIUM 137 mmol/L 01/01/2021 Unknown CHEM 14 7091351 CREATININE 0.89 mg/dL 01/01/2021 Unknown CHEM 14 1077899 CALCIUM 9.5 mg/dL 01/01/2021 Unknown CHEM 14 7730578 POTASSIUM 4.2 mmol/L 01/01/2021 Unknown CHEM 14 0253401 TOTAL PROTEIN 7.3 g/dL 01/01/2021 Unkno wn CHEM 14 1188108 GLUCOSE 92 mg/dL 01/01/2021 Unknown CHEM 14 1964169 Bicarbonate 21 mmol/L 01/01/2021 Unknown CHEM 14 1473917 AGAP 11 mmol/L 01/01/2021 Unknown CBC 8251337 WBC 8.3 10e9/L 01/01/2021 Unknown CBC 6810797 RBC 3.66 10e12/L 01/01/2021 Unknow n CBC 1928370 HEMOGLOBIN 11.5 g/dL 01/01/2021 Unknown CBC 5968423 HEMATOCRIT 33.7 % 01/01/2021 Unknown CBC 0939971 MCV 92.1 fL 01/01/2021 Unknown CBC 7256165 MCH 31.4 pg 01/01/2021 Unknown CBC 7826435 MCHC 34.1 g/dL 01/01/2021 Unknown CBC 3288853 PLATELET COUNT 214 10e9/L 01/01/2021 Unk nown CBC 2539250 Mean Plt Volume 10.9 fL 01/01/2021 Unk nown CBC 5457576 Neut Auto 69.8 % 01/01/2021 Unknown CBC 9179033 Lymph Auto 14.5 % 01/01/2021 Unknown CBC 2109172 [place] Auto 11.9 % 01/01/2021 Unknown CBC 2753893 Eos Auto 3.0 % 01/01/2021 Unknown CBC 9479700 RDW 14.4 % 01/01/2021 Unknown CBC 9221116 Baso Auto 0.8 % 01/01/2021 Unknown CBC 3828043 Neutrophil Abs 5.79 10e9/L 01/01/2021 Un known CBC 9952910 Lymphocyte Abs 1.20 10e9/L 01/01/2021 Un known CBC 0020753 Monocyte Abs 0.99 10e9/L 01/01/2021 Unkn own CBC 8990624 Eosinophil Abs 0.25 10e9/L 01/01/2021 Un known CBC 7939432 RDW-SD 46.3 fL 01/01/2021 Unknown CBC 4451533 Basophil Abs 0.07 10e9/L 01/01/2021 Unkn own TSH 2406496 TSH 1.235 uIU/mL 01/01/2021 Unknow n VIT D TOTL 6927931 Vitamin D 25 OH 29.1 ng/mL 01/01/2021 U nknown GFR CALC 6094033 GFR Non Afr Amr >60 mL/min 01/01/2021 Un known GFR CALC 3314641 GFR Afr Amr >60 mL/min 01/01/2021 Unknow n MEAN GLUC 3178519 Calc Mean Gluc 97 mg/dL 07/06/2020 Unkn own A1C HPLC 1491001 Hgb A1c 64440-0 5.0 % 07/06/2020 Unknown FOLIC ACID 2911154 Folate >20.0 ng/mL 07/02/2020 Unknow n VIT D TOTL 2849330 Vitamin D 25 OH 24.3 ng/mL 07/02/2020 U nknown CHEM 14 7702603 AST 16 U/L 07/02/2020 Unknown CHEM 14 4158216 ALT 8 U/L 07/02/2020 Unknown CHEM 14 8295786 BUN 19 mg/dL 07/02/2020 Unknown CHEM 14 7432169 ALBUMIN 4.1 g/dL 07/02/2020 Unknown CHEM 14 3113192 CHLORIDE 108 mmol/L 07/02/2020 Unknown CHEM 14 9007112 Bili Total 0.6 mg/dL 07/02/2020 Unknown CHEM 14 8579907 ALK PHOS 56 U/L 07/02/2020 Unknown CHEM 14 8086738 SODIUM 139 mmol/L 07/02/2020 Unknown CHEM 14 8740323 CREATININE 0.88 mg/dL 07/02/2020 Unknown CHEM 14 4323837 CALCIUM 9.3 mg/dL 07/02/2020 Unknown CHEM 14 5853125 POTASSIUM 4.3 mmol/L 07/02/2020 Unknown CHEM 14 7324989 TOTAL PROTEIN 7.7 g/dL 07/02/2020 Unkno wn CHEM 14 7739900 GLUCOSE 91 mg/dL 07/02/2020 Unknown CHEM 14 7792360 Bicarbonate 23 mmol/L 07/02/2020 Unknown CHEM 14 8642471 AGAP 8 mmol/L 07/02/2020 Unknown GFR CALC 9645677 GFR Non Afr Amr >60 mL/min 07/02/2020 Un known GFR CALC 0116486 GFR Afr Amr >60 mL/min 07/02/2020 Unknow n LIPID GRP 7029763 CHOLESTEROL 148 mg/dL 07/02/2020 Unknown LIPID GRP 3937343 Triglyceride 107 mg/dL 07/02/2020 Unknow n LIPID GRP 3757310 HDL CHOLESTEROL 50 mg/dL 07/02/2020 Unk nown LIPID GRP 4825598 Chol/HDL Ratio 2.96 ratio 07/02/2020 Unk nown LIPID GRP 7050072 NON-HDL Chol 98 mg/dL 07/02/2020 Unknow n LIPID GRP 6439672 LDL Cholesterol 77 mg/dL 07/02/2020 Unk nown CBC 9856102 WBC 8.7 10e9/L 07/02/2020 Unknown CBC 9520309 RBC 3.43 10e12/L 07/02/2020 Unknow n CBC 2112856 HEMOGLOBIN 10.0 g/dL 07/02/2020 Unknown CBC 6824744 HEMATOCRIT 31.2 % 07/02/2020 Unknown CBC 9600042 MCV 91.0 fL 07/02/2020 Unknown CBC 0889784 MCH 29.2 pg 07/02/2020 Unknown CBC 8121263 MCHC 32.1 g/dL 07/02/2020 Unknown CBC 9475612 PLATELET COUNT 222 10e9/L 07/02/2020 Unk nown CBC 2977995 Mean Plt Volume 11.7 fL 07/02/2020 Unk nown CBC 0692979 Neut Auto 78.0 % 07/02/2020 Unknown CBC 3176200 Lymph Auto 11.1 % 07/02/2020 Unknown CBC 7473651 [place] Auto 7.7 % 07/02/2020 Unknown CBC 0219650 Eos Auto 2.3 % 07/02/2020 Unknown CBC 3380805 RDW 14.5 % 07/02/2020 Unknown CBC 3237145 Baso Auto 0.9 % 07/02/2020 Unknown CBC 0810032 Neutrophil Abs 6.79 10e9/L 07/02/2020 Un known CBC 4174969 Lymphocyte Abs 0.97 10e9/L 07/02/2020 Un known CBC 1599765 Monocyte Abs 0.67 10e9/L 07/02/2020 Unkn own CBC 1158566 Eosinophil Abs 0.20 10e9/L 07/02/2020 Un known CBC 3976733 Basophil Abs 0.08 10e9/L 07/02/2020 Unkn own CBC 6263447 RDW-SD 45.6 fL 07/02/2020 Unknown TSH 6615843 TSH 0.955 uIU/mL 07/02/2020 Unknow n A1C HPLC 9105611 Hgb A1c 95536-1 4.5 % 01/02/2020 Unknown LIPID GRP 2014505 CHOLESTEROL 154 mg/dL 01/02/2020 Unknown LIPID GRP 6060605 Triglyceride 146 mg/dL 01/02/2020 Unknow n LIPID GRP 0049846 HDL CHOLESTEROL 55 mg/dL 01/02/2020 Unk nown LIPID GRP 3540121 Chol/HDL Ratio 2.80 ratio 01/02/2020 Unk nown LIPID GRP 9831212 NON-HDL Chol 99 mg/dL 01/02/2020 Unknow n LIPID GRP 7944164 LDL Cholesterol 70 mg/dL 01/02/2020 Unk nown CBC 4818541 WBC 9.7 10e9/L 01/02/2020 Unknown CBC 2217996 RBC 3.62 10e12/L 01/02/2020 Unknow n CBC 6563030 HEMOGLOBIN 11.2 g/dL 01/02/2020 Unknown CBC 6004145 HEMATOCRIT 33.4 % 01/02/2020 Unknown CBC 7095466 MCV 92.3 fL 01/02/2020 Unknown CBC 1085779 MCH 30.9 pg 01/02/2020 Unknown CBC 7506215 MCHC 33.5 g/dL 01/02/2020 Unknown CBC 5628559 PLATELET COUNT 232 10e9/L 01/02/2020 Unk nown CBC 6007091 Mean Plt Volume 11.0 fL 01/02/2020 Unk nown CBC 1702654 Neut Auto 70.5 % 01/02/2020 Unknown CBC 2303098 Lymph Auto 15.5 % 01/02/2020 Unknown CBC 8340952 [place] Auto 9.3 % 01/02/2020 Unknown CBC 0067575 Eos Auto 4.0 % 01/02/2020 Unknown CBC 6362911 RDW 13.7 % 01/02/2020 Unknown CBC 2437570 Baso Auto 0.7 % 01/02/2020 Unknown CBC 4652107 Neutrophil Abs 6.84 10e9/L 01/02/2020 Un known CBC 3672335 Lymphocyte Abs 1.50 10e9/L 01/02/2020 Un known CBC 2439525 Monocyte Abs 0.90 10e9/L 01/02/2020 Unkn own CBC 8071948 Eosinophil Abs 0.39 10e9/L 01/02/2020 Un known CBC 3993058 Basophil Abs 0.07 10e9/L 01/02/2020 Unkn own CBC 1862149 RDW-SD 44.7 fL 01/02/2020 Unknown CHEM 14 2752549 AST 16 U/L 01/02/2020 Unknown CHEM 14 6519864 ALT 10 U/L 01/02/2020 Unknown CHEM 14 1926143 BUN 18 mg/dL 01/02/2020 Unknown CHEM 14 0696777 ALBUMIN 4.2 g/dL 01/02/2020 Unknown CHEM 14 8893091 CHLORIDE 105 mmol/L 01/02/2020 Unknown CHEM 14 2128837 Bili Total 0.7 mg/dL 01/02/2020 Unknown CHEM 14 2107089 ALK PHOS 41 U/L 01/02/2020 Unknown CHEM 14 3989860 SODIUM 141 mmol/L 01/02/2020 Unknown CHEM 14 8298918 CREATININE 0.86 mg/dL 01/02/2020 Unknown CHEM 14 8941041 CALCIUM 9.5 mg/dL 01/02/2020 Unknown CHEM 14 6264272 POTASSIUM 4.0 mmol/L 01/02/2020 Unknown CHEM 14 4870349 TOTAL PROTEIN 7.3 g/dL 01/02/2020 Unkno wn CHEM 14 6637058 GLUCOSE 90 mg/dL 01/02/2020 Unknown CHEM 14 4923701 Bicarbonate 26 mmol/L 01/02/2020 Unknown CHEM 14 7947311 AGAP 10 mmol/L 01/02/2020 Unknown TSH 5658290 TSH 0.823 uIU/mL 01/02/2020 Unknow n MEAN GLUC 9040246 Calc Mean Gluc 82 mg/dL 01/02/2020 Unkn own GFR CALC 5196219 GFR Non Afr Amr >60 mL/min 01/02/2020 Un known GFR CALC 5242636 GFR Afr Amr >60 mL/min 01/02/2020 Unknow [...] Ord15 CALCIUM 9.5 mg/dL 01/02/2019 Unknown %Hba1C Uqq123 % HbA1c 10087-8 4.9 % 01/02/2019 Unknown %Hba1C Xya928 Gluc Ave 94 mg/dL 01/02/2019 Unknown Cbc [...] 11/20/19 19 Unknown Cbc With Differential Ord2 [place]% 6.9 % 11/20/19 19 Unknown Cbc With [...] K/ul 019 Unknown Cbc With Differential Ord2 [place] ABS# 0.5 K/ul 11/20/19 19 Unknown Cbc With Differential Ord2 Eos ABS# 0.3 K/ul 11/20/19 19 Unknown Cbc With Differential Ord2 Baso ABS# 0.1 K/ul 11/20/19 19 Unknown Hepatic Xcl384 ALBUMIN 4.4 g/dL 11/19/2018 Unknown Hepatic Dlp416 TPRO 7.2 g/dL 11/19/2018 Unknown Hepatic Dqe975 GLOB 2.8 g/dL 11/19/2018 Unknown Hepatic Cyb021 A/G Ratio 1.6 Ratio 11/19/2018 Unknown Hepatic Usy776 ALK PHOS 36 U/L 11/19/2018 Unknown Hepatic Fvb167 ALT(SGPT) 10 U/L 11/19/2018 Unknown Hepatic Mjd442 AST(SGOT) 14 U/L 11/19/2018 Unknown Hepatic Sla284 BILI T 0.7 mg/dL 11/19/2018 Unknown Hepatic Gnp136 BILI D 0.1 mg/dL 11/19/2018 Unknown Hepatic Jgk398 BILI I 0.6 mg/dL 11/19/2018 Unknown Hepatic Mod785 ALBUMIN 3.9 g/dL 08/14/2018 Unknown Hepatic Rtm942 TPRO 6.3 g/dL 08/14/2018 Unknown Hepatic Rgl562 GLOB 2.5 g/dL 08/14/2018 Unknown Hepatic Ahb209 A/G Ratio 1.6 Ratio 08/14/2018 Unknown Hepatic Ysv596 ALK PHOS 36 U/L 08/14/2018 Unknown Hepatic Cnb939 ALT(SGPT) 33 U/L 08/14/2018 Unknown Hepatic Pct364 AST(SGOT) 30 U/L 08/14/2018 Unknown Hepatic Pwt122 BILI T 0.6 mg/dL 08/14/2018 Unknown Hepatic Pud185 BILI D 0.2 mg/dL 08/14/2018 Unknown Hepatic Ufl417 BILI I 0.4 mg/dL 08/14/2018 Unknown Cbc [...] 08/14/20 18 Unknown Cbc With Differential Ord2 [place]% 8.8 % 08/14/20 18 Unknown Cbc With [...] K/ul 018 Unknown Cbc With Differential Ord2 [place] ABS# 0.5 K/ul 08/14/20 18 Unknown Cbc With Differential Ord2 Eos ABS# 0.3 K/ul 08/14/20 18 Unknown Cbc With Differential Ord2 Baso ABS# 0.1 K/ul 08/14/20 18 Unknown Comp Metabolic Tfs041 NA 141 mEq/L 07/13/2018 Unkn own Comp Metabolic Fsf366 K 4.0 mEq/L 07/13/2018 Unkn own Comp Metabolic Qha292 CL 106 mEq/L 07/13/2018 Unkn own Comp Metabolic Kqd398 CO2 26.0 mEq/L 07/13/2018 Unk nown Comp Metabolic Cjg835 ANION GAP 13 07/13/2018 Unkn own Comp Metabolic Oen086 GLUCOSE 91 mg/dL 07/13/2018 Unkn own Comp Metabolic Phe118 Creat 0.9 mg/dL 07/13/2018 Unkn own Comp Metabolic Pdt682 eGFR 68 ml/min/1.73m2 07/13/20 18 Unknown Comp Metabolic Mst981 BUN 18 mg/dL 07/13/2018 Unkn own Comp Metabolic Ckn272 B/C Ratio 20.5 Ratio 07/13/2018 Unk nown Comp Metabolic Uee607 CALCIUM 9.2 mg/dL 07/13/2018 Unkn own Comp Metabolic Dir554 ALK PHOS 41 U/L 07/13/2018 Unkn own Comp Metabolic Sbu985 AST(SGOT) 16 U/L 07/13/2018 Unkn own Comp Metabolic Faq562 ALT(SGPT) 12 U/L 07/13/2018 Unkn own Comp Metabolic Rnc587 BILI T 0.4 mg/dL 07/13/2018 Unkn own Comp Metabolic Att587 ALBUMIN 4.3 g/dL 07/13/2018 Unkn own Comp Metabolic Ihr034 TPRO 6.7 g/dL 07/13/2018 Unkn own Comp Metabolic Ykb619 GLOB 2.5 g/dL 07/13/2018 Unkn own Comp Metabolic Qmr789 A/G Ratio 1.7 Ratio 07/13/2018 Unkn own Comp Metabolic Fqg627 Osmo 283 mOsmo 07/13/2018 Unkn own Lipid Ord30 CHOL 167 mg/dL 07/13/2018 Unknown Lipid Ord30 HDL 53.0 mg/dl 07/13/2018 Unknown Lipid Ord30 TRIG 95 mg/dL 07/13/2018 Unknown Lipid Ord30 LDL 95 mg/dL 07/13/2018 Unknown Lipid Ord30 C/HDL 3.2 Ratio 07/13/2018 Unknown %Hba1C Tfc814 % HbA1c 83339-3 5.0 % 07/13/2018 Unknown %Hba1C Qth759 Gluc Ave 97 mg/dL 07/13/2018 Unknown Tsh [...] 07/13/20 18 Unknown Cbc With Differential Ord2 [place]% 9.7 % 07/13/20 18 Unknown Cbc With [...] K/ul 018 Unknown Cbc With Differential Ord2 [place] ABS# 0.6 K/ul 07/13/20 18 Unknown Cbc With Differential Ord2 Eos ABS# 0.4 K/ul 07/13/20 18 Unknown Cbc With Differential Ord2 Baso ABS# 0.1 K/ul 07/13/20 18 Unknown Hepatic Xzu120 ALBUMIN 3.9 g/dL 05/14/2018 Unknown Hepatic Oxw273 TPRO 6.6 g/dL 05/14/2018 Unknown Hepatic Txs608 GLOB 2.7 g/dL 05/14/2018 Unknown Hepatic Gko445 A/G Ratio 1.4 Ratio 05/14/2018 Unknown Hepatic Zhp622 ALK PHOS 32 U/L 05/14/2018 Unknown Hepatic Yyh427 ALT(SGPT) 8 U/L 05/14/2018 Unknown Hepatic Qgo412 AST(SGOT) 12 U/L 05/14/2018 Unknown Hepatic Caa002 BILI T 0.8 mg/dL 05/14/2018 Unknown Hepatic Xea609 BILI D 0.1 mg/dL 05/14/2018 Unknown Hepatic Shi454 BILI I 0.7 mg/dL 05/14/2018 Unknown Cbc [...] 05/14/20 18 Unknown Cbc With Differential Ord2 [place]% 4.8 % 05/14/20 18 Unknown Cbc With [...] K/ul 018 Unknown Cbc With Differential Ord2 [place] ABS# 0.3 K/ul 05/14/20 18 Unknown Cbc [...] 11/17/19 18 Unknown Cbc With Differential Ord2 [place]% 11.2 % 11/17/19 18 Unknown Cbc With [...] K/ul 018 Unknown Cbc With Differential Ord2 [place] ABS# 0.7 K/ul 11/17/19 18 Unknown Cbc With Differential Ord2 Eos ABS# 0.2 K/ul 11/17/19 18 Unknown Cbc With Differential Ord2 Baso ABS# 0.0 K/ul 11/17/19 18 Unknown Hepatic Kca640 ALBUMIN 4.1 g/dL 11/16/2017 Unknown Hepatic Vki996 TPRO 6.7 g/dL 11/16/2017 Unknown Hepatic Bxf646 GLOB 2.7 g/dL 11/16/2017 Unknown Hepatic Jpb613 A/G Ratio 1.5 Ratio 11/16/2017 Unknown Hepatic Sna762 ALK PHOS 31 U/L 11/16/2017 Unknown Hepatic Cea061 ALT(SGPT) 11 U/L 11/16/2017 Unknown Hepatic Clv292 AST(SGOT) 15 U/L 11/16/2017 Unknown Hepatic Mmu273 BILI T 0.7 mg/dL 11/16/2017 Unknown Hepatic Dvv505 BILI D 0.2 mg/dL 11/16/2017 Unknown Hepatic Ebf939 BILI I 0.5 mg/dL 11/16/2017 Unknown Hepatic Zrp408 ALBUMIN 4.0 g/dL 08/17/2017 Unknown Hepatic Hfr705 TPRO 6.6 g/dL 08/17/2017 Unknown Hepatic Slp939 GLOB 2.6 g/dL 08/17/2017 Unknown Hepatic Wqd581 A/G Ratio 1.6 Ratio 08/17/2017 Unknown Hepatic Vmv002 ALK PHOS 43 U/L 08/17/2017 Unknown Hepatic Caq300 ALT(SGPT) 10 U/L 08/17/2017 Unknown Hepatic Eoz493 AST(SGOT) 15 U/L 08/17/2017 Unknown Hepatic Sne597 BILI T 0.7 mg/dL 08/17/2017 Unknown Hepatic Cqm361 BILI D 0.1 mg/dL 08/17/2017 Unknown Hepatic Kml074 BILI I 0.6 mg/dL 08/17/2017 Unknown Cbc [...] 08/17/20 17 Unknown Cbc With Differential Ord2 [place]% 8.6 % 08/17/20 17 Unknown Cbc With [...] K/ul 017 Unknown Cbc With Differential Ord2 [place] ABS# 0.6 K/ul 08/17/20 17 Unknown Cbc With Differential Ord2 E[place] ABS# 0.3 K/ul 08/17/20 17 Unknown Cbc With Differential Ord2 Baso ABS# 0.0 K/ul 08/17/20 17 Unknown Ra Factor Vrx727 RA FACTOR 40.2 IU/ml 04/12/2017 Unknown Sed Rate Ord21 ESR 23 mm/hr 04/12/2017 Unknown C-Reactive Protein Qnt Crqnt CRP 0.2 mg/dl 2016 Unknown Tsh Ord6 hTSH II 1.26 uIU/mL 11/23/2016 Unknown Comp Metabolic Atx674 NA 139 mEq/L 11/23/2016 Unkn own Comp Metabolic Lxx328 K 3.8 mEq/L 11/23/2016 Unkn own Comp Metabolic Ixk775 CL 105 mEq/L 11/23/2016 Unkn own Comp Metabolic Sxp189 CO2 27.0 mEq/L 11/23/2016 Unk nown Comp Metabolic Ugn157 ANION GAP 11 11/23/2016 Unkn own Comp Metabolic Pqc613 GLUCOSE 110 mg/dL 11/23/2016 Unkn own Comp Metabolic Guh189 Creat 0.6 mg/dL 11/23/2016 Unkn own Comp Metabolic Oxg302 eGFR 98 ml/min/1.73m2 11/24/19 17 Unknown Comp Metabolic Rar285 BUN 15 mg/dL 11/23/2016 Unkn own Comp Metabolic Stl554 B/C Ratio 23.4 Ratio 11/23/2016 Unk nown Comp Metabolic Nhf634 CALCIUM 9.5 mg/dL 11/23/2016 Unkn own Comp Metabolic Fhd748 ALK PHOS 42 U/L 11/23/2016 Unkn own Comp Metabolic Hhz441 AST(SGOT) 15 U/L 11/23/2016 Unkn own Comp Metabolic Qvi671 ALT(SGPT) 12 U/L 11/23/2016 Unkn own Comp Metabolic Qpg093 BILI T 1.0 mg/dL 11/23/2016 Unkn own Comp Metabolic Rae102 ALBUMIN 4.2 g/dL 11/23/2016 Unkn own Comp Metabolic Out882 TPRO 7.1 g/dL 11/23/2016 Unkn own Comp Metabolic Cek379 GLOB 2.9 g/dL 11/23/2016 Unkn own Comp Metabolic Lio364 A/G Ratio 1.5 Ratio 11/23/2016 Unkn own Comp Metabolic Nqg025 Osmo 279 mOsmo 11/23/2016 Unkn own Lipid [...] 11/24/19 17 Unknown Cbc With Differential Ord2 [place]% 9.9 % 11/24/19 17 Unknown Cbc With [...] K/ul 017 Unknown Cbc With Differential Ord2 [place] ABS# 0.6 K/ul 11/24/19 17 Unknown Cbc With Differential Ord2 Eos ABS# 0.2 K/ul 11/24/19 17 Unknown Cbc With Differential Ord2 Baso ABS# 0.1 K/ul 11/24/19 17 Unknown Microalbumin Rjf163 MicroAlb <0.7 mg/dL 11/23/2016 Unkno wn %Hba1C Nmv176 % HbA1c 74870-0 5.4 % 11/23/2016 Unknown %Hba1C Wfl243 Gluc Ave 108 mg/dL 11/23/2016 Unknown %Hba1C Jhx823 % HbA1c 40441-2 5.4 % 11/04/2015 Unknown %Hba1C Gza267 Gluc Ave 108 mg/dL 11/04/2015 Unknown Lipid Ord30 CHOL 169 mg/dL 11/04/2015 Unknown Lipid Ord30 HDL 48.0 mg/dl 11/04/2015 Unknown Lipid Ord30 TRIG 160 mg/dL 11/04/2015 Unknown Lipid Ord30 LDL 89 mg/dL 11/04/2015 Unknown Lipid Ord30 C/HDL 3.5 Ratio 11/04/2015 Unknown Microalbumin Cks777 MicroAlb 1.7 mg/dL 11/04/2015 Unknow n Tsh Ord6 hTSH II 1.00 uIU/mL 11/04/2015 Unknown Comp Metabolic Pls492 NA 138 mEq/L 11/04/2015 Unkn own Comp Metabolic Ytk010 K 3.7 mEq/L 11/04/2015 Unkn own Comp Metabolic Ajn607 CL 103 mEq/L 11/04/2015 Unkn own Comp Metabolic Yvh857 CO2 28.0 mEq/L 11/04/2015 Unk nown Comp Metabolic Bgh268 ANION GAP 11 11/04/2015 Unkn own Comp Metabolic Ojb361 GLUCOSE 96 mg/dL 11/04/2015 Unkn own Comp Metabolic Jpz176 Creat 0.7 mg/dL 11/04/2015 Unkn own Comp Metabolic Htv832 eGFR 92 ml/min/1.73m2 11/04/19 16 Unknown Comp Metabolic Eus969 BUN 15 mg/dL 11/04/2015 Unkn own Comp Metabolic Veu049 B/C Ratio 22.1 Ratio 11/04/2015 Unk nown Comp Metabolic Xqb190 CALCIUM 9.3 mg/dL 11/04/2015 Unkn own Comp Metabolic Zje048 ALK PHOS 43 U/L 11/04/2015 Unkn own Comp Metabolic Fzl463 AST(SGOT) 14 U/L 11/04/2015 Unkn own Comp Metabolic Yqo171 ALT(SGPT) 9 U/L 11/04/2015 Unkn own Comp Metabolic Iod893 BILI T 0.8 mg/dL 11/04/2015 Unkn own Comp Metabolic Tgt021 ALBUMIN 4.3 g/dL 11/04/2015 Unkn own Comp Metabolic Kpf652 TPRO 7.0 g/dL 11/04/2015 Unkn own Comp Metabolic Nmf720 GLOB 2.7 g/dL 11/04/2015 Unkn own Comp Metabolic Pdk825 A/G Ratio 1.6 Ratio 11/04/2015 Unkn own Comp Metabolic Pys817 Osmo 276 mOsmo 11/04/2015 Unkn own Cbc [...] 11/04/19 16 Unknown Cbc With Differential Ord2 [place]% 9.0 % 11/04/19 16 Unknown Cbc With [...] K/ul 016 Unknown Cbc With Differential Ord2 [place] ABS# 0.6 K/ul 11/04/19 16 Unknown Cbc With Differential Ord2 Eos ABS# 0.2 K/ul 11/04/19 16 Unknown Cbc With Differential Ord2 Baso ABS# 0.0 K/ul 11/04/19 16 Unknown Cbc With Differential Ord2 New Analyzer Notice Please note new ref ranges starting 09-30-2015 due to implemntation of new five part differential hematolgy analyzer. 11/04/2015 Unknown %Hba1C Tut551 % HbA1c 04031-5 5.2 % 05/06/2015 Unknown %Hba1C Aep228 Gluc Ave 103 mg/dL 05/06/2015 Unknown Lipid [...] 14.7 % 05/06/20 15 Unknown Comp Metabolic Npe124 NA 137 mEq/L 05/06/2015 Unkn own Comp Metabolic Mlt425 K 3.6 mEq/L 05/06/2015 Unkn own Comp Metabolic Ilo479 CL 102 mEq/L 05/06/2015 Unkn own Comp Metabolic Ega783 CO2 28.0 mEq/L 05/06/2015 Unk nown Comp Metabolic Rea059 ANION GAP 11 05/06/2015 Unkn own Comp Metabolic Qio140 GLUCOSE 97 mg/dL 05/06/2015 Unkn own Comp Metabolic Elf967 Creat 0.7 mg/dL 05/06/2015 Unkn own Comp Metabolic Prc785 eGFR 94 ml/min/1.73m2 05/06/20 15 Unknown Comp Metabolic Xmt892 BUN 14 mg/dL 05/06/2015 Unkn own Comp Metabolic Csh872 B/C Ratio 20.9 Ratio 05/06/2015 Unk nown Comp Metabolic Qzt418 CALCIUM 9.5 mg/dL 05/06/2015 Unkn own Comp Metabolic Kil046 ALK PHOS 49 U/L 05/06/2015 Unkn own Comp Metabolic Kft094 AST(SGOT) 15 U/L 05/06/2015 Unkn own Comp Metabolic Mef003 ALT(SGPT) 11 U/L 05/06/2015 Unkn own Comp Metabolic Pki580 BILI T 0.8 mg/dL 05/06/2015 Unkn own Comp Metabolic Vam392 ALBUMIN 4.4 g/dL 05/06/2015 Unkn own Comp Metabolic Int254 TPRO 7.4 g/dL 05/06/2015 Unkn own Comp Metabolic Jlh687 GLOB 3.0 g/dL 05/06/2015 Unkn own Comp Metabolic Dbs597 A/G Ratio 1.5 Ratio 05/06/2015 Unkn own Comp Metabolic Sjk028 Osmo 274 mOsmo 05/06/2015 Unkn own Tsh Ord6 hTSH II 0.99 uIU/mL 05/06/2015 Unknown Procedures Procedure Codes Date THER/PROPH/DIAG INJ SC/IM CPT-4: 86209 07/21/2021 TRIAMCINOLONE ACET INJ NOS 10 mg CPT-4: J3301 021 TRIAMCINOLONE ACET INJ NOS 10 mg CPT-4: J3301 021 THER/PROPH/DIAG INJ SC/IM CPT-4: 93133 05/06/2021 TRIAMCINOLONE ACET INJ NOS 10 mg CPT-4: J3301 021 Vital Signs Date Vital 07/21/2021 Blood Pressure 1: 122/84 Code: 8480-6 BMI: 16.2 Code: 49621-9 Heart Rate 1: 94 bpm Height: 5' Code: 8302-2 Respiratory Rate: 18 bpm SpO2: 99% Temperature: 35.7 (C) / 96.3 (F) Weight: 83 lbs Code: 56797-5 07/01/2021 Blood Pressure 1: 110/70 Code: 8480-6 BMI: 16.0 Code: 89324-6 Heart Rate 1: 113 bpm Height: 5' Code: 8302-2 Respiratory Rate: 17 bpm SpO2: 99% Temperature: 36.3 (C) / 97.3 (F) Weight: 82 lbs Code: 97333-3 06/07/2021 Blood Pressure 1: 118/62 Code: 8480-6 BMI: 16.0 Code: 25787-5 Heart Rate 1: 87 bpm Height: 5' Code: 8302-2 Respiratory Rate: 16 bpm SpO2: 97% Temperature: 35.7 (C) / 96.3 (F) Weight: 82 lbs Code: 65323-9 05/13/2021 Blood Pressure 1: 122/70 Code: 8480-6 BMI: 17.0 Code: 32310-6 Heart Rate 1: 107 bpm Height: 5' Code: 8302-2 SpO2: 99% Temperature: 36. 3 (C) / 97.3 (F) Weight: 87 lbs Code: 48448-5 04/09/2021 Blood Pressure 1: 132/82 Code: 8480-6 BMI: 18.6 Code: 23479-4 Heart Rate 1: 90 bpm Height: 5' Code: 8302-2 Respiratory Rate: 20 bpm Temperature : 36.3 (C) / 97.3 (F) Weight: 95 lbs Code: 07729-0 03/25/2021 Blood Pressure 1: 106/70 Code: 8480-6 BMI: 17.6 Code: 71600-9 Heart Rate 1: 48 bpm Height: 5' Code: 8302-2 SpO2: 98% Temperature: 35. 7 (C) / 96.3 (F) Weight: 90 lbs Code: 20054-6 02/02/2021 Blood Pressure 1: 118/70 Code: 8480-6 BMI: 19.9 Code: 66640-9 Heart Rate 1: 66 bpm Height: 5' Code: 8302-2 SpO2: 99% Temperature: 36. 7 (C) / 98.0 (F) Weight: 102 lbs 2 oz Code: 19055-8 12/31/2020 Blood Pressure 1: 106/64 Code: 8480-6 BMI: 20.7 Code: 24666-1 Heart Rate 1: 68 bpm Height: 5' Code: 8302-2 Respiratory Rate: 17 bpm SpO2: 97% Temperature: 35.8 (C) / 96.4 (F) Weight: 106 lbs Code: 90925-2 07/02/2020 Blood Pressure 1: 138/78 Code: 8480-6 BMI: 21.7 Code: 22246-4 Heart Rate 1: 52 bpm Height: 5' Code: 8302-2 Respiratory Rate: 16 bpm SpO2: 99% Temperature: 36.6 (C) / 97.8 (F) Weight: 111 lbs Code: 31220-1 01/02/2020 Blood Pressure 1: 120/64 Code: 8480-6 BMI: 21.3 Code: 56450-8 Heart Rate 1: 65 bpm Height: 5' Code: 8302-2 SpO2: 95% Temperature: 36. 4 (C) / 97.5 (F) Weight: 109 lbs Code: 17788-2 07/04/2019 Blood Pressure 1: 112/70 Code: 8480-6 BMI: 22.3 Code: 49546-6 Heart Rate 1: 60 bpm Height: 5' Code: 8302-2 SpO2: 99% Weight: 114 lbs 7 oz Code: 52897-2 01/02/2019 Blood Pressure 1: 122/68 Code: 8480-6 BMI: 22.7 Code: 00463-1 Heart Rate 1: 67 bpm Height: 5' Code: 8302-2 SpO2: 99% Weight: 116 lbs Code: 20906-2 07/11/2018 Blood Pressure 1: 138/66 Code: 8480-6 BMI: 22.5 Code: 58074-4 Heart Rate 1: 97 bpm Height: 5' Code: 8302-2 SpO2: 99% Weight: 115 lbs Code: 90717-5 04/12/2017 Blood Pressure 1: 142/82 Code: 8480-6 BMI: 23.2 Code: 99398-3 Heart Rate 1: 66 bpm Height: 5' Code: 8302-2 SpO2: 97% Weight: 119 lbs Code: 39322-9 11/23/2016 Blood Pressure 1: 130/78 Code: 8480-6 BMI: 24.4 Code: 38218-9 Heart Rate 1: 65 bpm Height: 5' Code: 8302-2 SpO2: 99% Weight: 125 lbs Code: 76267-9 05/04/2016 Blood Pressure 1: 126/78 Code: 8480-6 BMI: 24.6 Code: 44905-0 Heart Rate 1: 59 bpm Height: 5' Code: 8302-2 SpO2: 98% Weight: 126 lbs Code: 03120-2 11/04/2015 Blood Pressure 1: 132/70 Code: 8480-6 BMI: 25.3 Code: 21149-3 Heart Rate 1: 58 bpm Height: 5' Code: 8302-2 Weight: 129 lbs 8 oz Code: 2 9463-7 05/06/2015 Blood Pressure 1: 138/78 Code: 8480-6 BMI: 25.0 Code: 81729-8 Heart Rate 1: 65 bpm Height: 5' Code: 8302-2 SpO2: 97% Weight: 128 lbs Code: 17972-5 Functional Status No Functional Status data Reason For Visit Reason For Visit Effective Dates Notes dyspepsia 07/21/2021 dysphagia 07/01/2021 abdominal pain 06/07/2021 weight loss 05/13/2021 paresthesia 04/09/2021 earache 03/25/2021 arthritis 02/02/2021 hypertension 12/31/2020 hypertension 07/02/2020 hypertension 01/02/2020 hypertension 07/04/2019 hypertension 01/02/2019 medication follow up 07/11/2018 hand pain 04/12/2017 hypertension 11/23/2016 hypertension 05/04/2016 hypertension 11/04/2015 hypertension 05/06/2015 Encounters Encounter Performer Location Codes Date ([id number]) 55370 EST. PATIENT, LEVEL IV Diagnosis: Esophageal dysphagia[ICD10: R13.19] Diagnosis: Underweight due to inadequate caloric intake[ICD10: R63.6] Diagnosis: Relapsing remitting multiple sclerosis[ICD10: G35] Aliyah Paris MD, [facility] CPT-4: 28546 07/21/2021 ([id number]) 92214 EST. PATIENT, LEVEL IV Diagnosis: Esophageal dysphagia[ICD10: R13.19] Diagnosis: Multiple sclerosis[ICD10: G35] Diagnosis: Esophageal abnormality[ICD10: K22.9] Diagnosis: Abnormal findings on esophagogastroduodenoscopy (EGD)[ICD10: R19.8] Aliyah Paris MD, [facility] CPT-4: 88623 07/01/2021 ([id number]) 63214 EST. PATIENT, LEVEL IV Diagnosis: Dysphagia[ICD10: r13.10] Diagnosis: Underweight due to inadequate caloric intake[ICD10: R63.6] Diagnosis: S/P percutaneous endoscopic gastrostomy (PEG) tube placement[ICD10: Z93.1] Diagnosis: Thrush, oral[ICD10: B37.0] Diagnosis: Multiple sclerosis[ICD10: G35] Aliyah Paris MD, [facility] CPT-4: 96650 06/07/2021 ([id number]) 22214 EST. PATIENT, LEVEL IV Diagnosis: Dysphagia[ICD10: r13.10] Diagnosis: Underweight due to inadequate caloric intake[ICD10: R63.6] Diagnosis: Multiple sclerosis[ICD10: G35] Mira galicia MD, [facility] CPT-4: 33308 05/13/2021 ([id number]) 32211 EST. 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 PATIENT, LEVEL IV Diagnosis: Essential (primary) hypertension[ICD10: I10] Diagnosis: Multiple sclerosis[ICD10: G35] Diagnosis: Type 2 diabetes mellitus without complications[ICD10: E11.9] Diagnosis: Underweight due to inadequate caloric intake[ICD10: R63.6] Aliyah Paris MD, [facility] CPT-4: 68894 12/31/2020 [id number] 74833 EST. PATIENT, LEVEL IV Diagnosis: Essential (primary) hypertension[ICD10: I10] Diagnosis: Type 2 diabetes mellitus without complications[ICD10: E11.9] Diagnosis: Multiple sclerosis[ICD10: G35] Aliyah Paris MD, [facility] CPT-4: 13789 07/02/2020 ([id number]) 30944 EST. PATIENT, LEVEL IV Diagnosis: Type 2 diabetes mellitus without complications[ICD10: E11.9] Diagnosis: Essential (primary) hypertension[ICD10: I10] Diagnosis: Multiple sclerosis[ICD10: G35] Aliyah Paris MD, [facility] CPT-4: 61047 01/02/2020 ([id number]) 83412 EST. PATIENT, LEVEL IV Diagnosis: Essential (primary) hypertension[ICD10: I10] Diagnosis: Type 2 diabetes mellitus without complications[ICD10: E11.9] Diagnosis: Multiple sclerosis[ICD10: G35] Aliyah Paris MD [facility] CPT-4: 05395 07/04/2019 ([id number]) 87343 EST. PATIENT, LEVEL IV Diagnosis: Essential (primary) hypertension[ICD10: I10] Diagnosis: Type 2 diabetes mellitus without complications[ICD10: E11.9] Diagnosis: Multiple sclerosis[ICD10: G35] Aliyah Paris MD, [facility] CPT-4: 03599 01/02/2019 ([id number]) 78293 EST. PATIENT, LEVEL IV Diagnosis: Type 2 diabetes mellitus without complications[ICD10: E11.9] Diagnosis: Essential (primary) hypertension[ICD10: I10] Diagnosis: Multiple sclerosis[ICD10: G35] Aliyah Paris MD, [facility] CPT-4: 67269 07/11/2018 [id number] EST. PATIENT, LEVEL IV Diagnosis: Pain in right hand[ICD10: M79.641] Diagnosis: Multiple sclerosis[ICD10: G35] Tiffanie Paris MD, [facility] CPT-4: 22695 04/12/2017 ([id number]) 98177 EST. PATIENT, LEVEL IV Diagnosis: Essential (primary) hypertension[ICD10: I10] Diagnosis: Type 2 diabetes mellitus without complications[ICD10: E11.9] Aliyah Paris MD, [facility] CPT-4: 70398 11/23/2016 ([id number]) 70502 EST. PATIENT, LEVEL IV Diagnosis: Essential (primary) hypertension[ICD10: I10] Diagnosis: Type 2 diabetes mellitus without complications[ICD10: E11.9] [facility] CPT-4: 74423 05/04/2016 ([id number]) 32178 EST. PATIENT, LEVEL IV Diagnosis: Type 2 diabetes mellitus without complications[ICD10: E11.9] Diagnosis: Essential (primary) hypertension[ICD10: I10] [facility] CPT-4: 98991 11/04/2015 ([id number]) OFFICE VISIT, NEW - LEVEL 4 Diagnosis: DIABETES TYPE II[ICD9: 250.00] Diagnosis: ESSENTIAL HYPERTENSION[ICD9: 401.9] [facility] CPT-4: 69459 05/06/2015 Plan of Care Planned Activity Notes Codes Status Date Visit Plan: Relapsing MS - symptoms impr fela - will give a dose of kenalog injection today 40mg - and pt to be restarted on prednisolone liquid in tapering dose. Dysphagia - appt with Night Worker in [place] has been previously ordered, the pt and family have not yet received a call for her to be seen. We will contact the office again for this to be sped up if possible. Continue with tube feeds - pt is getting around 1400 calories a day. 07/21/2021 Appointment: Aliyah Paris WPtel: [address] [place], [place] [phone] (30 min) Complex 07/21/2021 Patient Education: Patient Medication Summary Completed 07/21/2021 Visit Plan: Dysphagia-status post peg tu be placement - Barium swallow study was stopped after 46 seconds - due to aspiration of the barium liquid - pt was sent for emergent CT scan today due to the report on the barium swallow showing possible mass of esophagus versus stricture of esophagus. CT scan report reviewed - showed area of likely stricture but no mass - defer to Dr. Welch or seek second opinion for repeat EGD since she did have a stricture on previous EGD that was dilated, perhaps the stricture re-formed or was not dilated enough. Pt did have a few days of normal swallowing after the initial scope with dilation several months ago. Pt's sisters report that Dr. Welch told them he would not re-scope her - he thinks that her issues are due to her Multiple Sclerosis. Change feedings to higher calorie feedings and if possible increase protein with a scoop of protein powder. Weight loss- secondary to dysphagia MS- patient has appt with neurology 07/01/2021 Appointment: Ali[facility]ah Paris [facility]Ptel[facility] (30 min) Complex 07/01/2021 Patient Education: Patient Medication Summary Completed 07/01/2021 Visit Plan: Kenalog shot today, liquid P rednisone orally for home. start home health. with [facility] - with ensure tube feeding 1 can every 4 hours while awake and 30mL flushes of water after feedings Dysphagia-status post peg tube placement Weight loss- secondary to dysphagia - consult to offset second press operator for home health and tube feed adjustments. MS- patient has appt in June with neurology - suspect flair - rx for steroids - will re-eval on if this prednisone is helpful for the pt - kenalog shot today. Thrush - rx for nystatin swish and spit since she cannot swallow well as well as diflucan through peg. 06/07/2021 Appointment: lAiyah Paris WPtel[facility] (15 min) Moderate 06/07/2021 Patient Education: Patient Medication Summary Completed 06/07/2021 Visit Plan: Dysphagia- patient to see Dr Welch for consultation today for EGD to evaluate possible stricture -refer for ST with Home Health Weight loss- secondary to dysphagia - recommend thickened liquids and pureed foods for now MS- patient has appt in June with neurology 05/13/2021 Appointment: [facility] [phone] [phone] [place] (30 min) Complex 05/13/2021 Patient [...] increased edema. 04/09/2021 Appointment: Mira Danielle WPtel: [phone] [phone] [place] (15 min) Moderate 04/09/2021 Appointment: Mira Danielle WPtel: [phone] [phone] [place] (15 min) Moderate 04/09/2021 Patient Education: Patient Medication Summary Completed 04/09/2021 Patient Education: Hypertension Completed 04/09/2021 Care Plan: Cbc With Differential Pending 04/09/2021 Care Plan: Comp Metabolic Pending Appointment: Mira Danielle WPtel: [phone] [phone] [place] (30 min) Complex 04/08/2021 Visit Plan: [...] Rheumatoid Arthritis- continue follow up with rheumatology. Gastroenterology Nurse dc'd methotrexate, folic acid, and plaquinel in January 2021 to help improve appetite. Pt reports had steroid injection in January 2021 for bilateral h and pain, but pain has been controlled since. Pt encouraged to continue follow up appt with crate tier. Hypertension- Pt reports not checking BP at [...] taste. 03/25/2021 Appointment: Mira Danielle WPtel: [phone] [phone] (15 min) Moderate 03/25/2021 Patient Education: Patient Medication Summary Completed 03/25/2021 Patient Education: Hypertension Completed 03/25/2021 Care Plan: Vitamin D 25 Oh Pending 03/25/2021 Care Plan: Cbc With Differential Pending 03/25/2021 Care Plan: Comp Metabolic Pending Visit Plan: Arthritis - pt has been on m ultiple different treatments in the past - would like to seek out a new crate tier - she would like a Referral to Dr. Woodruff in [place] Hypertension - well controlled - continue with [...] time. 02/02/2021 Appointment: Aliyah Paris WPtel: [phone] [facility] (15 min) Moderate 02/02/2021 Patient Education: Patient [...] time. 12/31/2020 Appointment: [facility] [phone] [facility] (15 min) Moderate 12/31/2020 Patient Education: Patient [...] this time. 07/02/2020 Appointment: Ali[facility] Paris [facility]Ptel[facility] [phone] [facility] [place] (15 min) Moderate 07/02/2020 Patient Education: [...] time. 01/02/2020 Appointment: [facility] [phone] [facility] (15 min) Moderate 01/02/2020 Patient Education: Patient Medication Summary Completed 01/02/2020 Patient Education: Diabetes Completed 01/02/2020 Patient Education: Hypertension Completed 01/02/2020 Care Plan: Cbc With Differential Pending 01/02/2020 Care Plan: Comp Metabolic Pending Care Plan: Lipid Pending 01/02/2020 Care Plan: %Hba1C LOINC : 68409-8 Pending 01/02/2020 Care Plan: Tsh Pending 01/02/2020 [...] time. 07/04/2019 Appointment: [facility] [phone] [facility] (15 min) Moderate 07/04/2019 Patient Education: Patient Medication Summary Completed 07/04/2019 Patient Education: Hypertension Completed 07/04/2019 Patient Education: Diabetes Completed 07/04/2019 Care Plan: Comp Metabolic Pending Care Plan: Cbc With Differential Pending 07/04/2019 Care Plan: %Hba1C LOINC : 36807-5 Pending 07/04/2019 Care Plan: Tsh Pending 07/04/2019 [...] closely. 01/02/2019 Appointment: Ali[facility] Paris [facility]el[facility] [phone] [facility] (15 min) Moderate 01/02/2019 Patient Education: Patient [...] symptoms closely. 07/11/2018 Appointment: Aliyah Paris WPtel: [facility] (15 min) Moderate 07/11/2018 Patient Education: Patient [...] evaluation/monitoring 04/12/2017 Appointment: Tiff[facility] [phone] [facility] (15 min) Moderate 04/12/2017 Patient Education: [...] controlled. 11/23/2016 Appointment: Aliyah Paris WPtel: [phone] [facility] (15 min) Moderate 11/23/2016 Patient Education: Patient [...] controlled. 11/04/2015 Appointment: Aliyah Paris WPtel: [phone] [facility] [place] (15 min) Moderate 11/04/2015 Patient Education: [...] home. 05/06/2015 Appointment: [facility]el[facility] [phone] [facility] [place] (S) New Patient 05/06/2015 Patient Education: Patient Medication Summary Completed 05/06/2015 Patient Education: Hypertension Completed 05/06/2015 Instructions Comment . Relapsing MS - symptoms improved - tenisha l give a dose of kenalog injection today 40mg - and pt to be restarted on prednisolone liquid in tapering dose. Dysphagia - appt with Night Worker in [place] has been previously ordered, the pt and family have not yet received a call for her to be seen. We will contact the office again for this to be sped up if possible. Continue with tube feeds - pt is getting around 1400 calories a day. GET LABS DONE NOW AND WE ARE CALLING YOU R INSURANCE TO SEE IF THEY WILL APPROVE YOUR CT SCAN FOR TODAY AT 1:30 ENSURE PLUS - HIGH PROTEIN 16 GRAMS OF PROTEIN AND 350 CALORIES APPROVED [id number] . Dysphagia-status post peg tube placement - Barium swallow study was stopped after 46 seconds - due to aspiration of the barium liquid - pt was sent for emergent CT scan today due to the report on the barium swallow showing possible mass of esophagus versus stricture of esophagus. CT scan report reviewed - showed area of likely stricture but no mass - defer to Dr. Welch or seek second opinion for repeat EGD since she did have a stricture on previous EGD that was dilated, perhaps the stricture re-formed or was not dilated enough. Pt did have a few days of normal swallowing after the initial scope with dilation several months ago. Pt's sisters report that Dr. Welch told them he would not re-scope her - he thinks that her issues are due to her Multiple Sclerosis. Change feedings to higher calorie feedings and if possible increase protein with a scoop of protein powder. Weight loss- secondary to dysphagia MS- patient has appt with neurology . Kenalog shot today, liquid Prednisone orally for home. start home health. with [facility] - with ensure tube feeding 1 can every 4 hours while awake and 30mL flushes of water after feedings Dysphagia-status post peg tube placement Weight loss- secondary to dysphagia - consult to offset second press operator for home health and tube feed adjustments. [...] Rheumatoid Arthritis- continue follow up with rheumatology. Gastroenterology Nurse dc'd methotrexate, folic acid, and plaquinel in January 2021 to help improve appetite. Pt reports had steroid injection in January 2021 for bilateral hand pain, but pain has been controlled since. Pt encouraged to continue follow up appt with crate tier. Hypertension- Pt reports not checking BP at [...] would like to seek out a new crate tier - she would like a Referral to Dr. Woodruff in [place] Hypertension - well controlled - continue with [...]
--- OUTSIDE RECORDS SUMMARY | 2021-08-11 12:42 | XMS REPORT | CCD ---
Author Author Libby Paris Organization Aliyah Paris MD, [facility] Address [address] [place] [address] Phone Care Team Providers Care Court Assistant Name Role Phone Aliyah Paris PP Unavailable CCM Unavailable Summary Purpose Interface Exchange Insurance Providers Payer name Policy type / Coverage type Covered democrat ID Effective Begin Date Effective End Date [employer] Commercial [employer] [id number] Unknown Family history Sister Diagnosis Age At Onset Hypertension Unknown Diabetes Unknown Mother Diagnosis Age At Onset Hypertension Unknown Cancer Unknown Social History Social History Element Codes Description Effective Dates Employment Unknown 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 [employer] 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/2015 Marital status Unknown Single 05/06/[address]: 547203151 Never smoker 05/06/[address]: 460021456 Never drinks alcohol 2014 Allergies, Adverse Reactions, Alerts Substance Reaction Codes Entered Date Inactivated Date Status * NO KNOWN DRUG ALLERGIES Unknown 11/04/2015 No Inactiv e Date Active Problems Condition Codes Effective Dates Condition Status Abnormal findings on esophagogastroduodenoscopy (EGD) ICD-10: R19.8 ICD-9: 796.4 07/01/2021 Active Esophageal abnormality ICD-10: K22.9 ICD-9: 530.9 07/01/2021 Active Esophageal dysphagia ICD-10: R13.19 ICD-9: 787.29 07/01/2021 Active Multiple sclerosis ICD-10: G35 ICD-9: 340 04/12/2017 Active Dysphagia ICD-10: r13.10 ICD-9: 787.20 05/13/2021 [...] Instructions nystatin 100,000 unit/mL oral suspension RxNorm: 561228 Take 5 Milliliter(s) Oral four times a day swish and spit 06/22/2021 07/01/2021 Inactive Mucinex Fast-Max Chest Congestion 100 mg/5 mL oral liquid Rx Norm: 758456 15 Milliliter(s) Oral as directed 15mL via peg tube tid x 2 weeks then daily x 2 weeks then stop 06/10/2021 07/07/2021 Active (mucinex liquid - guaifenesin) Mucinex Fast-Max Chest Congestion 100 mg/5 mL oral liquid Rx Norm: 129366 15 Milliliter(s) Oral as directed 15mL via peg tube tid x 2 weeks then daily x 2 weeks then stop 06/10/2021 06/10/2021 Inactive nystatin 100,000 unit/mL oral suspension RxNorm: 723607 Take 5 Milliliter(s) Oral four times a day swish and spit 06/10/2021 06/19/2021 Inactive NEED NEW LABEL ONLY FOR ORAL USE Pepcid AC 20 mg tablet RxNorm: 731519 Take 1 Tablet(s) Oral two times a day give via peg 06/07/2021 08/05/2021 Active prednisolone 15 mg/5 mL oral solution RxNorm: 466232 Ta ke 5 Milliliter(s) Oral two times a day take via peg tube 06/07/2021 06/13/2021 Inactive nystatin 100,000 unit/mL oral suspension RxNorm: 081061 Take 5 Milliliter(s) Oral four times a day push via peg 06/07/2021 06/07/2021 Inactive Kenalog-80 80 mg/mL suspension for injection RxNorm: 573209 3 Take Milliliter(s) Injection 06/07/2021 06/07/2021 Inactive Diflucan 150 mg tablet RxNorm: 188402 Take 1 Tablet(s) Oral every day crush and give via peg 06/07/2021 06/11/2021 Inactive Kenalog 40 mg/mL suspension for injection RxNorm: 8239423 Take Milliliter(s) Injection 05/06/2021 05/06/2021 Inactive mirtazapine 7.5 mg tablet RxNorm: 178132 Take 1/2 Tablet(s) Ora l every evening 04/09/2021 08/06/2021 Active Vitamin D3 125 mcg (5,000 unit) tablet RxNorm: 729761 1 Tablet(s) Oral every day 01/05/2021 No Stop Date Active Vitamin D2 1,250 mcg (50,000 unit) capsule RxNorm: 4364711 1 Capsule(s) Oral weekly take with vit d 5000 u daily 01/05/2021 02/01/2021 Inactive Ziac 10 mg-6.25 mg tablet RxNorm: 571162 Take 1 tablet by mouth once daily 08/20/2020 04/08/2021 Inactive Vitamin D2 1,250 mcg (50,000 unit) capsule RxNorm: 5621666 1 Capsule(s) Oral weekly 07/08/2020 09/30/2020 Inactive Vitamin D2 1,250 mcg (50,000 unit) capsule RxNorm: 7999220 1 Capsule(s) Oral weekly 07/08/2020 07/07/2020 Inactive methotrexate sodium 2.5 mg tablet RxNorm: 449072 3 Tabl et(s) Oral once a week - Managed by rheumatology 07/02/2020 03/24/2021 Inactive Ziac 10 mg-6.25 mg tablet RxNorm: 252087 TAKE 1 TABLET BY MOUTH ONCE DAILY 12/09/2019 07/05/2020 Inactive Ziac 10 mg-6.25 mg tablet RxNorm: 159352 TAKE 1 TABLET BY MOUTH ONCE DAILY 05/28/2019 12/08/2019 Inactive metformin 500 mg tablet RxNorm: 732080 1/2 Tablet(s) PO BID 019 01/01/2020 Inactive metformin 500 mg tablet RxNorm: 068919 1/2 Tablet(s) PO BID 019 05/05/2019 Inactive methotrexate sodium 2.5 mg tablet RxNorm: 457880 6 Tabl et(s) PO QW -Managed by rheumatology 01/02/2019 07/01/2020 Inactive Ziac 10 mg-6.25 mg tablet RxNorm: 645690 TAKE 1 TABLET BY MOUTH ONCE DAILY 08/29/2018 05/27/2019 Inactive methotrexate sodium 2.5 mg tablet RxNorm: 840866 3 Tablet(s) PO QW 07/11/2018 01/01/2019 Inactive Ziac 10 mg-6.25 mg tablet RxNorm: 897213 TAKE 1 TABLET BY MOUTH ONCE DAILY 06/26/2018 08/28/2018 Inactive metformin 500 mg tablet RxNorm: 825999 TAKE ONE TABLET BY MOUTH TWICE DAILY 04/03/2018 01/03/2019 Inactive Ziac 10 mg-6.25 mg tablet RxNorm: 295588 TAKE ONE TABLET BY JEFF TH ONCE DAILY 01/31/2018 06/25/2018 Inactive metformin 500 mg tablet RxNorm: 429414 TAKE ONE TABLET BY MOUTH TWICE DAILY 10/04/2017 04/02/2018 Inactive Ziac 10 mg-6.25 mg tablet RxNorm: 850259 TAKE ONE TABLET BY JEFF TH ONCE DAILY 08/02/2017 01/30/2018 Inactive diclofenac potassium 50 mg tablet RxNorm: 216064 1 Tabl et(s) PO BID as needed for pain 04/12/2017 05/11/2017 Inactive metformin 500 mg tablet RxNorm: 413018 Tablet(s) TAKE O NE TABLET BY MOUTH TWICE DAILY 04/06/2017 10/02/2017 Inactive Ziac 10 mg-6.25 mg tablet RxNorm: 174630 TAKE ONE TABLET BY JEFF TH ONCE DAILY 04/03/2017 07/31/2017 Inactive multivitamin with iron tablet RxNorm: 1 Tablet(s) PO daily 11/201602/16/2017 Inactive Claritin-D 24 Hour 10 mg-240 mg tablet,extended release RxNo rm: 4356792 1 Tablet(s) PO daily 11/23/2016 11/22/2016 Inactive Claritin-D 24 Hour 10 mg-240 mg tablet,extended release RxNo rm: 1471364 1 Tablet(s) PO daily 11/23/2016 01/01/2019 Inactive Ziac 10 mg-6.25 mg tablet RxNorm: 002026 TAKE ONE TABLET BY JEFF TH ONCE DAILY 10/10/2016 04/02/2017 Inactive metformin 500 mg tablet RxNorm: 199340 TAKE ONE TABLET BY MOUTH TWICE DAILY 10/05/2016 04/02/2017 Inactive Claritin-D 12 Hour 5 mg-120 mg tablet,extended release RxNor m: 1128792 1 Tablet(s) PO BID as needed 09/15/2016 11/22/2016 Inactive Ziac 10 mg-6.25 mg tablet RxNorm: 977177 Tablet(s) 1 Tablet(s) PO daily 04/12/2016 10/08/2016 Inactive metformin 500 mg tablet RxNorm: 384987 1 Tablet(s) PO BID 01/08/2016 10/03/2016 Inactive Ziac 10 mg-6.25 mg tablet RxNorm: 779523 1 Tablet(s) PO daily 10/1204/08/2016 Inactive Ziac 10 mg-6.25 mg tablet RxNorm: 926386 1 Tablet(s) PO daily 07/1510/11/2015 Inactive metformin 500 mg tablet RxNorm: 126851 1 Tablet(s) PO BID 04/14/2015 01/07/2016 Inactive metformin 500 mg tablet RxNorm: 796057 1 Tablet(s) PO BID 04/14/2015 04/13/2015 Inactive Ziac 10 mg-6.25 mg tablet RxNorm: 802537 1 Tablet(s) PO daily 04/1407/12/2015 Inactive aspirin 81 mg tablet RxNorm: 075959 1 Tablet(s) PO daily 05/06/2015 Active Ziac 10 mg-6.25 mg tablet RxNorm: 439265 1 Tablet(s) PO daily 04/1404/13/2015 Inactive Claritin-D 12 Hour 5 mg-120 mg tablet,extended release RxNor m: 8081797 1 Tablet(s) PO BID 09/15/2016 09/14/2016 Inactive Plaquenil 200 mg tablet RxNorm: 068927 1 Tablet(s) PO daily 021 03/24/2021 Inactive Naprosyn 500 mg tablet RxNorm: 450476 1 Tablet(s) PO BID 02/02/2021 0 02/01/2021 Inactive ikmintzp-kepmojnfkf-cg glycn-C oral RxNorm: oral 07/04/2019 07/03/2019 Inactive folic acid 1 mg tablet RxNorm: 878947 1 Tablet(s) PO daily 03/25/20 21 03/24/2021 Inactive methotrexate sodium 2.5 mg tablet RxNorm: 378148 6 Tablet(s) PO QW 07/11/2018 07/10/2018 Inactive Medication Administered Medication Codes Instructions Start Date Status Kenalog-80 80 mg/mL suspension for injection RxNorm: 5243831 Mi lliliter 06/07/2021 No longer Active Kenalog 40 mg/mL suspension for injection RxNorm: 2531718 Millilite r 05/06/2021 No longer Active Immunizations Vaccine Codes Date Status Covid-19 CVX: 207 12/21/2020 Covid-19 CVX: 207 11/18/2020 Results Observation Observation Code Item Item Code Result Date S ervice Location MEAN GLUC 3841612 Calc Mean Gluc 85 mg/dL 01/01/2021 Unkn own A1C HPLC 9844393 Hgb A1c 93952-0 4.6 % 01/01/2021 Unknown LIPID GRP 1804014 CHOLESTEROL 148 mg/dL 01/01/2021 Unknown LIPID GRP 7613296 Triglyceride 136 mg/dL 01/01/2021 Unknow n LIPID GRP 5579042 HDL CHOLESTEROL 46 mg/dL 01/01/2021 Unk nown LIPID GRP 6927880 Chol/HDL Ratio 3.22 ratio 01/01/2021 Unk nown LIPID GRP NON-HDL Chol 102 mg/dL 01/01/2021 Unknow n LIPID GRP 6027183 LDL Cholesterol 75 mg/dL 01/01/2021 Unk nown FOLIC ACID 5055900 Folate 6.0 ng/mL 01/01/2021 Unknown CHEM 14 9199129 AST 23 U/L 01/01/2021 Unknown CHEM 14 7450741 ALT 14 U/L 01/01/2021 Unknown CHEM 14 4839394 BUN 21 mg/dL 01/01/2021 Unknown CHEM 14 8008902 ALBUMIN 3.8 g/dL 01/01/2021 Unknown CHEM 14 3885506 CHLORIDE 105 mmol/L 01/01/2021 Unknown CHEM 14 3212532 Bili Total 0.5 mg/dL 01/01/2021 Unknown CHEM 14 5138828 ALK PHOS 47 U/L 01/01/2021 Unknown CHEM 14 1102937 SODIUM 137 mmol/L 01/01/2021 Unknown CHEM 14 0841842 CREATININE 0.89 mg/dL 01/01/2021 Unknown CHEM 14 2767286 CALCIUM 9.5 mg/dL 01/01/2021 Unknown CHEM 14 8973547 POTASSIUM 4.2 mmol/L 01/01/2021 Unknown CHEM 14 4454836 TOTAL PROTEIN 7.3 g/dL 01/01/2021 Unkno wn CHEM 14 8001913 GLUCOSE 92 mg/dL 01/01/2021 Unknown CHEM 14 9173321 Bicarbonate 21 mmol/L 01/01/2021 Unknown CHEM 14 8440837 AGAP 11 mmol/L 01/01/2021 Unknown CBC 7214273 WBC 8.3 10e9/L 01/01/2021 Unknown CBC 2593868 RBC 3.66 10e12/L 01/01/2021 Unknow n CBC 6346457 HEMOGLOBIN 11.5 g/dL 01/01/2021 Unknown CBC 6049824 HEMATOCRIT 33.7 % 01/01/2021 Unknown CBC 0828810 MCV 92.1 fL 01/01/2021 Unknown CBC 0577016 MCH 31.4 pg 01/01/2021 Unknown CBC 6449498 MCHC 34.1 g/dL 01/01/2021 Unknown CBC 0043001 PLATELET COUNT 214 10e9/L 01/01/2021 Unk nown CBC 5812511 Mean Plt Volume 10.9 fL 01/01/2021 Unk nown CBC 9116212 Neut Auto 69.8 % 01/01/2021 Unknown CBC 1600494 Lymph Auto 14.5 % 01/01/2021 Unknown CBC 3928503 [place] Auto 11.9 % 01/01/2021 Unknown CBC 5175511 Eos Auto 3.0 % 01/01/2021 Unknown CBC 0520449 RDW 14.4 % 01/01/2021 Unknown CBC 1476317 Baso Auto 0.8 % 01/01/2021 Unknown CBC 1033397 Neutrophil Abs 5.79 10e9/L 01/01/2021 Un known CBC 3000815 Lymphocyte Abs 1.20 10e9/L 01/01/2021 Un known CBC 3325810 Monocyte Abs 0.99 10e9/L 01/01/2021 Unkn own CBC 0190108 Eosinophil Abs 0.25 10e9/L 01/01/2021 Un known CBC 4218372 RDW-SD 46.3 fL 01/01/2021 Unknown CBC 3351330 Basophil Abs 0.07 10e9/L 01/01/2021 Unkn own TSH 9118258 TSH 1.235 uIU/mL 01/01/2021 Unknow n VIT D TOTL 4966565 Vitamin D 25 OH 29.1 ng/mL 01/01/2021 U nknown GFR CALC 0451179 GFR Non Afr Amr >60 mL/min 01/01/2021 Un known GFR CALC 4257956 GFR Afr Amr >60 mL/min 01/01/2021 Unknow n MEAN GLUC 1204711 Calc Mean Gluc 97 mg/dL 07/06/2020 Unkn own A1C HPLC 6542706 Hgb A1c 24120-6 5.0 % 07/06/2020 Unknown FOLIC ACID 9424911 Folate >20.0 ng/mL 07/02/2020 Unknow n VIT D TOTL 9512684 Vitamin D 25 OH 24.3 ng/mL 07/02/2020 U nknown CHEM 14 6658535 AST 16 U/L 07/02/2020 Unknown CHEM 14 0595484 ALT 8 U/L 07/02/2020 Unknown CHEM 14 5680586 BUN 19 mg/dL 07/02/2020 Unknown CHEM 14 0117541 ALBUMIN 4.1 g/dL 07/02/2020 Unknown CHEM 14 6193185 CHLORIDE 108 mmol/L 07/02/2020 Unknown CHEM 14 1644462 Bili Total 0.6 mg/dL 07/02/2020 Unknown CHEM 14 0379467 ALK PHOS 56 U/L 07/02/2020 Unknown CHEM 14 5550309 SODIUM 139 mmol/L 07/02/2020 Unknown CHEM 14 0033161 CREATININE 0.88 mg/dL 07/02/2020 Unknown CHEM 14 8850336 CALCIUM 9.3 mg/dL 07/02/2020 Unknown CHEM 14 3646233 POTASSIUM 4.3 mmol/L 07/02/2020 Unknown CHEM 14 7879564 TOTAL PROTEIN 7.7 g/dL 07/02/2020 Unkno wn CHEM 14 1188751 GLUCOSE 91 mg/dL 07/02/2020 Unknown CHEM 14 7253528 Bicarbonate 23 mmol/L 07/02/2020 Unknown CHEM 14 5664818 AGAP 8 mmol/L 07/02/2020 Unknown GFR CALC 9905212 GFR Non Afr Amr >60 mL/min 07/02/2020 Un known GFR CALC 3862709 GFR Afr Amr >60 mL/min 07/02/2020 Unknow n LIPID GRP 8786847 CHOLESTEROL 148 mg/dL 07/02/2020 Unknown LIPID GRP 5892318 Triglyceride 107 mg/dL 07/02/2020 Unknow n LIPID GRP 9335201 HDL CHOLESTEROL 50 mg/dL 07/02/2020 Unk nown LIPID GRP 9863606 Chol/HDL Ratio 2.96 ratio 07/02/2020 Unk nown LIPID GRP 2529315 NON-HDL Chol 98 mg/dL 07/02/2020 Unknow n LIPID GRP 2640624 LDL Cholesterol 77 mg/dL 07/02/2020 Unk nown CBC 7641689 WBC 8.7 10e9/L 07/02/2020 Unknown CBC 8850759 RBC 3.43 10e12/L 07/02/2020 Unknow n CBC 0334521 HEMOGLOBIN 10.0 g/dL 07/02/2020 Unknown CBC 7967987 HEMATOCRIT 31.2 % 07/02/2020 Unknown CBC 4535291 MCV 91.0 fL 07/02/2020 Unknown CBC 3197234 MCH 29.2 pg 07/02/2020 Unknown CBC 2785590 MCHC 32.1 g/dL 07/02/2020 Unknown CBC 5679061 PLATELET COUNT 222 10e9/L 07/02/2020 Unk nown CBC 2803516 Mean Plt Volume 11.7 fL 07/02/2020 Unk nown CBC 0484602 Neut Auto 78.0 % 07/02/2020 Unknown CBC 6728455 Lymph Auto 11.1 % 07/02/2020 Unknown CBC 5298795 [place] Auto 7.7 % 07/02/2020 Unknown CBC 3947745 Eos Auto 2.3 % 07/02/2020 Unknown CBC 2105711 RDW 14.5 % 07/02/2020 Unknown CBC 8505891 Baso Auto 0.9 % 07/02/2020 Unknown CBC 4930840 Neutrophil Abs 6.79 10e9/L 07/02/2020 Un known CBC 6734641 Lymphocyte Abs 0.97 10e9/L 07/02/2020 Un known CBC 2007401 Monocyte Abs 0.67 10e9/L 07/02/2020 Unkn own CBC 2943459 Eosinophil Abs 0.20 10e9/L 07/02/2020 Un known CBC 3704489 Basophil Abs 0.08 10e9/L 07/02/2020 Unkn own CBC 2922391 RDW-SD 45.6 fL 07/02/2020 Unknown TSH 7675921 TSH 0.955 uIU/mL 07/02/2020 Unknow n A1C HPLC 5625084 Hgb A1c 75296-6 4.5 % 01/02/2020 Unknown LIPID GRP 4273250 CHOLESTEROL 154 mg/dL 01/02/2020 Unknown LIPID GRP 6569081 Triglyceride 146 mg/dL 01/02/2020 Unknow n LIPID GRP 6369254 HDL CHOLESTEROL 55 mg/dL 01/02/2020 Unk nown LIPID GRP 6596577 Chol/HDL Ratio 2.80 ratio 01/02/2020 Unk nown LIPID GRP 1793165 NON-HDL Chol 99 mg/dL 01/02/2020 Unknow n LIPID GRP 0639863 LDL Cholesterol 70 mg/dL 01/02/2020 Unk nown CBC 7384352 WBC 9.7 10e9/L 01/02/2020 Unknown CBC 9868322 RBC 3.62 10e12/L 01/02/2020 Unknow n CBC 5341592 HEMOGLOBIN 11.2 g/dL 01/02/2020 Unknown CBC 4684959 HEMATOCRIT 33.4 % 01/02/2020 Unknown CBC 3539180 MCV 92.3 fL 01/02/2020 Unknown CBC 3461872 MCH 30.9 pg 01/02/2020 Unknown CBC 7245038 MCHC 33.5 g/dL 01/02/2020 Unknown CBC 1704228 PLATELET COUNT 232 10e9/L 01/02/2020 Unk nown CBC 5061934 Mean Plt Volume 11.0 fL 01/02/2020 Unk nown CBC 4177030 Neut Auto 70.5 % 01/02/2020 Unknown CBC 6910370 Lymph Auto 15.5 % 01/02/2020 Unknown CBC 5814956 [place] Auto 9.3 % 01/02/2020 Unknown CBC 5586291 Eos Auto 4.0 % 01/02/2020 Unknown CBC 1328892 RDW 13.7 % 01/02/2020 Unknown CBC 5208203 Baso Auto 0.7 % 01/02/2020 Unknown CBC 1960479 Neutrophil Abs 6.84 10e9/L 01/02/2020 Un known CBC 0349515 Lymphocyte Abs 1.50 10e9/L 01/02/2020 Un known CBC 7353149 Monocyte Abs 0.90 10e9/L 01/02/2020 Unkn own CBC 6686938 Eosinophil Abs 0.39 10e9/L 01/02/2020 Un known CBC 9640420 Basophil Abs 0.07 10e9/L 01/02/2020 Unkn own CBC 5545770 RDW-SD 44.7 fL 01/02/2020 Unknown CHEM 14 4911476 AST 16 U/L 01/02/2020 Unknown CHEM 14 6413952 ALT 10 U/L 01/02/2020 Unknown CHEM 14 2383282 BUN 18 mg/dL 01/02/2020 Unknown CHEM 14 7048538 ALBUMIN 4.2 g/dL 01/02/2020 Unknown CHEM 14 4574446 CHLORIDE 105 mmol/L 01/02/2020 Unknown CHEM 14 2588861 Bili Total 0.7 mg/dL 01/02/2020 Unknown CHEM 14 9308152 ALK PHOS 41 U/L 01/02/2020 Unknown CHEM 14 1399121 SODIUM 141 mmol/L 01/02/2020 Unknown CHEM 14 9645935 CREATININE 0.86 mg/dL 01/02/2020 Unknown CHEM 14 6504427 CALCIUM 9.5 mg/dL 01/02/2020 Unknown CHEM 14 1223931 POTASSIUM 4.0 mmol/L 01/02/2020 Unknown CHEM 14 5331988 TOTAL PROTEIN 7.3 g/dL 01/02/2020 Unkno wn CHEM 14 7456619 GLUCOSE 90 mg/dL 01/02/2020 Unknown CHEM 14 7013864 Bicarbonate 26 mmol/L 01/02/2020 Unknown CHEM 14 8390780 AGAP 10 mmol/L 01/02/2020 Unknown TSH 3305829 TSH 0.823 uIU/mL 01/02/2020 Unknow n MEAN GLUC 6713399 Calc Mean Gluc 82 mg/dL 01/02/2020 Unkn own GFR CALC 5393118 GFR Non Afr Amr >60 mL/min 01/02/2020 Un known GFR CALC 4155062 GFR Afr Amr >60 mL/min 01/02/2020 Unknow [...] Ord15 CALCIUM 9.5 mg/dL 01/02/2019 Unknown %Hba1C Mut117 % HbA1c 79350-9 4.9 % 01/02/2019 Unknown %Hba1C Ggw103 Gluc [address] 94 mg/dL 01/02/2019 Unknown Cbc [...] 11/20/19 19 Unknown Cbc With Differential Ord2 [place]% 6.9 % 11/20/19 19 Unknown Cbc With [...] K/ul 019 Unknown Cbc With Differential Ord2 [place] ABS# 0.5 K/ul 11/20/19 19 Unknown Cbc With Differential Ord2 Eos ABS# 0.3 K/ul 11/20/19 19 Unknown Cbc With Differential Ord2 Baso ABS# 0.1 K/ul 11/20/19 19 Unknown Hepatic Uck041 ALBUMIN 4.4 g/dL 11/19/2018 Unknown Hepatic Mcj546 TPRO 7.2 g/dL 11/19/2018 Unknown Hepatic Whg108 GLOB 2.8 g/dL 11/19/2018 Unknown Hepatic Whx791 A/G Ratio 1.6 Ratio 11/19/2018 Unknown Hepatic Szb616 ALK PHOS 36 U/L 11/19/2018 Unknown Hepatic Eyo148 ALT(SGPT) 10 U/L 11/19/2018 Unknown Hepatic Yxm859 AST(SGOT) 14 U/L 11/19/2018 Unknown Hepatic Hhi002 BILI T 0.7 mg/dL 11/19/2018 Unknown Hepatic Yjl494 BILI D 0.1 mg/dL 11/19/2018 Unknown Hepatic Wmi567 BILI I 0.6 mg/dL 11/19/2018 Unknown Hepatic Tvw942 ALBUMIN 3.9 g/dL 08/14/2018 Unknown Hepatic Shs242 TPRO 6.3 g/dL 08/14/2018 Unknown Hepatic Kay273 GLOB 2.5 g/dL 08/14/2018 Unknown Hepatic Dso637 A/G Ratio 1.6 Ratio 08/14/2018 Unknown Hepatic Kuj793 ALK PHOS 36 U/L 08/14/2018 Unknown Hepatic Tuf128 ALT(SGPT) 33 U/L 08/14/2018 Unknown Hepatic Ily229 AST(SGOT) 30 U/L 08/14/2018 Unknown Hepatic Qtv278 BILI T 0.6 mg/dL 08/14/2018 Unknown Hepatic Oft245 BILI D 0.2 mg/dL 08/14/2018 Unknown Hepatic Whd385 BILI I 0.4 mg/dL 08/14/2018 Unknown Cbc [...] 08/14/20 18 Unknown Cbc With Differential Ord2 [place]% 8.8 % 08/14/20 18 Unknown Cbc With [...] K/ul 018 Unknown Cbc With Differential Ord2 [place] ABS# 0.5 K/ul 08/14/20 18 Unknown Cbc With Differential Ord2 Eos ABS# 0.3 K/ul 08/14/20 18 Unknown Cbc With Differential Ord2 Baso ABS# 0.1 K/ul 08/14/20 18 Unknown Comp Metabolic Cgn611 NA 141 mEq/L 07/13/2018 Unkn own Comp Metabolic Egh009 K 4.0 mEq/L 07/13/2018 Unkn own Comp Metabolic Bti564 CL 106 mEq/L 07/13/2018 Unkn own Comp Metabolic Jcg594 CO2 26.0 mEq/L 07/13/2018 Unk nown Comp Metabolic Quo406 ANION GAP 13 07/13/2018 Unkn own Comp Metabolic Gof041 GLUCOSE 91 mg/dL 07/13/2018 Unkn own Comp Metabolic Ewy363 Creat 0.9 mg/dL 07/13/2018 Unkn own Comp Metabolic Ctt574 eGFR 68 ml/min/1.73m2 07/13/20 18 Unknown Comp Metabolic Ddk143 BUN 18 mg/dL 07/13/2018 Unkn own Comp Metabolic Epz168 B/C Ratio 20.5 Ratio 07/13/2018 Unk nown Comp Metabolic Ysp731 CALCIUM 9.2 mg/dL 07/13/2018 Unkn own Comp Metabolic Snt798 ALK PHOS 41 U/L 07/13/2018 Unkn own Comp Metabolic Nbt453 AST(SGOT) 16 U/L 07/13/2018 Unkn own Comp Metabolic Cez369 ALT(SGPT) 12 U/L 07/13/2018 Unkn own Comp Metabolic Idb703 BILI T 0.4 mg/dL 07/13/2018 Unkn own Comp Metabolic Nec054 ALBUMIN 4.3 g/dL 07/13/2018 Unkn own Comp Metabolic Iok104 TPRO 6.7 g/dL 07/13/2018 Unkn own Comp Metabolic Ryr414 GLOB 2.5 g/dL 07/13/2018 Unkn own Comp Metabolic Atu687 A/G Ratio 1.7 Ratio 07/13/2018 Unkn own Comp Metabolic Zky683 Osmo 283 mOsmo 07/13/2018 Unkn own Lipid Ord30 CHOL 167 mg/dL 07/13/2018 Unknown Lipid Ord30 HDL 53.0 mg/dl 07/13/2018 Unknown Lipid Ord30 TRIG 95 mg/dL 07/13/2018 Unknown Lipid Ord30 LDL 95 mg/dL 07/13/2018 Unknown Lipid Ord30 C/HDL 3.2 Ratio 07/13/2018 Unknown %Hba1C Qqh350 % HbA1c 55898-6 5.0 % 07/13/2018 Unknown %Hba1C Tmi867 Gluc Ave 97 mg/dL 07/13/2018 Unknown Tsh [...] 07/13/20 18 Unknown Cbc With Differential Ord2 [place]% 9.7 % 07/13/20 18 Unknown Cbc With [...] K/ul 018 Unknown Cbc With Differential Ord2 [place] ABS# 0.6 K/ul 07/13/20 18 Unknown Cbc With Differential Ord2 Eos ABS# 0.4 K/ul 07/13/20 18 Unknown Cbc With Differential Ord2 Baso ABS# 0.1 K/ul 07/13/20 18 Unknown Hepatic Mdx188 ALBUMIN 3.9 g/dL 05/14/2018 Unknown Hepatic Ulb107 TPRO 6.6 g/dL 05/14/2018 Unknown Hepatic Ivm944 GLOB 2.7 g/dL 05/14/2018 Unknown Hepatic Tis046 A/G Ratio 1.4 Ratio 05/14/2018 Unknown Hepatic Ipq445 ALK PHOS 32 U/L 05/14/2018 Unknown Hepatic Flp578 ALT(SGPT) 8 U/L 05/14/2018 Unknown Hepatic Hka749 AST(SGOT) 12 U/L 05/14/2018 Unknown Hepatic Nzr027 BILI T 0.8 mg/dL 05/14/2018 Unknown Hepatic Vrs217 BILI D 0.1 mg/dL 05/14/2018 Unknown Hepatic Aif626 BILI I 0.7 mg/dL 05/14/2018 Unknown Cbc [...] 05/14/20 18 Unknown Cbc With Differential Ord2 [place]% 4.8 % 05/14/20 18 Unknown Cbc With [...] K/ul 018 Unknown Cbc With Differential Ord2 [place] ABS# 0.3 K/ul 05/14/20 18 Unknown Cbc [...] 11/17/19 18 Unknown Cbc With Differential Ord2 [place]% 11.2 % 11/17/19 18 Unknown Cbc With [...] K/ul 018 Unknown Cbc With Differential Ord2 [place] ABS# 0.7 K/ul 11/17/19 18 Unknown Cbc With Differential Ord2 Eos ABS# 0.2 K/ul 11/17/19 18 Unknown Cbc With Differential Ord2 Baso ABS# 0.0 K/ul 11/17/19 18 Unknown Hepatic Egx707 ALBUMIN 4.1 g/dL 11/16/2017 Unknown Hepatic Xtq641 TPRO 6.7 g/dL 11/16/2017 Unknown Hepatic Fcl094 GLOB 2.7 g/dL 11/16/2017 Unknown Hepatic Bki773 A/G Ratio 1.5 Ratio 11/16/2017 Unknown Hepatic Wef389 ALK PHOS 31 U/L 11/16/2017 Unknown Hepatic Zyd598 ALT(SGPT) 11 U/L 11/16/2017 Unknown Hepatic Asu477 AST(SGOT) 15 U/L 11/16/2017 Unknown Hepatic Irx777 BILI T 0.7 mg/dL 11/16/2017 Unknown Hepatic Wga520 BILI D 0.2 mg/dL 11/16/2017 Unknown Hepatic Imf817 BILI I 0.5 mg/dL 11/16/2017 Unknown Hepatic Eei078 ALBUMIN 4.0 g/dL 08/17/2017 Unknown Hepatic Gvf252 TPRO 6.6 g/dL 08/17/2017 Unknown Hepatic Ehk471 GLOB 2.6 g/dL 08/17/2017 Unknown Hepatic Luz334 A/G Ratio 1.6 Ratio 08/17/2017 Unknown Hepatic Edo011 ALK PHOS 43 U/L 08/17/2017 Unknown Hepatic Zpd499 ALT(SGPT) 10 U/L 08/17/2017 Unknown Hepatic Nxv462 AST(SGOT) 15 U/L 08/17/2017 Unknown Hepatic Mtf976 BILI T 0.7 mg/dL 08/17/2017 Unknown Hepatic Wyp277 BILI D 0.1 mg/dL 08/17/2017 Unknown Hepatic Vpd942 BILI I 0.6 mg/dL 08/17/2017 Unknown Cbc [...] 08/17/20 17 Unknown Cbc With Differential Ord2 [place]% 8.6 % 08/17/20 17 Unknown Cbc With [...] K/ul 017 Unknown Cbc With Differential Ord2 [place] ABS# 0.6 K/ul 08/17/20 17 Unknown Cbc With Differential Ord2 Eos ABS# 0.3 K/ul 08/17/20 17 Unknown Cbc With Differential Ord2 Baso ABS# 0.0 K/ul 08/17/20 17 Unknown Ra Factor Fjj485 RA FACTOR 40.2 IU/ml 04/12/2017 Unknown Sed Rate Ord21 ESR 23 mm/hr 04/12/2017 Unknown C-Reactive Protein Qnt Crqnt CRP 0.2 mg/dl 2016 Unknown Tsh Ord6 hTSH II 1.26 uIU/mL 11/23/2016 Unknown Comp Metabolic Grs333 NA 139 mEq/L 11/23/2016 Unkn own Comp Metabolic Cst718 K 3.8 mEq/L 11/23/2016 Unkn own Comp Metabolic Rwq846 CL 105 mEq/L 11/23/2016 Unkn own Comp Metabolic Ivd749 CO2 27.0 mEq/L 11/23/2016 Unk nown Comp Metabolic Dgy475 ANION GAP 11 11/23/2016 Unkn own Comp Metabolic Xks887 GLUCOSE 110 mg/dL 11/23/2016 Unkn own Comp Metabolic Grq200 Creat 0.6 mg/dL 11/23/2016 Unkn own Comp Metabolic Iup580 eGFR 98 ml/min/1.73m2 11/24/19 17 Unknown Comp Metabolic Ido652 BUN 15 mg/dL 11/23/2016 Unkn own Comp Metabolic Pkc491 B/C Ratio 23.4 Ratio 11/23/2016 Unk nown Comp Metabolic Huy037 CALCIUM 9.5 mg/dL 11/23/2016 Unkn own Comp Metabolic Qcv896 ALK PHOS 42 U/L 11/23/2016 Unkn own Comp Metabolic Mwy558 AST(SGOT) 15 U/L 11/23/2016 Unkn own Comp Metabolic Ptn260 ALT(SGPT) 12 U/L 11/23/2016 Unkn own Comp Metabolic Esn589 BILI T 1.0 mg/dL 11/23/2016 Unkn own Comp Metabolic Uur667 ALBUMIN 4.2 g/dL 11/23/2016 Unkn own Comp Metabolic Wus741 TPRO 7.1 g/dL 11/23/2016 Unkn own Comp Metabolic Jft542 GLOB 2.9 g/dL 11/23/2016 Unkn own Comp Metabolic Tou584 A/G Ratio 1.5 Ratio 11/23/2016 Unkn own Comp Metabolic Fue582 Osmo 279 mOsmo 11/23/2016 Unkn own Lipid [...] 11/24/19 17 Unknown Cbc With Differential Ord2 [place]% 9.9 % 11/24/19 17 Unknown Cbc With [...] K/ul 017 Unknown Cbc With Differential Ord2 [place] ABS# 0.6 K/ul 11/24/19 17 Unknown Cbc With Differential Ord2 Eos ABS# 0.2 K/ul 11/24/19 17 Unknown Cbc With Differential Ord2 Baso ABS# 0.1 K/ul 11/24/19 17 Unknown Microalbumin Fuk294 MicroAlb <0.7 mg/dL 11/23/2016 Unkno wn %Hba1C Tyu036 % HbA1c 97988-1 5.4 % 11/23/2016 Unknown %Hba1C Udu952 Gluc Ave 108 mg/dL 11/23/2016 Unknown %Hba1C Vaq607 % HbA1c 36764-8 5.4 % 11/04/2015 Unknown %Hba1C Lda514 Gluc Ave 108 mg/dL 11/04/2015 Unknown Lipid Ord30 CHOL 169 mg/dL 11/04/2015 Unknown Lipid Ord30 HDL 48.0 mg/dl 11/04/2015 Unknown Lipid Ord30 TRIG 160 mg/dL 11/04/2015 Unknown Lipid Ord30 LDL 89 mg/dL 11/04/2015 Unknown Lipid Ord30 C/HDL 3.5 Ratio 11/04/2015 Unknown Microalbumin Njs190 MicroAlb 1.7 mg/dL 11/04/2015 Unknow n Tsh Ord6 hTSH II 1.00 uIU/mL 11/04/2015 Unknown Comp Metabolic Tlg852 NA 138 mEq/L 11/04/2015 Unkn own Comp Metabolic Jnx693 K 3.7 mEq/L 11/04/2015 Unkn own Comp Metabolic Qqg708 CL 103 mEq/L 11/04/2015 Unkn own Comp Metabolic Pab264 CO2 28.0 mEq/L 11/04/2015 Unk nown Comp Metabolic Yoj034 ANION GAP 11 11/04/2015 Unkn own Comp Metabolic Agn318 GLUCOSE 96 mg/dL 11/04/2015 Unkn own Comp Metabolic Gef171 Creat 0.7 mg/dL 11/04/2015 Unkn own Comp Metabolic Tcg483 eGFR 92 ml/min/1.73m2 11/04/19 16 Unknown Comp Metabolic Sbe254 BUN 15 mg/dL 11/04/2015 Unkn own Comp Metabolic Mds441 B/C Ratio 22.1 Ratio 11/04/2015 Unk nown Comp Metabolic Tuu429 CALCIUM 9.3 mg/dL 11/04/2015 Unkn own Comp Metabolic Qsd354 ALK PHOS 43 U/L 11/04/2015 Unkn own Comp Metabolic Zrh733 AST(SGOT) 14 U/L 11/04/2015 Unkn own Comp Metabolic Ttp964 ALT(SGPT) 9 U/L 11/04/2015 Unkn own Comp Metabolic Kxb728 BILI T 0.8 mg/dL 11/04/2015 Unkn own Comp Metabolic Sik942 ALBUMIN 4.3 g/dL 11/04/2015 Unkn own Comp Metabolic Jwf501 TPRO 7.0 g/dL 11/04/2015 Unkn own Comp Metabolic Pzy587 GLOB 2.7 g/dL 11/04/2015 Unkn own Comp Metabolic Aty679 A/G Ratio 1.6 Ratio 11/04/2015 Unkn own Comp Metabolic Gul043 Osmo 276 mOsmo 11/04/2015 Unkn own Cbc [...] 11/04/19 16 Unknown Cbc With Differential Ord2 [place]% 9.0 % 11/04/19 16 Unknown Cbc With [...] K/ul 016 Unknown Cbc With Differential Ord2 [place] ABS# 0.6 K/ul 11/04/19 16 Unknown Cbc With Differential Ord2 Eos ABS# 0.2 K/ul 11/04/19 16 Unknown Cbc With Differential Ord2 Baso ABS# 0.0 K/ul 11/04/19 16 Unknown Cbc With Differential Ord2 New Analyzer Notice Please note new ref ranges starting 09-30-2015 due to implemntation of new five part differential hematolgy analyzer. 11/04/2015 Unknown %Hba1C Fso928 % HbA1c 79226-8 5.2 % 05/06/2015 Unknown %Hba1C Oxq557 Gluc Ave 103 mg/dL 05/06/2015 Unknown Lipid [...] 14.7 % 05/06/20 15 Unknown Comp Metabolic Wxh573 NA 137 mEq/L 05/06/2015 Unkn own Comp Metabolic Hij952 K 3.6 mEq/L 05/06/2015 Unkn own Comp Metabolic Eop357 CL 102 mEq/L 05/06/2015 Unkn own Comp Metabolic Gvh027 CO2 28.0 mEq/L 05/06/2015 Unk nown Comp Metabolic Vgv091 ANION GAP 11 05/06/2015 Unkn own Comp Metabolic Gwb987 GLUCOSE 97 mg/dL 05/06/2015 Unkn own Comp Metabolic Aoz197 Creat 0.7 mg/dL 05/06/2015 Unkn own Comp Metabolic Iox743 eGFR 94 ml/min/1.73m2 05/06/20 15 Unknown Comp Metabolic Pxk678 BUN 14 mg/dL 05/06/2015 Unkn own Comp Metabolic Jfq885 B/C Ratio 20.9 Ratio 05/06/2015 Unk nown Comp Metabolic Qkd107 CALCIUM 9.5 mg/dL 05/06/2015 Unkn own Comp Metabolic Zlf837 ALK PHOS 49 U/L 05/06/2015 Unkn own Comp Metabolic Wvr482 AST(SGOT) 15 U/L 05/06/2015 Unkn own Comp Metabolic Pze309 ALT(SGPT) 11 U/L 05/06/2015 Unkn own Comp Metabolic Knd752 BILI T 0.8 mg/dL 05/06/2015 Unkn own Comp Metabolic Pjy373 ALBUMIN 4.4 g/dL 05/06/2015 Unkn own Comp Metabolic Vue604 TPRO 7.4 g/dL 05/06/2015 Unkn own Comp Metabolic Grk527 GLOB 3.0 g/dL 05/06/2015 Unkn own Comp Metabolic Ljg234 A/G Ratio 1.5 Ratio 05/06/2015 Unkn own Comp Metabolic Pir214 Osmo 274 mOsmo 05/06/2015 Unkn own Tsh Ord6 hTSH II 0.99 uIU/mL 05/06/2015 Unknown Procedures Procedure Codes Date TRIAMCINOLONE ACET INJ NOS 10 mg CPT-4: J3301 021 THER/PROPH/DIAG INJ SC/IM CPT-4: 23812 05/06/2021 TRIAMCINOLONE ACET INJ NOS 10 mg CPT-4: J3301 021 Vital Signs Date Vital 07/01/2021 Blood Pressure 1: 110/70 Code: 8480-6 BMI: 16.0 Code: 16016-1 Heart Rate 1: 113 bpm Height: 5' Code: 8302-2 Respiratory Rate: 17 bpm SpO2: 99% Temperature: 36.3 (C) / 97.3 (F) Weight: 82 lbs Code: 41193-4 06/07/2021 Blood Pressure 1: 118/62 Code: 8480-6 BMI: 16.0 Code: 23932-0 Heart Rate 1: 87 bpm Height: 5' Code: 8302-2 Respiratory Rate: 16 bpm SpO2: 97% Temperature: 35.7 (C) / 96.3 (F) Weight: 82 lbs Code: 19565-8 05/13/2021 Blood Pressure 1: 122/70 Code: 8480-6 BMI: 17.0 Code: 18977-0 Heart Rate 1: 107 bpm Height: 5' Code: 8302-2 SpO2: 99% Temperature: 36. 3 (C) / 97.3 (F) Weight: 87 lbs Code: 34082-3 04/09/2021 Blood Pressure 1: 132/82 Code: 8480-6 BMI: 18.6 Code: 00109-1 Heart Rate 1: 90 bpm Height: 5' Code: 8302-2 Respiratory Rate: 20 bpm Temperature : 36.3 (C) / 97.3 (F) Weight: 95 lbs Code: 48309-2 03/25/2021 Blood Pressure 1: 106/70 Code: 8480-6 BMI: 17.6 Code: 93568-8 Heart Rate 1: 48 bpm Height: 5' Code: 8302-2 SpO2: 98% Temperature: 35. 7 (C) / 96.3 (F) Weight: 90 lbs Code: 21508-2 02/02/2021 Blood Pressure 1: 118/70 Code: 8480-6 BMI: 19.9 Code: 36595-0 Heart Rate 1: 66 bpm Height: 5' Code: 8302-2 SpO2: 99% Temperature: 36. 7 (C) / 98.0 (F) Weight: 102 lbs 2 oz Code: 81713-4 12/31/2020 Blood Pressure 1: 106/64 Code: 8480-6 BMI: 20.7 Code: 31876-7 Heart Rate 1: 68 bpm Height: 5' Code: 8302-2 Respiratory Rate: 17 bpm SpO2: 97% Temperature: 35.8 (C) / 96.4 (F) Weight: 106 lbs Code: 47974-5 07/02/2020 Blood Pressure 1: 138/78 Code: 8480-6 BMI: 21.7 Code: 05834-5 Heart Rate 1: 52 bpm Height: 5' Code: 8302-2 Respiratory Rate: 16 bpm SpO2: 99% Temperature: 36.6 (C) / 97.8 (F) Weight: 111 lbs Code: 20101-9 01/02/2020 Blood Pressure 1: 120/64 Code: 8480-6 BMI: 21.3 Code: 22061-9 Heart Rate 1: 65 bpm Height: 5' Code: 8302-2 SpO2: 95% Temperature: 36. 4 (C) / 97.5 (F) Weight: 109 lbs Code: 49374-0 07/04/2019 Blood Pressure 1: 112/70 Code: 8480-6 BMI: 22.3 Code: 40965-9 Heart Rate 1: 60 bpm Height: 5' Code: 8302-2 SpO2: 99% Weight: 114 lbs 7 oz Code: 80304-6 01/02/2019 Blood Pressure 1: 122/68 Code: 8480-6 BMI: 22.7 Code: 43121-1 Heart Rate 1: 67 bpm Height: 5' Code: 8302-2 SpO2: 99% Weight: 116 lbs Code: 69567-1 07/11/2018 Blood Pressure 1: 138/66 Code: 8480-6 BMI: 22.5 Code: 85283-8 Heart Rate 1: 97 bpm Height: 5' Code: 8302-2 SpO2: 99% Weight: 115 lbs Code: 33681-5 04/12/2017 Blood Pressure 1: 142/82 Code: 8480-6 BMI: 23.2 Code: 32815-5 Heart Rate 1: 66 bpm Height: 5' Code: 8302-2 SpO2: 97% Weight: 119 lbs Code: 93513-0 11/23/2016 Blood Pressure 1: 130/78 Code: 8480-6 BMI: 24.4 Code: 85129-2 Heart Rate 1: 65 bpm Height: 5' Code: 8302-2 SpO2: 99% Weight: 125 lbs Code: 86990-1 05/04/2016 Blood Pressure 1: 126/78 Code: 8480-6 BMI: 24.6 Code: 98448-3 Heart Rate 1: 59 bpm Height: 5' Code: 8302-2 SpO2: 98% Weight: 126 lbs Code: 64901-2 11/04/2015 Blood Pressure 1: 132/70 Code: 8480-6 BMI: 25.3 Code: 55875-2 Heart Rate 1: 58 bpm Height: 5' Code: 8302-2 Weight: 129 lbs 8 oz Code: 2 9463-7 05/06/2015 Blood Pressure 1: 138/78 Code: 8480-6 BMI: 25.0 Code: 11979-6 Heart Rate 1: 65 bpm Height: 5' Code: 8302-2 SpO2: 97% Weight: 128 lbs Code: 00804-0 Functional Status No Functional Status data Reason For Visit Reason For Visit Effective Dates Notes dysphagia 07/01/2021 abdominal pain 06/07/2021 weight loss 05/13/2021 paresthesia 04/09/2021 earache 03/25/2021 arthritis 02/02/2021 hypertension 12/31/2020 hypertension 07/02/2020 hypertension 01/02/2020 hypertension 07/04/2019 hypertension 01/02/2019 medication follow up 07/11/2018 hand pain 04/12/2017 hypertension 11/23/2016 hypertension 05/04/2016 hypertension 11/04/2015 hypertension 05/06/2015 Encounters Encounter Performer Location Codes Date ([id number]) 68495 EST. PATIENT, LEVEL IV Diagnosis: Esophageal dysphagia[ICD10: R13.19] Diagnosis: Multiple sclerosis[ICD10: G35] Diagnosis: Esophageal abnormality[ICD10: K22.9] Diagnosis: Abnormal findings on esophagogastroduodenoscopy (EGD)[ICD10: R19.8] [facility] CPT-4: 61747 07/01/2021 ([id number]) 02099 EST. PATIENT, LEVEL IV Diagnosis: Dysphagia[ICD10: r13.10] Diagnosis: Underweight due to inadequate caloric intake[ICD10: R63.6] Diagnosis: S/P percutaneous endoscopic gastrostomy (PEG) tube placement[ICD10: Z93.1] Diagnosis: Thrush, oral[ICD10: B37.0] Diagnosis: Multiple sclerosis[ICD10: G35] Aliyah Paris MD, [facility] CPT-4: 10351 06/07/2021 ([id number]) 88118 EST. PATIENT, LEVEL IV Diagnosis: Dysphagia[ICD10: r13.10] Diagnosis: Underweight due to inadequate caloric intake[ICD10: R63.6] Diagnosis: Multiple sclerosis[ICD10: G35] Mira galicia MD, [facility] CPT-4: 04718 05/13/2021 ([id number]) 10860 EST. 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 PATIENT, LEVEL IV Diagnosis: Essential (primary) hypertension[ICD10: I10] Diagnosis: Multiple sclerosis[ICD10: G35] Diagnosis: Type 2 diabetes mellitus without complications[ICD10: E11.9] Diagnosis: Underweight due to inadequate caloric intake[ICD10: R63.6] Aliyah Paris MD [facility] CPT-4: 16195 12/31/2020 ([id number]) 53088 EST. PATIENT, LEVEL IV Diagnosis: Essential (primary) hypertension[ICD10: I10] Diagnosis: Type 2 diabetes mellitus without complications[ICD10: E11.9] Diagnosis: Multiple sclerosis[ICD10: G35] Aliyah Paris MD, [facility] CPT-4: 96385 07/02/2020 ([id number]) 36161 EST. PATIENT, LEVEL IV Diagnosis: Type 2 diabetes mellitus without complications[ICD10: E11.9] Diagnosis: Essential (primary) hypertension[ICD10: I10] Diagnosis: Multiple sclerosis[ICD10: G35] Aliyah Paris MD, [facility] CPT-4: 00228 01/02/2020 ([id number]) 45402 EST. PATIENT, LEVEL IV Diagnosis: Essential (primary) hypertension[ICD10: I10] Diagnosis: Type 2 diabetes mellitus without complications[ICD10: E11.9] Diagnosis: Multiple sclerosis[ICD10: G35] Aliyah Paris MD [facility] CPT-4: 07293 07/04/2019 ([id number]) 07566 EST. PATIENT, LEVEL IV Diagnosis: Essential (primary) hypertension[ICD10: I10] Diagnosis: Type 2 diabetes mellitus without complications[ICD10: E11.9] Diagnosis: Multiple sclerosis[ICD10: G35] Aliyah Paris MD, [facility] CPT-4: 77686 01/02/2019 ([id number]) 00436 EST. PATIENT, LEVEL IV Diagnosis: Type 2 diabetes mellitus without complications[ICD10: E11.9] Diagnosis: Essential (primary) hypertension[ICD10: I10] Diagnosis: Multiple sclerosis[ICD10: G35] Aliyah Paris MD, [facility] CPT-4: 89238 07/11/2018 85104 EST. PATIENT, LEVEL IV Diagnosis: Pain in right hand[ICD10: M79.641] Diagnosis: Multiple sclerosis[ICD10: G35] Tiffanie Paris MD, [facility] CPT-4: 37597 04/12/2017 ([id number]) 93318 EST. PATIENT, LEVEL IV Diagnosis: Essential (primary) hypertension[ICD10: I10] Diagnosis: Type 2 diabetes mellitus without complications[ICD10: E11.9] Aliyah Paris MD, [facility] CPT-4: 81649 11/23/2016 ([id number]) 84988 EST. PATIENT, LEVEL IV Diagnosis: Essential (primary) hypertension[ICD10: I10] Diagnosis: Type 2 diabetes mellitus without complications[ICD10: E11.9] Aliyah Paris MD, [facility] CPT-4: 82671 05/04/2016 ([id number]) 38611 EST. PATIENT, LEVEL IV Diagnosis: Type 2 diabetes mellitus without complications[ICD10: E11.9] Diagnosis: Essential (primary) hypertension[ICD10: I10] Aliyah Paris MD, [facility] CPT-4: 00680 11/04/2015 ([id number]) OFFICE VISIT, NEW - LEVEL 4 Diagnosis: DIABETES TYPE II[ICD9: 250.00] Diagnosis: ESSENTIAL HYPERTENSION[ICD9: 401.9] Aliyah beasley MD, [facility] CPT-4: 87965 05/06/2015 Plan of Care Planned Activity Notes Codes Status Date Visit Plan: Dysphagia-status post peg tu be [...] with neurology 07/01/2021 Appointment: Aliyah Paris WPtel: [facility] (30 min) Complex 07/01/2021 Patient Education: Patient Medication Summary Completed 07/01/2021 Visit Plan: Kenalog shot today, liquid P rednisone orally for home. start home health. with [facility] - with ensure tube feeding 1 can every 4 hours while awake and 30mL flushes of water after feedings Dysphagia-status post peg tube placement Weight loss- secondary to dysphagia - consult to convention planner for home health and tube feed adjustments. MS- patient has appt in June with neurology - suspect flair - rx for steroids - will re-eval on if this prednisone is helpful for the pt - kenalog shot today. Thrush - rx for nystatin swish and spit since she cannot swallow well as well as diflucan through peg. 06/07/2021 Appointment: Ali[facility] Paris [facility]Ptel[facility] (15 min) Moderate 06/07/2021 Patient Education: Patient Medication Summary Completed 06/07/2021 Visit Plan: Dysphagia- patient to see Dr Welch for consultation today for EGD to evaluate possible stricture -refer for ST with Home Health Weight loss- secondary to dysphagia - recommend thickened liquids and pureed foods for now MS- patient has appt in June with neurology 05/13/2021 Appointment: M[facility] Danielle [facility]Ptel[phone] [place] (30 min) Complex 05/13/2021 Patient Education: [...] edema. 04/09/2021 Appointment: Mira Danielle WPtel: [phone] [phone] [place] (15 min) Moderate 04/09/2021 Appointment: Mira Danielle WPtel: [phone] [phone] [place] (15 min) Moderate 04/09/2021 Patient Education: Patient Medication Summary Completed 04/09/2021 Patient Education: Hypertension Completed 04/09/2021 Care Plan: Cbc With Differential Pending 04/09/2021 Care Plan: Comp Metabolic Pending Appointment: [phone] [phone] [place] (30 min) Complex 04/08/2021 Visit Plan: [...] Rheumatoid Arthritis- continue follow up with rheumatology. Rad Technologist dc'd methotrexate, folic acid, and plaquinel in January 2021 to help improve appetite. Pt reports had steroid injection in January 2021 for bilateral h and pain, but pain has been controlled since. Pt encouraged to continue follow up appt with astrophysics professor. Hypertension- Pt reports not checking BP at [...] taste. 03/25/2021 Appointment: Mira Danielle WPtel: [phone] [phone] (15 min) Moderate 03/25/2021 Patient Education: Patient Medication Summary Completed 03/25/2021 Patient Education: Hypertension Completed 03/25/2021 Care Plan: Vitamin D 25 Oh Pending 03/25/2021 Care Plan: Cbc With Differential Pending 03/25/2021 Care Plan: Comp Metabolic Pending Visit Plan: Arthritis - pt has been on m ultiple different treatments in the past - would like to seek out a new astrophysics professor - she would like a Referral to Dr. Woodruff in [place] Hypertension - well controlled - continue with [...] time. 02/02/2021 Appointment: [facility] [phone] [facility] (15 min) Moderate 02/02/2021 Patient Education: [...] time. 12/31/2020 Appointment: [facility] [phone] [facility] [place] (15 min) Moderate 12/31/2020 Patient [...] this time. 07/02/2020 Appointment: [facility] [phone] [facility] [place] (15 min) Moderate 07/02/2020 Patient [...] time. 01/02/2020 App[facility]ment: [facility] [phone] [facility] (15 min) Moderate 01/02/2020 Patient Education: Patient Medication Summary Completed 01/02/2020 Patient Education: Diabetes Completed 01/02/2020 Patient Education: Hypertension Completed 01/02/2020 Care Plan: Cbc With Differential Pending 01/02/2020 Care Plan: Comp Metabolic Pending Care Plan: Lipid Pending 01/02/2020 Care Plan: %Hba1C LOINC : 45602-9 Pending 01/02/2020 Care Plan: Tsh Pending 01/02/2020 [...] time. 07/04/2019 Appointment: [facility] [phone] [facility] (15 min) Moderate 07/04/2019 Patient Education: Patient Medication Summary Completed 07/04/2019 Patient Education: Hypertension Completed 07/04/2019 Patient Education: Diabetes Completed 07/04/2019 Care Plan: Comp Metabolic Pending Care Plan: Cbc With Differential Pending 07/04/2019 Care Plan: %Hba1C LOINC : 15851-9 Pending 07/04/2019 Care Plan: Tsh Pending 07/04/2019 [...] closely. 01/02/2019 Appointment: [facility]el[facility] [phone] [facility] (15 min) Moderate 01/02/2019 Patient Education: [...] closely. 07/11/2018 Appointment: [facility] [phone] [facility] [place] (15 min) Moderate 07/11/2018 Patient [...] for evaluation/monitoring 04/12/2017 App[facility]ment[phone] [facility] (15 min) Moderate 04/12/2017 Patient Education: Patient [...] controlled. 11/23/2016 Appointment: Aliyah Paris WPtel: [phone] [facility] (15 min) Moderate 11/23/2016 Patient [...] less controlled. 11/04/2015 Appointment: Aliyah Paris WPtel: [phone] [facility] [place] (15 min) Moderate 11/04/2015 [...] at home. 05/06/2015 Appointment: [facility]el[facility] [phone] [facility] [place] ([place] New Patient 05/06/2015 Patient Education: Patient Medication Summary Completed 05/06/2015 Patient Education: Hypertension Completed 05/06/2015 Instructions Comment GET LABS DONE NOW AND WE ARE CALLING YOU R INSURANCE TO SEE IF THEY WILL APPROVE YOUR CT SCAN FOR TODAY AT 1:30 ENSURE PLUS - HIGH PROTEIN 16 GRAMS OF PROTEIN AND 350 CALORIES APPROVED [id number] . Dysphagia-status post peg tube placement - [...] MS- patient has appt with neurology . Kenfahad shot today, liquid Prednisone orally for home. start home health. with [facility] - with ensure tube feeding 1 can every 4 hours while awake and 30mL flushes of water after feedings Dysphagia-status post peg tube placement Weight loss- secondary to dysphagia - consult to convention planner for home health and tube feed adjustments. [...] evaluate possible stricture -refer for ST with [facility] Weight loss- secondary to dysphagia [...] Rheumatoid Arthritis- continue follow up with rheumatology. Rad Technologist sofia'brent methotrexate, folic acid, and plaquinel in January 2021 to help improve appetite. Pt reports had steroid injection in January 2021 for bilateral hand pain, but pain has been controlled since. Pt encouraged to continue follow up appt with astrophysics professor. Hypertension- Pt reports not checking BP at [...] would like to seek out a new astrophysics professor - she would like a Referral to Dr. Woodruff in [place] Hypertension - well controlled - continue with [...] Diabetes Mellitus - controlled - per r ent FSBS reports. I have recommended for the [...]
--- NOTE | 2021-08-11 12:58 | ED Cough/URI ---
General Stated Complaint: INCREASED WEAKNESS Source: patient Exam Limitations: no limitations (BENJY HALL APRN) History of Present Illness Date Seen by Provider: Aug 11, 2021 Time Seen by Provider: 12:36 Initial Comments This is a chronically ill, cachectic appearing 71-year-old female who presented to the ER via [facility] for concerns of difficulty breathing, generalized weakness. Patient does have a history of MS and has a feeding tube. States they were activated due to patient's increasing weakness. EMS states that she was recently on steroids for an exacerbation of her MS and that was discontinued 4 days ago., Due to swelling of her lower extremities. Daughter states her mother appeared more confused this afternoon and thought she may have been experiencing some shortness of air. Upon EMS arrival they had difficulty obtaining peripheral pulse ox reading. Patient was placed on NRB at 15 liters. Patient is awake, alert, and able to answer questions appropriately at this time. Denies pain. Denies feeling SOA. Reports persistent cough. No fever, chills, nausea/vomiting. (BENJY HALL GLOBAL IMPLEMENTATION MANAGER) Allergies and Home Medications Allergies Coded Allergies: No Known Drug Allergies (Unverified , 03/30/21) Patient Home Medication List Home Medication List Reviewed: Yes (BENJY HALL APRN) B1/B2/B3/B5/B6/Iron/Meth/Choln (Geritol Tonic) 118 Ml Liquid, 15 ML PO HS, (Reported) Entered as Reported by: GAGE MEDINA on 08/11/212145 Last Action: Reviewed Famotidine (Famotidine) 20 Mg Tablet, 20 MG PO BID, (Reported) Entered as Reported by: GAGE MEDINA on 08/11/212140 Last Action: Reviewed Ibuprofen (Advil) 200 Mg Tablet, 400-600 MG PO Q8H PRN for PAIN-MILD (1-4), (Reported) Entered as Reported by: KLARISSA YEN on 03/31/21 0908 Last Action: Reviewed [Vitamin D] , 1 DROP PO DAILY, (Reported) Entered as Reported by: GAGE MEDINA on 08/11/212145 Last Action: Reviewed Discontinued Medications Amoxicillin (Amoxicillin) 400 Mg/5 Ml Susp.recon, 400 MG PO DAILY, (Reported) Discontinued Reason: No Longer Taking Entered as Reported by: NOEL BILLINGS on 06/03/218 Last Action: Discontinued Clarithromycin (Clarithromycin) 250 Mg/5 Ml Susp.recon, 250 MG PO DAILY, (Reported) Discontinued Reason: No Longer Taking Entered as Reported by: NOEL BILLINGS on 06/03/21 1208 Last Action: Discontinued Pantoprazole Sodium (Protonix) 40 Mg Tablet.dr, 40 MG PO DAILY Discontinued Reason: No Longer Taking Prescribed by: JUAN R NORIEGA on 05/14/21 1318 Last Action: Discontinued Review of Systems Review of Systems Constitutional: see HPI EENTM: no symptoms reported Respiratory: see HPI Cardiovascular: no symptoms reported Gastrointestinal: see HPI Genitourinary: incontinence Musculoskeletal: see HPI Skin: see HPI Psychiatric/Neurological: See HPI Hematologic/Lymphatic: See HPI (BENJY HALL APRN) Past Caiults-Lztrjc-Bavivq Hx Immunizations Up To Date Tetanus Booster (TDap): Unknown First/Initial COVID19 Vaccinat: 11/20/20 Second COVID19 Vaccination Ziggy: 12/22/20 (BENJY HALL APRN) Seasonal Allergies Seasonal Allergies: Yes (BENJY HALL APRN) Past Medical History Surgeries: No Respiratory: No Currently Using CPAP: No Currently Using BIPAP: No Cardiac: No Neurological: Yes Multiple Sclerosis Sexually Transmitted Disease: No HIV/AIDS: No Genitourinary: No Gastrointestinal: No Musculoskeletal: Yes Arthritis, Rheumatoid Arthritis Endocrine: No Diabetes, Non-Insulin dep HEENT: Yes (TROUBLE SWALLOWING) Loss of Vision: Denies Cancer: Yes Skin Did You Recieve Any Treatments: Yes What Type of Treatment Did You: Surgical Intervention Psychosocial: No Anxiety Integumentary: No Blood Disorders: No (BENJY HALL APRN) Family Medical History Hypertension (BENJY HALL APRN) Physical Exam Vital Signs - First Documented 08/11/21 12:35 Temp 36.4 Pulse 110 Resp 18 B/P (MAP) 156/98 (117) Pulse Ox 100 O2 Delivery Non Rebreather O2 Flow Rate 15.00 (QUENTIN VALERA MD) Capillary Refill : (BENJY HALL APRN) Height: '" Weight: lbs. oz. kg; 15.80 BMI Method: General Appearance: mild distress, cachetic Eyes: Bilateral Eye PERRL, Bilateral Eye EOMI HEENT: normal ENT inspection, pharynx normal Neck: full range of motion, supple, normal inspection Respiratory: decreased breath sounds (diffuse) Cardiovascular: normal peripheral pulses, regular rate, rhythm, other (bilateral 2+ pedal edema ) Gastrointestinal: normal bowel sounds, non tender, soft, other (PEG TUBE PRESENT ) Extremities: normal range of motion, non-tender, normal inspection, normal capillary refill Neurologic/Psychiatric: alert, normal mood/affect, oriented x 3 Skin: normal color, warm/dry (BENJY HALL APRN) Focused Exam Lactate Level 08/11/21 13:10: Lactic Acid Level 2.42*H 08/11/21 15:19: Lactic Acid Level 3.12*H 08/11/21 17:33: Lactic Acid Level 1.61 (QUENTIN VALERA MD) Lactic Acid Level Laboratory Tests Test 08/11/21 13:10 08/11/21 15:19 08/11/21 17:33 Lactic Acid Level 2.42 MMOL/L (0.50-2.00) *H 3.12 MMOL/L (0.50-2.00) *H 1.61 MMOL/L (0.50-2.00) (QUENTIN VALERA MD) Progress/Results/Core Measures Suspected Sepsis SIRS Temperature: Pulse: Respiratory Rate: Laboratory Tests 08/11/21 13:10: White Blood Count 9.8 Blood Pressure / Mean: 08/11/21 13:10: Lactic Acid Level 2.42*H 08/11/21 15:19: Lactic Acid Level 3.12*H 08/11/21 17:33: Lactic Acid Level 1.61 Laboratory Tests 08/11/21 13:10: Creatinine 0.91, INR Comment 1.1, Platelet Count 162, Total Bilirubin 0.8 08/11/21 17:33: Creatinine 0.60 (BENJY HALL APRN) Results/Orders Lab Results Laboratory Tests Test 08/11/21 12:50 08/11/21 12:56 08/11/21 13:10 08/11/21 13:22 Range/Units Influenza Type A Antigen NEGATIVE NEGATIVE Influenza Type B Antigen NEGATIVE NEGATIVE Blood Gas Puncture Site RBRAC Blood Gas Patient Temperature 97.7 Arterial Blood pH 7.44 H 7.37-7.43 Arterial Blood Partial Pressure CO2 42 35-45 MMHG Arterial Blood Partial Pressure O2 416 H 79-93 MMHG Arterial Blood HCO3 28 H 23-27 MMOL/L Arterial Blood Total CO2 29.5 21.0-31.0 MMOL/L Arterial Blood Oxygen Saturation 101 H 94-100 % Arterial Blood Base Excess 4.2 H -2.5-2.5 MMOL/L Haroon Test POS Blood Gas Ventilator Setting NO Blood Gas Inspired Oxygen 6L White Blood Count 9.8 4.3-11.0 10^3/uL Red Blood Count 3.93 3.80-5.11 10^6/uL Hemoglobin 11.8 11.5-16.0 g/dL Hematocrit 37 35-52 % Mean Corpuscular Volume 94 80-99 fL Mean Corpuscular Hemoglobin 30 25-34 pg Mean Corpuscular Hemoglobin Concent 32 32-36 g/dL Red Cell Distribution Width 13.5 10.0-14.5 % Platelet Count 162 130-400 10^3/uL Mean Platelet Volume 11.8 9.0-12.2 fL Immature Granulocyte % (Auto) 1 % Neutrophils (%) (Auto) 85 H 42-75 % Lymphocytes (%) (Auto) 6 L 12-44 % Monocytes (%) (Auto) 8 0-12 % Eosinophils (%) (Auto) 0 0-10 % Basophils (%) (Auto) 0 0-10 % Neutrophils # (Auto) 8.3 H 1.8-7.8 10^3/uL Lymphocytes # (Auto) 0.6 L 1.0-4.0 10^3/uL Monocytes # (Auto) 0.8 0.0-1.0 10^3/uL Eosinophils # (Auto) 0.0 0.0-0.3 10^3/uL Basophils # (Auto) 0.0 0.0-0.1 10^3/uL Immature Granulocyte # (Auto) 0.1 0.0-0.1 10^3/uL Neutrophils % (Manual) 81 % Lymphocytes % (Manual) 9 % Monocytes % (Manual) 7 % Eosinophils % (Manual) 0 % Basophils % (Manual) 0 % Band Neutrophils 3 % Blood Morphology Comment NORMAL Prothrombin Time 14.3 12.2-14.7 SEC INR Comment 1.1 0.8-1.4 Activated Partial Thromboplast Time 28 24-35 SEC Sodium Level 150 H 135-145 MMOL/L Potassium Level 4.1 3.6-5.0 MMOL/L Chloride Level 108 H 98-107 MMOL/L Carbon Dioxide Level 29 21-32 MMOL/L Anion Gap 13 5-14 MMOL/L Blood Urea Nitrogen 49 H 7-18 MG/DL Creatinine 0.91 0.60-1.30 MG/DL Estimat Glomerular Filtration Rate 61 BUN/Creatinine Ratio 54 Glucose Level 720 *H 70-105 MG/DL Lactic Acid Level 2.42 *H 0.50-2.00 MMOL/L Calcium Level 10.0 8.5-10.1 MG/DL Corrected Calcium 10.5 H 8.5-10.1 MG/DL Magnesium Level 2.1 1.6-2.4 MG/DL Total Bilirubin 0.8 0.1-1.0 MG/DL Aspartate Amino Transf (AST/SGOT) 15 5-34 U/L Alanine Aminotransferase (ALT/SGPT) 23 0-55 U/L Alkaline Phosphatase 123 40-136 U/L Total Protein 6.4 6.4-8.2 GM/DL Albumin 3.4 3.2-4.5 GM/DL Urine Color YELLOW Urine Clarity CLEAR Urine pH 5.5 5-9 Urine Specific Barnard <=1.005 1.016-1.022 Urine Protein NEGATIVE NEGATIVE Urine Glucose (UA) 3+ H NEGATIVE Urine Ketones NEGATIVE NEGATIVE Urine Nitrite NEGATIVE NEGATIVE Urine Bilirubin NEGATIVE NEGATIVE Urine Urobilinogen 0.2 < = 1.0 MG/DL Urine Leukocyte Esterase NEGATIVE NEGATIVE Urine RBC (Auto) NEGATIVE NEGATIVE Urine RBC NONE /HPF Urine WBC NONE /HPF Urine Squamous Epithelial Cells RARE /HPF Urine Crystals NONE /LPF Urine Bacteria NEGATIVE /HPF Urine Casts NONE /LPF Urine Mucus NEGATIVE /LPF Urine Culture Indicated NO Test 08/11/21 14:15 08/11/21 15:18 08/11/21 15:19 08/11/21 16:37 Range/Units Coronavirus (COVID-19)(PCR) Negative Negative Glucometer 337 H 70-110 MG/DL Lactic Acid Level 3.12 *H 0.50-2.00 MMOL/L Blood Gas Puncture Site R BRA Blood Gas Patient Temperature 37.7 Arterial Blood pH 7.42 7.37-7.43 Arterial Blood Partial Pressure CO2 40 35-45 MMHG Arterial Blood Partial Pressure O2 102 H 79-93 MMHG Arterial Blood HCO3 26 23-27 MMOL/L Arterial Blood Total CO2 41.3 *H 21.0-31.0 MMOL/L Arterial Blood Oxygen Saturation 98 94-100 % Arterial Blood Base Excess 1.7 -2.5-2.5 MMOL/L Haroon Test UNK Blood Gas Ventilator Setting NO Blood Gas Inspired Oxygen 2 Test 08/11/21 17:33 Range/Units Sodium Level 155 H 135-145 MMOL/L Potassium Level 3.7 3.6-5.0 MMOL/L Chloride Level 116 H 98-107 MMOL/L Carbon Dioxide Level 28 21-32 MMOL/L Anion Gap 11 5-14 MMOL/L Blood Urea Nitrogen 37 H 7-18 MG/DL Creatinine 0.60 0.60-1.30 MG/DL Estimat Glomerular Filtration Rate 98 BUN/Creatinine Ratio 62 Glucose Level 177 H 70-105 MG/DL Lactic Acid Level 1.61 0.50-2.00 MMOL/L Calcium Level 9.2 8.5-10.1 MG/DL (QUENTIN VALERA MD) Micro Results Microbiology 08/11/21 Urine Culture - Final, Complete NO GROWTH 08/11/21 Blood Culture - Preliminary, Resulted Probable Staph Aureus 08/11/21 Blood Culture - Preliminary, Resulted No growth (QUENTIN VALERA MD) My Orders Orders - QUENTIN VALERA MD Cbc With Automated Diff (08/11/21 12:43) Comprehensive Metabolic Panel (08/11/21 12:43) Magnesium (08/11/21 12:43) Ed Iv/Invasive Line Start (08/11/21 12:43) Manual Differential (08/11/21 13:10) (QUENTIN VALERA MD) Vital Signs/I&O 08/11/21 12:35 Temp 36.4 Pulse 110 Resp 18 B/P (MAP) 156/98 (117) Pulse Ox 100 O2 Delivery Non Rebreather O2 Flow Rate 15.00 (QUENTIN VALERA MD) Vital Signs/I&O Capillary Refill : (BENJY HALL APRN) Progress Note : Progress Note Patient examined an in no acute distress. RT called to ER to assist. Given Albuterol neb for tight breath sounds. Sepsis orders placed, will obtain ABG. Currently receiving NS one liter per EMS. Initial BG >700, orders given for Regular IV insulin. Will monitor. Will give additional bag of IVF. Will repeat lactic acid until <2. She is sitting up in bed, breathing easy, no distress, oxygen 2 liters via NC. Will repeat ABG. After repeat ABG patient placed on room air. She was given dose of expectorant to assist with clearing her throat. Labs/imaging reviewed with Dr. Parrish. Will accept patient admission to medical unit. Plan of care discussed with patient and family and they are agreeable with plan. (BENJY HALL GLOBAL IMPLEMENTATION MANAGER) Diagnostic Imaging Diagonstic Imaging: Xray Plain Films/CT/US/NM/MRI: chest Comments [facility] [place] NAME: IRENA ENAMORADO [facility] REC#: [id number] PT STATUS: REG ER : 1950 PHYSICIAN: BENJY HALL APRN ADMIT DATE: 08/11/21/ER Signed Date of Exam:08/11/21 CHEST 1 VIEW, AP/PA ONLY INDICATION: Weakness and choking sensation. EXAMINATION: Chest, 08/11/2021. COMPARISON: 03/30/2021. FINDINGS: There is a density in the peripheral aspect of the right mid to lower lung not seen previously. This could represent focal atelectasis but lung nodules are not excluded and follow-up is recommended to assure complete resolution. Remaining lungs clear. No effusion or infiltrates otherwise noted. There is no pneumothorax. The heart and pulmonary vascular appear normal. IMPRESSION: Nonspecific density in the peripheral right mid to lower lung, see above discussion and recommendations. Dictated by: Dictated on workstation # [id number] Dict: 08/11/21 1515 Trans: 08/11/21 1538 [facility] [id number] Interpreted by: JOSE LEAL MD Electronically signed by: JOSE LEAL MD 08/11/21 1538 (BENJY HALL GLOBAL IMPLEMENTATION MANAGER) Departure Communication (Admissions) Time/Spoke to Admitting Phy: 17:09 Dr. Parrish accepted admission. (BENJY HALL GLOBAL IMPLEMENTATION MANAGER) Impression Primary Impression: Dehydration, new onset diabetes Disposition: ADMITTED INPATIENT Condition: Stable Admissions Decision to Admit Reason: Admit from ER (General) Decision to Admit/Date: Aug 12, 2021 Time/Decision to Admit Time: 17:00 (BENJY HALL APRN) Departure-Patient Inst. Referrals: ELSIE VENTURA MD (PCP/Family) Primary Care Physician ATTENDING PHYSICIAN NOTE: I was physically present as attending physician in the emergency department during the care of this patient, but I was not directly involved in the decision making or delivery of care for this patient. (QUENTIN VALERA MD) Copy Copies To 1: ELSIE VENTURA MD, STORMY D APRN Aug 11, 2021 12:58 QUENTIN VALERA MD Aug 13, 2021 06:45
[2021-08-11 13:02] LABS: ABG BASE EXCESS 4.2 MMOL/L (-2.5-2.5); ABG OXYGEN SATURATION 101 % (94-100); ABG PCO2 42 MMHG (35-45); ABG PH 7.44 (7.37-7.43); ABG PO2 416 MMHG (79-93); ABG TCO2 29.5 MMOL/L (21.0-31.0)
[2021-08-11 13:03] LABS: ALLENS TEST POS; INSPIRED O2 6L; PATIENT TEMP 97.7; VENTILATOR NO
[2021-08-11 13:29] LABS: BASOPHILS % (AUTO) 0 % (0-10); EOSINOPHILS % (AUTO) 0 % (0-10); HEMATOCRIT 37 % (35-52); HEMOGLOBIN 11.8 g/dL (11.5-16.0); LYMPHOCYTES # (AUTO) 0.6 10^3/uL (1.0-4.0); LYMPHOCYTES % (AUTO) 6 % (12-44); MEAN CORPUSCULAR HEMOGLOBIN 30 pg (25-34); MEAN CORPUSCULAR HGB CONC 32 g/dL (32-36); MEAN CORPUSCULAR VOLUME 94 fL (80-99); MEAN PLATELET VOLUME 11.8 fL (9.0-12.2); MONOCYTES # (AUTO) 0.8 10^3/uL (0.0-1.0); MONOCYTES % (AUTO) 8 % (0-12); NEUTROPHILS # (AUTO) 8.3 10^3/uL (1.8-7.8); NEUTROPHILS % (AUTO) 85 % (42-75); PLATELET COUNT 162 10^3/uL (130-400); WHITE BLOOD COUNT 9.8 10^3/uL (4.3-11.0)
[2021-08-11 13:34] LABS: BILIRUBIN,URINE NEGATIVE (NEGATIVE); CLARITY,URINE CLEAR; COLOR,URINE YELLOW; GLUCOSE, URINE (UA) 3+ (NEGATIVE); KETONES,URINE NEGATIVE (NEGATIVE); LEUKOCYTE ESTERASE ,URINE NEGATIVE (NEGATIVE); NITRITE,URINE NEGATIVE (NEGATIVE); PH,URINE 5.5 (5-9); PROTEIN,URINE NEGATIVE (NEGATIVE)
[2021-08-11 13:42] LABS: ALBUMIN 3.4 GM/DL (3.2-4.5)
[2021-08-11 13:43] LABS: POTASSIUM 4.1 MMOL/L (3.6-5.0)
[2021-08-11 13:45] LABS: TOTAL PROTEIN 6.4 GM/DL (6.4-8.2)
[2021-08-11 13:47] LABS: BILIRUBIN,TOTAL 0.8 MG/DL (0.1-1.0); INR 1.1 (0.8-1.4); PROTHROMBIN TIME PATIENT 14.3 SEC (12.2-14.7)
[2021-08-11 13:48] LABS: BACTERIA,URINE NEGATIVE /HPF; SQUAMOUS EPITHELIAL CELL,UR RARE /HPF
[2021-08-11 13:49] LABS: CREATININE SERUM 0.91 MG/DL (0.60-1.30)
[2021-08-11 13:52] LABS: MAGNESIUM 2.1 MG/DL (1.6-2.4)
[2021-08-11] MEDS ORDERED: NS IV 1000 ML 1,000 ML IV ONE (14:00)
[2021-08-11] MEDS ORDERED: inSUlin (REGULAR) HUMAN 1 UNIT/0.01 ML (CHARGE PER UNIT) IV ONE (14:00)
[2021-08-11 14:07] LABS: BAND NEUTROPHILS 3 %; BASOPHILS % (MANUAL) 0 %; EOSINOPHILS % (MANUAL) 0 %; LYMPHOCYTES % (MANUAL) 9 %; MONOCYTES % (MANUAL) 7 %; NEUTROPHILS % (MANUAL) 81 %
[2021-08-11 14:08] LABS: RBC MORPH NORMAL
--- NOTE | 2021-08-11 15:18 | Diagnostic Imaging Report ---
INDICATION: Weakness and choking sensation. EXAMINATION: Chest, 08/11/2021. COMPARISON: 03/30/2021. FINDINGS: There is a density in the peripheral aspect of the right mid to lower lung not seen previously. This could represent focal atelectasis but lung nodules are not excluded and follow-up is recommended to assure complete resolution. Remaining lungs clear. No effusion or infiltrates otherwise noted. There is no pneumothorax. The heart and pulmonary vascular appear normal. IMPRESSION: Nonspecific density in the peripheral right mid to lower lung, see above discussion and recommendations. Dictated by: Dictated on workstation # [id number]
[2021-08-11 16:46] LABS: INSPIRED O2 2
[2021-08-11 16:47] LABS: ABG BASE EXCESS 1.7 MMOL/L (-2.5-2.5); ABG OXYGEN SATURATION 98 % (94-100); ABG PCO2 40 MMHG (35-45); ABG PH 7.42 (7.37-7.43); ABG PO2 102 MMHG (79-93); PATIENT TEMP 37.7; VENTILATOR NO
[2021-08-11 16:51] LABS: ABG TCO2 41.3 MMOL/L (21.0-31.0)
[2021-08-11] MEDS ORDERED: guaiFENesin SYRUP 100 MG/5 ML 10 ML (ROBITUSSIN SF) PO ONE (17:09)
[2021-08-11 17:54] LABS: POTASSIUM 3.7 MMOL/L (3.6-5.0)
[2021-08-11 17:55] LABS: CALCIUM 9.2 MG/DL (8.5-10.1)
[2021-08-11 18:00] LABS: CREATININE SERUM 0.6 MG/DL (0.60-1.30)
[2021-08-11 19:55] VITALS: BP 131/85
[2021-08-11] MEDS ORDERED: 1/2 NS IV SOLUTION 1,000 ML IV ONE (20:14)
[2021-08-11 20:35] VITALS: BP 18/156
[2021-08-11] MEDS ORDERED: RT-ALBUTEROL SULF 2.5 MG/3 ML PRE-MIX VIAL INH PRN (20:45)
[2021-08-11] MEDS ORDERED: FAMO20TA5 PEG (21:41)
[2021-08-11] MEDS ORDERED: IRON118L2 PEG (21:46)
[2021-08-11] MEDS ORDERED: VITAMIN D PO (21:46)
[2021-08-11] MEDS ORDERED: ONDANSETRON 4 MG/2 ML (SDV) Z0FRAN IV PRN (22:00)
[2021-08-11] MEDS ORDERED: ACETAMINOPHEN 650 MG SUPP (TYLENOL) PR PRN (22:00)
[2021-08-11] MEDS: 1/2 NS IV SOLUTION 1,000 ML IV SCH (23:07)
[2021-08-11 23:42] VITALS: BP 136/76
[2021-08-12 04:20] VITALS: BP 131/81
[2021-08-12 05:57] LABS: BASOPHILS % (AUTO) 0 % (0-10); EOSINOPHILS # (AUTO) 0.2 10^3/uL (0.0-0.3); EOSINOPHILS % (AUTO) 2 % (0-10); HEMATOCRIT 33 % (35-52); HEMOGLOBIN 10.7 g/dL (11.5-16.0); LYMPHOCYTES # (AUTO) 1.7 10^3/uL (1.0-4.0); LYMPHOCYTES % (AUTO) 13 % (12-44); MEAN CORPUSCULAR HEMOGLOBIN 30 pg (25-34); MEAN CORPUSCULAR HGB CONC 33 g/dL (32-36); MEAN CORPUSCULAR VOLUME 93 fL (80-99); MEAN PLATELET VOLUME 11.8 fL (9.0-12.2); MONOCYTES # (AUTO) 1.1 10^3/uL (0.0-1.0); MONOCYTES % (AUTO) 8 % (0-12); NEUTROPHILS # (AUTO) 10.2 10^3/uL (1.8-7.8); NEUTROPHILS % (AUTO) 77 % (42-75); PLATELET COUNT 172 10^3/uL (130-400); WHITE BLOOD COUNT 13.3 10^3/uL (4.3-11.0)
[2021-08-12] MEDS ORDERED: DEXTROSE 50% 50 ML (IMS) SYR ONE (05:59)
[2021-08-12] MEDS ORDERED: DEXTROSE 50% 50 ML (IMS) SYR IV PRN (06:00)
[2021-08-12] MEDS: inSUlin ASPART (NovoLOG) 1 UNIT/0.01 ML (CHARGE PER UNIT) SC SCH ×4 (06:00→21:00)
[2021-08-12 06:06] LABS: POTASSIUM 3.1 MMOL/L (3.6-5.0)
[2021-08-12 06:07] LABS: CALCIUM 8.7 MG/DL (8.5-10.1)
[2021-08-12 06:11] LABS: CREATININE SERUM 0.46 MG/DL (0.60-1.30)
[2021-08-12 07:25] VITALS: BP 106/62
[2021-08-12] MEDS ORDERED: KCL 20 MEQ TAB (K-DUR) PO ONE ×2 (08:15→08:16)
[2021-08-12 08:21] LABS: PHOSPHORUS 1.7 MG/DL (2.3-4.7)
[2021-08-12 08:23] LABS: MAGNESIUM 1.6 MG/DL (1.6-2.4)
[2021-08-12] MEDS: 1/2 NS IV SOLUTION 1,000 ML IV SCH (08:55)
[2021-08-12] MEDS ORDERED: VANCOMYCIN INJECTION 0.1 MG in NS (IVPB) 250 ML IV SCH (09:00)
--- NOTE | 2021-08-12 09:14 | Diagnostic Imaging Report ---
EXAMINATION: Chest 1 view HISTORY: Right lung nodule. COMPARISON: 08/11/2020 FINDINGS: There are two right mid zone nodular opacities measuring 12 mm and 10 mm. No pleural effusion or pneumothorax. Heart size is normal. IMPRESSION: 1. The right mid zone nodular opacities measuring 12 mm and [address] with contrast recommended for further evaluation given the persistence. Dictated by: Dictated on workstation # [id number]
[2021-08-12] MEDS ORDERED: VANCOMYCIN 750 MG/NS 250 ML IVPB IV NR ×2 (10:00)
[2021-08-12] MEDS: cefTRIAXone 1 GM PRE-MIX 50 ML IV SCH (10:19)
[2021-08-12] MEDS: KCL 20 MEQ TAB (K-DUR) PO SCH (10:19)
[2021-08-12 11:38] VITALS: BP 115/73
--- NOTE | 2021-08-12 12:58 | Diagnostic Imaging Report ---
EXAMINATION: CT chest without contrast. TECHNIQUE: Multiple contiguous axial images were obtained through the chest without the use of intravenous contrast. All CT scans use one or more of the following dose optimizing techniques: automated exposure control, MA and/or KvP adjustment based on patient size and exam type or iterative reconstruction. HISTORY: Lung nodule COMPARISON: 07/01/2021 FINDINGS: The tree-in-bud and peribronchial vascular nodules in the right middle lobe and right lower lobe have slightly increased. In addition there are new tree-in-bud nodules in the left lower lobe. There is a area of consolidation right lower lobe with a reverse halo appearance. There is endobronchial obstruction of the medial basilar segmental bronchus of the right lower lobe. No pleural effusion. No pneumothorax. There is no axillary or supraclavicular lymphadenopathy. There is no mediastinal lymphadenopathy. Heart size is normal. There are no coronary artery calcifications. No pericardial effusion. Aorta is normal in caliber. Limited views of the upper abdomen are unremarkable. There are no suspicious osseus lesions. There are subacute fractures of the right 3rd rib and the left 3rd and 4th ribs. IMPRESSION: 1. Increasing tree-in-bud and periventricular vascular nodules in the right middle, right lower and left lower lobes with a reverse halo area of consolidation in the right lower lobe. An endobronchial obstruction of the medial basilar segmental bronchus of the right lower lobe. Overall findings are most suggestive of a chronic endobronchial infection with organisms such as fungal or mycobacterial species. Bronchoscopy may be needed for definitive diagnosis. Dictated by: Dictated on workstation # [id number]
[2021-08-12 16:25] VITALS: BP_SYST 127; BP_SYST 171; BP_DIAS 78; BP_DIAS 79
--- NOTE | 2021-08-12 18:33 | History & Physical-Hospitalist ---
History of Present Illness HPI/Chief Complaint Libby Melendrez is a 71 year old female with PMH MS, PEG tube feeding dependent, who presented with weakness. Her family is present and assists with providing history. She has reportedly been feeling more weak recently. She also has had a cough with thick sputum. She denies fevers and chills. She is not short of breath. She denies chest pain. She denies abdominal pain, nausea, and vomiting. She has difficulty swallowing. She has been getting Ensure through her PEG tube four times daily for the past couple months since it was placed. She has not been getting much free water but they have been flushing with 20 cc with each meal. She recently completed a two week course of steroids. She has been urinating frequently. She has a history of diabetes and was on Metformin in the past but it was stopped when she lost weight and this was better controlled. Source: patient, family Exam Limitations: no limitations Date Seen 08/12/21 Time Seen by a Provider: 10:35 Attending Physician Kenny Real MD PCP Aliyah Paris MD Referring Physician Date of Admission Aug 11, 2021 at 17:36 Home Medications & Allergies Home Medications Reviewed patient Home Medication Reconciliation performed by pharmacy medication reconciliations system support technician and/or nursing. Patients Allergies have been reviewed. Allergies Allergies Coded Allergies No Known Drug Allergies (Unverified03/30/21) Past Cigcdzb-Htnuqt-Zszers Hx Patient Social History Tobacco Use?: No Substance use?: No Alcohol Use?: No Pt feels they are or have been: No Immunizations Up To Date First/Initial COVID19 Vaccinat: STATES 2ND VACCINATION Second COVID19 Vaccination Ziggy: STATES 2ND VACCINATION Tetanus Booster (TDap): Unknown Hepatitis A: No Hepatitis B: No Seasonal Allergies Seasonal Allergies: Yes Current Status status: No Advance Directives: No Communicates: Verbally Primary Language: Citizen Of [place] Preferred Spoken Language: Citizen [place] Is interpretation needed?: No Sensory deficits: Vision impairment Implanted or Applied Medical D: None Past Medical History Currently Using CPAP: No Currently Using BIPAP: No Multiple Sclerosis Sexually Transmitted Disease: No HIV/AIDS: No Arthritis, Rheumatoid Arthritis Diabetes, Non-Insulin dep Loss of Vision: Denies Skin Did You Recieve Any Treatments: Yes What Type of Treatment Did You: Surgical Intervention Anxiety Blood Disorders: No Family Medical History Hypertension Review of Systems Constitutional: weakness EENTM: no symptoms reported Respiratory: cough Cardiovascular: no symptoms reported Gastrointestinal: no symptoms reported Genitourinary: frequency Musculoskeletal: no symptoms reported Skin: no symptoms reported Psychiatric/Neurological: No Symptoms Reported Physical Exam Physical Exam Vital Signs Vital Signs - First Documented 08/11/21 08/11/21 12:35 20:35 Temp 36.4 Pulse 110 Resp 18 B/P (MAP) 156/98 (117) Pulse Ox 100 O2 Delivery Non Rebreather O2 Flow Rate 15.00 FiO2 100 Capillary Refill : Less Than 3 Seconds Height, Weight, BMI Height: '" Weight: lbs. oz. kg; 15.66 BMI Method: General Appearance: Chronically ill, Cachetic HEENT: PERRL/EOMI, Other (dry mucous membranes) Neck: Normal Inspection, Supple Respiratory: Lungs Clear, Normal Breath Sounds, No Respiratory Distress Cardiovascular: Regular Rate, Rhythm, No Edema, No Murmur Gastrointestinal: Normal Bowel Sounds, Non Tender, Soft, Other (PEG tube in place, well appearing, no discharge) Extremity: Normal Inspection, Non Tender, No Pedal Edema Neurologic/Psychiatric: Alert, Normal Mood/Affect Skin: Normal Color, Warm/Dry Results Results/Procedures Labs Laboratory Tests 08/11/21 13:10 08/11/21 17:33 08/12/21 05:19 Patient resulted labs reviewed. Imaging: Reviewed Imaging Report Assessment/Plan Admission Diagnosis Dehydration Admission Status: Observation Assessment and Plan Dehydration Hypernatremia Hypokalemia Hypomagenesemia Hypophosphatemia Lactic acidosis PEG tube Severe protein-calorie malnutrition Cachexia IV fluids Add free water boluses Dietary consult for tube feed recommendations Monitor and correct electrolyte abnormalities as needed Possible Staph aureus bacteremia Blood culture positive for probably Staph aureus Not septic Started on Vanc and Rocephin T2DM with hyperglycemia Not on any home meds Hypoglycemic this morning Started on Levemir, decrease dose Sliding scale insulin Right lung density CXR with right lung density Repeat again showed density CT ordered Debility PT/OT DVT prophylaxis: Lovenox Diagnosis/Problems Diagnosis/Problems (1) Dehydration Status: Acute (2) Lactic acidosis Status: Acute (3) Hypernatremia Status: Acute (4) Hypophosphatemia Status: Acute (5) Hypomagnesemia Status: Acute (6) Hypokalemia Status: Acute (7) Presence of externally removable percutaneous endoscopic gastrostomy (PEG) tube Status: Chronic (8) Staphylococcus aureus bacteremia without sepsis Status: Acute (9) T2DM (type 2 diabetes mellitus) Status: Acute Qualifiers: Diabetes mellitus intermission coordinator insulin use: without penitentiary use Diabetes mellitus complication status: with hyperglycemia Qualified Codes: E11.65 - Type 2 diabetes mellitus with hyperglycemia (10) Severe protein-calorie malnutrition Status: Acute (11) Cachexia Status: Acute (12) Multiple sclerosis Status: Chronic KENNY REAL MD Aug 12, 2021 18:33
[2021-08-12] MEDS: guaiFENesin SYRUP 100 MG/5 ML 10 ML (ROBITUSSIN SF) PO PRN (19:32)
[2021-08-12 19:58] VITALS: BP 126/80
[2021-08-12] MEDS ORDERED: MAGNESIUM 1 GM/100 ML IVPB 200 ML IV ONE (21:06)
[2021-08-12] MEDS: MAGNESIUM 1 GM/100 ML IVPB 100 ML IV SCH ×2 (21:09→22:23)
[2021-08-12] MEDS ORDERED: POT PHOS/NA PHOS (K-PHOS NEUTRAL) PEG ONE (22:00)
[2021-08-13 00:11] VITALS: BP 110/72
[2021-08-13 03:24] VITALS: BP 145/79
[2021-08-13 05:41] LABS: PHOSPHORUS 2.3 MG/DL (2.3-4.7)
[2021-08-13 05:43] LABS: MAGNESIUM 1.9 MG/DL (1.6-2.4)
[2021-08-13] MEDS: POTASSIUM CL 10MEQ/50ML IVPB 50 ML IV SCH (06:00)
[2021-08-13] MEDS: KCL 20 MEQ TAB (K-DUR) PO SCH ×2 (06:00→06:27)
[2021-08-13] MEDS: MAGNESIUM 1 GM/100 ML IVPB 100 ML IV SCH (06:00)
[2021-08-13 06:18] LABS: POTASSIUM 3.7 MMOL/L (3.6-5.0)
[2021-08-13 06:24] LABS: CREATININE SERUM 0.5 MG/DL (0.60-1.30)
[2021-08-13] MEDS: inSUlin ASPART (NovoLOG) 1 UNIT/0.01 ML (CHARGE PER UNIT) SC SCH ×4 (06:27→21:51)
[2021-08-13 08:00] VITALS: BP 115/78
[2021-08-13] MEDS ORDERED: metFORMIN 500 MG (GLUCOPHAGE) TAB PEG SCH (08:00)
[2021-08-13] MEDS: ENOXAPARIN 30 MG/0.3 ML (LOVENOX) SYR SC SCH (09:05)
[2021-08-13] MEDS: cefTRIAXone 1 GM PRE-MIX 50 ML IV SCH (09:05)
--- NOTE | 2021-08-13 09:34 | Physical Therapy Evaluation ---
PT Evaluation-General Medical Diagnosis Admission Date Aug 11, 2021 at 17:36 Medical Diagnosis: dehydration, new onset DMII Onset Date: Aug 10, 2021 Therapy Diagnosis Therapy Diagnosis: limited mobility Precautions Precautions/Isolations: Fall Prevention, Standard Precautions Referral Physician: Ramila Parrish MD Reason for Referral: Evaluation/Treatment Medical History Pertinent Medical History: DM, HTN Additional Medical History MS Current History dehydration, malnourished, new onset DMII Reviewed History: Yes Social History Home: Single Level Current Living Status: Alone Entry Into Home: Level Entry Prior Prior Level of Function SCALE: Activities may be completed with or without assistive devices. 0-Izemmppexg-ondqcxq completes the activity by him/herself with no assistance from a helper. 5-Set-up or Clean-up Assistance-helper sets up or cleans up; patient completes activity. [place] assists only prior to or following the activity. 4-Supervision or Touching Assistance-helper provides verbal cues and/or touching/steadying and/or contact guard assistance as patient completes activ ity. Assistance may be provided throughout the activity or intermittently. 3-Partial/Moderate Assistance-helper does LESS THAN HALF the effort. [place] lifts, holds or supports trunk or limbs, but provides less than half the effort. 2-Substantial/Maximal Assistance-helper does MORE THAN HALF the effort. [place] lifts or holds trunk or limbs and provides more than half the effort. 2-Anlxrgpme-ikiowm does ALL the effort. Patient does none of the effort to complete the activity. Or, the assistance of 2 or more helpers is required for the patient to complete the activity. If activity was not attempted, code reason: 7-Patient Refused. 9-Not Applicable-not attempted and the patient did not perform the activity before the current illness, exacerbation or injury. 10-Not Attempted due to Environmental Limitations-(lack of equipment, weather restraints, etc.). 88-Not Attempted due to Medical Conditions or Safety Concerns. Bed Mobility: 5 Transfers (B,C,W/C): 5 Gait: 5 Stairs: 9 Wheelchair Mobility: 9 Indoor Mobility (Ambulation): Independent Stairs: Not Applical[place] Prior Devices Use: Walker PT Evaluation-Current Subjective Fatigued on arrival, with no pain reported. Pt/Family Goals Return home. Objective Patient Orientation: Person, Place Attachments: Oxygen, William Catheter, IV ROM/Strength ROM Upper Extremities WFL ROM Lower Extremities WFL Strength Upper Extremities Gross (B) UE MMT 3/5 Strength Lower Extremities Gross (B) LE MMT 3/5 Neuromuscular (Tone, Coordination, Reflexes) Intact sensation and reflexes. Good (B) UE coordination. Sensory Vision: Functional Hearing: Functional Sensation Right Upper Extremit: Intact Sensation Left Upper Extremity: Intact Sensation Right Lower Extremit: Intact Sensation Left Lower Extremity: Intact Transfers Roll Left to Right (QC): 5 Sit to Lying (QC): 5 Lying to Sitting/Side of Bed(Q: 3 Sit to Stand (QC): 5 Gait Does the Patient Walk?: Yes Mode of Locomotion: Walk Anticipated Mode of Locomotion: Walk Walk 10 feet (QC): 88 Distance: 8ft Gait Assistive Device: FWW Wheelchair Training Does the Pt Use a Wheelchair?: No Balance Sitting Static: Good Sitting Dynamic: Good Standing Static: Fair Standing Dynamic: Fair Assessment/Needs Pt was capable of performing bed mobility with only contact assist to get legs in/out of bed. She was able to stand and ambulate a short distance with good stability. Rehab Potential: Good PT Skilled Nursing Goals Skilled Nursing Goals PT Car Wash Manager Goals Time Frame: Aug 27, 2021 Roll Left & Right (QC): 6 Sit to Lying (QC): 6 Lying-Sitting on Side/Bed(QC): 6 Sit to Stand (QC): 6 Chair/Zyb-tv-Ciqqj Xfer(QC): 6 Toilet Transfer (QC): 6 Car Transfer (QC): 6 Does the Patient Walk: Yes Walk 10 feet (QC): 6 Walk 50ft with 2 Turns (QC): 6 Walk 150 ft (QC): 6 Walking 10ft on Uneven Surface: 6 Does the Pt use WC or Scooter?: No PT Plan Problem List Problem List: Activity Tolerance, Functional Strength, Safety, Gait, Transfer, Bed Mobility Treatment/Plan Treatment Plan: Continue Plan of Care Treatment Plan: Bed Mobility, Functional Activity Prince, Gait, Therapeutic Exer cise, Transfers Treatment Duration: Aug 27, 2021 Frequency: 6 times per week Estimated Hrs Per Day: .25 hour per day Patient and/or Family Agrees t: Yes Time/GCodes Time In: 0900 Time Out: 924 Total Billed Treatment Time: 25 Total Billed Treatment 1, simone 25 MELANIE BURTON PT Aug 13, 2021 09:34
[2021-08-13] MEDS ORDERED: VANCOMYCIN 500 MG/NS 100 ML IV SCH ×2 (10:00)
--- NOTE | 2021-08-13 10:39 | Occupational Therapy Eval ---
OT Evaluation-General/PLF Medical Diagnosis Admission Date Aug 11, 2021 at 17:36 Medical Diagnosis: dehydration, new onset DMII Onset Date: Aug 10, 2021 Therapy Diagnosis Therapy Diagnosis: Impaired endurance, balance, adls Precautions Precautions/Isolations: Fall Prevention, Standard Precautions Referral Physician: Ramila Parrish MD Referral Reason: Evaluation/Treatment Medical History Pertinent Medical History: DM, HTN Current History Pt presents with weakness. Per patient, she was indep with adls and her sisters perform IADLs. However, sister verbalizes later that she assists with bathing, dressing and tube feedings. Pt utilized walker and does not drive. Reviewed History: Yes Social History Home: Apartment Current Living Status: Alone Entry Into Home: Level Entry ADL-Prior Level of Function SCALE: Activities may be completed with or without assistive devices. 8-Qyowjkemnr-nmunspz completes the activity by him/herself with no assistance from a helper. 5-Set-up or Clean-up Assistance-helper sets up or cleans up; patient completes activity. [place] assists only prior to or following the activity. 4-Supervision or Touching Assistance-helper provides verbal cues and/or touching/steadying and/or contact guard assistance as patient completes activity. Assistance may be provided throughout the activity or intermittently. 3-Partial/Moderate Assistance-helper does LESS THAN HALF the effort. [place] lifts, holds or supports trunk or limbs, but provides less than half the effort. 2-Substantial/Maximal Assistance-helper does MORE THAN HALF the effort. [place] lifts or holds trunk or limbs and provides more than half the effort. 8-Hshnhdnfe-dzyunt does ALL the effort. Patient does none of the effort to complete the activity. Or, the assistance of 2 or more helpers is required for the patient to complete the activity. If activity was not attempted, code reason: 7-Patient Refused. 9-Not Applicable-not attempted and the patient did not perform the activity before the current illness, exacerbation or injury. 10-Not Attempted due to Environmental Limitations-(lack of equipment, weather restraints, etc.). 88-Not Attempted due to Medical Conditions or Safety Concerns. Self Care: Needed Some Help Functional Cognition: Needed Some Help DME/Equipment: Bath Chair, Grab Bars, Shower Drive Self: No OT Current Status Subjective Denies pain, c/o fatigue. Appearance Returned to supine, all needs within reach, family in room. Mental Status/Objective Patient Orientation: Person, Confused Attachments: William Catheter, IV, Oxygen, PEG Tube Current Hand Dominance: Right Upper Extremity ROM WNL Upper Extremity Strength debilitated, 3/5 grossly ADL-Treatment Lower Body Dressing (QC): 1 On/Off Footwear (QC): 1 Pt supine in bed at OT arrival. Able to sit EOB with SBA. Reports significant fatigue after minimal activity, requires rest. Unable to reach feet by bending at waist or crossing legs. Sister reports that some days she has to help with LB dressing. Appears to be on days where pt is experiencing MS exacerbations. Sit<>stand: CGA, pt verbalizes feelings of being "wobbly" but no unsteadiness present. CGA for safety as she took 3-4 steps towards HOB with use of walker. Pt reports fatigue and unable to ambulate any further. Declines taking hand off walker due to weakness and fear of falling. At this time, pt would require assist with managing clothing over hips pre/post toileting. Education OT Patient Education: Correct positioning, Energy conservation, Instructions to caregiver, Modified ADL techniques, Progress toward Goal/Update tx plan, Purpose of tx/functional activities, Safety issues, Transfer techniques Teaching Recipient: Patient Teaching Methods: Discussion Response to Teaching: Reinforcement Needed OT Technical Instructor Goals Technical Instructor Goals Time Frame: Aug 27, 2021 Oral Hygiene (QC): 5 Toileting Hygiene (QC): 4 Upper Body Dressing (QC): 4 Lower Body Dressing (QC): 4 1=Demonstrate adherence to instructed precautions during ADL tasks. 2=Patient will verbalize/demonstrate understanding of assistive devices/modifications for ADL. 3=Patient will improve strength/tolerance for activity to enable patient to perform ADL's. OT Education/Plan Problem List/Assessment Assessment: Decreased Activ Tolerance, Decreased Safety Aware, Decreased UE Strength, Impaired Cognition, Impaired Funct Balance, Impaired Self-Care Skills Discharge Recommendations Plan/Recommendations: Continue POC Therapy Discharge Recommendati: Intermittent Supervision, Bath Aide, Homemaker Support Comment continue to assess Treatment Plan/Plan of Care Treatment,Training & Education: Yes Patient would benefit from OT for education, treatment and training to promote independence in ADL's, mobility, safety and/or upper extremity function for ADL's. Plan of Care: ADL Retraining, Caregiver Training, Functional Mobility, Group Exercise/Act as Ind, UE Funct Exercise/Act Treatment Duration: Aug 27, 2021 Frequency: 5 times per week Estimated Hrs Per Day: .25 hour per day Rehab Potential: Good Time/GCodes Start Time: 09:38 Stop Time: 10:03 Total Time Billed (hr/min): 25 Billed Treatment Time 1 visit EVM (10 min) ADL (15 min) Kristin Hope OT Aug 13, 2021 10:39
[2021-08-13] MEDS ORDERED: IBUP-2558 PEG (11:17)
[2021-08-13] MEDS ORDERED: GUAI-981 PEG (11:17)
[2021-08-13] MEDS ORDERED: CHOL400D7 PEG (11:17)
[2021-08-13 12:00] VITALS: BP 138/90
--- NOTE | 2021-08-13 12:21 | Progress Note - Hospitalist ---
Subjective HPI/CC On Admission Date Seen by Provider: Aug 13, 2021 Time Seen by Provider: 09:50 Libby Melendrez is a 71 year old female with PMH MS, PEG tube feeding dependent, who presented with weakness. Her family is present and assists with providing history. She has reportedly been feeling more weak recently. She also has had a cough with thick sputum. She denies fevers and chills. She is not short of breath. She denies chest pain. She denies abdominal pain, nausea, and vomiting. She has difficulty swallowing. She has been getting Ensure through her PEG tube four times daily for the past couple months since it was placed. She has not been getting much free water but they have been flushing with 20 cc with each meal. She recently completed a two week course of steroids. She has been urinating frequently. She has a history of diabetes and was on Metformin in the past but it was stopped when she lost weight and this was better controlled. Subjective/Events-last exam She is feeling ok. She has no complaints or concerns. Focused Exam Lactate Level 08/11/21 13:10: Lactic Acid Level 2.42*H 08/11/21 15:19: Lactic Acid Level 3.12*H 08/11/21 17:33: Lactic Acid Level 1.61 Objective Exam Vital Signs Vital Signs Date Time Temp Pulse Resp B/P (MAP) Pulse Ox O2 Delivery O2 Flow Rate FiO2 08/13/21 12:00 37.1 108 16 138/90 (106) 94 Nasal Cannula 2.00 08/11/21 20:35 100 Capillary Refill : Less Than 3 Seconds General Appearance: Chronically ill, Cachetic Respiratory: Lungs Clear, Normal Breath Sounds, No Respiratory Distress Cardiovascular: Regular Rate, Rhythm, No Edema, No Murmur Gastrointestinal: Normal Bowel Sounds, Non Tender, Soft, Other (PEG tube in place) Extremity: Normal Inspection, Non Tender, No Pedal Edema Neurologic/Psychiatric: Alert, Depressed Affect Skin: Warm/Dry, Pallor Results/Procedures Lab Laboratory Tests 08/13/21 05:19 Patient resulted labs reviewed. Imaging: Reviewed Imaging Report Assessment/Plan Assessment and Plan Assess & Plan/Chief Complaint Severe protein-calorie malnutrition Cachexia PEG tube Stop IV fluids Decrease free water boluses Monitor and correct electrolyte abnormalities as needed Possible Staph aureus bacteremia Blood culture 1/2 bottles positive for probable Staph aureus Not septic Continue Vanc Stop Rocephin T2DM with hyperglycemia Not on any home meds Hypoglycemic this morning Begin Metformin Right lung density CXR with right lung density Repeat again showed density CT concerning for chronic infection, recommended pulmonology referral for possible bronchoscopy Debility PT/OT DVT prophylaxis: Lovenox Dehydration, resolved Hypernatremia, resolved Hypokalemia, resolved Hypomagenesemia, resolved Hypophosphatemia, resolved Lactic acidosis, resolved Diagnosis/Problems Diagnosis/Problems (1) Dehydration Status: Resolved Resolution Date/Time: 08/13/21 @ 12:21 (2) Lactic acidosis Status: Resolved Resolution Date/Time: 08/13/21 @ 12:21 (3) Hypernatremia Status: Resolved Resolution Date/Time: 08/13/21 @ 12:21 (4) Hypophosphatemia Status: Resolved Resolution Date/Time: 08/13/21 @ 12:21 (5) Hypomagnesemia Status: Resolved Resolution Date/Time: 08/13/21 @ 12:21 (6) Hypokalemia Status: Resolved Resolution Date/Time: 08/13/21 @ 12:21 (7) Presence of externally removable percutaneous endoscopic gastrostomy (PEG) tube Status: Chronic (8) Staphylococcus aureus bacteremia without sepsis Status: Acute (9) T2DM (type 2 diabetes mellitus) Status: Acute Qualifiers: Diabetes mellitus intermediate card tender insulin use: without retirement use Diabetes mellitus complication status: with hyperglycemia Qualified Codes: E11.65 - Type 2 diabetes mellitus with hyperglycemia (10) Severe protein-calorie malnutrition Status: Acute (11) Cachexia Status: Acute (12) Multiple sclerosis Status: Chronic KENNY REAL MD Aug 13, 2021 12:21
[2021-08-13 15:43] VITALS: BP 120/82
[2021-08-13 19:35] VITALS: BP 120/78
[2021-08-13] MEDS: guaiFENesin SYRUP 100 MG/5 ML 10 ML (ROBITUSSIN SF) PO PRN (21:52)
[2021-08-14] VITALS (8 sets, daily range): BP systolic 108–138; BP diastolic 60–90
[2021-08-14 05:25] LABS: POTASSIUM 4.1 MMOL/L (3.6-5.0)
[2021-08-14 05:26] LABS: CALCIUM 8.5 MG/DL (8.5-10.1)
[2021-08-14 05:30] LABS: PHOSPHORUS 2.7 MG/DL (2.3-4.7)
[2021-08-14 05:31] LABS: CREATININE SERUM 0.54 MG/DL (0.60-1.30)
[2021-08-14 05:33] LABS: MAGNESIUM 1.7 MG/DL (1.6-2.4)
[2021-08-14] MEDS: POTASSIUM CL 10MEQ/50ML IVPB 50 ML IV SCH (05:40)
[2021-08-14] MEDS: KCL 20 MEQ TAB (K-DUR) PO SCH (05:40)
[2021-08-14] MEDS: MAGNESIUM 1 GM/100 ML IVPB 100 ML IV SCH ×3 (05:41→08:21)
[2021-08-14] MEDS: inSUlin ASPART (NovoLOG) 1 UNIT/0.01 ML (CHARGE PER UNIT) SC SCH ×4 (06:08→21:31)
[2021-08-14] MEDS: metFORMIN 500 MG (GLUCOPHAGE) TAB PEG SCH (06:08)
[2021-08-14] MEDS: POTASSIUM BICARB 20 MEQ (EFFER-K) TABLET PEG SCH (06:09)
[2021-08-14] MEDS ORDERED: TROUGH ORDER-PHARMACY XX NR (09:00)
[2021-08-14 09:24] LABS: PHOSPHORUS 2.5 MG/DL (2.3-4.7)
[2021-08-14 09:26] LABS: MAGNESIUM 2.7 MG/DL (1.6-2.4)
[2021-08-14 09:32] LABS: VANCOMYCIN,TROUGH 3.3 UG/ML (10.0-20.0)
--- NOTE | 2021-08-14 09:44 | Progress Note ---
Subjective Subjective Date Seen by Provider: Aug 14, 2021 Time Seen by Provider: 07:40 Patient still a bit tired today. She has a productive cough with yellow sputum. Denies any nausea/vomiting or sweats/chills. She is not having any shortness of breath currently. PT'S FAMILY REPORTS THAT SHE HAS BEEN HAVING NECK PAIN, AND HAS A RED SPOT HER HER BACK THAT THEY ARE WORRIED ABOUT. PT CONTINUES TO HAVE A DRY MOUTH, COUGH AND WEAKNESS Review of Systems General: No Chills, No Night Sweats; Fatigue HEENT: Sore Throat, Other (DRY MOUTH AND NOSE) Pulmonary: No Dyspnea; Cough Cardiovascular: No: Chest Pain Gastrointestinal: No: Nausea, Vomiting, Abdominal Pain Genitourinary: Other (PENDLETON IN PLACE) Musculoskeletal: neck pain Neurological: Weakness; No: Confusion Objective Exam Vital Signs Vital Signs Date Time Temp Pulse Resp B/P (MAP) Pulse Ox O2 Delivery O2 Flow Rate FiO2 08/14/21 04:00 36.8 102 22 110/76 (87) 97 Nasal Cannula 2.00 08/14/21 02:00 37.1 108 94 28 08/14/21 00:00 36.0 101 20 128/87 (101) 96 Nasal Cannula 2.00 08/13/21 20:00 Nasal Cannula 2.00 08/13/21 19:35 36.3 124 18 120/78 (92) 93 Nasal Cannula 2.00 08/13/21 15:43 37.0 116 20 120/82 (95) 98 Nasal Cannula 2.00 08/13/21 15:14 94 Nasal Cannula 2.00 08/13/21 14:42 94 Nasal Cannula 2.00 08/13/21 12:00 37.1 108 16 138/90 (106) 94 Nasal Cannula 2.00 I & O 08/14/21 07:00 Intake Total 957 ml Output Total 1425 ml Balance -468 ml General Appearance: No Apparent Distress, Chronically ill, Cachetic Eyes: Bilateral Eye PERRL, Bilateral Eye EOMI HEENT: PERRL/EOMI Neck: Normal Inspection, Supple Respiratory: Lungs Clear, Normal Breath Sounds, No Respiratory Distress Cardiovascular: Regular Rate, Rhythm, No Edema, No Murmur Gastrointestinal: Normal Bowel Sounds, Non Tender, Soft, Other (PEG tube in place, DEBRIS AROUND PEG TUBE) Back: Other (REDNESS ON MID THORACIC SPINE, REDNESS OF SACRAL TISSUE) Extremity: Normal Inspection, Non Tender, No Pedal Edema, Other (EXTREMELY THIN EXTREMITIES) Neurologic/Psychiatric: Alert, Oriented x3, Motor Weakness, Other (FLAT AFFECT) Skin: Warm/Dry, Pallor Results Lab Laboratory Tests 08/13/21 11:10: Glucometer 169H 08/13/21 15:47: Glucometer 297H 08/13/21 20:19: Glucometer 288H 08/14/21 05:09: Sodium Level 136, Potassium Level 4.1, Chloride Level 104, Carbon Dioxide Level 24, Anion Gap 8, Blood Urea Nitrogen 13, Creatinine 0.54L, Estimat Glomerular Filtration Rate 111, BUN/Creatinine Ratio 24, Glucose Level 202H, Calcium Level 8.5, Phosphorus Level 2.7, Magnesium Level 1.7 08/14/21 09:02: Phosphorus Level 2.5, Magnesium Level 2.7H, Vancomycin Level Trough 3.3L Microbiology 08/11/21 Urine Culture - Final, Complete NO GROWTH 08/11/21 Blood Culture - Preliminary, Resulted Staphylococcus aureus Susceptibility To Follow Assessment/Plan Assessment/Plan Assessment and Plan Severe protein-calorie malnutrition Cachexia PEG tube Stop IV fluids Decrease free water boluses Monitor and correct electrolyte abnormalities as needed Possible Staph aureus bacteremia Blood culture 1/2 bottles positive for probable Staph aureus Not septic Continue Vanc T2DM with hyperglycemia Not on any home meds Begin Metformin Right lung density CXR with right lung density Repeat again showed density CT concerning for chronic infection, recommended pulmonology referral for possible bronchoscopy Debility PT/OT DVT prophylaxis: Lovenox Supervisory-Addendum Brief Verification & Attestation Participated in pt care: history, MDM, physical Personally performed: exam, history, MDM, supervision of care Care discussed with: Medical Student Procedures: n/a Results interpretation: Verified all documentation AGREE WITH STUDENT NOTE - SEE MY ADDITIONAL DOCUMENTATION IN ALL CAPS MULTIPLE SCLEROSIS RELAPSING REMITTING WITH CURRENT ACTIVE RELAPSE CACHEXIA WITH ESOPHAGEAL DYSMOTILITY AND ASPIRATION ASPIRATION PNEUMONIA AND SUSPECTED FUNGAL PNEUMONIA POSITIVE BLOOD CULTURE WITH STAPH AUREUS GROWING OUT ON CULTURE RECURRENT DIABETES MELLITUS MULTIPLE SCLEROSIS RELAPSING REMITTING WITH CURRENT ACTIVE RELAPSE - PT WAS ON STEROID THERAPY WITH TAPERING DOSE DUE TO HER RELAPSE - SUPPORTIVE CARE ONLY AT THIS TIME WITH TUBE FEEDS FOR NUTRITION SINCE PT CANNOT EAT - PT WILL NEED TO GO TO A CORRECTION ON DISCHARGE, HOWEVER CANNOT BE DISCHARGED FOR AT LEAST ANOTHER 72 HOURS WE ARE PLANNING ON BRONCHOSCOPE AND FURTHER TREATMENT AND INVESTIGATION INTO THE LUNG DENSITIES. CACHEXIA WITH ESOPHAGEAL DYSMOTILITY AND ASPIRATION - WILL START PHYSICAL THERAPY - CONTINUE WITH TUBE FEEDS, CONSULT DIETARY FOR MORE RECOMMENDATIONS TO FEEDING SCHEDULE ASPIRATION PNEUMONIA AND SUSPECTED FUNGAL PNEUMONIA - PT ON VANC, ROCEPHIN, AND STARTING ON DIFLUCAN IV - CONSULT TO DR. NORIEGA FOR BRONCHOSCOPE WITH ASPIRATE TO BE SENT FOR CULTURE POSITIVE BLOOD CULTURE WITH STAPH AUREUS GROWING OUT ON CULTURE - ON IV ANTIBIOTICS - SEE ABOVE RECURRENT DIABETES MELLITUS - PT WAS GIVEN INSULIN - HAD SEVERE DROP IN GLUCOSE, PT RESTARTED ON METFORMIN. GI PROPHYLAXIS WITH PPI AND WILL START ON PROBIOTIC WELL TO PREVENT DIARRHEA. DVT PROPHYLAXIS WITH LOVENOX AND SCD'S KAREN SINGLETON Aug 14, 2021 09:44 ELSIE VENTURA MD Aug 14, 2021 11:59
[2021-08-14] MEDS: ENOXAPARIN 30 MG/0.3 ML (LOVENOX) SYR SC SCH (10:31)
[2021-08-14] MEDS: VANCOMYCIN 750 MG/NS 250 ML IVPB IV NR ×2 (10:31)
--- NOTE | 2021-08-14 10:38 | Physical Therapy Daily Note ---
PT Daily Note-Current Subjective Pt is in bed, with family present. She is agreeable to treatment. Pain Numeric Pain Scale: 0-No Pain Location: No Pain Reported Mental Status Patient Orientation: Person, Place Attachments: SCD's, William Catheter, IV Transfers SCALE: Activities may be completed with or without assistive devices. 8-Xjemjgktys-ybnowdx completes the activity by him/herself with no assistance from a helper. 5-Set-up or Clean-up Assistance-helper sets up or cleans up; patient completes activity. [place] assists only prior to or following the activity. 4-Supervision or Touching Assistance-helper provides verbal cues and/or touching/steadying and/or contact guard assistance as patient completes activity. Assistance may be provided throughout the activity or intermittently. 3-Partial/Moderate Assistance-helper does LESS THAN HALF the effort. [place] lifts, holds or supports trunk or limbs, but provides less than half the effort. 2-Substantial/Maximal Assistance-helper does MORE THAN HALF the effort. [place] lifts or holds trunk or limbs and provides more than half the effort. 4-Twzaqqwfs-ewbidh does ALL the effort. Patient does none of the effort to complete the activity. Or, the assistance of 2 or more helpers is required for the patient to complete the activity. If activity was not attempted, code reason: 7-Patient Refused. 9-Not Applicable-not attempted and the patient did not perform the activity before the current illness, exacerbation or injury. 10-Not Attempted due to Environmental Limitations-(lack of equipment, weather restraints, etc.). 88-Not Attempted due to Medical Conditions or Safety Concerns. Roll Left & Right (QC): 4 Sit to Lying (QC): 4 Lying to Sitting/Side of Bed(Q: 4 Sit to Stand (QC): 4 Gait Training Does the Patient Walk?: Yes Distance: 130ft Walk 10 feet (QC): 5 Walk 50 ft with 2 Turns(QC): 5 Gait Persons Needed: 1 Gait Assistive Device: FWW Exercises Supine Ex: LE Protocol Supine Reps: 15 Assessment Current Status: Good Progress Pt showed good stability with ambulation and transfers. She was able to perform the majority of the bed mobility and transfers with just intermittent assista nce. PT Certified Medical Biller Goals [facility] Goals PT Certified Medical Biller Goals Time Frame: Aug 27, 2021 Roll Left & Right (QC): 6 Sit to Lying (QC): 6 Lying-Sitting on Side/Bed(QC): 6 Sit to Stand (QC): 6 Chair/Ztv-hv-Wjdks Xfer(QC): 6 Toilet Transfer (QC): 6 Car Transfer (QC): 6 Does the Patient Walk: Yes Walk 10 feet (QC): 6 Walk 50ft with 2 Turns (QC): 6 Walk 150 ft (QC): 6 Walking 10ft on Uneven Surface: 6 Does the Pt use WC or Scooter?: No PT Plan Treatment/Plan Treatment Plan: Continue Plan of Care Treatment Plan: Bed Mobility, Functional Activity [place], Gait, Therapeutic Exercise, Transfers Treatment Duration: Aug 27, 2021 Frequency: 6 times per week Estimated Hrs Per Day: .25 hour per day Patient and/or Family Agrees t: Yes Time/GCodes Time In: 914 Time Out: 929 Total Billed Treatment Time: 15 Total Billed Treatment 1, gt 15 MELANIE BURTON PT Aug 14, 2021 10:38
[2021-08-14] MEDS ORDERED: FLUCONAZOLE 200 MG/100 ML 50 ML, SYRINGE-IVPB 1 SYRINGE IV ONE ×2 (11:30)
[2021-08-14] MEDS ORDERED: SALIVA STIMULANT MOUTH SPRAY (BIOTENE) 1.5 OZ MM PRN (11:30)
--- NOTE | 2021-08-14 12:31 | CONSULTATION REPORT ---
DATE OF SERVICE: 08/14/2021 ATTENDING PRIMARY CARE PHYSICIAN: Aliyah Paris MD. HISTORY OF PRESENT ILLNESS: The patient is a 71-year-old female known to us. She has had a history of dysphagia and difficulty swallowing for several years, which has been progressive. She has lost approximately 40 to 50 pounds in the past four years. 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 She did undergo an EGD as well as a balloon dilatation on 05/14/2021, however, she continued to have issues with dysphagia and weight loss. She was then seen by speech therapy and the recommendation was to proceed with a percutaneous gastrostomy tube for alimentation, which was performed on 06/04/2021. She presented to the Emergency Department with weakness as well as confusion. Initial x-ray did show some mild consolidation of the right middle lobe, possibly consistent with an aspiration pneumonia. A CT scan was then performed, which was consistent with this. Upon examination, she does have significant aeration of the lung and again this is likely consistent with an aspiration pneumonia; however, not severe. Since being admitted, she has been on antibiotics and she has slowly improved. We will add an antifungal as well. We will also add breathing treatments with acetylcysteine to allow for increased expectoration of any mucus. If she does have worsening symptoms, we will then proceed with a bronchoscopy as well as lavage and aspiration. PAST MEDICAL HISTORY: Multiple sclerosis, Hightower's palsy. PAST SURGICAL HISTORY Percutaneous gastrostomy tube. ALLERGIES: No known drug allergies. MEDICATIONS: Protonix 40 mg daily, famotidine 20 mg daily, and guaifenesin b.i.d. p.r.n. SOCIAL HISTORY: Negative smoke and negative alcohol. FAMILY HISTORY: Noncontributory. REVIEW OF SYSTEMS: This is a very thin-appearing female, who is sitting upright and unable to verbalize. She does not report any shortness of breath or difficulty in breathing. She does report she has some phlegm on occasion. No significant sputum production or hemoptysis. She is tolerating tube feeds through her gastrostomy tube. She also states that she is having normal bowel movements. Since being admitted, she does not report any fever nor chills and her mental status has improved to close to baseline. PHYSICAL EXAMINATION: VITAL SIGNS: Temperature 36.3, blood pressure 111/75, pulse 61, respirations 18, and pulse ox 95% on 2 liters nasal cannula. CHEST: A few scattered rales, right lower lobe. HEART: Regular and no murmurs. EXTREMITIES: No lower extremity edema and negative Homans sign. HEENT: No scleral icterus. NECK: No cervical lymphadenopathy. ABDOMEN: Soft, nontender, and nondistended. Gastrostomy tube is intact. SKIN: Warm and dry. LABORATORY DATA: WBC 13.3, hemoglobin 10.7, hematocrit 33, platelets 172, BUN 13, and creatinine 0.54. ASSESSMENT AND PLAN: A 71-year-old female with likely aspiration pneumonia, right middle lobe, more centrally located versus peripheral. There does appear to be good amount of aeration of the majority of the lung. We feel that this was likely due to aspiration; however, due to adequate aeration and ventilation right now, we will recommend medical therapy with continued IV antibiotics and also addition of an antifungal. We will also add breathing treatments with acetylcysteine to hopefully break up any mucus or mucus plugging and allow her to expectorate. At this time, she appears to be clinically stable and we will follow her clinically as well as with serial chest x-rays. If she does have worsening respiratory symptoms, we may then proceed with a bronchoscopy; however, this will require general anesthesia. Job ID: [id number] DocumentID: [id number] Dictated Date: 08/14/2021 11:20:10 Cpht Date: 08/14/2021 12:30:29 Dictated By: JUAN R NORIEGA MD
[2021-08-14] MEDS: NS IV 1000 ML 1,000 ML IV SCH (13:00)
[2021-08-14] MEDS: DICLOFENAC 1% GEL 100 GM (VOLTAREN) TUBE TOP SCH ×4 (13:00→21:31)
[2021-08-14] MEDS ORDERED: LACTOBACILLUS Acidoph/Bulgar 1 GM (LACTINEX) PACKET PEG SCH (16:00)
[2021-08-14] MEDS: RT-ALBUTEROL SULF 2.5 MG/3 ML PRE-MIX VIAL INH SCH ×2 (16:11→20:54)
[2021-08-14] MEDS: aCETylcysteine 20% (MUCOMYST) 30ML SOLN VIAL INH SCH ×2 (16:18→20:54)
[2021-08-14] MEDS ORDERED: DIPHENOXYLATE/ATROPINE 2.5MG/0.025MG (LOMOTIL) TAB PO SCH (21:15)
[2021-08-14] MEDS: LACTOBACILLUS ACIDOPHILUS (PROBIOTIC) CAPSULE PO SCH (21:30)
[2021-08-14] MEDS: FAMOTIDINE 20 MG (PEPCID) TABLET PEG SCH (21:31)
[2021-08-15] MEDS: aCETylcysteine 20% (MUCOMYST) 30ML SOLN VIAL INH SCH ×4 (02:57→20:58)
[2021-08-15] MEDS: RT-ALBUTEROL SULF 2.5 MG/3 ML PRE-MIX VIAL INH SCH ×4 (02:57→20:58)
[2021-08-15] MEDS: NS IV 1000 ML 1,000 ML IV SCH ×3 (03:12→18:30)
[2021-08-15 03:56] VITALS: BP 135/76
[2021-08-15 06:13] LABS: ALBUMIN 2.4 GM/DL (3.2-4.5); POTASSIUM 4.4 MMOL/L (3.6-5.0)
[2021-08-15 06:14] LABS: CALCIUM 8.4 MG/DL (8.5-10.1)
[2021-08-15] MEDS: KCL 20 MEQ TAB (K-DUR) PO SCH (06:14)
[2021-08-15] MEDS: POTASSIUM CL 10MEQ/50ML IVPB 50 ML IV SCH (06:14)
[2021-08-15 06:17] LABS: BILIRUBIN,TOTAL 0.4 MG/DL (0.1-1.0)
[2021-08-15 06:19] LABS: CREATININE SERUM 0.53 MG/DL (0.60-1.30); PHOSPHORUS 3.3 MG/DL (2.3-4.7)
[2021-08-15 06:22] LABS: MAGNESIUM 1.7 MG/DL (1.6-2.4)
[2021-08-15 06:23] LABS: HEMOGLOBIN 9.3 g/dL (11.5-16.0); MEAN PLATELET VOLUME 10.5 fL (9.0-12.2); WHITE BLOOD COUNT 6.8 10^3/uL (4.3-11.0)
[2021-08-15] MEDS: MAGNESIUM 1 GM/100 ML IVPB 100 ML IV SCH (06:30)
--- NOTE | 2021-08-15 06:37 | Diagnostic Imaging Report ---
Indication: Right-sided pneumonia and dehydration. EXAMINATION: Chest 08/15/2021 COMPARISON: 08/12/2021 FINDINGS: There is atelectasis versus mild infiltrate at the lung bases. No effusions or pneumothorax. Heart and pulmonary vasculature normal. IMPRESSION: 1. Minimal bibasal atelectasis versus infiltrate. Dictated by: Dictated on workstation # [id number]
[2021-08-15] MEDS: LACTOBACILLUS ACIDOPHILUS (PROBIOTIC) CAPSULE PO SCH ×4 (06:57→21:03)
[2021-08-15] MEDS: metFORMIN 500 MG (GLUCOPHAGE) TAB PEG SCH (06:57)
[2021-08-15] MEDS: POTASSIUM BICARB 20 MEQ (EFFER-K) TABLET PEG SCH (06:57)
[2021-08-15] MEDS: inSUlin ASPART (NovoLOG) 1 UNIT/0.01 ML (CHARGE PER UNIT) SC SCH ×4 (06:57→21:06)
[2021-08-15 07:27] VITALS: BP 155/78
--- NOTE | 2021-08-15 08:51 | Progress Note ---
Subjective Subjective Date Seen by Provider: Aug 15, 2021 Time Seen by Provider: 09:10 PT REPORTS FEELING A LITTLE BIT BETTER TODAY - SHE HAD DIARRHEA YESTERDAY, IT RESOLVED WITH IMODIUM. PT DENIES CHEST PAIN, SHORTNESS OF BREATH. FAMILY REPORTS PT APPEARS TO FEEL BETTER TODAY COMPARED TO YESTERDAY. Review of Systems General: No Chills, No Night Sweats; Fatigue HEENT: Sore Throat, Other (DRY MOUTH AND NOSE) Pulmonary: No Dyspnea; Cough Cardiovascular: No: Chest Pain Gastrointestinal: Diarrhea (IMPROVED FROM YESTERDAY); No: Nausea, Vomiting, Abdominal Pain Genitourinary: Other (PENDLETON IN PLACE) Musculoskeletal: neck pain (IMPROVED ON CURRENT AIR MATTRESS) Neurological: Weakness; No: Confusion Objective Exam Vital Signs Vital Signs Date Time Temp Pulse Resp B/P (MAP) Pulse Ox O2 Delivery O2 Flow Rate FiO2 08/15/21 07:27 36.1 86 18 155/78 (103) 98 Room Air 08/15/21 03:56 36.8 87 18 135/76 (95) 97 Nasal Cannula 2.00 08/15/21 02:57 95 Nasal Cannula 2.00 08/14/21 23:30 36.6 92 19 134/60 (84) 100 Nasal Cannula 2.00 08/14/21 20:54 95 Nasal Cannula 2.00 08/14/21 20:40 Nasal Cannula 2.00 08/14/21 19:47 36.2 108 18 112/74 (87) 97 Room Air 08/14/21 17:02 90 Vapotherm 30.00 70 08/14/21 16:20 95 Nasal Cannula 2.00 08/14/21 16:18 95 Nasal Cannula 2.00 08/14/21 16:00 36.2 80 18 121/78 (92) 96 Room Air 08/14/21 12:00 36.4 104 18 108/73 (85) 100 Nasal Cannula 2.00 I & O 08/15/21 07:00 Intake Total 1387 ml Output Total 1325 ml Balance 62 ml General Appearance: No Apparent Distress, Chronically ill, Cachetic Eyes: Bilateral Eye PERRL, Bilateral Eye EOMI HEENT: PERRL/EOMI Neck: Normal Inspection, Supple Respiratory: Lungs Clear, Normal Breath Sounds, No Respiratory Distress Cardiovascular: Regular Rate, Rhythm, No Edema, No Murmur Gastrointestinal: Normal Bowel Sounds, Non Tender, Soft, Other (PEG tube in place, DEBRIS AROUND PEG TUBE) Back: Other (REDNESS ON MID THORACIC SPINE, REDNESS OF SACRAL TISSUE) Extremity: Normal Inspection, Non Tender, No Pedal Edema, Other (EXTREMELY THIN EXTREMITIES) Neurologic/Psychiatric: Alert, Oriented x3, Motor Weakness, Other (FLAT AFFECT) Skin: Warm/Dry, Pallor Results Lab Laboratory Tests 08/14/21 09:02: Phosphorus Level 2.5, Magnesium Level 2.7H, Vancomycin Level Trough 3.3L 08/14/21 11:10: Glucometer 233H 08/14/21 15:26: Glucometer 200H 08/14/21 19:59: Glucometer 269H 08/15/21 05:26: Sodium Level 136, Potassium Level 4.4, Chloride Level 103, Carbon Dioxide Level 26, Anion Gap 7, Blood Urea Nitrogen 15, Creatinine 0.53L, Estimat Glomerular Filtration Rate 113, BUN/Creatinine Ratio 28, Glucose Level 230H, Calcium Level 8.4L, Corrected Calcium 9.7, Phosphorus Level 3.3, Magnesium Level 1.7, Total Bilirubin 0.4, Aspartate Amino Transf (AST/SGOT) 17, Alanine Aminotransferase (ALT/SGPT) 21, Alkaline Phosphatase 105, Total Protein 5.0L, Albumin 2.4L 08/15/21 06:16: White Blood Count 6.8, Red Blood Count 3.07L, Hemoglobin 9.3L, Hematocrit 28L, Mean Corpuscular Volume 91, Mean Corpuscular Hemoglobin 30, Mean Corpuscular Hemoglobin Concent 33, Red Cell Distribution Width 13.6, Platelet Count 103L, Mean Platelet Volume 10.5, Percent Immature Platelet Fraction 3.9 Microbiology 08/14/21 C. difficile GDH Antigen & Toxins - Final, Complete 08/11/21 Urine Culture - Final, Complete NO GROWTH 08/11/21 Blood Culture - Final, Complete Staphylococcus aureus Assessment/Plan Assessment/Plan Admission Dx MULTIPLE SCLEROSIS RELAPSING REMITTING WITH CURRENT ACTIVE RELAPSE CACHEXIA WITH ESOPHAGEAL DYSMOTILITY AND ASPIRATION ASPIRATION PNEUMONIA AND SUSPECTED FUNGAL PNEUMONIA POSITIVE BLOOD CULTURE WITH STAPH AUREUS GROWING OUT ON CULTURE RECURRENT DIABETES MELLITUS Assessment and Plan MULTIPLE SCLEROSIS RELAPSING REMITTING WITH CURRENT ACTIVE RELAPSE [place] WITH ESOPHAGEAL DYSMOTILITY AND ASPIRATION ASPIRATION PNEUMONIA AND SUSPECTED FUNGAL PNEUMONIA POSITIVE BLOOD CULTURE WITH STAPH AUREUS GROWING OUT ON CULTURE RECURRENT DIABETES MELLITUS MULTIPLE SCLEROSIS RELAPSING REMITTING WITH CURRENT ACTIVE RELAPSE - PT WAS ON STEROID THERAPY WITH TAPERING DOSE DUE TO HER RELAPSE - SUPPORTIVE CARE ONLY AT THIS TIME WITH TUBE FEEDS FOR NUTRITION SINCE PT CANNOT EAT - CONSULT TO DIETARY DUE TO DIARRHEA AND ELEVATED GLUCOSE FROM CURRENT TUBE FEEDS - PT WILL NEED TO GO TO A [facility] ON DISCHARGE, HOWEVER CANNOT BE DISCHARGED FOR AT LEAST ANOTHER 72 HOURS WE ARE PLANNING ON BRONCHOSCOPE AND FURTHER TREATMENT AND INVESTIGATION INTO THE LUNG DENSITIES. CACHEXIA WITH ESOPHAGEAL DYSMOTILITY AND ASPIRATION - WILL START PHYSICAL THERAPY - CONTINUE WITH TUBE FEEDS, CONSULT DIETARY FOR MORE RECOMMENDATIONS TO FEEDING SCHEDULE ASPIRATION PNEUMONIA AND SUSPECTED FUNGAL PNEUMONIA - PT ON VANC, ROCEPHIN, AND STARTED ON DIFLUCAN IV - CONSULT TO DR. NORIEGA - HE IS GOING TO WAIT ON BRONCHOSCOPE AT THIS TIME. POSITIVE BLOOD CULTURE WITH STAPH AUREUS GROWING OUT ON CULTURE - ON IV ANTIBIOTICS - SEE ABOVE RECURRENT DIABETES MELLITUS - PT WAS GIVEN INSULIN - HAD SEVERE DROP IN GLUCOSE, PT RESTARTED ON METFORMIN. GI PROPHYLAXIS WITH PPI AND WILL START ON PROBIOTIC WELL TO PREVENT DIARRHEA. DVT PROPHYLAXIS WITH LOVENOX AND SCD'S ELSIE VENTURA MD Aug 15, 2021 08:51
[2021-08-15] MEDS ORDERED: FLUCONAZOLE 200 MG/100 ML 100 ML IV SCH (09:00)
[2021-08-15] MEDS ORDERED: TROUGH ORDER-PHARMACY XX NR (09:00)
[2021-08-15] MEDS: ENOXAPARIN 30 MG/0.3 ML (LOVENOX) SYR SC SCH (09:12)
[2021-08-15] MEDS: DICLOFENAC 1% GEL 100 GM (VOLTAREN) TUBE TOP SCH ×4 (09:13→21:05)
[2021-08-15] MEDS: FAMOTIDINE 20 MG (PEPCID) TABLET PEG SCH ×2 (09:13→21:05)
[2021-08-15] MEDS: FLUCONAZOLE 200 MG/100 ML 50 ML, EMPTY IV BAG (PVC) 1 EA IV SCH ×2 (09:13)
--- NOTE | 2021-08-15 10:03 | Progress Note ---
Subjective Date Seen by a Provider: Aug 15, 2021 Time Seen by a Provider: 09:40 Subjective/Events-last exam Patient seen with Dr. Welch. Patient lying in bed awake. Reports doing well. She denies any breathing issues, but does report she is coughing stuff up. Tolerating tube feedings. Objective Exam Vital Signs Date Time Temp Pulse Resp B/P (MAP) Pulse Ox O2 Delivery O2 Flow Rate FiO2 08/15/21 09:53 98 Nasal Cannula 2.00 08/15/21 09:00 93 Room Air 08/15/21 07:27 36.1 86 18 155/78 (103) 98 Room Air 08/15/21 03:56 36.8 87 18 135/76 (95) 97 Nasal Cannula 2.00 08/15/21 02:57 95 Nasal Cannula 2.00 08/14/21 23:30 36.6 92 19 134/60 (84) 100 Nasal Cannula 2.00 08/14/21 20:54 95 Nasal Cannula 2.00 08/14/21 20:40 Nasal Cannula 2.00 08/14/21 19:47 36.2 108 18 112/74 (87) 97 Room Air 08/14/21 17:02 90 Vapotherm 30.00 70 08/14/21 16:20 95 Nasal Cannula 2.00 08/14/21 16:18 95 Nasal Cannula 2.00 08/14/21 16:00 36.2 80 18 121/78 (92) 96 Room Air 08/14/21 12:00 36.4 104 18 108/73 (85) 100 Nasal Cannula 2.00 I & O 08/15/21 07:00 Intake Total 1387 ml Output Total 1325 ml Balance 62 ml Capillary Refill : Less Than 3 Seconds General Appearance: No Apparent Distress, WD/WN Neck: Normal Inspection, Supple Respiratory: No Accessory Muscle Use, No Respiratory Distress Cardiovascular: Regular Rate, Rhythm, No Edema Gastrointestinal: normal bowel sounds, non tender, soft, other (LUQ peg tube) Extremity: Normal Inspection, Normal Range of Motion Neurologic/Psychiatric: Alert, Oriented x3 Skin: Normal Color, Warm/Dry Results Lab Laboratory Tests 08/14/21 11:10: Glucometer 233H 08/14/21 15:26: Glucometer 200H 08/14/21 19:59: Glucometer 269H 08/15/21 05:26: Sodium Level 136, Potassium Level 4.4, Chloride Level 103, Carbon Dioxide Level 26, Anion Gap 7, Blood Urea Nitrogen 15, Creatinine 0.53L, Estimat Glomerular Filtration Rate 113, BUN/Creatinine Ratio 28, Glucose Level 230H, Calcium Level 8.4L, Corrected Calcium 9.7, Phosphorus Level 3.3, Magnesium Level 1.7, Total Bilirubin 0.4, Aspartate Amino Transf (AST/SGOT) 17, Alanine Aminotransferase (ALT/SGPT) 21, Alkaline Phosphatase 105, Total Protein 5.0L, Albumin 2.4L 08/15/21 06:16: White Blood Count 6.8, Red Blood Count 3.07L, Hemoglobin 9.3L, Hematocrit 28L, Mean Corpuscular Volume 91, Mean Corpuscular Hemoglobin 30, Mean Corpuscular Hemoglobin Concent 33, Red Cell Distribution Width 13.6, Platelet Count 103L, Mean Platelet Volume 10.5, Percent Immature Platelet Fraction 3.9 Microbiology 08/14/21 C. difficile GDH Antigen & Toxins - Final, Complete 08/11/21 Urine Culture - Final, Complete NO GROWTH 08/11/21 Blood Culture - Final, Complete Staphylococcus aureus Assessment/Plan Assessment/Plan Assess & Plan/Chief Complaint A 71-year-old female with likely aspiration pneumonia, right middle lobe, MS, CP VSS WBC 6.8 Tolerating tube feedings Continue with IV abx, antifungal, breathing treatments Labs and Chest x-ray in AM Continue with medical management SAJAN ESTEVEZ APRN Aug 15, 2021 10:03
[2021-08-15 11:23] VITALS: BP 126/74
[2021-08-15] MEDS: VANCOMYCIN 750 MG/NS 250 ML IVPB IV NR ×2 (11:36)
[2021-08-15 16:00] VITALS: BP 130/75
[2021-08-15 20:00] VITALS: BP 136/78
[2021-08-16] VITALS (7 sets, daily range): BP systolic 114–143; BP diastolic 74–92
[2021-08-16] MEDS: RT-ALBUTEROL SULF 2.5 MG/3 ML PRE-MIX VIAL INH SCH ×4 (02:55→22:18)
[2021-08-16] MEDS: aCETylcysteine 20% (MUCOMYST) 30ML SOLN VIAL INH SCH ×4 (02:56→22:18)
[2021-08-16 05:18] LABS: BASOPHILS % (AUTO) 0 % (0-10); EOSINOPHILS # (AUTO) 0.1 10^3/uL (0.0-0.3); EOSINOPHILS % (AUTO) 2 % (0-10); HEMATOCRIT 29 % (35-52); HEMOGLOBIN 9.6 g/dL (11.5-16.0); LYMPHOCYTES # (AUTO) 0.7 10^3/uL (1.0-4.0); LYMPHOCYTES % (AUTO) 9 % (12-44); MEAN CORPUSCULAR HEMOGLOBIN 31 pg (25-34); MEAN CORPUSCULAR HGB CONC 34 g/dL (32-36); MEAN CORPUSCULAR VOLUME 91 fL (80-99); MEAN PLATELET VOLUME 10.8 fL (9.0-12.2); MONOCYTES # (AUTO) 0.5 10^3/uL (0.0-1.0); MONOCYTES % (AUTO) 7 % (0-12); NEUTROPHILS # (AUTO) 5.9 10^3/uL (1.8-7.8); NEUTROPHILS % (AUTO) 79 % (42-75); PLATELET COUNT 139 10^3/uL (130-400); WHITE BLOOD COUNT 7.4 10^3/uL (4.3-11.0)
[2021-08-16 05:31] LABS: ALBUMIN 2.8 GM/DL (3.2-4.5); POTASSIUM 4.2 MMOL/L (3.6-5.0)
[2021-08-16 05:32] LABS: CALCIUM 8.9 MG/DL (8.5-10.1)
[2021-08-16 05:33] LABS: TOTAL PROTEIN 5.5 GM/DL (6.4-8.2)
[2021-08-16] MEDS: LACTOBACILLUS ACIDOPHILUS (PROBIOTIC) CAPSULE PO SCH ×4 (05:33→21:51)
[2021-08-16] MEDS: KCL 20 MEQ TAB (K-DUR) PO SCH (05:33)
[2021-08-16] MEDS: POTASSIUM CL 10MEQ/50ML IVPB 50 ML IV SCH (05:33)
[2021-08-16 05:35] LABS: BILIRUBIN,TOTAL 0.4 MG/DL (0.1-1.0)
[2021-08-16 05:37] LABS: CREATININE SERUM 0.52 MG/DL (0.60-1.30); PHOSPHORUS 3.8 MG/DL (2.3-4.7)
[2021-08-16 05:39] LABS: MAGNESIUM 1.6 MG/DL (1.6-2.4)
[2021-08-16] MEDS: inSUlin ASPART (NovoLOG) 1 UNIT/0.01 ML (CHARGE PER UNIT) SC SCH ×4 (06:08→21:55)
[2021-08-16] MEDS: POTASSIUM BICARB 20 MEQ (EFFER-K) TABLET PEG SCH (06:08)
[2021-08-16] MEDS: metFORMIN 500 MG (GLUCOPHAGE) TAB PEG SCH (06:08)
[2021-08-16] MEDS: MAGNESIUM 1 GM/100 ML IVPB 100 ML IV SCH ×3 (06:36→07:47)
--- NOTE | 2021-08-16 07:32 | Diagnostic Imaging Report ---
INDICATION: Pneumonia. Comparison made with prior examination of 08/15/2021. FINDINGS: The heart size is normal. There is some right basilar atelectasis and/or pneumonitis. No pleural effusion or pneumothorax. Mediastinum is unremarkable. IMPRESSION: Right basilar atelectasis and/or pneumonitis. Dictated by: Dictated on workstation # [id number]
[2021-08-16] MEDS: NS IV 1000 ML 1,000 ML IV SCH (07:48)
[2021-08-16] MEDS: FAMOTIDINE 20 MG (PEPCID) TABLET PEG SCH (08:49)
[2021-08-16] MEDS: DICLOFENAC 1% GEL 100 GM (VOLTAREN) TUBE TOP SCH ×4 (08:50→21:55)
[2021-08-16] MEDS: ENOXAPARIN 30 MG/0.3 ML (LOVENOX) SYR SC SCH (08:50)
[2021-08-16] MEDS: FLUCONAZOLE 200 MG/100 ML 50 ML, EMPTY IV BAG (PVC) 1 EA IV SCH ×2 (08:50)
[2021-08-16] MEDS ORDERED: SULFAMETHOXAZOLE/TRIMETHO SUSP 10 ML (BACTRIM) UDC GT SCH (10:00)
[2021-08-16] MEDS ORDERED: SULFAMETHOXAZOLE/TRIMETHO SUSP 10 ML (BACTRIM) UDC PO SCH (10:00)
[2021-08-16] MEDS: SULFAMETHOXAZOLE/TRIMETHO SUSP 10 ML (BACTRIM) UDC PEG SCH ×2 (10:26→21:55)
--- NOTE | 2021-08-16 10:31 | Physical Therapy Daily Note ---
PT Daily Note-Current Subjective Patient agrees to PT. No c/o. Mental Status Patient Orientation: Normal For Age Attachments: William Catheter, IV Transfers SCALE: Activities may be completed with or without assistive devices. 6-Nbmumckefw-wrgpvsp completes the activity by him/herself with no assistance from a helper. 5-Set-up or Clean-up Assistance-helper sets up or cleans up; patient completes activity. [place] assists only prior to or following the activity. 4-Supervision or Touching Assistance-helper provides verbal cues and/or touching/steadying and/or contact guard assistance as patient completes activity. Assistance may be provided throughout the activity or intermittently. 3-Partial/Moderate Assistance-helper does LESS THAN HALF the effort. [place] lifts, holds or supports trunk or limbs, but provides less than half the effort. 2-Substantial/Maximal Assistance-helper does MORE THAN HALF the effort. [place] lifts or holds trunk or limbs and provides more than half the effort. 6-Xigsihbnj-ctjzsl does ALL the effort. Patient does none of the effort to complete the activity. Or, the assistance of 2 or more helpers is required for the patient to complete the activity. If activity was not attempted, code reason: 7-Patient Refused. 9-Not Applicable-not attempted and the patient did not perform the activity before the current illness, exacerbation or injury. 10-Not Attempted due to Environmental Limitations-(lack of equipment, weather restraints, etc.). 88-Not Attempted due to Medical Conditions or Safety Concerns. Lying to Sitting/Side of Bed(Q: 4 Sit to Stand (QC): 4 Chair/Uii-ef-Nrnkb Xfer(QC): 4 CGA for safety Gait Training Does the Patient Walk?: Yes Distance: 75' Walk 10 feet (QC): 4 Walk 50 ft with 2 Turns(QC): 4 Gait Assistive Device: FWW CGA for safety Assessment Patient is up in recliner with needs met. Patient tolerated treatment well. PT Shipping Coordinator Goals Shipping Coordinator Goals PT Care Home Goals Time Frame: Aug 27, 2021 Roll Left & Right (QC): 6 Sit to Lying (QC): 6 Lying-Sitting on Side/Bed(QC): 6 Sit to Stand (QC): 6 Chair/Meg-sw-Hwbno Xfer(QC): 6 Toilet Transfer (QC): 6 Car Transfer (QC): 6 Does the Patient Walk: Yes Walk 10 feet (QC): 6 Walk 50ft with 2 Turns (QC): 6 Walk 150 ft (QC): 6 Walking 10ft on Uneven Surface: 6 Does the Pt use WC or Scooter?: No PT Plan Treatment/Plan Treatment Plan: Continue Plan of Care Treatment Plan: Bed Mobility, Functional Activity [place], Gait, Therapeutic Exercise, Transfers Treatment Duration: Aug 27, 2021 Frequency: 6 times per week Estimated Hrs Per Day: .25 hour per day Patient and/or Family Agrees t: Yes Time/GCodes Time In: 950 Time Out: 1000 Total Billed Treatment Time: 10 Total Billed Treatment 1 visit GT 10 min SHELDON GORE PT Aug 16, 2021 10:31
--- NOTE | 2021-08-16 11:08 | Occupational Ther Daily Note ---
OT Current Status-Daily Note Subjective Pt alert, sitting in recliner. Pt stated that PT had just been in room and worked with her so she is tired. Pt does agree to participate in OT. No c/o pain, only fatigue. Visitor present in room. Mental Status/Objective Patient Orientation: Person, Place, Time, Situation Attachments: IV, Oxygen ADL-Treatment Pt declines completing any ADLs due to fatigue. Therapy Code Descriptions/Definitions Functional [place] Measure: 0=Not Assessed/NA 4=Minimal Assistance 1=Total Assistance 5=Supervision or Setup 2=Maximal Assistance 6=Modified [place] 3=Moderate Assistance 7=Complete IndependenceSCALE: Activities may be completed with or without assistive devices. 2-Hylwqpavqa-yfjmlty completes the activity by him/herself with no assistance from a helper. 5-Set-up or Clean-up Assistance-helper sets up or cleans up; patient completes activity. [place] assists only prior to or following the activity. 4-Supervision or Touching Assistance-helper provides verbal cues and/or touching/steadying and/or contact guard assistance as patient completes activity. Assistance may be provided throughout the activity or intermittently. 3-Partial/Moderate Assistance-helper does LESS THAN HALF the effort. [place] lifts, holds or supports trunk or limbs, but provides less than half the effort. 2-Substantial/Maximal Assistance-helper does MORE THAN HALF the effort. [place] lifts or holds trunk or limbs and provides more than half the effort. 2-Hfcjjqcuq-wlahui does ALL the effort. Patient does none of the effort to complete the activity. Or, the assistance of 2 or more helpers is required for the patient to complete the activity. If activity was not attempted, code reason: 7-Patient Refused. 9-Not Applicable-not attempted and the patient did not perform the activity before the current illness, exacerbation or injury. 10-Not Attempted due to Environmental Limitations-(lack of equipment, weather restraints, etc.). 88-Not Attempted due to Medical Conditions or Safety Concerns. Other Treatment Pt agrees to complete B UE strengthening exercises against gravity. Skilled instruction to complete exercises for correct technique. 4 B UE exercises 2 sets 10 reps-alternating B shldr abd, modified B shldr add, alternating B shldr press to 180* shldr flex, tricep extensions. Pt tolerated though fatigues quickly. After session, pt sitting in recliner with call light/phone in reach. All needs met in room. Visitor present in room. OT Custodial Goals Custodial Goals Time Frame: Aug 27, 2021 Oral Hygiene (QC): 5 Toileting Hygiene (QC): 4 Upper Body Dressing (QC): 4 Lower Body Dressing (QC): 4 1=Demonstrate adherence to instructed precautions during ADL tasks. 2=Patient will verbalize/demonstrate understanding of assistive devices/modifications for ADL. 3=Patient will improve strength/tolerance for activity to enable patient to perform ADL's. OT Education/Plan Problem List/Assessment Assessment: Decreased Activ Tolerance, Decreased UE Strength Discharge Recommendations Plan/Recommendations: Continue POC Treatment Plan/Plan of Care Patient would benefit from OT for education, treatment and training to promote independence in ADL's, mobility, safety and/or upper extremity function for ADL's. Plan of Care: ADL Retraining, Caregiver Training, Functional Mobility, Group E xercise/Act as Ind, UE Funct Exercise/Act Treatment Duration: Aug 27, 2021 Frequency: 5 times per week Estimated Hrs Per Day: .25 hour per day Rehab Potential: Good Time/GCodes Start Time: 10:35 Stop Time: 10:45 Total Time Billed (hr/min): 10 Billed Treatment Time 1 visit-EX 1 (10 min) CL BRO Aug 16, 2021 11:08
[2021-08-17 04:20] VITALS: BP 153/89
[2021-08-17] MEDS: aCETylcysteine 20% (MUCOMYST) 30ML SOLN VIAL INH SCH ×4 (04:28→21:07)
[2021-08-17] MEDS: RT-ALBUTEROL SULF 2.5 MG/3 ML PRE-MIX VIAL INH SCH ×4 (04:28→21:10)
[2021-08-17] MEDS: LACTOBACILLUS ACIDOPHILUS (PROBIOTIC) CAPSULE PO SCH ×4 (06:13→21:06)
[2021-08-17 06:25] LABS: ALBUMIN 2.8 GM/DL (3.2-4.5); POTASSIUM 4.2 MMOL/L (3.6-5.0)
[2021-08-17 06:26] LABS: CALCIUM 8.4 MG/DL (8.5-10.1)
[2021-08-17 06:27] LABS: TOTAL PROTEIN 5.6 GM/DL (6.4-8.2)
[2021-08-17] MEDS: POTASSIUM CL 10MEQ/50ML IVPB 50 ML IV SCH (06:27)
[2021-08-17] MEDS: KCL 20 MEQ TAB (K-DUR) PO SCH (06:28)
[2021-08-17 06:29] LABS: BILIRUBIN,TOTAL 0.3 MG/DL (0.1-1.0)
[2021-08-17 06:30] LABS: PHOSPHORUS 3.4 MG/DL (2.3-4.7)
[2021-08-17 06:31] LABS: CREATININE SERUM 0.51 MG/DL (0.60-1.30)
[2021-08-17 06:34] LABS: MAGNESIUM 1.6 MG/DL (1.6-2.4)
[2021-08-17] MEDS: MAGNESIUM 1 GM/100 ML IVPB 100 ML IV SCH ×3 (06:51→08:24)
[2021-08-17] MEDS: POTASSIUM BICARB 20 MEQ (EFFER-K) TABLET PEG SCH (06:59)
[2021-08-17] MEDS: inSUlin ASPART (NovoLOG) 1 UNIT/0.01 ML (CHARGE PER UNIT) SC SCH ×4 (06:59→21:05)
[2021-08-17] MEDS: metFORMIN 500 MG (GLUCOPHAGE) TAB PEG SCH (07:00)
[2021-08-17 07:30] VITALS: BP 139/85
[2021-08-17] MEDS: NS IV 1000 ML 1,000 ML IV SCH (08:24)
[2021-08-17] MEDS: ENOXAPARIN 30 MG/0.3 ML (LOVENOX) SYR SC SCH (08:24)
[2021-08-17] MEDS: FAMOTIDINE 20 MG (PEPCID) TABLET PEG SCH (08:24)
[2021-08-17] MEDS: DICLOFENAC 1% GEL 100 GM (VOLTAREN) TUBE TOP SCH ×4 (10:10→21:05)
[2021-08-17] MEDS: FLUCONAZOLE 200 MG/100 ML 50 ML, EMPTY IV BAG (PVC) 1 EA IV SCH ×2 (10:10)
--- NOTE | 2021-08-17 10:17 | Physical Therapy Daily Note ---
PT Daily Note-Current Subjective Patient very agreeable to participate with therapy. Family present. Mental Status Patient Orientation: Normal For Age Attachments: Central Line, William Catheter Transfers SCALE: Activities may be completed with or without assistive devices. 1-Qthnakejps-jfsboen completes the activity by him/herself with no assistance from a helper. 5-Set-up or Clean-up Assistance-helper sets up or cleans up; patient completes activity. [place] assists only prior to or following the activity. 4-Supervision or Touching Assistance-helper provides verbal cues and/or touching/steadying and/or contact guard assistance as patient completes activity. Assistance may be provided throughout the activity or intermittently. 3-Partial/Moderate Assistance-helper does LESS THAN HALF the effort. [place] lifts, holds or supports trunk or limbs, but provides less than half the effort. 2-Substantial/Maximal Assistance-helper does MORE THAN HALF the effort. [place] lifts or holds trunk or limbs and provides more than half the effort. 1-Zvekbmkon-ipylas does ALL the effort. Patient does none of the effort to complete the activity. Or, the assistance of 2 or more helpers is required for the patient to complete the activity. If activity was not attempted, code reason: 7-Patient Refused. 9-Not Applicable-not attempted and the patient did not perform the activity before the current illness, exacerbation or injury. 10-Not Attempted due to Environmental Limitations-(lack of equipment, weather restraints, etc.). 88-Not Attempted due to Medical Conditions or Safety Concerns. Lying to Sitting/Side of Bed(Q: 6 Sit to Stand (QC): 4 Chair/Tet-lk-Mascx Xfer(QC): 4 Gait Training Does the Patient Walk?: Yes Distance: 150' Walk 10 feet (QC): 4 (CGA) Walk 50 ft with 2 Turns(QC): 4 (CGA) Walk 150 ft (QC): 4 (CGA) Gait Assistive Device: FWW slow, steady gait sequence Assessment Patient up in recliner with needs met. Patient improving slowly with treatment plan. Patient does fatigue quickly with minimal activity and requires encouragement to increase activity. PT Long-Term Goals Rn Coronary Care Unit Goals PT Rn Coronary Care Unit Goals Time Frame: Aug 27, 2021 Roll Left & Right (QC): 6 Sit to Lying (QC): 6 Lying-Sitting on Side/Bed(QC): 6 Sit to Stand (QC): 6 Chair/Wff-uh-Qzaqz Xfer(QC): 6 Toilet Transfer (QC): 6 Car Transfer (QC): 6 Does the Patient Walk: Yes Walk 10 feet (QC): 6 Walk 50ft with 2 Turns (QC): 6 Walk 150 ft (QC): 6 Walking 10ft on Uneven Surface: 6 Does the Pt use WC or Scooter?: No PT Plan Treatment/Plan Treatment Plan: Continue Plan of Care Treatment Plan: Bed Mobility, Functional Activity [place], Gait, Therapeutic Exercise, Transfers Treatment Duration: Aug 27, 2021 Frequency: 6 times per week Estimated Hrs Per Day: .25 hour per day Patient and/or Family Agrees t: Yes Time/GCodes Time In: 914 Time Out: 926 Total Billed Treatment Time: 12 Total Billed Treatment 1 visit GT 12 min SHELDON GORE PT Aug 17, 2021 10:17
[2021-08-17] MEDS: SULFAMETHOXAZOLE/TRIMETHO SUSP 10 ML (BACTRIM) UDC PEG SCH ×2 (10:31→21:04)
--- NOTE | 2021-08-17 11:04 | Occupational Ther Daily Note ---
OT Current Status-Daily Note Subjective Pt alert, sitting in recliner. Pt agrees to therapy. No c/o pain. Mental Status/Objective Patient Orientation: Person, Place, Time, Situation Attachments: IV ADL-Treatment Therapy Code Descriptions/Definitions Functional [facility] Measure: 0=Not Assessed/NA 4=Minimal Assistance 1=Total Assistance 5=Supervision or Setup 2=Maximal Assistance 6=Modified [facility] 3=Moderate Assistance 7=Complete IndependenceSCALE: Activities may be completed with or without assistive devices. 8-Etwnbwerbs-plhndgg completes the activity by him/herself with no assistance from a helper. 5-Set-up or Clean-up Assistance-helper sets up or cleans up; patient completes activity. [place] assists only prior to or following the activity. 4-Supervision or Touching Assistance-helper provides verbal cues and/or touching/steadying and/or contact guard assistance as patient completes activity. Assistance may be provided throughout the activity or intermittently. 3-Partial/Moderate Assistance-helper does LESS THAN HALF the effort. [place] li fts, holds or supports trunk or limbs, but provides less than half the effort. 2-Substantial/Maximal Assistance-helper does MORE THAN HALF the effort. [place] lifts or holds trunk or limbs and provides more than half the effort. 5-Aareaustz-mcsxnl does ALL the effort. Patient does none of the effort to complete the activity. Or, the assistance of 2 or more helpers is required for the patient to complete the activity. If activity was not attempted, code reason: 7-Patient Refused. 9-Not Applicable-not attempted and the patient did not perform the activity before the current illness, exacerbation or injury. 10-Not Attempted due to Environmental Limitations-(lack of equipment, weather restraints, etc.). 88-Not Attempted due to Medical Conditions or Safety Concerns. Other Treatment Pt declines ADLs, stating that she is planning on taking shower later in day. Pt then agrees to complete B UE exercises for strengthening and increasing activity tolerance for daily functional tasks. Pt able to complete 2 exercises before requiring verbal/gestural cues to complete all 4 B UE exercises 2 sets 10 reps. Skilled instruction for correct technique completed. Pt demonstrating progress on activity tolerance. After session, pt sitting in recliner with call light/phone in reach. All needs met in room. 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 2=Patient will verbalize/demonstrate understanding of assistive devices/modifications for ADL. 3=Patient will improve strength/tolerance for activity to enable patient to perform ADL's. OT Education/Plan Problem List/Assessment Assessment: Decreased Activ Tolerance, Decreased UE Strength Discharge Recommendations Plan/Recommendations: Continue POC Treatment Plan/Plan of Care Patient would benefit from OT for education, treatment and training to promote independence in ADL's, mobility, safety and/or upper extremity function for ADL's. Plan of Care: ADL Retraining, Caregiver Training, Functional Mobility, Group Exercise/Act as Ind, UE Funct Exercise/Act Treatment Duration: Aug 27, 2021 Frequency: 5 times per week Estimated Hrs Per Day: .25 hour per day Rehab Potential: Good Time/GCodes Start Time: 09:30 Stop Time: 09:40 Total Time Billed (hr/min): 10 Billed Treatment Time 1 visit-EX 1 (10 min) CL BRO Aug 17, 2021 11:04
[2021-08-17 11:43] VITALS: BP 133/85
--- NOTE | 2021-08-17 13:48 | Progress Note ---
Subjective Date Seen by a Provider: Aug 17, 2021 Time Seen by a Provider: 13:00 Subjective/Events-last exam doing ok. respiratory status close to baseline. ambulating with help due to weakness. tolerating tf's Objective Exam Vital Signs Date Time Temp Pulse Resp B/P (MAP) Pulse Ox O2 Delivery O2 Flow Rate FiO2 08/17/21 11:43 36.2 100 20 133/85 (101) 99 Room Air 08/17/21 09:47 93 Room Air 08/17/21 09:38 100 Room Air 08/17/21 07:30 36.7 85 18 139/85 (103) 99 Room Air 08/17/21 04:20 36.6 91 22 153/89 (110) 95 Room Air 08/16/21 23:48 36.6 110 22 114/74 (87) 98 Room Air 08/16/21 22:18 95 Room Air 08/16/21 21:55 Room Air 08/16/21 20:14 36.7 91 22 139/79 (99) 97 Room Air 08/16/21 16:32 36.7 97 20 137/79 (98) 100 Room Air 08/16/21 14:38 92 Room Air I & O 08/17/21 07:00 Intake Total 960 ml Output Total 4205 ml Balance -3245 ml Capillary Refill : Less Than 3 Seconds General Appearance: No Apparent Distress HEENT: PERRL/EOMI Neck: Full Range of Motion Respiratory: Chest Non Tender, Normal Breath Sounds Cardiovascular: Regular Rate, Rhythm Gastrointestinal: normal bowel sounds, non tender, soft Extremity: Normal Capillary Refill Neurologic/Psychiatric: Alert, Oriented x3 Skin: Normal Color Lymphatic: No Adenopathy Results Lab Laboratory Tests 08/16/21 16:37: Glucometer 182H 08/16/21 20:18: Glucometer 225H 08/17/21 05:20: Sodium Level 136, Potassium Level 4.2, Chloride Level 105, Carbon Dioxide Level 25, Anion Gap 6, Blood Urea Nitrogen 12, Creatinine 0.51L, Estimat Glomerular Filtration Rate 119, BUN/Creatinine Ratio 24, Glucose Level 187H, Calcium Level 8.4L, Corrected Calcium 9.4, Phosphorus Level 3.4, Magnesium Level 1.6, Total Bilirubin 0.3, Aspartate Amino Transf (AST/SGOT) 18, Alanine Aminotransferase (ALT/SGPT) 20, Alkaline Phosphatase 106, Total Protein 5.6L, Albumin 2.8L 08/17/21 06:03: Glucometer 196H 08/17/21 10:08: Glucometer 214H Microbiology 08/14/21 C. difficile GDH Antigen & Toxins - Final, Complete 08/11/21 Urine Culture - Final, Complete NO GROWTH 08/11/21 Blood Culture - Final, Complete Staphylococcus aureus Assessment/Plan Assessment/Plan Assess & Plan/Chief Complaint right basilar pnuemonitis. cont resp therapy abx/antifungal. cont tf's. may switch to PO meds. JUAN R NORIEGA MD Aug 17, 2021 13:48
[2021-08-17 16:00] VITALS: BP 129/77
[2021-08-17 20:00] VITALS: BP 115/73
[2021-08-17 23:57] VITALS: BP 127/74
[2021-08-18] MEDS: RT-ALBUTEROL SULF 2.5 MG/3 ML PRE-MIX VIAL INH SCH ×4 (02:50→20:43)
[2021-08-18] MEDS: aCETylcysteine 20% (MUCOMYST) 30ML SOLN VIAL INH SCH ×3 (03:21→15:43)
[2021-08-18] MEDS: NS IV 1000 ML 1,000 ML IV SCH ×3 (03:33→20:24)
[2021-08-18 03:57] VITALS: BP 133/79
[2021-08-18] MEDS: inSUlin ASPART (NovoLOG) 1 UNIT/0.01 ML (CHARGE PER UNIT) SC SCH ×4 (06:33→20:44)
[2021-08-18] MEDS: LACTOBACILLUS ACIDOPHILUS (PROBIOTIC) CAPSULE PO SCH ×4 (06:33→20:44)
[2021-08-18 06:48] LABS: PHOSPHORUS 3.7 MG/DL (2.3-4.7)
[2021-08-18 06:50] LABS: MAGNESIUM 1.6 MG/DL (1.6-2.4)
[2021-08-18] MEDS: metFORMIN 500 MG (GLUCOPHAGE) TAB PEG SCH (06:51)
[2021-08-18] MEDS: POTASSIUM BICARB 20 MEQ (EFFER-K) TABLET PEG SCH (06:51)
[2021-08-18] MEDS: POTASSIUM CL 10MEQ/50ML IVPB 50 ML IV SCH (07:20)
[2021-08-18] MEDS: KCL 20 MEQ TAB (K-DUR) PO SCH (07:21)
[2021-08-18] MEDS: MAGNESIUM 1 GM/100 ML IVPB 100 ML IV SCH ×3 (07:21→10:10)
[2021-08-18 07:30] VITALS: BP 130/79
[2021-08-18] MEDS: ENOXAPARIN 30 MG/0.3 ML (LOVENOX) SYR SC SCH (08:50)
[2021-08-18] MEDS: fluCOnazole (DIFLUCAN) 100 MG TAB PEG SCH (08:50)
[2021-08-18] MEDS: FAMOTIDINE 20 MG (PEPCID) TABLET PEG SCH (08:50)
[2021-08-18] MEDS: SULFAMETHOXAZOLE/TRIMETHO SUSP 10 ML (BACTRIM) UDC PEG SCH ×2 (08:52→20:25)
[2021-08-18] MEDS: DICLOFENAC 1% GEL 100 GM (VOLTAREN) TUBE TOP SCH ×4 (08:53→20:25)
--- NOTE | 2021-08-18 09:10 | Progress Note ---
Subjective Subjective Date Seen by Provider: Aug 16, 2021 Time Seen by Provider: 08:30 LATE ENTRY NOTE - PT REPORTS FEELING A LITTLE BIT BETTER TODAY - SHE HAD DIARRHEA IT IS IMPROVED FROM YESTERDAY BUT STILL PRESENT - UNABLE TO USE THE PROBIOTICS THAT WERE PRESCRIBED DUE TO CLOGGING OF THE FEEDING TUBE Review of Systems General: No Chills, No Night Sweats; Fatigue HEENT: Sore Throat, Other (DRY MOUTH AND NOSE) Pulmonary: No Dyspnea; Cough Cardiovascular: No: Chest Pain Gastrointestinal: Diarrhea (IMPROVED FROM YESTERDAY); No: Nausea, Vomiting, Abdominal Pain Genitourinary: Other (PENDLETON IN PLACE) Musculoskeletal: neck pain (IMPROVED ON CURRENT AIR MATTRESS) Neurological: Weakness; No: Confusion Objective Exam Vital Signs Vital Signs Date Time Temp Pulse Resp B/P (MAP) Pulse Ox O2 Delivery O2 Flow Rate FiO2 08/18/21 07:59 98 Room Air 08/18/21 07:30 36.9 83 18 130/79 (96) 95 Room Air 08/18/21 03:57 36.5 86 20 133/79 (97) 99 Room Air 08/18/21 02:50 98 Room Air 08/17/21 23:57 36.5 90 20 127/74 (91) 99 Room Air 08/17/21 21:35 36.5 08/17/21 21:21 98 Room Air 08/17/21 21:05 98 Room Air 0.00 08/17/21 20:00 36.5 97 20 115/73 (87) 97 Nasal Cannula 2.00 08/17/21 16:00 36.6 93 20 129/77 (94) 99 Nasal Cannula 2.00 08/17/21 15:35 99 Room Air 08/17/21 11:43 36.2 100 20 133/85 (101) 99 Room Air 08/17/21 09:47 93 Room Air 08/17/21 09:38 100 Room Air I & O 08/18/21 07:00 Intake Total 4435 ml Output Total 2800 ml Balance 1635 ml General Appearance: No Apparent Distress Eyes: Bilateral Eye PERRL, Bilateral Eye EOMI HEENT: PERRL/EOMI Neck: Full Range of Motion Respiratory: Chest Non Tender, Normal Breath Sounds Cardiovascular: Regular Rate, Rhythm Gastrointestinal: Normal Bowel Sounds, Non Tender, Soft, Other (PEG tube in place, DEBRIS AROUND PEG TUBE) Back: Other (REDNESS ON MID THORACIC SPINE, REDNESS OF SACRAL TISSUE) Extremity: Normal Capillary Refill Neurologic/Psychiatric: Alert, Oriented x3 Skin: Normal Color Lymphatic: No Adenopathy Results Lab Laboratory Tests 08/17/21 10:08: Glucometer 214H 08/17/21 16:49: Glucometer 130H 08/17/21 20:14: Glucometer 194H 08/18/21 05:41: Potassium Level 4.5, Phosphorus Level 3.7, Magnesium Level 1.6 08/18/21 05:53: Glucometer 163H Microbiology 08/14/21 C. difficile GDH Antigen & Toxins - Final, Complete 08/11/21 Urine Culture - Final, Complete NO GROWTH 08/11/21 Blood Culture - Final, Complete Staphylococcus aureus Assessment/Plan Assessment/Plan Admission Dx MULTIPLE SCLEROSIS RELAPSING REMITTING WITH CURRENT ACTIVE RELAPSE CACHEXIA WITH ESOPHAGEAL DYSMOTILITY AND ASPIRATION ASPIRATION PNEUMONIA AND SUSPECTED FUNGAL PNEUMONIA POSITIVE BLOOD CULTURE WITH STAPH AUREUS GROWING OUT ON CULTURE RECURRENT DIABETES MELLITUS Assessment and Plan MULTIPLE SCLEROSIS RELAPSING REMITTING WITH CURRENT ACTIVE RELAPSE CACHEXIA WITH ESOPHAGEAL DYSMOTILITY AND ASPIRATION ASPIRATION PNEUMONIA AND SUSPECTED FUNGAL PNEUMONIA POSITIVE BLOOD CULTURE WITH STAPH AUREUS GROWING OUT ON CULTURE RECURRENT DIABETES MELLITUS MULTIPLE SCLEROSIS RELAPSING REMITTING WITH CURRENT ACTIVE RELAPSE - PT WAS ON STEROID THERAPY WITH TAPERING DOSE DUE TO HER RELAPSE - SUPPORTIVE CARE ONLY AT THIS TIME WITH TUBE FEEDS FOR NUTRITION SINCE PT CANNOT EAT - CONSULT TO DIETARY DUE TO DIARRHEA AND ELEVATED GLUCOSE FROM CURRENT TUBE FEEDS - PT WILL NEED TO GO TO A [facility] ON DISCHARGE SINCE IRENA NEEDS ASSISTANCE WITH FEEDINGS, CANNOT DO ON HER OWN, AND ALSO NEEDS THERAPY FOR STRENGTHENING. CACHEXIA WITH ESOPHAGEAL DYSMOTILITY AND ASPIRATION - WILL START PHYSICAL THERAPY - CONTINUE WITH TUBE FEEDS, CONSULT DIETARY FOR MORE RECOMMENDATIONS TO FEEDING SCHEDULE ASPIRATION PNEUMONIA AND SUSPECTED FUNGAL PNEUMONIA - PT ON VANC, ROCEPHIN, AND STARTED ON DIFLUCAN IV - CONSULT TO DR. NORIEGA - HE IS GOING TO WAIT ON BRONCHOSCOPE AT THIS TIME. POSITIVE BLOOD CULTURE WITH STAPH AUREUS GROWING OUT ON CULTURE - ON IV ANTIBIOTICS - SEE ABOVE RECURRENT DIABETES MELLITUS - PT WAS GIVEN INSULIN - HAD SEVERE DROP IN GLUCOSE, PT RESTARTED ON METFORMIN. GI PROPHYLAXIS WITH PPI AND WILL START ON PROBIOTIC WELL TO PREVENT DIARRHEA. DVT PROPHYLAXIS WITH LOVENOX AND SCD'S Admission Dx MULTIPLE SCLEROSIS RELAPSING REMITTING WITH CURRENT ACTIVE RELAPSE CACHEXIA WITH ESOPHAGEAL DYSMOTILITY AND ASPIRATION ASPIRATION PNEUMONIA AND SUSPECTED FUNGAL PNEUMONIA POSITIVE BLOOD CULTURE WITH STAPH AUREUS GROWING OUT ON CULTURE RECURRENT DIABETES MELLITUS Clinical Quality Measures Admission Status Admission Dx MULTIPLE SCLEROSIS RELAPSING REMITTING WITH CURRENT ACTIVE RELAPSE CACHEXIA WITH ESOPHAGEAL DYSMOTILITY AND ASPIRATION ASPIRATION PNEUMONIA AND SUSPECTED FUNGAL PNEUMONIA POSITIVE BLOOD CULTURE WITH STAPH AUREUS GROWING OUT ON CULTURE RECURRENT DIABETES MELLITUS ELSIE VENTURA MD Aug 18, 2021 09:09
--- NOTE | 2021-08-18 09:13 | Progress Note ---
Subjective Subjective Date Seen by Provider: Aug 17, 2021 Time Seen by Provider: 08:40 LATE ENTRY NOTE - FROM 08/17/2021 PT REPORTS THAT HER LOOSE STOOLS HAVE INCREASED FROM THE WEEKEND. SHE CONTINUES TO FEEL A LITTLE STRONGER EVERY DAY. SHE IS WAITING TO FIND OUT WHEN SHE CAN BE DISCHARGED FROM THE HOSPITAL. Review of Systems General: No Chills, No Night Sweats; Fatigue HEENT: Sore Throat, Other (DRY MOUTH AND NOSE) Pulmonary: No Dyspnea; Cough Cardiovascular: No: Chest Pain Gastrointestinal: Diarrhea (IMPROVED FROM YESTERDAY); No: Nausea, Vomiting, Abdominal Pain Genitourinary: Other (PENDLETON IN PLACE) Musculoskeletal: neck pain (IMPROVED ON CURRENT AIR MATTRESS) Neurological: Weakness; No: Confusion Objective Exam Vital Signs Vital Signs Date Time Temp Pulse Resp B/P (MAP) Pulse Ox O2 Delivery O2 Flow Rate FiO2 08/18/21 07:59 98 Room Air 08/18/21 07:30 36.9 83 18 130/79 (96) 95 Room Air 08/18/21 03:57 36.5 86 20 133/79 (97) 99 Room Air 08/18/21 02:50 98 Room Air 08/17/21 23:57 36.5 90 20 127/74 (91) 99 Room Air 08/17/21 21:35 36.5 08/17/21 21:21 98 Room Air 08/17/21 21:05 98 Room Air 0.00 08/17/21 20:00 36.5 97 20 115/73 (87) 97 Nasal Cannula 2.00 08/17/21 16:00 36.6 93 20 129/77 (94) 99 Nasal Cannula 2.00 08/17/21 15:35 99 Room Air 08/17/21 11:43 36.2 100 20 133/85 (101) 99 Room Air 08/17/21 09:47 93 Room Air 08/17/21 09:38 100 Room Air I & O 08/18/21 07:00 Intake Total 4435 ml Output Total 2800 ml Balance 1635 ml General Appearance: No Apparent Distress, Cachetic Eyes: Bilateral Eye PERRL, Bilateral Eye EOMI HEENT: PERRL/EOMI Neck: Full Range of Motion Respiratory: Chest Non Tender, Normal Breath Sounds Cardiovascular: Regular Rate, Rhythm Gastrointestinal: Normal Bowel Sounds, Non Tender, Soft, Other (PEG tube in place, DEBRIS AROUND PEG TUBE) Back: Other (REDNESS ON MID THORACIC SPINE, REDNESS OF SACRAL TISSUE) Extremity: Normal Capillary Refill Neurologic/Psychiatric: Alert, Oriented x3 Skin: Normal Color, Other (PATCHES IN PLACE ON HER BACK AND SACRAL TISSUE) Lymphatic: No Adenopathy Results Lab Laboratory Tests 08/17/21 10:08: Glucometer 214H 08/17/21 16:49: Glucometer 130H 08/17/21 20:14: Glucometer 194H 08/18/21 05:41: Potassium Level 4.5, Phosphorus Level 3.7, Magnesium Level 1.6 08/18/21 05:53: Glucometer 163H Microbiology 08/14/21 C. difficile GDH Antigen & Toxins - Final, Complete 08/11/21 Urine Culture - Final, Complete NO GROWTH 08/11/21 Blood Culture - Final, Complete Staphylococcus aureus Assessment/Plan Assessment/Plan Admission Dx MULTIPLE SCLEROSIS RELAPSING REMITTING WITH CURRENT ACTIVE RELAPSE CACHEXIA WITH ESOPHAGEAL DYSMOTILITY AND ASPIRATION ASPIRATION PNEUMONIA AND SUSPECTED FUNGAL PNEUMONIA POSITIVE BLOOD CULTURE WITH STAPH AUREUS GROWING OUT ON CULTURE RECURRENT DIABETES MELLITUS Assessment and Plan MULTIPLE SCLEROSIS RELAPSING REMITTING WITH CURRENT ACTIVE RELAPSE CACHEXIA WITH ESOPHAGEAL DYSMOTILITY AND ASPIRATION ASPIRATION PNEUMONIA AND SUSPECTED FUNGAL PNEUMONIA POSITIVE BLOOD CULTURE WITH STAPH AUREUS GROWING OUT ON CULTURE RECURRENT DIABETES MELLITUS STAGE 1 PRESSURE ULCER ON SPINE AND SACRUM MULTIPLE SCLEROSIS RELAPSING REMITTING WITH CURRENT ACTIVE RELAPSE - PT WAS ON STEROID THERAPY WITH TAPERING DOSE DUE TO HER RELAPSE - SUPPORTIVE CARE ONLY AT THIS TIME WITH TUBE FEEDS FOR NUTRITION SINCE PT CANNOT EAT - CONSULT TO DIETARY DUE TO DIARRHEA AND ELEVATED GLUCOSE FROM CURRENT TUBE FEEDS - PT WILL NEED TO GO TO A [facility] ON DISCHARGE SINCE IRENA NEEDS ASSISTANCE WITH FEEDINGS, CANNOT DO ON HER OWN, AND ALSO NEEDS THERAPY FOR STRENGTHENING. CACHEXIA WITH ESOPHAGEAL DYSMOTILITY AND ASPIRATION - WILL CONTINUE WITH PHYSICAL THERAPY - CONTINUE WITH TUBE FEEDS, CONSULT WAS PLACED TO DIETARY - NO CHANGE IN CURRENT FEEDING - GLUCERNA 1.5KCAL - 1 CAN OF TUBE FEED GLUCERNA 4 TIMES PER DAY WITH 60ML OF WATER FLUSH AFTER FEEDING. ASPIRATION PNEUMONIA AND SUSPECTED FUNGAL PNEUMONIA - PT ON VANC, ROCEPHIN, AND STARTED ON DIFLUCAN IV - TRANSITIONED TO BACTRIM AT THIS TIME. - CONSULT TO DR. NORIEGA - HE IS GOING TO WAIT ON BRONCHOSCOPE AT THIS TIME. POSITIVE BLOOD CULTURE WITH STAPH AUREUS GROWING OUT ON CULTURE - ON IV ANTIBIOTICS - SEE ABOVE RECURRENT DIABETES MELLITUS - PT WAS GIVEN INSULIN - HAD SEVERE DROP IN GLUCOSE, PT RESTARTED ON METFORMIN. GI PROPHYLAXIS WITH PPI AND WILL START ON PROBIOTIC WELL TO PREVENT DIARRHEA. DVT PROPHYLAXIS WITH LOVENOX AND SCD'S Admission Dx MULTIPLE SCLEROSIS RELAPSING REMITTING WITH CURRENT ACTIVE RELAPSE CACHEXIA WITH ESOPHAGEAL DYSMOTILITY AND ASPIRATION ASPIRATION PNEUMONIA AND SUSPECTED FUNGAL PNEUMONIA POSITIVE BLOOD CULTURE WITH STAPH AUREUS GROWING OUT ON CULTURE RECURRENT DIABETES MELLITUS Clinical Quality Measures Admission Status Admission Dx MULTIPLE SCLEROSIS RELAPSING REMITTING WITH CURRENT ACTIVE RELAPSE CACHEXIA WITH ESOPHAGEAL DYSMOTILITY AND ASPIRATION ASPIRATION PNEUMONIA AND SUSPECTED FUNGAL PNEUMONIA POSITIVE BLOOD CULTURE WITH STAPH AUREUS GROWING OUT ON CULTURE RECURRENT DIABETES MELLITUS ELSIE VENTURA MD Aug 18, 2021 09:13
--- NOTE | 2021-08-18 09:15 | Progress Note ---
Subjective Subjective Date Seen by Provider: Aug 18, 2021 Time Seen by Provider: 08:40 PT REPORTS FEELING A LITTLE BIT BETTER TODAY DESPITE PERSISTENT LOOSE STOOLS. SHE DENIES CHEST PAIN, SHORTNESS OF BREATH. STAFF REPORTS THAT SHE IS MOVING A LITTLE BETTER WITH THERAPY. Review of Systems General: No Chills, No Night Sweats; Fatigue HEENT: Sore Throat, Other (DRY MOUTH AND NOSE) Pulmonary: No Dyspnea; Cough Cardiovascular: No: Chest Pain Gastrointestinal: Diarrhea (IMPROVED FROM YESTERDAY); No: Nausea, Vomiting, Abdominal Pain Genitourinary: Other (PENDLETON IN PLACE) Musculoskeletal: neck pain (IMPROVED ON CURRENT AIR MATTRESS) Neurological: Weakness; No: Confusion Objective Exam Vital Signs Vital Signs Date Time Temp Pulse Resp B/P (MAP) Pulse Ox O2 Delivery O2 Flow Rate FiO2 08/18/21 07:59 98 Room Air 08/18/21 07:30 36.9 83 18 130/79 (96) 95 Room Air 08/18/21 03:57 36.5 86 20 133/79 (97) 99 Room Air 08/18/21 02:50 98 Room Air 08/17/21 23:57 36.5 90 20 127/74 (91) 99 Room Air 08/17/21 21:35 36.5 08/17/21 21:21 98 Room Air 08/17/21 21:05 98 Room Air 0.00 08/17/21 20:00 36.5 97 20 115/73 (87) 97 Nasal Cannula 2.00 08/17/21 16:00 36.6 93 20 129/77 (94) 99 Nasal Cannula 2.00 08/17/21 15:35 99 Room Air 08/17/21 11:43 36.2 100 20 133/85 (101) 99 Room Air 08/17/21 09:47 93 Room Air 08/17/21 09:38 100 Room Air I & O 08/18/21 07:00 Intake Total 4435 ml Output Total 2800 ml Balance 1635 ml General Appearance: No Apparent Distress, Cachetic Eyes: Bilateral Eye PERRL, Bilateral Eye EOMI HEENT: PERRL/EOMI Neck: Full Range of Motion Respiratory: Chest Non Tender, Normal Breath Sounds Cardiovascular: Regular Rate, Rhythm Gastrointestinal: Normal Bowel Sounds, Non Tender, Soft, Other (PEG tube in place, DEBRIS AROUND PEG TUBE) Back: Other (REDNESS ON MID THORACIC SPINE, REDNESS OF SACRAL TISSUE) Extremity: Normal Capillary Refill Neurologic/Psychiatric: Alert, Oriented x3 Skin: Normal Color, Other (PATCHES IN PLACE ON HER BACK AND SACRAL TISSUE) Lymphatic: No Adenopathy Results Lab Laboratory Tests 08/17/21 10:08: Glucometer 214H 08/17/21 16:49: Glucometer 130H 08/17/21 20:14: Glucometer 194H 08/18/21 05:41: Potassium Level 4.5, Phosphorus Level 3.7, Magnesium Level 1.6 08/18/21 05:53: Glucometer 163H Microbiology 08/14/21 C. difficile GDH Antigen & Toxins - Final, Complete 08/11/21 Urine Culture - Final, Complete NO GROWTH 08/11/21 Blood Culture - Final, Complete Staphylococcus aureus Assessment/Plan Assessment/Plan Admission Dx MULTIPLE SCLEROSIS RELAPSING REMITTING WITH CURRENT ACTIVE RELAPSE CACHEXIA WITH ESOPHAGEAL DYSMOTILITY AND ASPIRATION ASPIRATION PNEUMONIA AND SUSPECTED FUNGAL PNEUMONIA POSITIVE BLOOD CULTURE WITH STAPH AUREUS GROWING OUT ON CULTURE RECURRENT DIABETES MELLITUS Assessment and Plan MULTIPLE SCLEROSIS RELAPSING REMITTING WITH CURRENT ACTIVE RELAPSE CACHEXIA WITH ESOPHAGEAL DYSMOTILITY AND ASPIRATION ASPIRATION PNEUMONIA AND SUSPECTED FUNGAL PNEUMONIA POSITIVE BLOOD CULTURE WITH STAPH AUREUS GROWING OUT ON CULTURE RECURRENT DIABETES MELLITUS STAGE 1 PRESSURE ULCER ON SPINE AND SACRUM MULTIPLE SCLEROSIS RELAPSING REMITTING WITH CURRENT ACTIVE RELAPSE - PT WAS ON STEROID THERAPY WITH TAPERING DOSE DUE TO HER RELAPSE - SUPPORTIVE CARE ONLY AT THIS TIME WITH TUBE FEEDS FOR NUTRITION SINCE PT CANNOT EAT - CONSULT TO DIETARY DUE TO DIARRHEA AND ELEVATED GLUCOSE FROM CURRENT TUBE FEEDS - PT WILL NEED TO GO TO A [facility] ON DISCHARGE SINCE IRENA NEEDS ASSISTANCE WITH FEEDINGS, CANNOT DO ON HER OWN, AND ALSO NEEDS THERAPY FOR STRENGTHENING. CACHEXIA WITH ESOPHAGEAL DYSMOTILITY AND ASPIRATION - WILL CONTINUE WITH PHYSICAL THERAPY - CONTINUE WITH TUBE FEEDS, CONSULT WAS PLACED TO DIETARY - NO CHANGE IN CURRENT FEEDING - GLUCERNA 1.5KCAL - 1 CAN OF TUBE FEED GLUCERNA 4 TIMES PER DAY WITH 60ML OF WATER FLUSH AFTER FEEDING. ASPIRATION PNEUMONIA AND SUSPECTED FUNGAL PNEUMONIA - PT ON VANC, ROCEPHIN, AND STARTED ON DIFLUCAN IV - TRANSITIONED TO BACTRIM AT THIS TIME. - CONSULT TO DR. NORIEGA - HE IS GOING TO WAIT ON BRONCHOSCOPE AT THIS TIME. POSITIVE BLOOD CULTURE WITH STAPH AUREUS GROWING OUT ON CULTURE - ON IV ANTIBIOTICS - SEE ABOVE RECURRENT DIABETES MELLITUS - PT WAS GIVEN INSULIN - HAD SEVERE DROP IN GLUCOSE, PT RESTARTED ON METFOR MIN. GI PROPHYLAXIS WITH PPI AND WILL START ON PROBIOTIC WELL TO PREVENT DIARRHEA. DVT PROPHYLAXIS WITH LOVENOX AND SCD'S Admission Dx MULTIPLE SCLEROSIS RELAPSING REMITTING WITH CURRENT ACTIVE RELAPSE CACHEXIA WITH ESOPHAGEAL DYSMOTILITY AND ASPIRATION ASPIRATION PNEUMONIA AND SUSPECTED FUNGAL PNEUMONIA POSITIVE BLOOD CULTURE WITH STAPH AUREUS GROWING OUT ON CULTURE RECURRENT DIABETES MELLITUS Clinical Quality Measures Admission Status Admission Dx MULTIPLE SCLEROSIS RELAPSING REMITTING WITH CURRENT ACTIVE RELAPSE CACHEXIA WITH ESOPHAGEAL DYSMOTILITY AND ASPIRATION ASPIRATION PNEUMONIA AND SUSPECTED FUNGAL PNEUMONIA POSITIVE BLOOD CULTURE WITH STAPH AUREUS GROWING OUT ON CULTURE RECURRENT DIABETES MELLITUS ELSIE VENTURA MD Aug 18, 2021 09:15
--- NOTE | 2021-08-18 09:18 | Occupational Ther Daily Note ---
OT Current Status-Daily Note Subjective Pt laying in bed, states she is waiting on nursing staff to give her food via feeding tub. Pt agreeable to OT tx. ADL-Treatment Therapy Code Descriptions/Definitions Functional [place] Measure: 0=Not Assessed/NA 4=Minimal Assistance 1=Total Assistance 5=Supervision or Setup 2=Maximal Assistance 6=Modified [place] 3=Moderate Assistance 7=Complete IndependenceSCALE: Activities may be completed with or without assistive devices. 2-Prpmazksaf-jnagzta completes the activity by him/herself with no assistance from a helper. 5-Set-up or Clean-up Assistance-helper sets up or cleans up; patient completes activity. [place] assists only prior to or following the activity. 4-Supervision or Touching Assistance-helper provides verbal cues and/or touching/steadying and/or contact guard assistance as patient completes activity. Assistance may be provided throughout the activity or intermittently. 3-Partial/Moderate Assistance-helper does LESS THAN HALF the effort. [place] lifts, holds or supports trunk or limbs, but provides less than half the effort. 2-Substantial/Maximal Assistance-helper does MORE THAN HALF the effort. [place] lifts or holds trunk or limbs and provides more than half the effort. 1-Afkbsgzsa-nmjijr does ALL the effort. Patient does none of the effort to complete the activity. Or, the assistance of 2 or more helpers is required for the patient to complete the activity. If activity was not attempted, code reason: 7-Patient Refused. 9-Not Applicable-not attempted and the patient did not perform the activity before the current illness, exacerbation or injury. 10-Not Attempted due to Environmental Limitations-(lack of equipment, weather restraints, etc.). 88-Not Attempted due to Medical Conditions or Safety Concerns. Lower Body Dressing (QC): 2 (assist to unfasten brief in order to manage down and off LLE. Assist to doff over RLE.) Toileting Hygiene (QC): 3 (Pt required assistance with unfastening brief in order to manage clothing down to sit on toilet.) Toilet Transfer (QC): 4 (CGA onto BSC.) Other Treatment Pt laying in bed, transferred supine to sit EOB independently, then CGA sit to stand and SPT to BSC. Prior to pt sitting on commode, OT instructed pt to manage pants down, pt attempted but brief fastened too tightly for her to complete. OT unfastened brief on L side, pt then able to slightly assist with pushing brief down. Pt sat onto BSC, CGA. Pt able to get brief around her R ankle, then OT assisted with doffing over her foot. Pt's nurse enters rooms with medications a nd feeding tube supplies. Pt asks if her nurse can provide her meds on commode as she needs more time. Post tx, pt seated on BSC, nurse present, all needs met. Education OT Patient Education: Correct positioning, Modified ADL techniques, Progress toward Goal/Update tx plan, Purpose of tx/functional activities Teaching Recipient: Patient Teaching Methods: Discussion Response to Teaching: Verbalize Understanding OT Chcf Goals Chcf Goals Time Frame: Aug 27, 2021 Oral Hygiene (QC): 5 Toileting Hygiene (QC): 4 Upper Body Dressing (QC): 4 Lower Body Dressing (QC): 4 1=Demonstrate adherence to instructed precautions during ADL tasks. 2=Patient will verbalize/demonstrate understanding of assistive devices/modifications for ADL. 3=Patient will improve strength/tolerance for activity to enable patient to perform ADL's. OT Education/Plan Problem List/Assessment Assessment: Decreased Activ Tolerance, Decreased UE Strength, Impaired Funct Balance, Impaired I ADL's, Impaired Self-Care Skills Discharge Recommendations Plan/Recommendations: Continue POC Treatment Plan/Plan of Care Patient would benefit from OT for education, treatment and training to promote independence in ADL's, mobility, safety and/or upper extremity function for ADL's. Plan of Care: ADL Retraining, Caregiver Training, Functional Mobility, Group Exercise/Act as Ind, UE Funct Exercise/Act Treatment Duration: Aug 27, 2021 Frequency: 5 times per week Estimated Hrs Per Day: .25 hour per day Rehab Potential: Good Time/GCodes Start Time: 08:42 Stop Time: 08:56 Total Time Billed (hr/min): 14 Billed Treatment Time 1, ADL KIARA SHOEMAKER OT Aug 18, 2021 09:18
--- NOTE | 2021-08-18 10:44 | Physical Therapy Daily Note ---
PT Daily Note-Current Subjective Patient in recliner pre tx, agrees to PT, has no complaints of pain. Appearance Patient in recliner post tx with nurse call, phone, tray, all needs met, legs elevated and on pillows. Mental Status Patient Orientation: Person, Place, Situation Attachments: PEG Tube, William Catheter, IV Transfers SCALE: Activities may be completed with or without assistive devices. 9-Ppiwhdihfc-kymkwwo completes the activity by him/herself with no assistance from a helper. 5-Set-up or Clean-up Assistance-helper sets up or cleans up; patient completes activity. [place] assists only prior to or following the activity. 4-Supervision or Touching Assistance-helper provides verbal cues and/or touching/steadying and/or contact guard assistance as patient completes activity. Assistance may be provided throughout the activity or intermittently. 3-Partial/Moderate Assistance-helper does LESS THAN HALF the effort. [place] lifts, holds or supports trunk or limbs, but provides less than half the effort. 2-Substantial/Maximal Assistance-helper does MORE THAN HALF the effort. [place] lifts or holds trunk or limbs and provides more than half the effort. 9-Hqhaatbtb-dprsdw does ALL the effort. Patient does none of the effort to complete the activity. Or, the assistance of 2 or more helpers is required for the patient to complete the activity. If activity was not attempted, code reason: 7-Patient Refused. 9-Not Applicable-not attempted and the patient did not perform the activity bef ore the current illness, exacerbation or injury. 10-Not Attempted due to Environmental Limitations-(lack of equipment, weather r estraints, etc.). 88-Not Attempted due to Medical Conditions or Safety Concerns. Sit to Stand (QC): 4 Chair/Rns-jo-Chwxw Xfer(QC): 4 Gait Training Distance: 120' Walk 10 feet (QC): 4 Walk 50 ft with 2 Turns(QC): 4 Gait Persons Needed: 1 Gait Assistive Device: FWW slow but steady ambulation Exercises Seated Therapy Exercises: Ankle pumps, Long arc quads Seated Reps: 20 Treatments transfers, ambulation, LE strengthening Assessment Current Status: Fair Progress improving general mobility PT Chcf Goals Chcf Goals PT Sales And Service Advisor Goals Time Frame: Aug 27, 2021 Roll Left & Right (QC): 6 Sit to Lying (QC): 6 Lying-Sitting on Side/Bed(QC): 6 Sit to Stand (QC): 6 Chair/Vkc-nk-Zvvbg Xfer(QC): 6 Toilet Transfer (QC): 6 Car Transfer (QC): 6 Does the Patient Walk: Yes Walk 10 feet (QC): 6 Walk 50ft with 2 Turns (QC): 6 Walk 150 ft (QC): 6 Walking 10ft on Uneven Surface: 6 Does the Pt use WC or Scooter?: No PT Plan Problem List Problem List: Activity Tolerance, Functional Strength, Safety, Balance, Gait, Transfer, Bed Mobility, ROM Treatment/Plan Treatment Plan: Continue Plan of Care Treatment Plan: Bed Mobility, Functional Activity [place], Gait, Therapeutic Exercise, Transfers Treatment Duration: Aug 27, 2021 Frequency: 6 times per week Estimated Hrs Per Day: .25 hour per day Patient and/or Family Agrees t: Yes Safety Risks/Education Patient Education: Gait Training, Transfer Techniques, Correct Positioning, Safety Issues Teaching Recipient: Patient Teaching Methods: Demonstration, Discussion Response to Teaching: Reinforcement Needed Time/GCodes Time In: 1015 Time Out: 1027 Total Billed Treatment Time: 12 Total Billed Treatment 1 visit FA 12' TONE ABRAHAM PT Aug 18, 2021 10:44
[2021-08-18 11:24] VITALS: BP 122/76
[2021-08-18] MEDS: LOPERAMIDE SUSP 2 MG/15 ML (IMODIUM) UDC PO SCH (12:44)
[2021-08-18 15:27] VITALS: BP 147/83
[2021-08-18 19:05] VITALS: BP 138/86
[2021-08-19] VITALS: BP 138/81
[2021-08-19] MEDS: RT-ALBUTEROL SULF 2.5 MG/3 ML PRE-MIX VIAL INH SCH ×4 (03:55→20:08)
[2021-08-19] MEDS: aCETylcysteine 20% (MUCOMYST) 30ML SOLN VIAL INH SCH (03:57)
[2021-08-19 04:48] VITALS: BP 133/75
[2021-08-19] MEDS: inSUlin ASPART (NovoLOG) 1 UNIT/0.01 ML (CHARGE PER UNIT) SC SCH ×4 (05:48→22:03)
[2021-08-19] MEDS: LACTOBACILLUS ACIDOPHILUS (PROBIOTIC) CAPSULE PO SCH ×4 (05:49→20:26)
[2021-08-19 06:23] LABS: POTASSIUM 4.4 MMOL/L (3.6-5.0)
[2021-08-19 06:29] LABS: PHOSPHORUS 3.6 MG/DL (2.3-4.7)
[2021-08-19 06:30] LABS: MAGNESIUM 1.7 MG/DL (1.6-2.4)
[2021-08-19] MEDS: POTASSIUM BICARB 20 MEQ (EFFER-K) TABLET PEG SCH (06:33)
[2021-08-19] MEDS: metFORMIN 500 MG (GLUCOPHAGE) TAB PEG SCH (06:33)
[2021-08-19] MEDS: MAGNESIUM 1 GM/100 ML IVPB 100 ML IV SCH ×3 (06:47→11:52)
[2021-08-19] MEDS: POTASSIUM CL 10MEQ/50ML IVPB 50 ML IV SCH (06:47)
[2021-08-19] MEDS: KCL 20 MEQ TAB (K-DUR) PO SCH (06:48)
[2021-08-19 07:30] VITALS: BP 152/80
--- NOTE | 2021-08-19 09:10 | Progress Note ---
Subjective Subjective Date Seen by Provider: Aug 19, 2021 Time Seen by Provider: 08:40 PT REPORTS THAT SHE IS HAVING LOOSE STOOLS EVERY 1-2 HOURS, SHE IS INCREASINGLY FATIGUED. SHE REPORTS THAT SHE IS FEELING WEAKER TODAY COMPARED TO YESTERDAY AND THE DAY PRIOR. STAFF REPORTS MORE RELIANCE ON ASSISTANCE WITH TRANSFERS DUE TO HER WEAKNESS WIRE LATHER AND THE RETIREMENT REPORT THAT THEY WERE TOLD SHE WAS DENIED SKILLED THERAPIES BY HER INSURANCE COMPANY. YESTERDAY THE DINKEY LOCOMOTIVE OPERATOR REPORTED THAT SHE WAS ON THE PHONE WITH THE INSURANCE COMPANY AND THEY TOLD HER THAT THIS TECHNICIAN ANATOMIC PATHOLOGY COULD DO A PHYSICIAN TO PHYSICIAN APPEAL ON SERVICES FOR ADMISSION TO SKILLED THERAPY AT THE RETIREMENT, BUT "IT WON'T MATTER NOW SINCE THE OFFER EXPIRES AT NOON AND IT IS ALMOST NOON NOW, I GUESS YOU WILL HAVE TO FILE AN APPEAL TO THE DECISION" (TO REFUSE SERVICES). Review of Systems General: No Chills, No Night Sweats; Fatigue HEENT: Sore Throat, Other (DRY MOUTH AND NOSE) Pulmonary: No Dyspnea; Cough Cardiovascular: No: Chest Pain Gastrointestinal: Abdominal Pain, Diarrhea (WORSENING); No: Nausea, Vomiting Musculoskeletal: neck pain (IMPROVED ON CURRENT AIR MATTRESS) Neurological: Weakness; No: Confusion Objective Exam Vital Signs Vital Signs Date Time Temp Pulse Resp B/P (MAP) Pulse Ox O2 Delivery O2 Flow Rate FiO2 08/19/21 07:30 36.6 99 18 152/80 (104) 98 Room Air 08/19/21 04:48 36.4 91 18 133/75 (94) 93 Room Air 08/19/21 03:57 95 Room Air 08/19/21 00:00 36.2 89 17 138/81 (100) 99 Room Air 08/18/21 20:43 97 Room Air 08/18/21 20:25 97 Room Air 0.00 08/18/21 19:05 36.6 99 18 138/86 (103) 100 Room Air 08/18/21 15:45 97 Room Air 08/18/21 15:27 36.4 74 18 147/83 (104) 98 Room Air 08/18/21 11:24 36.8 96 18 122/76 (91) 99 Room Air I & O 08/19/21 07:00 Intake Total 8760 ml Output Total 1725 ml Balance 7035 ml General Appearance: No Apparent Distress, Cachetic Eyes: Bilateral Eye PERRL, Bilateral Eye EOMI HEENT: PERRL/EOMI Neck: Full Range of Motion Respiratory: Chest Non Tender, Normal Breath Sounds, Decreased Breath Sounds (IN BASES) Cardiovascular: Regular Rate, Rhythm Gastrointestinal: Non Tender, Soft, Abnormal Bowel Sounds (HYPERACTIVE), Other (PEG tube in place) Back: Other (REDNESS ON MID THORACIC SPINE, REDNESS OF SACRAL TISSUE) Extremity: Normal Capillary Refill Neurologic/Psychiatric: Alert, Oriented x3, Normal Mood/Affect Skin: Normal Color, Warm/Dry, Other (PATCHES IN PLACE ON HER BACK AND SACRAL TISSUE) Lymphatic: No Adenopathy Results Lab Laboratory Tests 08/18/21 10:54: Glucometer 215H 08/18/21 15:37: Glucometer 111H 08/18/21 20:26: Glucometer 171H 08/19/21 05:29: Potassium Level 4.4, Phosphorus Level 3.6, Magnesium Level 1.7 08/19/21 05:38: Glucometer 173H Microbiology 08/14/21 C. difficile GDH Antigen & Toxins - Final, Complete 08/11/21 Urine Culture - Final, Complete NO GROWTH 08/11/21 Blood Culture - Final, Complete Staphylococcus aureus Assessment/Plan Assessment/Plan Admission Dx MULTIPLE SCLEROSIS RELAPSING REMITTING WITH CURRENT ACTIVE RELAPSE CACHEXIA WITH ESOPHAGEAL DYSMOTILITY AND ASPIRATION ASPIRATION PNEUMONIA AND SUSPECTED FUNGAL PNEUMONIA POSITIVE BLOOD CULTURE WITH STAPH AUREUS GROWING OUT ON CULTURE RECURRENT DIABETES MELLITUS Assessment and Plan MULTIPLE SCLEROSIS RELAPSING REMITTING WITH CURRENT ACTIVE RELAPSE CACHEXIA WITH ESOPHAGEAL DYSMOTILITY AND ASPIRATION ASPIRATION PNEUMONIA AND SUSPECTED FUNGAL PNEUMONIA POSITIVE BLOOD CULTURE WITH STAPH AUREUS GROWING OUT ON CULTURE RECURRENT DIABETES MELLITUS STAGE 1 PRESSURE ULCER ON SPINE AND SACRUM DIARRHEA MULTIPLE SCLEROSIS RELAPSING REMITTING WITH CURRENT ACTIVE RELAPSE - PT WAS ON STEROID THERAPY WITH TAPERING DOSE DUE TO HER RELAPSE - SUPPORTIVE CARE ONLY AT THIS TIME WITH TUBE FEEDS FOR NUTRITION SINCE PT CANNOT EAT - CONSULT TO DIETARY DUE TO DIARRHEA AND ELEVATED GLUCOSE FROM CURRENT TUBE FEEDS - PT WILL NEED TO GO TO A RETIREMENT ON DISCHARGE SINCE IRENA NEEDS ASSISTANCE WITH FEEDINGS, CANNOT DO ON HER OWN, AND ALSO NEEDS THERAPY FOR STRENGTHENING. - WE ARE CURRENTLY APPEALING HER INSURANCE COMPANY DENIAL OF HER BENEFITS FOR SKILLED THERAPY. CACHEXIA WITH ESOPHAGEAL DYSMOTILITY AND ASPIRATION - WILL CONTINUE WITH PHYSICAL THERAPY SINCE SHE IS SO WEAK AND PHYSICALLY DEBILITATED - CONTINUE WITH TUBE FEEDS, CONSULT WAS PLACED TO DIETARY - NO CHANGE IN CURRENT FEEDING - GLUCERNA 1.5KCAL - 1 CAN OF TUBE FEED GLUCERNA 4 TIMES PER DAY WITH 60ML OF WATER FLUSH AFTER FEEDING. ASPIRATION PNEUMONIA AND SUSPECTED FUNGAL PNEUMONIA - PT ON VANC, ROCEPHIN, AND STARTED ON DIFLUCAN IV - TRANSITIONED TO BACTRIM AND DIFLUCAN AT THIS TIME. - CONSULT TO DR. NORIEGA - HE IS GOING TO WAIT ON BRONCHOSCOPE AT THIS TIME. POSITIVE BLOOD CULTURE WITH STAPH AUREUS GROWING OUT ON CULTURE - ON IV ANTIBIOTICS - SEE ABOVE RECURRENT DIABETES MELLITUS - PT WAS GIVEN INSULIN - HAD SEVERE DROP IN GLUCOSE, PT RESTARTED ON METFORMIN. - HOWEVER WITH HER DIARRHEA - WILL HOLD METFORMIN AND USE SLIDING SCALE A DIARRHEA REPEAT CDIFF TODAY - IF NEGATIVE, WILL INCREASE IMMODIUM, HOLD METFORMIN, AND RE-EVAL HER GLUCERNA. - ATTEMPTED PROBIOTIC, BUT IT CANNOT BE PLACED THROUGH HER PEG TUBE SUCCESSFULLY GI PROPHYLAXIS WITH PEPCID DVT PROPHYLAXIS WITH LOVENOX AND SCD'S Admission Dx MULTIPLE SCLEROSIS RELAPSING REMITTING WITH CURRENT ACTIVE RELAPSE CACHEXIA WITH ESOPHAGEAL DYSMOTILITY AND ASPIRATION ASPIRATION PNEUMONIA AND SUSPECTED FUNGAL PNEUMONIA POSITIVE BLOOD CULTURE WITH STAPH AUREUS GROWING OUT ON CULTURE RECURRENT DIABETES MELLITUS Clinical Quality Measures Admission Status Admission Dx MULTIPLE SCLEROSIS RELAPSING REMITTING WITH CURRENT ACTIVE RELAPSE CACHEXIA WITH ESOPHAGEAL DYSMOTILITY AND ASPIRATION ASPIRATION PNEUMONIA AND SUSPECTED FUNGAL PNEUMONIA POSITIVE BLOOD CULTURE WITH STAPH AUREUS GROWING OUT ON CULTURE RECURRENT DIABETES MELLITUS ELSIE VENTURA MD Aug 19, 2021 09:10
[2021-08-19] MEDS: SULFAMETHOXAZOLE/TRIMETHO SUSP 10 ML (BACTRIM) UDC PEG SCH ×2 (09:36→20:25)
[2021-08-19] MEDS: FAMOTIDINE 20 MG (PEPCID) TABLET PEG SCH (09:37)
[2021-08-19] MEDS: fluCOnazole (DIFLUCAN) 100 MG TAB PEG SCH (09:37)
[2021-08-19] MEDS: ENOXAPARIN 30 MG/0.3 ML (LOVENOX) SYR SC SCH (09:38)
[2021-08-19] MEDS: DICLOFENAC 1% GEL 100 GM (VOLTAREN) TUBE TOP SCH ×4 (09:38→20:26)
[2021-08-19] MEDS: NS IV 1000 ML 1,000 ML IV SCH (09:50)
--- NOTE | 2021-08-19 09:59 | Occupational Ther Daily Note ---
OT Current Status-Daily Note Subjective Pt sitting in recliner, alert with visitors and nrsg present. No c/o pain. Pt agrees to therapy. Mental Status/Objective Patient Orientation: Person, Place, Time, Situation Attachments: IV, Oxygen ADL-Treatment Therapy Code Descriptions/Definitions Functional [place] Measure: 0=Not Assessed/NA 4=Minimal Assistance 1=Total Assistance 5=Supervision or Setup 2=Maximal Assistance 6=Modified [place] 3=Moderate Assistance 7=Complete IndependenceSCALE: Activities may be completed with or without assistive devices. 3-Blohyhwdje-jfuffwq completes the activity by him/herself with no assistance from a helper. 5-Set-up or Clean-up Assistance-helper sets up or cleans up; patient completes activity. [place] assists only prior to or following the activity. 4-Supervision or Touching Assistance-helper provides verbal cues and/or touching/steadying and/or contact guard assistance as patient completes activity. Assistance may be provided throughout the activity or intermittently. 3-Partial/Moderate Assistance-helper does LESS THAN HALF the effort. [place] lifts, holds or supports trunk or limbs, but provides less than half the effort. 2-Substantial/Maximal Assistance-helper does MORE THAN HALF the effort. [place] lifts or holds trunk or limbs and provides more than half the effort. 6-Yteragjlk-uxvbbg does ALL the effort. Patient does none of the effort to complete the activity. Or, the assistance of 2 or more helpers is required for the patient to complete the activity. If activity was not attempted, code reason: 7-Patient Refused. 9-Not Applicable-not attempted and the patient did not perform the activity before the current illness, exacerbation or injury. 10-Not Attempted due to Environmental Limitations-(lack of equipment, weather restraints, etc.). 88-Not Attempted due to Medical Conditions or Safety Concerns. Other Treatment Pt declines ADLs stating she already completed them this morning. Pt agrees to engage in B UE exercises to strengthen UE and increase activity tolerance for daily functional tasks. Skilled instruction for correct technique required with pt demonstrating good return, VC and gestural cue given to initiate. Pt completed 10 reps x2 sets against gravity B tricep extensions, B shoulder abduction, B shoulder press, and horizontal shoulder abduction. After session, pt in recliner with 2 sister present. Call light/phone within reach and all needs met in room. OT Long-Term Goals Casting Cleaner Goals Time Frame: Aug 27, 2021 Oral Hygiene (QC): 5 Toileting Hygiene (QC): 4 Upper Body Dressing (QC): 4 Lower Body Dressing (QC): 4 1=Demonstrate adherence to instructed precautions during ADL tasks. 2=Patient will verbalize/demonstrate understanding of assistive devices/modifications for ADL. 3=Patient will improve strength/tolerance for activity to enable patient to perform ADL's. OT Education/Plan Problem List/Assessment Assessment: Decreased UE Strength, Impaired Coordination Discharge Recommendations Plan/Recommendations: Continue POC Treatment Plan/Plan of Care Patient would benefit from OT for education, treatment and training to promote independence in ADL's, mobility, safety and/or upper extremity function for ADL's. Plan of Care: ADL Retraining, Caregiver Training, Functional Mobility, Group Exercise/Act as Ind, UE Funct Exercise/Act Treatment Duration: Aug 27, 2021 Frequency: 5 times per week Estimated Hrs Per Day: .25 hour per day Rehab Potential: Good Time/GCodes Start Time: 09:42 Stop Time: 09:52 Total Time Billed (hr/min): 10 Billed Treatment Time 1 Visit- EX (10 min) CL BRO Aug 19, 2021 09:59
[2021-08-19 11:24] VITALS: BP 126/77
--- NOTE | 2021-08-19 11:28 | Physical Therapy Daily Note ---
PT Daily Note-Current Subjective Patient reports she is feeling better today and agrees to PT. Pain Numeric Pain Scale: 0-No Pain Location: No Pain Reported Mental Status Patient Orientation: Normal For Age Attachments: PEG Tube, IV Transfers SCALE: Activities may be completed with or without assistive devices. 9-Uiypapjbek-luibikm completes the activity by him/herself with no assistance from a helper. 5-Set-up or Clean-up Assistance-helper sets up or cleans up; patient completes activity. [place] assists only prior to or following the activity. 4-Supervision or Touching Assistance-helper provides verbal cues and/or touching/steadying and/or contact guard assistance as patient completes activity. Assistance may be provided throughout the activity or intermittently. 3-Partial/Moderate Assistance-helper does LESS THAN HALF the effort. [place] lifts, holds or supports trunk or limbs, but provides less than half the effort. 2-Substantial/Maximal Assistance-helper does MORE THAN HALF the effort. [place] lifts or holds trunk or limbs and provides more than half the effort. 9-Wcondgiud-duixtl does ALL the effort. Patient does none of the effort to complete the activity. Or, the assistance of 2 or more helpers is required for the patient to complete the activity. If activity was not attempted, code reason: 7-Patient Refused. 9-Not Applicable-not attempted and the patient did not perform the activity before the current illness, exacerbation or injury. 10-Not Attempted due to Environmental Limitations-(lack of equipment, weather restraints, etc.). 88-Not Attempted due to Medical Conditions or Safety Concerns. Sit to Stand (QC): 4 (SBA) Gait Training Does the Patient Walk?: Yes Distance: 200' Walk 10 feet (QC): 4 Walk 50 ft with 2 Turns(QC): 4 Walk 150 ft (QC): 4 Gait Assistive Device: FWW SBA with mobility with functional gait sequence Assessment Patient remains up in recliner with needs met. SBA required for safety. Continue to increase activity as tolerated by patient. PT Tier Truck Driver Goals Tier Truck Driver Goals PT Prison Goals Time Frame: Aug 27, 2021 Roll Left & Right (QC): 6 Sit to Lying (QC): 6 Lying-Sitting on Side/Bed(QC): 6 Sit to Stand (QC): 6 Chair/Qlx-hx-Yknjy Xfer(QC): 6 Toilet Transfer (QC): 6 Car Transfer (QC): 6 Does the Patient Walk: Yes Walk 10 feet (QC): 6 Walk 50ft with 2 Turns (QC): 6 Walk 150 ft (QC): 6 Walking 10ft on Uneven Surface: 6 Does the Pt use WC or Scooter?: No PT Plan Treatment/Plan Treatment Plan: Continue Plan of Care Treatment Plan: Bed Mobility, Functional Activity [place], Gait, Therapeutic Exercise, Transfers Treatment Duration: Aug 27, 2021 Frequency: 6 times per week Estimated Hrs Per Day: .25 hour per day Patient and/or Family Agrees t: Yes Time/GCodes Time In: 1035 Time Out: 1049 Total Billed Treatment Time: 14 Total Billed Treatment 1 visit FA 14 min SHELDON GORE PT Aug 19, 2021 11:28
[2021-08-19] MEDS: LOPERAMIDE SUSP 2 MG/15 ML (IMODIUM) UDC PO SCH (13:02)
[2021-08-19 16:00] VITALS: BP 120/67
[2021-08-19 19:45] VITALS: BP 116/67
[2021-08-20 00:13] VITALS: BP 120/78
[2021-08-20] MEDS: NS IV 1000 ML 1,000 ML IV SCH ×2 (01:09→14:53)
[2021-08-20] MEDS: RT-ALBUTEROL SULF 2.5 MG/3 ML PRE-MIX VIAL INH SCH ×4 (03:34→21:48)
[2021-08-20] MEDS: inSUlin ASPART (NovoLOG) 1 UNIT/0.01 ML (CHARGE PER UNIT) SC SCH ×4 (06:12→20:51)
[2021-08-20 06:34] LABS: POTASSIUM 4.3 MMOL/L (3.6-5.0)
[2021-08-20 06:40] LABS: PHOSPHORUS 3.3 MG/DL (2.3-4.7)
[2021-08-20] MEDS: KCL 20 MEQ TAB (K-DUR) PO SCH (06:41)
[2021-08-20] MEDS: POTASSIUM CL 10MEQ/50ML IVPB 50 ML IV SCH (06:41)
[2021-08-20] MEDS: LACTOBACILLUS ACIDOPHILUS (PROBIOTIC) CAPSULE PO SCH (06:41)
[2021-08-20 06:42] LABS: MAGNESIUM 1.8 MG/DL (1.6-2.4)
[2021-08-20] MEDS: MAGNESIUM 1 GM/100 ML IVPB 100 ML IV SCH (06:47)
[2021-08-20] MEDS: POTASSIUM BICARB 20 MEQ (EFFER-K) TABLET PEG SCH (06:48)
[2021-08-20 08:00] VITALS: BP 122/76
[2021-08-20] MEDS: fluCOnazole (DIFLUCAN) 100 MG TAB PEG SCH (09:34)
[2021-08-20] MEDS: SULFAMETHOXAZOLE/TRIMETHO SUSP 10 ML (BACTRIM) UDC PEG SCH ×2 (09:34→20:50)
[2021-08-20] MEDS: DICLOFENAC 1% GEL 100 GM (VOLTAREN) TUBE TOP SCH ×4 (09:34→20:51)
[2021-08-20] MEDS: ENOXAPARIN 30 MG/0.3 ML (LOVENOX) SYR SC SCH (09:34)
[2021-08-20] MEDS: FAMOTIDINE 20 MG (PEPCID) TABLET PEG SCH (09:34)
--- NOTE | 2021-08-20 10:40 | Progress Note ---
Subjective Subjective Date Seen by Provider: Aug 20, 2021 Time Seen by Provider: 09:00 PT REPORTS THAT SHE IS HAVING LOOSE STOOLS BUT THEY ARE A LITTLE BIT BETTER THAN YESTERDAY. PT REPORTS THAT SHE IS FEELING SLIGHTLY BETTER TODAY COMPARED TO YESTERDAY. STAFF REPORTS MORE RELIANCE ON ASSISTANCE WITH TRANSFERS DUE TO HER WEAKNESS. PT'S SISTER REPORTS THAT SHE CALLED TO [employer] TO COMPLAIN ABOUT HER DENIAL OF BENEFITS. Review of Systems General: No Chills, No Night Sweats; Fatigue HEENT: Sore Throat, Other (DRY MOUTH AND NOSE) Pulmonary: No Dyspnea; Cough Cardiovascular: No: Chest Pain Gastrointestinal: Abdominal Pain, Diarrhea (WORSENING); No: Nausea, Vomiting Musculoskeletal: neck pain (IMPROVED ON CURRENT AIR MATTRESS) Neurological: Weakness; No: Confusion Objective Exam Vital Signs Vital Signs Date Time Temp Pulse Resp B/P (MAP) Pulse Ox O2 Delivery O2 Flow Rate FiO2 08/20/21 08:13 99 Room Air 08/20/21 00:13 36.4 99 17 120/78 (92) 98 Room Air 08/19/21 20:35 Room Air 08/19/21 20:09 98 Room Air 08/19/21 19:45 36.7 97 24 116/67 (83) 100 Room Air 08/19/21 16:00 36.6 104 18 120/67 (84) 99 Room Air 08/19/21 15:45 100 100 21 08/19/21 14:57 100 Room Air 08/19/21 11:24 36.4 108 18 126/77 (93) 98 Room Air I & O 08/20/21 07:00 Intake Total 460 ml Output Total 200 ml Balance 260 ml General Appearance: No Apparent Distress, Cachetic, Other (PT BRUSHING TEETH THIS MORNING) Eyes: Bilateral Eye PERRL, Bilateral Eye EOMI HEENT: PERRL/EOMI Neck: Full Range of Motion Respiratory: Chest Non Tender, Decreased Breath Sounds (IN BASES) Cardiovascular: Regular Rate, Rhythm Gastrointestinal: Non Tender, Soft, Abnormal Bowel Sounds (HYPERACTIVE), Other (PEG tube in place) Back: Other (REDNESS ON MID THORACIC SPINE, REDNESS OF SACRAL TISSUE) Extremity: Normal Capillary Refill Neurologic/Psychiatric: Alert, Oriented x3, Normal Mood/Affect Skin: Normal Color, Warm/Dry, Other (PATCHES IN PLACE ON HER BACK AND SACRAL TISSUE) Lymphatic: No Adenopathy Results Lab Laboratory Tests 08/19/21 10:33: Glucometer 152H 08/19/21 16:26: Glucometer 181H 08/19/21 21:34: Glucometer 141H 08/20/21 05:48: Potassium Level 4.3, Phosphorus Level 3.3, Magnesium Level 1.8 08/20/21 06:08: Glucometer 132H Microbiology 08/20/21 C. difficile GDH Antigen & Toxins - Final, Complete 08/11/21 Urine Culture - Final, Complete NO GROWTH 08/11/21 Blood Culture - Final, Complete Staphylococcus aureus Assessment/Plan Assessment/Plan Admission Dx MULTIPLE SCLEROSIS RELAPSING REMITTING WITH CURRENT ACTIVE RELAPSE CACHEXIA WITH ESOPHAGEAL DYSMOTILITY AND ASPIRATION ASPIRATION PNEUMONIA AND SUSPECTED FUNGAL PNEUMONIA POSITIVE BLOOD CULTURE WITH STAPH AUREUS GROWING OUT ON CULTURE RECURRENT DIABETES MELLITUS Assessment and Plan MULTIPLE SCLEROSIS RELAPSING REMITTING WITH CURRENT ACTIVE RELAPSE CACHEXIA WITH ESOPHAGEAL DYSMOTILITY AND ASPIRATION ASPIRATION PNEUMONIA AND SUSPECTED FUNGAL PNEUMONIA POSITIVE BLOOD CULTURE WITH STAPH AUREUS GROWING OUT ON CULTURE RECURRENT DIABETES MELLITUS STAGE 1 PRESSURE ULCER ON SPINE AND SACRUM DIARRHEA MULTIPLE SCLEROSIS RELAPSING REMITTING WITH CURRENT ACTIVE RELAPSE - PT WAS ON STEROID THERAPY AN OUTPATIENT WITH TAPERING DOSE DUE TO HER RELAPSE - SUPPORTIVE CARE ONLY AT THIS TIME WITH TUBE FEEDS FOR NUTRITION SINCE PT CANNOT EAT SECONDARY TO SEVERE ESOPHAGEAL DYSMOTILITY - CONSULT TO DIETARY DUE TO DIARRHEA AND ELEVATED GLUCOSE FROM CURRENT TUBE FEEDS DIETARY REPORTS THAT SHE IS ON APPROPRIATE FEEDING REGIMEN 1.5KCAL GLUCERNA TUBE FEED FORMULA WITH 60ML FLUSH OF WATER POST FEEDING - PT WILL NEED TO GO TO A CORRECTION ON DISCHARGE SINCE IRENA NEEDS ASSISTANCE WITH FEEDINGS, CANNOT PERFORM HER OWN TUBE FEEDING, SHE IS WEAK WITH NEED FOR INCREASED NUTRITION AND THERAPY TO IMPROVE HER STRENGTH AND STABILITY - WE ARE CURRENTLY APPEALING HER INSURANCE COMPANY DENIAL OF HER BENEFITS FOR SKILLED THERAPY. CACHEXIA WITH ESOPHAGEAL DYSMOTILITY AND ASPIRATION - WILL CONTINUE WITH PHYSICAL THERAPY SINCE SHE IS SO WEAK AND PHYSICALLY DEBILITATED - CONTINUE WITH TUBE FEEDS, CONSULT WAS PLACED TO DIETARY - NO CHANGE IN CURRENT FEEDING - GLUCERNA 1.5KCAL - 1 CAN OF TUBE FEED GLUCERNA 4 TIMES PER DAY WITH 60ML OF WATER FLUSH AFTER FEEDING. ASPIRATION PNEUMONIA AND SUSPECTED FUNGAL PNEUMONIA - PT ON VANC, ROCEPHIN, AND STARTED ON DIFLUCAN IV - TRANSITIONED TO BACTRIM AND DIFLUCAN AT THIS TIME. - CONSULT TO DR. KIDO - HE IS GOING TO WAIT ON BRONCHOSCOPE AT THIS TIME. POSITIVE BLOOD CULTURE WITH STAPH AUREUS GROWING OUT ON CULTURE - ON IV ANTIBIOTICS - SEE ABOVE RECURRENT DIABETES MELLITUS - PT WAS GIVEN INSULIN - HAD SEVERE DROP IN GLUCOSE, PT RESTARTED ON METFORMIN. - HOWEVER WITH HER DIARRHEA - WILL HOLD METFORMIN AND USE SLIDING SCALE A DIARRHEA REPEAT CDIFF YESTERDAY - NEGATIVE, WE WILL INCREASE IMMODIUM, HOLD METFORMIN - ATTEMPTED PROBIOTIC, BUT IT CANNOT BE PLACED THROUGH HER PEG TUBE SUCCESSFULLY GI PROPHYLAXIS WITH PEPCID DVT PROPHYLAXIS WITH LOVENOX AND SCD'S I SPENT OVER AN HOUR TRYING TO TALK TO HER INSURANCE COMPANY FOR AN EXPEDITED APPEAL. I WAS TRANSFERRED TO THE WRONG DEPARTMENT ONCE, SO I CALLED BACK AND WAS PLACED ON HOLD AND THEN SENT TO THE "SURVEY ON CUSTOMER EXPERIENCE" AND NEVER TAKEN OFF OF HOLD AND THEN HUNG UP ON BY THE AUTOMATED SURVEY AFTER OVER 6 MINUTES ON HOLD, THEN CALLED BACK AGAIN AND HAD A 20 MINUTE PHONE CALL WHICH RESULTED IN THE CALL CENTER EMPLOYEE FINALLY REALIZING THAT THE EXPEDITED REQUEST HAD ALREADY BEEN MADE BY [facility] AND TOLD THAT I COULD NOT FILE ANOTHER APPEAL BECAUSE IT WOULD PUT THE FIRST APPEAL IN "LIMBO". WHEN I ASKED ABOUT A PHYSICIAN TO PHYSICIAN APPEAL, I WAS TOLD THAT IT WOULD DEPEND ON WHAT HAPPENED WITH THE EXPEDITED APPEAL TO IF I WOULD BE ABLE TO TALK TO ANOTHER PHYSICIAN TO TRY TO GET THE PATIENT THE MEDICAL SERVICES SHE NEEDS WHICH SHOULD BE PROVIDED BY HER INSURANCE COMPANY FOR STRENGTHENING AND NUTRITION SERVICES WELL NURSING SERVICES TO AIDE PT WITH SELF CARE AND ADMINISTRATION OF HER MEDICATIONS SHE SHE IS NOT SAFE TO DO SO AT HOME SHE CANNOT GIVE HERSELF TUBE FEEDS AND CANNOT DISPENSE HER OWN MEDICATION SAFELY DUE TO HER SEVERE DEBILITY AND INABILITY TO SAFELY PERFORM ADL'S AND IADL'S IN HER APARTMENT BY HERSELF. HOME HEALTH WILL NOT BE SUFFICIENT IRENA IS AT HOME ALONE ALL DAY AND HOME HEALTH WILL ONLY COME IN 1 TIME DAILY TO PERFORM THE FEEDING SERVICES NEEDED. IRENA ALSO NEEDS DIABETIC MONITORING WITH INSULIN ADMINISTRATION SINCE SHE IS NOT ABLE TO TOLERATE ORAL METFORMIN (DUE TO DIARRHEA) AND SHE CANNOT SAFELY SELF ADMINISTER INSULIN. Admission Dx MULTIPLE SCLEROSIS RELAPSING REMITTING WITH CURRENT ACTIVE RELAPSE CACHEXIA WITH ESOPHAGEAL DYSMOTILITY AND ASPIRATION ASPIRATION PNEUMONIA AND SUSPECTED FUNGAL PNEUMONIA POSITIVE BLOOD CULTURE WITH STAPH AUREUS GROWING OUT ON CULTURE RECURRENT DIABETES MELLITUS Clinical Quality Measures Admission Status Admission Dx MULTIPLE SCLEROSIS RELAPSING REMITTING WITH CURRENT ACTIVE RELAPSE CACHEXIA WITH ESOPHAGEAL DYSMOTILITY AND ASPIRATION ASPIRATION PNEUMONIA AND SUSPECTED FUNGAL PNEUMONIA POSITIVE BLOOD CULTURE WITH STAPH AUREUS GROWING OUT ON CULTURE RECURRENT DIABETES MELLITUS ELSIE VENTURA MD Aug 20, 2021 10:40
--- NOTE | 2021-08-20 11:28 | Occupational Ther Daily Note ---
OT Current Status-Daily Note Subjective Pt sitting in recliner, alert. 2 visitors present. No c/o pain, agrees to therapy. Mental Status/Objective Patient Orientation: Person, Place, Time, Situation Attachments: IV, Oxygen ADL-Treatment Therapy Code Descriptions/Definitions Functional [place] Measure: 0=Not Assessed/NA 4=Minimal Assistance 1=Total Assistance 5=Supervision or Setup 2=Maximal Assistance 6=Modified [place] 3=Moderate Assistance 7=Complete IndependenceSCALE: Activities may be completed with or without assistive devices. 0-Jbkxbfdeci-pclyhli completes the activity by him/herself with no assistance from a helper. 5-Set-up or Clean-up Assistance-helper sets up or cleans up; patient completes activity. [place] assists only prior to or following the activity. 4-Supervision or Touching Assistance-helper provides verbal cues and/or touching/steadying and/or contact guard assistance as patient completes activity. Assistance may be provided throughout the activity or intermittently. 3-Partial/Moderate Assistance-helper does LESS THAN HALF the effort. [place] lifts, holds or supports trunk or limbs, but provides less than half the effort. 2-Substantial/Maximal Assistance-helper does MORE THAN HALF the effort. [place] lifts or holds trunk or limbs and provides more than half the effort. 7-Htpoowkcd-hntbsj does ALL the effort. Patient does none of the effort to complete the activity. Or, the assistance of 2 or more helpers is required for the patient to complete the activity. If activity was not attempted, code reason: 7-Patient Refused. 9-Not Applicable-not attempted and the patient did not perform the activity before the current illness, exacerbation or injury. 10-Not Attempted due to Environmental Limitations-(lack of equipment, weather restraints, etc.). 88-Not Attempted due to Medical Conditions or Safety Concerns. Other Treatment Pt declines ADLs. Pt given light resistive theraband and HEP for use in room. Pt participated in skilled therapeutic exercises using light resistive theraband to increase B UE strength and activity tolerance for completion of daily tasks. Pt demonstrated fair return of skilled instruction with 10 reps x2 sets of B bicep curls, B tricep extensions, horizontal shoulder abduction, and 5 reps 1 set B shoulder abduction. Pt took recovery breaks in between each set of each exercise due to low activity tolerance. After session, pt in recliner with call light/phone within reach and all needs met in room. Education OT Patient Education: Home exercise program Teaching Recipient: Patient, Family Teaching Methods: Demonstration, Handout, Discussion Response to Teaching: Verbalize Understanding, Return Demonstration, Reinforcement Needed OT Living Specialist Goals Living Specialist Goals Time Frame: Aug 27, 2021 Oral Hygiene (QC): 5 Toileting Hygiene (QC): 4 Upper Body Dressing (QC): 4 Lower Body Dressing (QC): 4 1=Demonstrate adherence to instructed precautions during ADL tasks. 2=Patient will verbalize/demonstrate understanding of assistive devices/modifications for ADL. 3=Patient will improve strength/tolerance for activity to enable patient to perform ADL's. OT Education/Plan Problem List/Assessment Assessment: Decreased UE Strength Discharge Recommendations Plan/Recommendations: Continue POC Treatment Plan/Plan of Care Patient would benefit from OT for education, treatment and training to promote independence in ADL's, mobility, safety and/or upper extremity function for ADL's. Plan of Care: ADL Retraining, Caregiver Training, Functional Mobility, Group Exercise/Act as Ind, UE Funct Exercise/Act Treatment Duration: Aug 27, 2021 Frequency: 5 times per week Estimated Hrs Per Day: .25 hour per day Rehab Potential: Good Time/GCodes Start Time: 10:47 Stop Time: 10:57 Total Time Billed (hr/min): 10 Billed Treatment Time 1 Visit- EX (10 min) CL BRO Aug 20, 2021 11:28
--- NOTE | 2021-08-20 11:35 | Physical Therapy Daily Note ---
PT Daily Note-Current Subjective Patient reports she will be in the hospital through the weekend. Agrees to PT. Family present. Mental Status Patient Orientation: Normal For Age Transfers SCALE: Activities may be completed with or without assistive devices. 4-Smrmzwioaf-esgzpur completes the activity by him/herself with no assistance from a helper. 5-Set-up or Clean-up Assistance-helper sets up or cleans up; patient completes activity. [place] assists only prior to or following the activity. 4-Supervision or Touching Assistance-helper provides verbal cues and/or touching/steadying and/or contact guard assistance as patient completes activity. Assistance may be provided throughout the activity or intermittently. 3-Partial/Moderate Assistance-helper does LESS THAN HALF the effort. [place] lifts, holds or supports trunk or limbs, but provides less than half the effort. 2-Substantial/Maximal Assistance-helper does MORE THAN HALF the effort. [place] lifts or holds trunk or limbs and provides more than half the effort. 2-Tafwirvjk-moqiwn does ALL the effort. Patient does none of the effort to complete the activity. Or, the assistance of 2 or more helpers is required for the patient to complete the activity. If activity was not attempted, code reason: 7-Patient Refused. 9-Not Applicable-not attempted and the patient did not perform the activity before the current illness, exacerbation or injury. 10-Not Attempted due to Environmental Limitations-(lack of equipment, weather restraints, etc.). 88-Not Attempted due to Medical Conditions or Safety Concerns. Sit to Stand (QC): 4 Gait Training Does the Patient Walk?: Yes Distance: 200' Walk 10 feet (QC): 4 Walk 50 ft with 2 Turns(QC): 4 Walk 150 ft (QC): 4 Gait Assistive Device: FWW SBA to CGA Assessment Current Status: Excellent Progress PT Group Home Goals Group Home Goals PT Group Home Goals Time Frame: Aug 27, 2021 Roll Left & Right (QC): 6 Sit to Lying (QC): 6 Lying-Sitting on Side/Bed(QC): 6 Sit to Stand (QC): 6 Chair/Etg-gq-Zskty Xfer(QC): 6 Toilet Transfer (QC): 6 Car Transfer (QC): 6 Does the Patient Walk: Yes Walk 10 feet (QC): 6 Walk 50ft with 2 Turns (QC): 6 Walk 150 ft (QC): 6 Walking 10ft on Uneven Surface: 6 Does the Pt use WC or Scooter?: No PT Plan Treatment/Plan Treatment Plan: Continue Plan of Care Treatment Plan: Bed Mobility, Functional Activity Prince, Gait, Therapeutic Exercise, Transfers Treatment Duration: Aug 27, 2021 Frequency: 6 times per week Estimated Hrs Per Day: .25 hour per day Patient and/or Family Agrees t: Yes Time/GCodes Time In: 1110 Time Out: 1119 Total Billed Treatment Time: 9 Total Billed Treatment 1 visit FA 9 min SHELDON GORE PT Aug 20, 2021 11:35
[2021-08-20 11:44] LABS: HEMATOCRIT 29 % (35-52); HEMOGLOBIN 9.6 g/dL (11.5-16.0); MEAN CORPUSCULAR HEMOGLOBIN 30 pg (25-34); MEAN CORPUSCULAR HGB CONC 33 g/dL (32-36); MEAN CORPUSCULAR VOLUME 92 fL (80-99); MEAN PLATELET VOLUME 10.1 fL (9.0-12.2); PLATELET COUNT 211 10^3/uL (130-400); WHITE BLOOD COUNT 4.2 10^3/uL (4.3-11.0)
[2021-08-20 11:57] LABS: ALBUMIN 3.1 GM/DL (3.2-4.5); BILIRUBIN,TOTAL 0.4 MG/DL (0.1-1.0); CALCIUM 8.7 MG/DL (8.5-10.1); CREATININE SERUM 0.6 MG/DL (0.60-1.30); POTASSIUM 4.3 MMOL/L (3.6-5.0); TOTAL PROTEIN 5.2 GM/DL (6.4-8.2)
[2021-08-20] MEDS: LOPERAMIDE SUSP 2 MG/15 ML (IMODIUM) UDC PO SCH ×2 (12:28→20:50)
[2021-08-20 16:08] VITALS: BP 130/75
[2021-08-21] VITALS: BP 125/75
[2021-08-21] MEDS: RT-ALBUTEROL SULF 2.5 MG/3 ML PRE-MIX VIAL INH SCH ×4 (02:27→20:40)
[2021-08-21] MEDS: NS IV 1000 ML 1,000 ML IV SCH ×2 (03:32→17:05)
[2021-08-21] MEDS: inSUlin ASPART (NovoLOG) 1 UNIT/0.01 ML (CHARGE PER UNIT) SC SCH ×4 (05:58→20:21)
[2021-08-21] MEDS: KCL 20 MEQ TAB (K-DUR) PO SCH (06:00)
[2021-08-21] MEDS: POTASSIUM CL 10MEQ/50ML IVPB 50 ML IV SCH (06:00)
[2021-08-21] MEDS: POTASSIUM BICARB 20 MEQ (EFFER-K) TABLET PEG SCH (06:38)
[2021-08-21 06:39] LABS: POTASSIUM 4.2 MMOL/L (3.6-5.0)
[2021-08-21 06:40] LABS: CALCIUM 8.8 MG/DL (8.5-10.1)
[2021-08-21 06:45] LABS: CREATININE SERUM 0.57 MG/DL (0.60-1.30); PHOSPHORUS 3.5 MG/DL (2.3-4.7)
[2021-08-21 06:47] LABS: MAGNESIUM 1.7 MG/DL (1.6-2.4)
[2021-08-21] MEDS: MAGNESIUM 1 GM/100 ML IVPB 100 ML IV SCH ×3 (07:08→09:13)
[2021-08-21 07:39] VITALS: BP 133/84
[2021-08-21] MEDS: LOPERAMIDE SUSP 2 MG/15 ML (IMODIUM) UDC PO SCH ×2 (09:50→20:21)
[2021-08-21] MEDS: ENOXAPARIN 30 MG/0.3 ML (LOVENOX) SYR SC SCH (09:50)
[2021-08-21] MEDS: SULFAMETHOXAZOLE/TRIMETHO SUSP 10 ML (BACTRIM) UDC PEG SCH ×2 (09:50→20:21)
[2021-08-21] MEDS: FAMOTIDINE 20 MG (PEPCID) TABLET PEG SCH (09:50)
[2021-08-21] MEDS: fluCOnazole (DIFLUCAN) 100 MG TAB PEG SCH (09:50)
[2021-08-21] MEDS: DICLOFENAC 1% GEL 100 GM (VOLTAREN) TUBE TOP SCH ×4 (09:51→20:21)
--- NOTE | 2021-08-21 10:08 | Physical Therapy Daily Note ---
PT Daily Note-Current Subjective Patient agrees to PT. No c/o. Mental Status Patient Orientation: Normal For Age Attachments: Central Line Transfers SCALE: Activities may be completed with or without assistive devices. 2-Djymmyahfe-qkgqedg completes the activity by him/herself with no assistance from a helper. 5-Set-up or Clean-up Assistance-helper sets up or cleans up; patient completes activity. [place] assists only prior to or following the activity. 4-Supervision or Touching Assistance-helper provides verbal cues and/or touching/steadying and/or contact guard assistance as patient completes activity. Assistance may be provided throughout the activity or intermittently. 3-Partial/Moderate Assistance-helper does LESS THAN HALF the effort. [place] li fts, holds or supports trunk or limbs, but provides less than half the effort. 2-Substantial/Maximal Assistance-helper does MORE THAN HALF the effort. [place] lifts or holds trunk or limbs and provides more than half the effort. 2-Ojlkofwnc-tbyimu does ALL the effort. Patient does none of the effort to complete the activity. Or, the assistance of 2 or more helpers is required for the patient to complete the activity. If activity was not attempted, code reason: 7-Patient Refused. 9-Not Applicable-not attempted and the patient did not perform the activity before the current illness, exacerbation or injury. 10-Not Attempted due to Environmental Limitations-(lack of equipment, weather restraints, etc.). 88-Not Attempted due to Medical Conditions or Safety Concerns. Lying to Sitting/Side of Bed(Q: 6 Sit to Stand (QC): 4 Chair/Rhe-vp-Smqus Xfer(QC): 4 Gait Training Distance: 200' Walk 10 feet (QC): 4 Walk 50 ft with 2 Turns(QC): 4 Walk 150 ft (QC): 4 Gait Assistive Device: FWW slow, steady, safe and functional Assessment Current Status: Excellent Progress PT Prosthetic Dentist Goals Prosthetic Dentist Goals PT Prison Goals Time Frame: Aug 27, 2021 Roll Left & Right (QC): 6 Sit to Lying (QC): 6 Lying-Sitting on Side/Bed(QC): 6 Sit to Stand (QC): 6 Chair/Xxj-em-Yszpz Xfer(QC): 6 Toilet Transfer (QC): 6 Car Transfer (QC): 6 Does the Patient Walk: Yes Walk 10 feet (QC): 6 Walk 50ft with 2 Turns (QC): 6 Walk 150 ft (QC): 6 Walking 10ft on Uneven Surface: 6 Does the Pt use WC or Scooter?: No PT Plan Treatment/Plan Treatment Plan: Continue Plan of Care Treatment Plan: Bed Mobility, Functional Activity Prince, Gait, Therapeutic Exercise, Transfers Treatment Duration: Aug 27, 2021 Frequency: 6 times per week Estimated Hrs Per Day: .25 hour per day Patient and/or Family Agrees t: Yes Time/GCodes Time In: 924 Time Out: 935 Total Billed Treatment Time: 11 Total Billed Treatment 1 visit FA 11 min SHELDON GORE PT Aug 21, 2021 10:08
--- NOTE | 2021-08-21 12:02 | Progress Note ---
Subjective Date Seen by a Provider: Aug 21, 2021 Time Seen by a Provider: 11:57 Subjective/Events-last exam Fwup multiple sclerosis, esophageal dysmotility with tube feedings, aspiration pneumonia/fungal pneumonia, weakness, diarrhea, DMII with hyperglycemia on admit. Sitting up in chair. States diarrhea a little bit better. Still very weak. C/O polyuria. Objective Exam Vital Signs Date Time Temp Pulse Resp B/P (MAP) Pulse Ox O2 Delivery O2 Flow Rate FiO2 08/21/21 10:10 96 Room Air 0.00 08/21/21 08:50 Room Air 08/21/21 07:39 37.0 96 18 133/84 (100) 98 Room Air 08/21/21 02:27 94 Room Air 08/21/21 00:00 36.5 98 17 125/75 (92) 97 Room Air 08/20/21 21:48 94 Room Air 08/20/21 20:50 Room Air 08/20/21 16:08 36.2 105 18 130/75 (93) 98 Room Air 08/20/21 15:04 93 Room Air 0.00 I & O 08/21/21 06:59 Intake Total 1560 ml Output Total 600 ml Balance 960 ml Capillary Refill : Less Than 3 Seconds General Appearance: Mild Distress Respiratory: Crackles, Decreased Breath Sounds Cardiovascular: Regular Rate, Rhythm, Systolic Murmur Gastrointestinal: normal bowel sounds, non tender, soft, other (feeding tube in place) Extremity: Non Tender, No Calf Tenderness, No Pedal Edema Neurologic/Psychiatric: Alert, Oriented x3 Results Lab Laboratory Tests 08/20/21 15:40: Glucometer 134H 08/20/21 20:15: Glucometer 186H 08/21/21 05:41: Glucometer 158H 08/21/21 05:58: Sodium Level 135, Potassium Level 4.2, Chloride Level 105, Carbon Dioxide Level 21, Anion Gap 9, Blood Urea Nitrogen 12, Creatinine 0.57L, Estimat Glomerular Filtration Rate 104, BUN/Creatinine Ratio 21, Glucose Level 161H, Calcium Level 8.8, Phosphorus Level 3.5, Magnesium Level 1.7 08/21/21 10:22: Glucometer 196H Microbiology 08/20/21 C. difficile GDH Antigen & Toxins - Final, Complete 08/11/21 Urine Culture - Final, Complete NO GROWTH 08/11/21 Blood Culture - Final, Complete Staphylococcus aureus Assessment/Plan Assessment/Plan Assess & Plan/Chief Complaint 1. Multiple Sclerosis--appears in progressive state at this time with severe debility and weakness--doing PT/OT and awaiting SNF placement 2. Esophageal Dysmotility with feeding tube--tube feedings being adjusted 3. Aspiration/Fungal Pneumonia--on fluconazole, add IS 4. UTI--on Bactrim 5. Diarrhea-improving with tube feeding adjustments and immodium TONY PUENTE DO Aug 21, 2021 12:02
[2021-08-21 15:56] VITALS: BP 138/90
[2021-08-21 23:20] VITALS: BP 159/80
[2021-08-22] MEDS: RT-ALBUTEROL SULF 2.5 MG/3 ML PRE-MIX VIAL INH SCH ×2 (02:42→07:29)
[2021-08-22 04:10] VITALS: BP 134/80
[2021-08-22] MEDS: NS IV 1000 ML 1,000 ML IV SCH ×2 (05:25→17:24)
[2021-08-22] MEDS: inSUlin ASPART (NovoLOG) 1 UNIT/0.01 ML (CHARGE PER UNIT) SC SCH ×4 (05:29→21:09)
[2021-08-22] MEDS: POTASSIUM BICARB 20 MEQ (EFFER-K) TABLET PEG SCH (05:30)
[2021-08-22 07:35] LABS: CALCIUM 8.5 MG/DL (8.5-10.1); CREATININE SERUM 0.59 MG/DL (0.60-1.30); MAGNESIUM 1.8 MG/DL (1.6-2.4); PHOSPHORUS 3.1 MG/DL (2.3-4.7); POTASSIUM 4.5 MMOL/L (3.6-5.0)
[2021-08-22] MEDS: POTASSIUM CL 10MEQ/50ML IVPB 50 ML IV SCH (07:55)
[2021-08-22] MEDS: MAGNESIUM 1 GM/100 ML IVPB 100 ML IV SCH (07:55)
[2021-08-22 08:17] VITALS: BP 121/79
[2021-08-22] MEDS: ENOXAPARIN 30 MG/0.3 ML (LOVENOX) SYR SC SCH (09:51)
[2021-08-22] MEDS: KCL 20 MEQ TAB (K-DUR) PO SCH (09:52)
[2021-08-22] MEDS: FAMOTIDINE 20 MG (PEPCID) TABLET PEG SCH (09:53)
[2021-08-22] MEDS: LOPERAMIDE SUSP 2 MG/15 ML (IMODIUM) UDC PO SCH ×3 (09:53→20:19)
[2021-08-22] MEDS: fluCOnazole (DIFLUCAN) 100 MG TAB PEG SCH (09:53)
[2021-08-22] MEDS: SULFAMETHOXAZOLE/TRIMETHO SUSP 10 ML (BACTRIM) UDC PEG SCH ×2 (09:53→20:18)
[2021-08-22] MEDS: DICLOFENAC 1% GEL 100 GM (VOLTAREN) TUBE TOP SCH ×5 (09:54→21:10)
--- NOTE | 2021-08-22 11:10 | Progress Note ---
Subjective Date Seen by a Provider: Aug 22, 2021 Time Seen by a Provider: 11:07 Subjective/Events-last exam Fwup multiple sclerosis, esophageal dysmotility with tube feedings, aspiration pneumonia/fungal pneumonia, weakness, diarrhea, DMII with hyperglycemia on admit. Sitting up in chair. Still with diarrhea. Objective Exam Vital Signs Date Time Temp Pulse Resp B/P (MAP) Pulse Ox O2 Delivery O2 Flow Rate FiO2 08/22/21 08:17 36.5 98 22 121/79 (93) 99 Room Air 08/22/21 07:29 97 Room Air 08/22/21 04:10 36.4 99 18 134/80 (98) 98 Room Air 08/22/21 02:42 97 Room Air 08/21/21 23:20 36.3 100 16 159/80 (106) 98 Room Air 08/21/21 20:40 97 Room Air 08/21/21 20:20 Room Air 08/21/21 15:56 36.2 104 16 138/90 (106) 100 Room Air 08/21/21 15:04 97 Room Air I & O 08/22/21 07:00 Intake Total 3272 ml Output Total 1250 ml Balance 2022 ml Capillary Refill : Less Than 3 Seconds General Appearance: No Apparent Distress Neck: Supple Respiratory: Decreased Breath Sounds (in bases but no crackles today), Rhonci Cardiovascular: Regular Rate, Rhythm Gastrointestinal: normal bowel sounds, non tender, soft Extremity: Non Tender, No Calf Tenderness, No Pedal Edema Neurologic/Psychiatric: Alert, Oriented x3 Results Lab Laboratory Tests 08/21/21 19:08: Glucometer 157H 08/22/21 05:28: Glucometer 145H 08/22/21 06:47: Sodium Level 136, Potassium Level 4.5, Chloride Level 106, Carbon Dioxide Level 20L, Anion Gap 10, Blood Urea Nitrogen 11, Creatinine 0.59L, Estimat Glomerular Filtration Rate 100, BUN/Creatinine Ratio 19, Glucose Level 170H, Calcium Level 8.5, Phosphorus Level 3.1, Magnesium Level 1.8 Microbiology 08/20/21 C. difficile GDH Antigen & Toxins - Final, Complete 08/11/21 Urine Culture - Final, Complete NO GROWTH 08/11/21 Blood Culture - Final, Complete Staphylococcus aureus Assessment/Plan Assessment/Plan Assess & Plan/Chief Complaint 1. Multiple Sclerosis--appears in progressive state at this time with severe debility and weakness--doing PT/OT and awaiting SNF placement 2. Esophageal Dysmotility with feeding tube--tube feedings being adjusted 3. Aspiration/Fungal Pneumonia--on fluconazole, IS and acapella, repeat CXR in AM 4. UTI--on Bactrim 5. Diarrhea-increase immodium TONY PUENTE DO Aug 22, 2021 11:10
[2021-08-22 13:36] VITALS: BP 121/79
[2021-08-22 16:36] VITALS: BP 135/48
[2021-08-23 00:04] VITALS: BP 151/87
[2021-08-23 05:40] LABS: HEMATOCRIT 30 % (35-52); HEMOGLOBIN 9.8 g/dL (11.5-16.0); MEAN CORPUSCULAR HEMOGLOBIN 31 pg (25-34); MEAN CORPUSCULAR HGB CONC 33 g/dL (32-36); MEAN CORPUSCULAR VOLUME 93 fL (80-99); MEAN PLATELET VOLUME 9.8 fL (9.0-12.2); PLATELET COUNT 304 10^3/uL (130-400); WHITE BLOOD COUNT 6.5 10^3/uL (4.3-11.0)
[2021-08-23 05:59] LABS: POTASSIUM 4.5 MMOL/L (3.6-5.0)
[2021-08-23 06:00] LABS: CALCIUM 8.8 MG/DL (8.5-10.1)
[2021-08-23] MEDS: POTASSIUM CL 10MEQ/50ML IVPB 50 ML IV SCH (06:00)
[2021-08-23] MEDS: KCL 20 MEQ TAB (K-DUR) PO SCH (06:00)
[2021-08-23] MEDS: inSUlin ASPART (NovoLOG) 1 UNIT/0.01 ML (CHARGE PER UNIT) SC SCH ×2 (06:00→11:08)
[2021-08-23] MEDS: MAGNESIUM 1 GM/100 ML IVPB 100 ML IV SCH ×3 (06:00→09:07)
[2021-08-23] MEDS: POTASSIUM BICARB 20 MEQ (EFFER-K) TABLET PEG SCH (06:01)
[2021-08-23] MEDS: NS IV 1000 ML 1,000 ML IV SCH (06:03)
[2021-08-23 06:04] LABS: CREATININE SERUM 0.54 MG/DL (0.60-1.30)
[2021-08-23 06:06] LABS: MAGNESIUM 1.7 MG/DL (1.6-2.4)
[2021-08-23 07:19] VITALS: BP 136/76
--- NOTE | 2021-08-23 08:48 | Progress Note ---
Subjective Subjective PT REPORTS THAT SHE IS HAVING LOOSE STOOLS BUT THEY ARE ONLY 2 TIMES A DAY Review of Systems General: No Chills, No Night Sweats; Fatigue HEENT: Sore Throat, Other (DRY MOUTH AND NOSE) Pulmonary: No Dyspnea; Cough Cardiovascular: No: Chest Pain Gastrointestinal: Abdominal Pain, Diarrhea (WORSENING); No: Nausea, Vomiting Musculoskeletal: neck pain (IMPROVED ON CURRENT AIR MATTRESS) Neurological: Weakness; No: Confusion Objective Exam Vital Signs Vital Signs Date Time Temp Pulse Resp B/P (MAP) Pulse Ox O2 Delivery O2 Flow Rate FiO2 08/23/21 08:00 99 Room Air 08/23/21 07:19 36.4 87 22 136/76 (96) 99 Room Air 08/23/21 00:04 36.8 98 18 151/87 (108) 99 Room Air 08/22/21 20:10 Room Air 08/22/21 16:36 36.8 95 18 135/48 (77) 99 Room Air 08/22/21 13:36 36.5 98 99 I & O 08/23/21 06:59 Intake Total 3537 ml Output Total 200 ml Balance 3337 ml General Appearance: No Apparent Distress Eyes: Bilateral Eye PERRL, Bilateral Eye EOMI HEENT: PERRL/EOMI Neck: Supple Respiratory: Decreased Breath Sounds (in bases but no crackles today), Rhonci Cardiovascular: Regular Rate, Rhythm Gastrointestinal: Non Tender, Soft, Abnormal Bowel Sounds (HYPERACTIVE), Other (PEG tube in place) Back: Other (REDNESS ON MID THORACIC SPINE, REDNESS OF SACRAL TISSUE) Extremity: Non Tender, No Calf Tenderness, No Pedal Edema Neurologic/Psychiatric: Alert, Oriented x3 Skin: Normal Color, Warm/Dry, Other (PATCHES IN PLACE ON HER BACK AND SACRAL TISSUE) Lymphatic: No Adenopathy Results Lab Laboratory Tests 08/22/21 11:59: Glucometer 138H 08/22/21 16:35: Glucometer 156H 08/22/21 17:50: SARS-CoV-2 RNA (RT-PCR) Not Detected 08/22/21 20:56: Glucometer 196H 08/23/21 05:15: White Blood Count 6.5, Red Blood Count 3.19L, Hemoglobin 9.8L, Hematocrit 30L, Mean Corpuscular Volume 93, Mean Corpuscular Hemoglobin 31, Mean Corpuscular Hemoglobin Concent 33, Red Cell Distribution Width 16.3H, Platelet Count 304, Mean Platelet Volume 9.8, Sodium Level 135, Potassium Level 4.5, Chloride Level 107, Carbon Dioxide Level 21, Anion Gap 7, Blood Urea Nitrogen 9, Creatinine 0 .54L, Estimat Glomerular Filtration Rate 111, BUN/Creatinine Ratio 17, Glucose Level 140H, Calcium Level 8.8, Magnesium Level 1.7 Microbiology 08/20/21 C. difficile GDH Antigen & Toxins - Final, Complete 08/11/21 Urine Culture - Final, Complete NO GROWTH 08/11/21 Blood Culture - Final, Complete Staphylococcus aureus Assessment/Plan Assessment/Plan Admission Dx MULTIPLE SCLEROSIS RELAPSING REMITTING WITH CURRENT ACTIVE RELAPSE CACHEXIA WITH ESOPHAGEAL DYSMOTILITY AND ASPIRATION ASPIRATION PNEUMONIA AND SUSPECTED FUNGAL PNEUMONIA POSITIVE BLOOD CULTURE WITH STAPH AUREUS GROWING OUT ON CULTURE RECURRENT DIABETES MELLITUS Assessment and Plan MULTIPLE SCLEROSIS RELAPSING REMITTING WITH CURRENT ACTIVE RELAPSE CACHEXIA WITH ESOPHAGEAL DYSMOTILITY AND ASPIRATION ASPIRATION PNEUMONIA AND SUSPECTED FUNGAL PNEUMONIA POSITIVE BLOOD CULTURE WITH STAPH AUREUS GROWING OUT ON CULTURE RECURRENT DIABETES MELLITUS STAGE 1 PRESSURE ULCER ON SPINE AND SACRUM DIARRHEA MULTIPLE SCLEROSIS RELAPSING REMITTING WITH CURRENT ACTIVE RELAPSE - PT WAS ON STEROID THERAPY AN OUTPATIENT WITH TAPERING DOSE DUE TO HER RELAPSE - SUPPORTIVE CARE ONLY AT THIS TIME WITH TUBE FEEDS FOR NUTRITION SINCE PT CANNOT EAT SECONDARY TO SEVERE ESOPHAGEAL DYSMOTILITY - CONSULT TO DIETARY DUE TO DIARRHEA AND ELEVATED GLUCOSE FROM CURRENT TUBE FEEDS DIETARY REPORTS THAT SHE IS ON APPROPRIATE FEEDING REGIMEN 1.5KCAL GLUCERNA TUBE FEED FORMULA WITH 60ML FLUSH OF WATER POST FEEDING - PT WILL NEED TO GO TO A USP ON DISCHARGE SINCE IRENA NEEDS ASSISTANCE WITH FEEDINGS, CANNOT PERFORM HER OWN TUBE FEEDING, SHE IS WEAK WITH NEED FOR INCREASED NUTRITION AND THERAPY TO IMPROVE HER STRENGTH AND STABILITY - WE ARE CURRENTLY APPEALING HER INSURANCE COMPANY DENIAL OF HER BENEFITS FOR SKILLED THERAPY. CACHEXIA WITH ESOPHAGEAL DYSMOTILITY AND ASPIRATION - WILL CONTINUE WITH PHYSICAL THERAPY SINCE SHE IS SO WEAK AND PHYSICALLY DEBILITATED - CONTINUE WITH TUBE FEEDS, CONSULT WAS PLACED TO DIETARY - NO CHANGE IN CURRENT FEEDING - GLUCERNA 1.5KCAL - 1 CAN OF TUBE FEED GLUCERNA 4 TIMES PER DAY WITH 60ML OF WATER FLUSH AFTER FEEDING. ASPIRATION PNEUMONIA AND SUSPECTED FUNGAL PNEUMONIA - PT ON VANC, ROCEPHIN, AND STARTED ON DIFLUCAN IV - TRANSITIONED TO BACTRIM AND DIFLUCAN AT THIS TIME. - CONSULT TO DR. KIDO - HE IS GOING TO WAIT ON BRONCHOSCOPE AT THIS TIME. POSITIVE BLOOD CULTURE WITH STAPH AUREUS GROWING OUT ON CULTURE - ON IV ANTIBIOTICS - SEE ABOVE RECURRENT DIABETES MELLITUS - PT WAS GIVEN INSULIN - HAD SEVERE DROP IN GLUCOSE, PT RESTARTED ON METFORMIN. - HOWEVER WITH HER DIARRHEA - WILL HOLD METFORMIN AND USE SLIDING SCALE A DIARRHEA REPEAT CDIFF YESTERDAY - NEGATIVE, WE WILL INCREASE IMMODIUM, HOLD METFORMIN - ATTEMPTED PROBIOTIC, BUT IT CANNOT BE PLACED THROUGH HER PEG TUBE SUCCESSFULLY GI PROPHYLAXIS WITH PEPCID DVT PROPHYLAXIS WITH LOVENOX AND SCD'S I SPENT OVER AN HOUR TRYING TO TALK TO HER INSURANCE COMPANY FOR AN EXPEDITED APPEAL. I WAS TRANSFERRED TO THE WRONG DEPARTMENT ONCE, SO I CALLED BACK AND WAS PLACED ON HOLD AND THEN SENT TO THE "SURVEY ON CUSTOMER EXPERIENCE" AND NEVER TAKEN OFF OF HOLD AND THEN HUNG UP ON BY THE AUTOMATED SURVEY AFTER OVER 6 MINUTES ON HOLD, THEN CALLED BACK AGAIN AND HAD A 20 MINUTE PHONE CALL WHICH RESULTED IN THE CALL CENTER EMPLOYEE FINALLY REALIZING THAT THE EXPEDITED REQUEST HAD ALREADY BEEN MADE BY [facility] AND TOLD THAT I COULD NOT FILE ANOTHER APPEAL BECAUSE IT WOULD PUT THE FIRST APPEAL IN "LIMBO". WHEN I ASKED ABOUT A PHYSICIAN TO PHYSICIAN APPEAL, I WAS TOLD THAT IT WOULD DEPEND ON WHAT HAPPENED WITH THE EXPEDITED APPEAL TO IF I WOULD BE ABLE TO TALK TO ANOTHER PHYSICIAN TO TRY TO GET THE PATIENT THE MEDICAL SERVICES SHE NEEDS WHICH SHOULD BE PROVIDED BY HER INSURANCE COMPANY FOR STRENGTHENING AND NUTRITION SERVICES WELL NURSING SERVICES TO AIDE PT WITH SELF CARE AND ADMINISTRATION OF HER MEDICATIONS SHE SHE IS NOT SAFE TO DO SO AT HOME SHE CANNOT GIVE HERSELF TUBE FEEDS AND CANNOT DISPENSE HER OWN MEDICATION SAFELY DUE TO HER SEVERE DEBILITY AND INABILITY TO SAFELY PERFORM ADL'S AND IADL'S IN HER APARTMENT BY HERSELF. HOME HEALTH WILL NOT BE SUFFICIENT IRENA IS AT HOME ALONE ALL DAY AND HOME HEALTH WILL ONLY COME IN 1 TIME DAILY TO PERFORM THE FEEDING SERVICES NEEDED. IRENA ALSO NEEDS DIABETIC MONITORING WITH INSULIN ADMINISTRATION SINCE SHE IS NOT ABLE TO TOLERATE ORAL METFORMIN (DUE TO DIARRHEA) AND SHE CANNOT SAFELY SELF ADMINISTER INSULIN. Admission Dx MULTIPLE SCLEROSIS RELAPSING REMITTING WITH CURRENT ACTIVE RELAPSE CACHEXIA WITH ESOPHAGEAL DYSMOTILITY AND ASPIRATION ASPIRATION PNEUMONIA AND SUSPECTED FUNGAL PNEUMONIA POSITIVE BLOOD CULTURE WITH STAPH AUREUS GROWING OUT ON CULTURE RECURRENT DIABETES MELLITUS Clinical Quality Measures Admission Status Admission Dx MULTIPLE SCLEROSIS RELAPSING REMITTING WITH CURRENT ACTIVE RELAPSE CACHEXIA WITH ESOPHAGEAL DYSMOTILITY AND ASPIRATION ASPIRATION PNEUMONIA AND SUSPECTED FUNGAL PNEUMONIA POSITIVE BLOOD CULTURE WITH STAPH AUREUS GROWING OUT ON CULTURE RECURRENT DIABETES MELLITUS ELSIE VENTURA MD Aug 23, 2021 08:48
[2021-08-23] MEDS: SULFAMETHOXAZOLE/TRIMETHO SUSP 10 ML (BACTRIM) UDC PEG SCH (08:59)
[2021-08-23] MEDS: FAMOTIDINE 20 MG (PEPCID) TABLET PEG SCH (08:59)
[2021-08-23] MEDS: LOPERAMIDE SUSP 2 MG/15 ML (IMODIUM) UDC PO SCH (08:59)
[2021-08-23] MEDS: ENOXAPARIN 30 MG/0.3 ML (LOVENOX) SYR SC SCH (08:59)
[2021-08-23] MEDS: fluCOnazole (DIFLUCAN) 100 MG TAB PEG SCH (08:59)
[2021-08-23] MEDS: DICLOFENAC 1% GEL 100 GM (VOLTAREN) TUBE TOP SCH (08:59)
--- NOTE | 2021-08-23 08:59 | Diagnostic Imaging Report ---
INDICATION: Pneumonia, follow-up. TIME OF EXAM: 8:43 AM Correlation is made with prior chest from 08/16/2021. FINDINGS: Heart size is stable. Right hemidiaphragm remains mildly elevated. There appears to be some residual infiltrate or atelectasis in the right middle lobe best seen on lateral view. There is some density in the right midlung field as well. Left lung is clear. There is no evidence of effusion or pneumothorax. IMPRESSION: There are some residual densities in the right mid and lower lung field consistent with some residual infiltrates. Continued follow-up is recommended. Dictated by: Dictated on workstation # [id number]
--- NOTE | 2021-08-23 10:25 | Discharge Summary ---
Diagnosis/Chief Complaint Date of Admission Aug 14, 2021 at 08:45 Date of Discharge Discharge Summary Discharge Physical Examination Allergies: Coded Allergies: No Known Drug Allergies (Unverified , 03/30/21) Vitals & I&Os Vital Signs Date Time Temp Pulse Resp B/P (MAP) Pulse Ox O2 Delivery O2 Flow Rate FiO2 08/23/21 08:00 Room Air 08/23/21 08:00 99 08/23/21 07:19 36.4 87 22 136/76 (96) 08/22/21 08:00 0.00 08/19/21 15:45 21 Hospital Course Pending Labs Laboratory Tests 08/23/21 05:15: White Blood Count 6.5, Red Blood Count 3.19, Hemoglobin 9.8, Hematocrit 30, Mean Corpuscular Volume 93, Mean Corpuscular Hemoglobin 31, Mean Corpuscular Hemoglobin Concent 33, Red Cell Distribution Width 16.3, Platelet Count 304, Mean Platelet Volume 9.8, Sodium Level 135, Potassium Level 4.5, Chloride Level 107, Carbon Dioxide Level 21, Anion Gap 7, Blood Urea Nitrogen 9, Creatinine 0.54, Estimat Glomerular Filtration Rate 111, BUN/Creatinine Ratio 17, Glucose Level 140, Calcium Level 8.8, Magnesium Level 1.7 Discharge Instructions to patient/family Please see electronic discharge instructions given to patient. Discharge Medications Reviewed and agree with Discharge Medication list on patient's Discharge Instruction sheet ELSIE VENTURA MD Aug 23, 2021 10:25
[2021-08-23] MEDS ORDERED: DICL100G13 TOP (10:38)
[2021-08-23] MEDS ORDERED: GUAI-981 PEG (10:38)
[2021-08-23] MEDS ORDERED: IBUP-2558 PEG (10:38)
[2021-08-23] MEDS ORDERED: INSU100V16 SC (10:38)
[2021-08-23] MEDS ORDERED: LOPE1LIQ PO (10:38)
[2021-08-23] MEDS ORDERED: SALI45SP MM (10:38)
[2021-08-23] MEDS ORDERED: FLUC100T6 PEG (10:38)
[2021-08-23] MEDS ORDERED: POTA20TA28 PEG (10:38)
[2021-08-23] MEDS ORDERED: NYST1000 PO (10:38)
--- NOTE | 2021-08-23 10:41 | Discharge Inst-Skilled Nursing ---
Discharge Inst-Skilled NF Reconcile Patient Problems Problems Reviewed?: Yes Patient Instructions Patient Problems: MULTIPLE SCLEROSIS RELAPSING REMITTING WITH CURRENT ACTIVE RELAPSE CACHEXIA WITH ESOPHAGEAL DYSMOTILITY AND ASPIRATION ASPIRATION PNEUMONIA AND SUSPECTED FUNGAL PNEUMONIA POSITIVE BLOOD CULTURE WITH STAPH AUREUS GROWING OUT ON CULTURE RECURRENT DIABETES MELLITUS STAGE 1 PRESSURE ULCER ON SPINE AND SACRUM DIARRHEA Consult/Follow Up/Orders Follow Up Appt.: 1 wk [facility] Skilled NF Admit to: [facility] Certification (SNF) I certify that SNF services are required to be given on an inpatient basis because of the above named patient's need for halfway care on a continuing basis for the conditions(s) for which he/she was receiving inpatient hospital services prior to his/her transfer to the SNF. Fdc Facility Order: Nursing Services, Collection Systems Foreman-Evaluate & Treat, Physical Therapy-Evaluate & Treat, Speech Language-Evaluate & Treat, Other (peg tube care) Oxygen Delivery Method: Room Air Discharge Diet: Other Diet (npo only peg tube feeding) Daily Activity as Tolerated: Yes Resuscitation Status: Do Not Resuscitate New & Resume Previous Orders New & Resume Previous Orders fsbs ac and hs - follow sliding scale insulin protocol Elsie Paris Aug 23, 2021 10:39 ELSIE PARIS MD Aug 23, 2021 10:41
[2021-08-23 11:44] VITALS: BP 136/76
== END 2021-08-23 12:05 | DRG 177 ==
LOC: EDUNIT# 12:36 → ER 12:38 → 4TH 17:36 → OBSVTOIN 08-14 08:45
PROVIDERS: ADMIT Internal Medicine; ATTEND Family Medicine
DX: J69.0 Pneumonitis due to inhalation of food and vomit (principal); B37.1 Pulmonary candidiasis; E43 Unspecified severe protein-calorie malnutrition; R78.81 Bacteremia; Z68.1 Body mass index [BMI] 19.9 or less, adult; E87.0 Hyperosmolality and hypernatremia; E87.2 Acidosis; Z66 Do not resuscitate; Z20.822 Contact with and (suspected) exposure to COVID-19; N39.0 Urinary tract infection, site not specified; R64 Cachexia; G35 Multiple sclerosis; B95.61 Methicillin susceptible Staphylococcus aureus infection as the cause of diseases classified elsewhere; E86.0 Dehydration; E11.65 Type 2 diabetes mellitus with hyperglycemia; E11.649 Type 2 diabetes mellitus with hypoglycemia without coma; E87.6 Hypokalemia; E83.42 Hypomagnesemia; E83.39 Other disorders of phosphorus metabolism; L89.151 Pressure ulcer of sacral region, stage 1; K22.89 Other specified disease of esophagus; R13.10 Dysphagia, unspecified; G51.0 Bell's palsy; D64.9 Anemia, unspecified; R19.7 Diarrhea, unspecified; R32 Unspecified urinary incontinence; M19.91 Primary osteoarthritis, unspecified site; M06.9 Rheumatoid arthritis, unspecified; F41.9 Anxiety disorder, unspecified; H54.7 Unspecified visual loss; Z93.1 Gastrostomy status
CPT/HCPCS: 36415; 36600; 71045; 71046; 71250; 80048; 80053; 80202; 81000; 82728; 82805; 82947; 83036; 83540; 83550; 83605; 83735; 84100; 84132; 84145; 85007; 85025; 85027; 85610; 85730; 87040; 87077; 87088; 87186; 87324; 87449; 87635; 87636; 87804; 94640; 94664; 94760; 99291; G0378

== ENCOUNTER 2021-11-07 06:00 | Emergency (ER) | payer MEDICARE ==
[~2021-11-07 06:00] MED LIST changes: +CHOL400D7 PEG; +DICL100G13 TOP; +FAMO20TA5 PEG; +FLUC100T6 PEG; +GUAI-981 PEG; +IBUP-2558 PEG; +INSU100V16 SC; +IRON118L2 PEG; +LOPE1LIQ PO; +NYST1000 PO; +POTA20TA28 PEG; +SALI45SP MM; +VITAMIN D PO
[2021-11-07 06:26] LABS: BASOPHILS # (AUTO) 0.1 10^3/uL (0.0-0.1); BASOPHILS % (AUTO) 1 % (0-10); EOSINOPHILS # (AUTO) 0.1 10^3/uL (0.0-0.3); EOSINOPHILS % (AUTO) 2 % (0-10); HEMATOCRIT 36 % (35-52); HEMOGLOBIN 12.1 g/dL (11.5-16.0); LYMPHOCYTES # (AUTO) 1.1 10^3/uL (1.0-4.0); LYMPHOCYTES % (AUTO) 21 % (12-44); MEAN CORPUSCULAR HEMOGLOBIN 31 pg (25-34); MEAN CORPUSCULAR HGB CONC 34 g/dL (32-36); MEAN CORPUSCULAR VOLUME 90 fL (80-99); MEAN PLATELET VOLUME 11.3 fL (9.0-12.2); MONOCYTES # (AUTO) 0.7 10^3/uL (0.0-1.0); MONOCYTES % (AUTO) 13 % (0-12); NEUTROPHILS # (AUTO) 3.2 10^3/uL (1.8-7.8); NEUTROPHILS % (AUTO) 63 % (42-75); PLATELET COUNT 196 10^3/uL (130-400); WHITE BLOOD COUNT 5.1 10^3/uL (4.3-11.0)
[2021-11-07 06:32] LABS: ALBUMIN 3.9 GM/DL (3.2-4.5); CHLORIDE 98 MMOL/L (98-107); POTASSIUM 3.1 MMOL/L (3.6-5.0); SODIUM 139 MMOL/L (135-145)
[2021-11-07 06:33] LABS: CALCIUM 9.8 MG/DL (8.5-10.1)
[2021-11-07 06:35] LABS: GLUCOSE 119 MG/DL (70-105); TOTAL PROTEIN 7.5 GM/DL (6.4-8.2)
[2021-11-07 06:36] LABS: CARBON DIOXIDE 30 MMOL/L (21-32)
[2021-11-07 06:37] LABS: BILIRUBIN,TOTAL 0.7 MG/DL (0.1-1.0)
[2021-11-07 06:38] LABS: ALKALINE PHOSPHATASE 53 U/L (40-136)
[2021-11-07 06:39] LABS: CREATININE SERUM 0.63 MG/DL (0.60-1.30); GFR ESTIMATED 94
[2021-11-07 06:40] LABS: BUN/CREATININE RATIO 24
--- NOTE | 2021-11-07 06:40 | ED Respiratory ---
General Chief Complaint: Respiratory Problems Stated Complaint: SOA Nursing Triage Note: TO ED [facility]IA [facility] TO ROOM 5 FROM HOME WITH C/O SOA, PHLEGM IN THROAT UNABLE TO CLEAR. HX MS. Source: patient History of Present Illness Date Seen by Provider: Nov 07, 2021 Time Seen by Provider: 06:06 Initial Comments Patient to the ER by EMS from home with chief complaint that she is having some choking cessions feel short of breath. No fevers or chills nausea vomiting or sick contacts. She had Covid and influenza vaccines. She was recently put on hospice less than a week ago for her MS. She has a known thrush and is being treated with nystatin for about 4 5 days now. She has been on antibiotics recently. She is not having any dysuria or diarrhea. Daughter's concern is that she is having coughing choking episodes and they have used suction but there is nothing in the back of her throat just swollen irritated throat. Allergies and Home Medications Allergies Coded Allergies: No Known Drug Allergies (Unverified , 03/30/21) Patient Home Medication List Home Medication List Reviewed: Yes B1/B2/B3/B5/B6/Iron/Meth/Choln (Geritol Tonic) 118 Ml Liquid, 15 ML PEG HS, (Reported) Entered as Reported by: GAGE MEDINA on 08/11/212145 Cholecalciferol (Vitamin D3) (Vitamin D3) 10 Mcg/1 Ml Drops, 10 MCG PEG DAILY, (Reported) Entered as Reported by: KLARISSA YEN on 08/13/21 1117 Diclofenac Sodium (Diclofenac Sodium) 100 Gm Gel..gram., 0 GM TOP QID Prescribed by: ELSIE VENTURA on 08/23/21 1038 Famotidine (Famotidine) 20 Mg Tablet, 20 MG PEG BID, (Reported) Entered as Reported by: GAGE MEDINA on 08/11/21 214 Fluconazole (Fluconazole) 100 Mg Tablet, 100 MG PEG DAILY Prescribed by: ELSIE VENTURA on 08/23/21 1038 Guaifenesin (Robafen) 100 Mg/5 Ml Liquid, 15 ML PEG BID PRN for CONGESTION Prescribed by: ELSIE VENTURA on 08/23/21 1038 Ibuprofen (Ibuprofen) 100 Mg/5 Ml Oral.susp, 10 ML PEG Q8H PRN for PAIN-MILD (1- 4) Prescribed by: ELSIE VENTURA on 08/23/21 1038 Insulin Aspart (Novolog) 100 Unit/1 Ml Susp, 0 UNIT SC ACHS Prescribed by: ELSIE VENTURA on 08/23/21 1038 Loperamide HCl (Loperamide) 1 Mg/7.5 Ml Liquid, 1 MG PO TID Prescribed by: ELSIE VENTURA on 08/23/21 1038 Nystatin (Nystatin) 100,000 Unit/1 Ml Oral.susp, 100,000 UNIT PO TID Prescribed by: ELSIE VENTURA on 08/23/21 1038 Potassium Bicarbonate/Cit AC (Effer-K 20 Meq Tablet Eff) 20 Meq Tablet.eff, 40 MEQ PEG DAILY@0700 Prescribed by: ELSIE VENTURA on 08/23/21 1038 Saliva Stimulant Agents Comb.3 (Biotene Moisturizing Mouth) 1 Each [place], 0 EACH MM NEEDED PRN for DRY MOUTH Prescribed by: ELSIE VENTURA on 08/23/21 1038 Review of Systems Review of Systems Constitutional: No chills, No fever, No malaise; weakness EENTM: No ear discharge, No ear pain Respiratory: cough; No phlegm, No short of breath, No wheezing Cardiovascular: No edema, No Hx of Intervention, No palpitations Gastrointestinal: No abdominal pain, No nausea, No vomiting Genitourinary: No dysuria, No frequency Musculoskeletal: No back pain, No joint pain Skin: No pruritus, No rash Psychiatric/Neurological: Denies Headache, Denies Numbness All Other Systems Reviewed Negative Unless Noted: Yes Past Abnfese-Mqokkb-Vxuvun Hx Patient Social History Tobacco Use?: No Use of E-Cig and/or Vaping dev: No Substance use?: No Immunizations Up To Date Tetanus Booster (TDap): Unknown First/Initial COVID19 Vaccinat: [place] 2ND VACCINATION Second COVID19 Vaccination Ziggy: [place] 2ND VACCINATION Third COVID19 Vaccination Date: STATES 2ND VACCINATION COVID19 Vaccine Traveling Accountant: LEXUS Seasonal Allergies Seasonal Allergies: Yes Past Medical History Surgeries: No Respiratory: No Currently Using CPAP: No Currently Using BIPAP: No Cardiac: No Neurological: Yes Multiple Sclerosis Sexually Transmitted Disease: No HIV/AIDS: No Genitourinary: No Gastrointestinal: No Musculoskeletal: Yes Arthritis, Rheumatoid Arthritis Endocrine: No Diabetes, Non-Insulin dep HEENT: Yes (TROUBLE SWALLOWING) Loss of Vision: Denies Cancer: Yes Skin Did You Recieve Any Treatments: Yes What Type of Treatment Did You: Surgical Intervention Psychosocial: No Anxiety Integumentary: No Blood Disorders: No Family Medical History Hypertension Physical Exam Vital Signs - First Documented 11/07/21 06:01 Temp 36.1 Pulse 75 Resp 18 B/P (MAP) 143/86 (105) Pulse Ox 99 O2 Delivery Room Air Capillary Refill : Less Than 3 Seconds Height: '" Weight: lbs. oz. kg; 15.66 BMI Method: General Appearance: no apparent distress, cachetic Eyes: Bilateral Eye Normal Inspection, Bilateral Eye PERRL, Bilateral Eye EOMI HEENT: PERRL/EOMI, normal ENT inspection, TMs normal; No pharynx normal (White plaques on the tongue and retropharynx with erythema irritation but no visible obstruction or foreign body.) Neck: full range of motion, supple, normal inspection Respiratory: lungs clear, normal breath sounds, no respiratory distress, no accessory muscle use Cardiovascular: normal peripheral pulses, regular rate, rhythm Extremities: normal inspection, normal capillary refill Neurologic/Psychiatric: alert, normal mood/affect, oriented x 3 Skin: normal color, warm/dry Progress/Results/Core Measures Suspected Sepsis SIRS Temperature: Pulse: 75 Respiratory Rate: 18 Laboratory Tests 11/07/21 06:07: White Blood Count 5.1 Blood Pressure 143 /86 Mean: 105 Laboratory Tests 11/07/21 06:07: Creatinine 0.63, Platelet Count 196, Total Bilirubin 0.7 Results/Orders Lab Results Laboratory Tests Test 11/07/21 06:07 Range/Units White Blood Count 5.1 4.3-11.0 10^3/uL Red Blood Count 3.96 3.80-5.11 10^6/uL Hemoglobin 12.1 11.5-16.0 g/dL Hematocrit 36 35-52 % Mean Corpuscular Volume 90 80-99 fL Mean Corpuscular Hemoglobin 31 25-34 pg Mean Corpuscular Hemoglobin Concent 34 32-36 g/dL Red Cell Distribution Width 13.2 10.0-14.5 % Platelet Count 196 130-400 10^3/uL Mean Platelet Volume 11.3 9.0-12.2 fL Immature Granulocyte % (Auto) 0 % Neutrophils (%) (Auto) 63 42-75 % Lymphocytes (%) (Auto) 21 12-44 % Monocytes (%) (Auto) 13 H 0-12 % Eosinophils (%) (Auto) 2 0-10 % Basophils (%) (Auto) 1 0-10 % Neutrophils # (Auto) 3.2 1.8-7.8 10^3/uL Lymphocytes # (Auto) 1.1 1.0-4.0 10^3/uL Monocytes # (Auto) 0.7 0.0-1.0 10^3/uL Eosinophils # (Auto) 0.1 0.0-0.3 10^3/uL Basophils # (Auto) 0.1 0.0-0.1 10^3/uL Immature Granulocyte # (Auto) 0.0 0.0-0.1 10^3/uL Sodium Level 139 135-145 MMOL/L Potassium Level 3.1 L 3.6-5.0 MMOL/L Chloride Level 98 98-107 MMOL/L Carbon Dioxide Level 30 21-32 MMOL/L Anion Gap 11 5-14 MMOL/L Blood Urea Nitrogen 15 7-18 MG/DL Creatinine 0.63 0.60-1.30 MG/DL Estimat Glomerular Filtration Rate 94 BUN/Creatinine Ratio 24 Glucose Level 119 H 70-105 MG/DL Calcium Level 9.8 8.5-10.1 MG/DL Corrected Calcium 9.9 8.5-10.1 MG/DL Total Bilirubin 0.7 0.1-1.0 MG/DL Aspartate Amino Transf (AST/SGOT) 17 5-34 U/L Alanine Aminotransferase (ALT/SGPT) 14 0-55 U/L Alkaline Phosphatase 53 40-136 U/L Troponin I < 0.028 <0.028 NG/ML C-Reactive Protein High Sensitivity 0.20 0.00-0.50 MG/DL B-Type Natriuretic Peptide 78.3 <100.0 PG/ML Total Protein 7.5 6.4-8.2 GM/DL Albumin 3.9 3.2-4.5 GM/DL My Orders Orders - LISA CANALES Cbc With Automated Diff (11/07/21 06:17) Comprehensive Metabolic Panel (11/07/21 06:17) Hs C Reactive Protein (11/07/21 06:17) Ed Iv/Invasive Line Start (11/07/21 06:17) Troponin I Juan F (11/07/21 06:17) Bnp Juan F (11/07/21 06:17) Lidocaine 2% Viscous 15 Ml (Xylocaine Vi (11/07/21 07:15) Fluconazole Tablet (Ed Only) (Diflucan T (11/07/21 07:15) Medications Given in ED Current Medications Medications Dose Ordered Sig/Gabriella Route Start Time Stop Time Status Last Admin Dose Admin Fluconazole 300 mg ONCE ONCE PEG 11/07/21 07:15 11/07/21 07:16 DC 11/07/21 07:40 300 MG Lidocaine HCl 5 ml ONCE ONCE PO 11/07/21 07:15 11/07/21 07:16 DC 11/07/21 07:40 5 ML Vital Signs/I&O 11/07/21 11/07/21 06:01 06:04 Temp 36.1 Pulse 75 Resp 18 B/P (MAP) 143/86 (105) Pulse Ox 99 O2 Delivery Room Air Room Air Capillary Refill : Less Than 3 Seconds Blood Pressure Mean: 105 Progress Note #1: Time: 06:39 Progress Note Patient states she does not want a work-up for possible pneumonia, choking aspiration to include chest x-rays blood work nasal swabs or ABG. We did already placed on IV collected lab and swabs. After her daughter arrived we clarified that her problem is she is choking from the raw inflamed oropharyngeal thrush symptoms. She has not been on the nystatin long enough to solve her symptoms. We have suggested pain medicines which they did not particularly seem interested in. We have reached out to Rachel her hospice company and will try and coordinate treatment of symptoms with them. Progress Note #2: Time: 08:00 Progress Note Hospice nurse return phone call and we spoke to Osbaldo who states he saw her yesterday for intake. Encouraged him to reach out to her today to see how she is doing. We also encouraged him to reach out to the hospice doctor for recommendations based on her persistent symptoms. We gave her some viscous lidocaine which made a significant improvement and her feeling of choking and pain. She says she feels much more comfortable. We gave her 300 mg Diflucan through her PEG tube and will put her on 100 mg twice daily through her PEG tube for 2 weeks. Patient is more comfortable so we will let her follow-up with primary care and hospice outpatient or return for worsening symptoms. Her daughter noted she is been having some loose stools lately and st ates she has not been on antibiotics recently. Encourage them to try probiotics first followed by Imodium if her loose stools persist. She is had to have her throat stretched in the past and feels she cannot get anything swallowed down and has continuous mucus production from her esophagus. We encouraged her that if her symptoms do not improve after a course of treatment for thrush then she should consider going back to Dr. NORIEGA to see if a palliative esophageal dilatation would be in order. Departure Impression Primary Impression: Thrush of mouth and esophagus Disposition: HOME, SELF-CARE Condition: Improved Departure-Patient Inst. Decision time for Depature: 08:03 Referrals: ELSIE VENTURA MD (PCP/Family) Primary Care Physician JUAN R NORIEGA MD Patient Instructions: Thrush (DC) Add. Discharge Instructions: Continue using the nystatin as prescribed. For severe pain related to your throat you may use 5 cc of viscous lidocaine every 6 hours swish and swallow or spit. Diflucan 100 mg twice a day through the PEG tube for the next 2 weeks. I would expect to see improvement over the next 4 to 5 days and your throat pain and swelling. Reach out to hospice for help with managing symptoms. Return to the ER promptly for worsening symptoms or difficulty controlling your pain. Probiotics 1 capsule twice a day through the PEG tube indefinitely to help balance gut bacteria and reduce incidence of diarrhea. You may use Imodium 2 tablets for persistent diarrhea followed by 1 tablet every 4 hours afterwards but she still have loose, watery stools. All discharge instructions reviewed with patient and/or family. Voiced understanding. Scripts Fluconazole (Diflucan) 100 Mg Tablet 100 MG PO BID for 14 Days, #28 TAB 0 Refills Prov: LISA CANALES 11/07/21 L.acidoph & Paracasei,B.lactis (Probiotic) 1 Each Capsule 1 EACH PEG BID for 30 Days, #60 CAP 0 Refills Prov: LISA CANALES 11/07/21 [viscous Lidocaine] 2% No Conflict Check 5 ML MM Q6H PRN for PAIN-SEE DOSE INSTRUCTIONS for 3 Days, #60 ML 0 Refills Prov: LISA CANALES 11/07/21 Copy Copies To 1: ELSIE VENTURA MD; JUAN R NORIEGA MD, TITUS J Nov 07, 2021 06:40
[2021-11-07 06:42] LABS: ALANINE AMINOTRANSFERASE 14 U/L (0-55)
[2021-11-07] MEDS ORDERED: LIDOCAINE 2% VISCOUS 15 ML UDC PO ONE (07:15)
[2021-11-07] MEDS ORDERED: FLUCONAZOLE 150 MG TABLET (ED ONLY) PEG ONE (07:15)
[2021-11-07] MEDS ORDERED: viscous Lidocaine MM (08:08)
[2021-11-07] MEDS ORDERED: FLUC100T PO (08:08)
[2021-11-07] MEDS ORDERED: L.AC1CAP6 PEG (08:08)
[2021-11-07 08:20] VITALS: BP 139/94
== END 2021-11-07 08:19 | disposition home or self-care (01) ==
LOC: EDUNIT# 06:00 → ER 06:02
DX: B37.0 Candidal stomatitis (principal); B37.81 Candidal esophagitis; E11.9 Type 2 diabetes mellitus without complications
CPT/HCPCS: 36415; 80053; 83880; 84484; 85025; 86141

== ENCOUNTER 2021-11-10 19:22 | Emergency (ER) | payer MEDICARE ==
[~2021-11-10] VITALS: Ht 152.4 cm; Wt 43.1 kg
[~2021-11-10 19:22] MED LIST changes: +FLUC100T PO; +L.AC1CAP6 PEG; +viscous Lidocaine MM
--- NOTE | 2021-11-10 19:46 | ED General ---
General Chief Complaint: General Problems/Pain Stated Complaint: PAIN Source of Information: Patient, EMS, Family Exam Limitations: No Limitations History of Present Illness Date Seen by Provider: Nov 10, 2021 Time Seen by Provider: 19:20 Initial Comments Patient to the ER by EMS from home with chief complaint that she was on hospice for her end-stage MS, with difficulty swallowing. They have been trying unsuccessfully to treat her anxiety and difficulty swallowing with lorazepam and morphine. She was seen here few days ago and put on fluconazole in addition to nystatin for her thrush. For some reason they discontinued the fluconazole. Daughter states they were told just to give her the morphine and that would help her pass but she still having anxiety and pain regarding her swallowing and just has not passed yet. They rejected hospice and called 911 to come out to the ER. The patient states she is not having any pain. She does not want anything for pain. She just is having difficulty swallowing and it makes her anxious and when she falls asleep she is worried that she is going to choke so she does not sleep. She stopped using the viscous lidocaine as she did not feel it was helping. Allergies and Home Medications Allergies Coded Allergies: No Known Drug Allergies (Unverified , 03/30/21) Patient Home Medication List Home Medication List Reviewed: Yes B1/B2/B3/B5/B6/Iron/Meth/Choln (Geritol Tonic) 118 Ml Liquid, 15 ML PEG HS, (Reported) Entered as Reported by: GAGE MEDINA on 08/11/212145 Cholecalciferol (Vitamin D3) (Vitamin D3) 10 Mcg/1 Ml Drops, 10 MCG PEG DAILY, (Reported) Entered as Reported by: KLARISSA YEN on 08/13/21 1117 Diclofenac Sodium (Diclofenac Sodium) 100 Gm Gel..gram., 0 GM TOP QID Prescribed by: ELSIE PARIS on 08/23/21 1038 Famotidine (Famotidine) 20 Mg Tablet, 20 MG PEG BID, (Reported) Entered as Reported by: GAGE MEDINA on 08/11/21 214 Fluconazole (Fluconazole) 100 Mg Tablet, 100 MG PEG DAILY Prescribed by: ELSIE PARIS on 08/23/21 1038 Fluconazole (Diflucan) 100 Mg Tablet, 100 MG PO BID Prescribed by: LISA CANALES on 11/07/21 0808 Guaifenesin (Robafen) 100 Mg/5 Ml Liquid, 15 ML PEG BID PRN for CONGESTION Prescribed by: ELSIE PARIS on 08/23/21 1038 Ibuprofen (Ibuprofen) 100 Mg/5 Ml Oral.susp, 10 ML PEG Q8H PRN for PAIN-MILD (1- 4) Prescribed by: ELSIE PARIS on 08/23/21 1038 Insulin Aspart (Novolog) 100 Unit/1 Ml Susp, 0 UNIT SC ACHS Prescribed by: ELSIE PARIS on 08/23/21 1038 L.acidoph & Paracasei,B.lactis (Probiotic) 1 Each Capsule, 1 EACH PEG BID Prescribed by: LISA CANALES on 11/07/21 08 Loperamide HCl (Loperamide) 1 Mg/7.5 Ml Liquid, 1 MG PO TID Prescribed by: ELSIE PARIS on 08/23/21 1038 Nystatin (Nystatin) 100,000 Unit/1 Ml Oral.susp, 100,000 UNIT PO TID Prescribed by: ELSIE PARIS on 08/23/21 1038 Potassium Bicarbonate/Cit AC (Effer-K 20 Meq Tablet Eff) 20 Meq Tablet.eff, 40 MEQ PEG DAILY@0700 Prescribed by: ELSIE PARIS on 08/23/21 1038 Saliva Stimulant Agents Comb.3 (Biotene Moisturizing Mouth) 1 Each Esbon, 0 EACH MM NEEDED PRN for DRY MOUTH Prescribed by: ELSIE PARIS on 08/23/21 1038 [viscous Lidocaine] 2% , 5 ML MM Q6H PRN for PAIN-SEE DOSE INSTRUCTIONS Prescribed by: LISA CANALES on 11/07/21 0808 Review of Systems Review of Systems Constitutional: No chills, No diaphoresis EENTM: see HPI, mouth pain, mouth swelling, throat swelling (Choking sensation in the back of her throat. Difficulty swallowing.); No ear discharge, No ear pain Respiratory: No cough, No short of breath Genitourinary: No discharge, No dysuria : No Musculoskeletal: No back pain, No joint pain Skin: see HPI All Other Systems Reviewed Negative Unless Noted: Yes Past Rldszdv-[id number]-Mfkevo Hx Patient Social History Tobacco Use?: No Use of E-Cig and/or Vaping dev: No Immunizations Up To Date Tetanus Booster (TDap): Unknown First/Initial COVID19 Vaccinat: STATES 2ND VACCINATION Second COVID19 Vaccination Ziggy: STATES 2ND VACCINATION Third COVID19 Vaccination Date: STATES 2ND VACCINATION Seasonal Allergies Seasonal Allergies: Yes Past Medical History Surgeries: No Respiratory: No Currently Using CPAP: No Currently Using BIPAP: No Cardiac: No Neurological: Yes Multiple Sclerosis Sexually Transmitted Disease: No HIV/AIDS: No Genitourinary: No Gastrointestinal: No Musculoskeletal: Yes Arthritis, Rheumatoid Arthritis Endocrine: No Diabetes, Non-Insulin dep HEENT: Yes (TROUBLE SWALLOWING) Loss of Vision: Denies Cancer: Yes Skin Did You Recieve Any Treatments: Yes What Type of Treatment Did You: Surgical Intervention Psychosocial: No Anxiety Integumentary: No Blood Disorders: No Family Medical History Hypertension Physical Exam Vital Signs Vital Signs - First Documented Capillary Refill : Height, Weight, BMI Height: '" Weight: lbs. oz. kg; 15.66 BMI Method: General Appearance: Anxious, Cachetic Eyes: Bilateral Eye Normal Inspection, Bilateral Eye PERRL, Bilateral Eye EOMI HEENT: PERRL/EOMI, TMs Normal, Moist Mucous Membranes, Other (White tacky plaque on the tongue consistent with thrush) Neck: Full Range of Motion, Normal Inspection, Supple Respiratory: Lungs Clear, Normal Breath Sounds, No Accessory Muscle Use, No Respiratory Distress Cardiovascular: Regular Rate, Rhythm, No Edema, Normal Peripheral Pulses Gastrointestinal: Normal Bowel Sounds, Non Tender, Soft Extremity: Normal Capillary Refill, Normal Range of Motion, Non Tender Neurologic/Psychiatric: Alert, Oriented x3, No Motor/Sensory Deficits Skin: Normal Color, Warm/Dry Progress/Results/Core Measures Suspected Sepsis SIRS Temperature: Pulse: Respiratory Rate: Blood Pressure / Mean: Results/Orders Vital Signs/I&O 11/10/21 11/10/21 19:25 19:25 Temp 36.6 Pulse 78 Resp 26 B/P (MAP) 150/92 (111) Pulse Ox 97 O2 Delivery Nasal Cannula Nasal Cannula O2 Flow Rate 2.00 1.50 Capillary Refill : Progress Note #1: Time: 19:48 Progress Note offered pain and anxiety meds which the patient declined. Reinforced to her that it would be beneficial for her to complete Diflucan as she has a resistant thrush which is probably contributing to her complaint of difficulty swallowing and feeling like she is choking. Patient's thrush does appear to be perhaps some modicum better today than a few days ago when I saw her in the ER. Reached out to felicita Ramos and put a page out to the on-call nurse. We will gather some more history and try and come up with a plan for better palliative care. Progress Note #2: Time: 21:35 Progress Note When this provider went back in to reexamine the patient she is resting comfortably no longer having any swallowing or choking symptoms. Patient states she is very comfortable. We discussed with the family some different medications for throat spasms but it seems that the lorazepam and morphine given an 2 hours and a half prior to arrival are kicking in and now the patient looks comfortable. We explained to the patient as well as her family that they need to choose between her being comfortable but somnolent versus alert yet uncomfortable and that they can titrate that to whatever effect they desire but they unfortunately will have to accept that the patient is dying and the most comfort she has had so far has been in the state. Patient states her understanding. Family states their understanding. We did discuss that [facility] can do a respite care in the correction and Dr. Paris has offered to help work on that in the morning. They are okay with taking her home tonight and working on hospice respite in the correction tomorrow morning. They want to re- elect hospice. Discussed the case with Dr. Paris and she agrees with plan. Departure Impression Primary Impression: Hospice care Additional Impression: Choking sensation Disposition: 01 HOME, SELF-CARE Condition: Stable Departure-Patient Inst. Decision time for Depature: 21:42 Referrals: ELSIE PARIS MD (PCP/Family) Primary Care Physician Patient Instructions: Palliative Care Add. Discharge Instructions: Since it takes a couple hours for the morphine and lorazepam to kick and I would suggest giving it on a little bit more routine basis say every 4-6 hours after the last dose to prevent the effect from wearing off prematurely. Call Dr. Paris's office and/or [facility] in the morning to help arrange for a respite stay in a correction. All discharge instructions reviewed with patient and/or family. Voiced understanding. Copy Copies To 1: ELSIE PARIS MD, TITUS J Nov 10, 2021 19:46
[2021-11-10 22:20] VITALS: BP 147/87
== END 2021-11-10 22:20 | disposition home or self-care (01) ==
LOC: EDUNIT# 19:22 → ER 19:23
DX: R09.89 Other specified symptoms and signs involving the circulatory and respiratory systems (principal); F41.9 Anxiety disorder, unspecified; Z51.5 Encounter for palliative care
CPT/HCPCS: 99283